=== PATIENT | male | born 1945 | race Caucasian/White ===

== ENCOUNTER 2021-04-14 11:22 | Outpatient (REF) | payer MEDICARE, BC, SELFPAY ==
[2021-04-14 13:55] LABS: Prothrombin Time 35.4 SEC (9.9-13.0)
== END 2021-04-14 11:23 | disposition home or self-care (01) ==
LOC: HO.HMGCLR 11:22
PROVIDERS: Visit Provider Internal Medicine Cardiovascular Disease
DX: Z86.718 Personal history of other venous thrombosis and embolism (principal); Z79.01 Long term (current) use of anticoagulants
CPT/HCPCS: 36415; 85610

== ENCOUNTER 2021-05-21 10:05 | Outpatient (REF) | payer MEDICARE, BC, SELFPAY | END 2021-05-21 10:06 | disposition home or self-care (01) | LOC: HO.HMGCLR 10:05 | PROVIDERS: Visit Provider Internal Medicine Cardiovascular Disease | DX: Z86.718 Personal history of other venous thrombosis and embolism (principal); Z79.01 Long term (current) use of anticoagulants | CPT/HCPCS: 36415; 85610 ==

== ENCOUNTER 2021-07-02 11:38 | Outpatient (REF) | payer MEDICARE, BC, SELFPAY ==
[2021-07-02 14:12] LABS: INTERNATIONAL NORM RATIO 3.3 (0.9-1.1); Prothrombin Time 38.8 SEC (9.9-13.0)
== END 2021-07-02 11:39 | disposition home or self-care (01) ==
LOC: HO.HMGCLDS 11:38
PROVIDERS: Visit Provider Internal Medicine Cardiovascular Disease
DX: Z86.718 Personal history of other venous thrombosis and embolism (principal); Z79.01 Long term (current) use of anticoagulants
CPT/HCPCS: 36415; 85610

== ENCOUNTER 2021-08-13 08:28 | Outpatient (REF) | payer MEDICARE, BC, SELFPAY ==
[2021-08-13 11:33] LABS: INTERNATIONAL NORM RATIO 2.8 (0.9-1.1); Prothrombin Time 33.1 SEC (9.9-13.0)
== END 2021-08-13 08:29 | disposition home or self-care (01) ==
LOC: HO.HMGCLR 08:28
PROVIDERS: Visit Provider Internal Medicine Cardiovascular Disease
DX: Z86.718 Personal history of other venous thrombosis and embolism (principal); Z79.01 Long term (current) use of anticoagulants
CPT/HCPCS: 36415; 85610

== ENCOUNTER 2021-09-14 07:36 | Outpatient (REF) | payer MEDICARE, BC, SELFPAY ==
[2021-09-14 12:05] LABS: INTERNATIONAL NORM RATIO 3.3 (0.9-1.1); Prothrombin Time 38.1 SEC (9.9-13.0)
== END 2021-09-14 07:37 | disposition home or self-care (01) ==
LOC: HO.HMGCLR 07:36
PROVIDERS: Visit Provider Internal Medicine Cardiovascular Disease
DX: Z86.718 Personal history of other venous thrombosis and embolism (principal); Z79.01 Long term (current) use of anticoagulants
CPT/HCPCS: 36415; 85610

== ENCOUNTER 2021-09-17 08:38 | Outpatient (REF) | payer MEDICARE, BC, SELFPAY ==
[2021-09-17 11:34] LABS: INTERNATIONAL NORM RATIO 2.7 (0.9-1.1); Prothrombin Time 31.8 SEC (9.9-13.0)
== END 2021-09-17 08:39 | disposition home or self-care (01) ==
LOC: HO.HMGCLR 08:38
PROVIDERS: Visit Provider Internal Medicine Cardiovascular Disease
DX: Z86.718 Personal history of other venous thrombosis and embolism (principal); Z79.01 Long term (current) use of anticoagulants
CPT/HCPCS: 36415; 85610

== ENCOUNTER 2021-10-30 11:05 | Outpatient (REF) | payer MEDICARE, BC, SELFPAY ==
[2021-10-30 15:32] LABS: INTERNATIONAL NORM RATIO 3.4 (0.9-1.1); Prothrombin Time 39.4 SEC (9.9-13.0)
== END 2021-10-30 11:06 | disposition home or self-care (01) ==
LOC: HO.HMGCLDS 11:05
PROVIDERS: Visit Provider Internal Medicine Cardiovascular Disease
DX: Z86.718 Personal history of other venous thrombosis and embolism (principal); Z79.01 Long term (current) use of anticoagulants
CPT/HCPCS: 36415; 85610

== ENCOUNTER 2021-12-16 09:12 | Outpatient (REF) | payer MEDICARE, BC, SELFPAY ==
[2021-12-16 11:38] LABS: INTERNATIONAL NORM RATIO 2.2 (0.9-1.1); Prothrombin Time 25.6 SEC (10.0-13.1)
== END 2021-12-16 09:13 | disposition home or self-care (01) ==
LOC: HO.LABR 09:12
PROVIDERS: Visit Provider Internal Medicine Cardiovascular Disease
DX: Z86.718 Personal history of other venous thrombosis and embolism (principal); Z79.01 Long term (current) use of anticoagulants
CPT/HCPCS: 36415; 85610

== ENCOUNTER 2022-03-26 07:47 | Outpatient (REF) | payer MEDICARE, BC, SELFPAY ==
[2022-03-26 11:31] LABS: Appearance Urine Clear; Color Urine Yellow; Glucose Urine UA Negative (Negative); Leukocyte Esterase Urine Negative (Negative); Nitrite Urine Negative (Negative); PH 6.5 (5.0-9.0); Urine Blood Negative (Negative); Urine Ketones Negative (Negative); Urine Protein Negative (Neg-Trace)
[2022-03-26 11:32] LABS: MANUAL DIFF FLAG NO
[2022-03-26 11:46] LABS: Basophils Absolute Auto 0.1 X10*3/uL (0.0-0.2); Eosinophils Absolute Auto 0.5 X10*3/uL (0.0-0.4); Eosinophils Percent Auto 7.2 % (0-4); Imm Gran Abs Auto 0.02 X10*3/uL (0.00-0.03); Imm Gran Pct Auto 0.3 % (0.0-0.4); Lymphocytes Absolute Auto 2.2 X10*3/uL (1.2-4.9); Lymphocytes Percent Auto 30.7 % (20-40); Mean Corpuscular HGB Conc 31.9 g/dl (31.0-36.0); Mean Corpuscular Hemoglobin 29.7 pg (27.0-33.0); Mean Corpuscular Volume 93.1 fL (80.0-98.0); Mean Platelet Volume 11.2 fL (9.4-12.4); Monocytes Absolute Auto 0.6 X10*3/uL (0.1-1.2); Monocytes Percent Auto 8.4 % (2-11); Neutrophils Absolute Auto 3.8 x10*3/uL (2.0-8.3); Neutrophils Percent Auto 52.4 % (45-73); Platelet Count 289 X10*3/uL (160-400); Red Blood Count 5.05 X10*6/uL (4.60-5.80); Red Cell Distribution Width 13.1 % (11.0-16.0); White Blood Count 7.2 X10*3/uL (4.8-10.8)
[2022-03-26 11:54] LABS: Alanine Aminotransferase 18 U/L (0-40); Albumin Level 4.3 g/dL (3.5-5.0); Alkaline Phosphatase 74 U/L (39-117); Anion Gap 15 (12-20); Aspartate Amino Transferase 16 U/L (5-37); Bilirubin Total 0.6 mg/dL (0.0-1.0); Blood Urea Nitrogen 22 mg/dL (9-16); Calcium 9.2 mg/dL (8.4-10.2); Carbon Dioxide 27 mmol/L (22-29); Chloride 103 mmol/L (96-108); Cholesterol 157 mg/dL; Estimated Glomerular Filt Rate > 60; Glucose Fasting 99 mg/dL (60-99); HDL Cholesterol 43 mg/dL; LDL Cholesterol Calculated 93 mg/dl; Potassium 4.7 mmol/L (3.3-5.1); Sodium 140 mmol/L (135-145); Total Protein 7.1 g/dL (6.5-8.0); Triglycerides 108 mg/dL
[2022-03-26 11:59] LABS: INTERNATIONAL NORM RATIO 3.2 (0.9-1.1); Prothrombin Time 38.1 SEC (10.0-13.1)
[2022-03-26 12:20] LABS: Prostate Specific Antigen Scr 3.94 ng/mL (<0.05-4.0)
== END 2022-03-26 07:48 | disposition home or self-care (01) ==
LOC: HO.HMGCLDS 07:47
PROVIDERS: PCP Nurse Practitioner Family; Visit Provider Nurse Practitioner Family
DX: Z12.5 Encounter for screening for malignant neoplasm of prostate (principal); E78.5 Hyperlipidemia, unspecified; Z86.718 Personal history of other venous thrombosis and embolism
CPT/HCPCS: 36415; 80053; 80061; 81003; 84153; 84443; 85025; 85610

== ENCOUNTER → 2022-04-01 09:58 | Outpatient (BNVA) | payer MEDICARE, BC, SELFPAY | PROVIDERS: PCP Nurse Practitioner Family; Visit Provider Internal Medicine | DX: Z86.718 Personal history of other venous thrombosis and embolism (principal); Z51.81 Encounter for therapeutic drug level monitoring; Z79.01 Long term (current) use of anticoagulants | CPT/HCPCS: 85610 ==

== ENCOUNTER → 2022-04-12 10:29 | Outpatient (BNVA) | payer MEDICARE, BC, SELFPAY | PROVIDERS: PCP Nurse Practitioner Family; Visit Provider Internal Medicine | DX: Z86.718 Personal history of other venous thrombosis and embolism (principal); Z79.01 Long term (current) use of anticoagulants; Z51.81 Encounter for therapeutic drug level monitoring | CPT/HCPCS: 85610; 99211 ==

== ENCOUNTER → 2022-04-26 10:30 | Outpatient (BNVA) | payer MEDICARE, BC, SELFPAY | PROVIDERS: PCP Nurse Practitioner Family; Visit Provider Internal Medicine | DX: Z86.718 Personal history of other venous thrombosis and embolism (principal); Z79.01 Long term (current) use of anticoagulants; Z51.81 Encounter for therapeutic drug level monitoring | CPT/HCPCS: 85610; 99211 ==

== ENCOUNTER → 2022-05-24 10:23 | Outpatient (BNVA) | payer MEDICARE, BC, SELFPAY | PROVIDERS: PCP Nurse Practitioner Family; Visit Provider Internal Medicine | DX: Z86.718 Personal history of other venous thrombosis and embolism (principal); Z79.01 Long term (current) use of anticoagulants; Z51.81 Encounter for therapeutic drug level monitoring | CPT/HCPCS: 85610; 99211 ==

== ENCOUNTER → 2022-06-07 10:20 | Outpatient (BNVA) | payer MEDICARE, BC, SELFPAY | PROVIDERS: PCP Nurse Practitioner Family; Visit Provider Internal Medicine | DX: Z86.718 Personal history of other venous thrombosis and embolism (principal); Z79.01 Long term (current) use of anticoagulants; Z51.81 Encounter for therapeutic drug level monitoring | CPT/HCPCS: 85610; 99211 ==

== ENCOUNTER → 2022-06-28 10:34 | Outpatient (BNVA) | payer MEDICARE, BC, SELFPAY | PROVIDERS: PCP Nurse Practitioner Family; Visit Provider Internal Medicine | DX: Z86.718 Personal history of other venous thrombosis and embolism (principal); Z79.01 Long term (current) use of anticoagulants; Z51.81 Encounter for therapeutic drug level monitoring | CPT/HCPCS: 85610; 99211 ==

== ENCOUNTER → 2022-07-21 10:20 | Outpatient (BNVA) | payer MEDICARE, BC, SELFPAY | PROVIDERS: PCP Nurse Practitioner Family; Visit Provider Internal Medicine | DX: Z86.718 Personal history of other venous thrombosis and embolism (principal); Z79.01 Long term (current) use of anticoagulants; Z51.81 Encounter for therapeutic drug level monitoring | CPT/HCPCS: 85610; 99211 ==

== ENCOUNTER → 2022-07-30 10:34 | Outpatient (BNVA) | payer MEDICARE, BC, SELFPAY | PROVIDERS: PCP Nurse Practitioner Family; Visit Provider Nurse Practitioner Family | DX: C61 Malignant neoplasm of prostate (principal); R97.21 Rising PSA following treatment for malignant neoplasm of prostate; Z90.79 Acquired absence of other genital organ(s); Z92.3 Personal history of irradiation; Z79.01 Long term (current) use of anticoagulants | CPT/HCPCS: 99212 ==

== ENCOUNTER → 2022-08-18 10:13 | Outpatient (BNVA) | payer MEDICARE, BC, SELFPAY | PROVIDERS: PCP Nurse Practitioner Family; Visit Provider Internal Medicine | DX: Z86.718 Personal history of other venous thrombosis and embolism (principal); Z79.01 Long term (current) use of anticoagulants; Z51.81 Encounter for therapeutic drug level monitoring | CPT/HCPCS: 85610; 99211 ==

== ENCOUNTER 2022-08-20 09:28 | Outpatient (REF) | payer MEDICARE, BC, SELFPAY ==
--- NOTE | ~2022-08-20 | XR_ITS ---
EXAMINATION: XR CHEST CLINICAL INFORMATION: Difficulty breathing COMPARISON: None available. TECHNIQUE: 2 views of the chest were obtained. FINDINGS: There is marked elevation of the left hemidiaphragm. There are dilated loops of bowel, probably colon seen under the left hemidiaphragm with possible air-fluid levels . There is shift of the central mediastinal structures to the right. There is linear scarring at the left lung apex. The right lung is clear. There is a small left pleural effusion. There is no right pleural effusion. There is no pneumothorax. There are degenerative changes of the spine. There is a left shoulder replacement. XR/XR chest 2V IMPRESSION: Abnormal chest x-ray. Marked elevation of the left hemidiaphragm and shift the central mediastinal structures to the right Differential would include eventration of the left hemidiaphragm and diaphragmatic hernia. Dilated loops of large bowel under the left hemidiaphragm with air-fluid levels. Large bowel ileus and obstruction should be considered. Small left pleural effusion. Scarring or atelectasis at the left lung apex.
[2022-08-20 11:30] LABS: MANUAL DIFF FLAG NO
[2022-08-20 11:52] LABS: Basophils Absolute Auto 0.1 X10*3/uL (0.0-0.2); Eosinophils Absolute Auto 0.3 X10*3/uL (0.0-0.4); Eosinophils Percent Auto 5.5 % (0-4); Hematocrit 45.6 % (42.0-52.0); Hemoglobin 14.9 g/dl (14.0-18.0); Imm Gran Abs Auto 0.02 X10*3/uL (0.00-0.03); Imm Gran Pct Auto 0.3 % (0.0-0.4); Lymphocytes Absolute Auto 1.5 X10*3/uL (1.2-4.9); Lymphocytes Percent Auto 25.4 % (20-40); Mean Corpuscular HGB Conc 32.7 g/dl (31.0-36.0); Mean Corpuscular Hemoglobin 30.1 pg (27.0-33.0); Mean Corpuscular Volume 92.1 fL (80.0-98.0); Monocytes Absolute Auto 0.5 X10*3/uL (0.1-1.2); Monocytes Percent Auto 8.3 % (2-11); Neutrophils Absolute Auto 3.6 x10*3/uL (2.0-8.3); Neutrophils Percent Auto 59.5 % (45-73); Platelet Count 269 X10*3/uL (160-400); Red Blood Count 4.95 X10*6/uL (4.60-5.80); Red Cell Distribution Width 12.8 % (11.0-16.0)
[2022-08-20 11:53] LABS: Appearance Urine Clear; Color Urine Yellow; Glucose Urine UA Negative (Negative); Leukocyte Esterase Urine Negative (Negative); Nitrite Urine Negative (Negative); Specific Gravity - Urine 1.015 (1.005-1.025); Urine Blood Negative (Negative); Urine Ketones Negative (Negative); Urine Protein Negative (Neg-Trace)
[2022-08-20 12:22] LABS: Alanine Aminotransferase 20 U/L (0-40); Albumin Level 4.1 g/dL (3.5-5.0); Alkaline Phosphatase 73 U/L (39-117); Anion Gap 9 (12-20); Aspartate Amino Transferase 20 U/L (5-37); Bilirubin Total 0.8 mg/dL (0.0-1.0); Blood Urea Nitrogen 18 mg/dL (9-16); Calcium 8.9 mg/dL (8.4-10.2); Carbon Dioxide 29 mmol/L (22-29); Chloride 106 mmol/L (96-108); Estimated Glomerular Filt Rate > 60; Glucose Fasting 104 mg/dL (60-99); Potassium 4.2 mmol/L (3.3-5.1); Sodium 140 mmol/L (135-145); Total Protein 6.7 g/dL (6.5-8.0)
[2022-08-20 12:40] LABS: TSH reflex Free T4 2.31 uIU/mL (0.32-4.0)
== END 2022-08-20 09:29 | disposition home or self-care (01) ==
LOC: HO.HMGCX 09:28
PROVIDERS: PCP Nurse Practitioner Family; Visit Provider Nurse Practitioner Family
DX: Z13.89 Encounter for screening for other disorder (principal)
CPT/HCPCS: 36415; 71046; 80053; 81003; 84443; 85025

== ENCOUNTER 2022-08-20 14:43 | Emergency (ER) | payer MEDICARE, BC, SELFPAY ==
--- NOTE | ~2022-08-20 | CT_ITS ---
EXAMINATION: CT ABDOMEN AND PELVIS WITH CONTRAST CLINICAL INFORMATION: Concern for bowel obstruction on chest x-ray COMPARISON: Chest x-ray from earlier the same day TECHNIQUE: Multidetector volumetric images were obtained from the superior aspect of the liver through the pubic symphysis following administration 85 mL of Omnipaque 350 intravenous contrast. Sagittal and coronal reformatted images were obtained on the technologist's workstation. Oral contrast: Yes This CT examination was performed using dose optimization techniques as appropriate, variously including the following: *Automated exposure control *Adjustment of mA and/or kV according to patient size (this includes techniques or standardized protocols for targeted exams where dose is matched to indication/reason for exam; i.e. extremities or head) *Use of iterative reconstruction technique DLP: 657 mGy-cm FINDINGS: LUNG BASES: Subsegmental atelectasis at the left lung base. Marked elevation of the left hemidiaphragm with stomach, tail of pancreas and dilated stool-filled hepatic flexure in the left chest. There is shift of the central mediastinal structures to the right. Coronary artery and aortic valve calcification. LIVER, GALLBLADDER, AND BILIARY TREE: The liver is normal in size, shape, and attenuation. Small low-attenuation liver lesions probably representing cysts. Largest measures 1 cm in the dome of the liver. No other focal hepatic lesion or biliary ductal dilatation is present. Probable tiny gallstones. The gallbladder is otherwise normal. PANCREAS: Unremarkable. SPLEEN: Unremarkable. ADRENAL GLANDS: 1 cm left adrenal nodule. Hounsfield units following IV contrast measure 46. This is indeterminate. Normal right adrenal gland. KIDNEYS AND URETERS: The kidneys are normal in size, shape, and attenuation. Small nonobstructing stone in the upper pole of the left kidney. Probable bilateral peripelvic cysts. No hydronephrosis, hydroureter.. BLADDER: Abnormal slightly high attenuation soft tissue at the left base of the bladder near the UV J region. This area measures 1.3 x 1.8 cm. Appearance is worrisome for possible mass. GASTROINTESTINAL TRACT: There is stool throughout the colon suggestive of constipation. There is a marked eventration or elevation of the left hemidiaphragm with stomach and splenic flexure located in the left chest. This displaces the central mediastinal structures to the right. There are postsurgical changes of the proximal left colon. There is severe constipation. The distal transverse colon and splenic flexure are very dilated. There is caliber change of the colon in this region questionable for a stricture.. Small bowel is unremarkable. The appendix is normal. ABDOMINAL WALL: No significant hernia is appreciated. LYMPH NODES: Normal. VASCULAR: Atherosclerotic disease. No aneurysm. PELVIC VISCERA: Not seen. Question OSSEOUS STRUCTURES: Degenerative changes of the spine and mild scoliosis. CT/CT abdomen pelvis w IV con IMPRESSION: Markedly elevated left hemidiaphragm or eventration with stomach, tail of pancreas and splenic flexure in the left chest and deviation of the central mediastinal structures to the right. Constipation. Very dilated distal transverse colon and splenic flexure. Postsurgical changes to the proximal left colon. There is caliber change seen adjacent to the postsurgical changes questionable for a stricture. Abnormal wall thickening at the left base of the bladder question bladder mass. The prostate gland may have been removed. Small left renal stone. 1 cm indeterminate left adrenal nodule. If there is known history of malignancy, imaging follow-up for further characterization with dedicated adrenal CT or MRI with and without contrast would be recommended. If there is no history of known malignancy, no imaging follow-up would be recommended. Probable tiny gallstones. Small liver and bilateral renal cysts. No imaging follow-up recommended. Fleischner guidelines were followed.
--- NOTE | 2022-08-20 14:49 | ED_ITS ---
HPI - General Adult General Chief complaint: Recheck/Abnormal Lab/Rx <HECTOR Mitchell - Last Filed: 08/20/22 16:29> Stated complaint: quest bowel obstruction <HECTOR Mitchell - Last Filed: 08/20/22 16:29> Time Seen by Provider: 08/20/22 16:04 <HECTOR Mitchell - Last Filed: 08/20/22 16:29> Source: patient, family, RN notes reviewed and old records reviewed <Partha Flores - Last Filed: 08/20/22 16:56> Mode of arrival: ambulatory <Partha Flores - Last Filed: 08/20/22 16:56> Limitations: no limitations <Partha Mccormick Last Filed: 08/20/22 16:56> History of Present Illness HPI narrative: 77-year-old male with past medical history significant for prostate cancer, coronary artery disease, volvulus status post partial colectomy, dyslipidemia who presents for evaluation of an abnormal chest x-ray. Patient reports that he had a six-month follow-up visit 2 days ago with his primary doctor. The patient states that his primary doctor ascertain the patient had decreased breath sounds on the left. The patient reports that he has a history of ?increased intrathoracic pressure and my heart and lungs are pushed a little bit to the right side. He is unsure if this is anything to do with the primary doctor's physical exam findings The patient denies any fevers, chills, cough, shortness of breath or chest pain He was sent for a chest x-ray early this morning was told to come to the hospital for ?a possible volvulus or ileus. The patient denies any abdominal pain nausea vomiting, diarrhea, constipation. His last normal bowel movement was yesterday Patient reports that he had a large intestine volvulus 25 years ago leading to a partial colectomy. <Partha Mccormick Last Filed: 08/20/22 16:56> Related Data Home medications: Home Medications Medication Instructions Recorded Confirmed losartan 25 mg tablet 25 mg PO DAILY 03/25/22 06/28/22 simvastatin 40 mg tablet 40 mg PO DAILY 03/25/22 06/28/22 warfarin 5 mg tablet 5 mg PO DAILY 03/25/22 08/18/22 <HECTOR Mitchell - Last Filed: 08/20/22 16:29> Allergies/adverse reactions: Allergies Allergy/AdvReac Type Severity Reaction Status Date / Time ranitidine [From Zantac] Allergy Mild Rash Verified 08/18/22 11:34 <HECTOR Mitchell - Last Filed: 08/20/22 16:29> Review of Systems Constitutional: Constitutional: Reports as per HPI, Denies chills, Denies fatigue, Denies fever(s) and Denies headache(s) <Partha Flores - Last Filed: 08/20/22 16:56> ENT: Denies headache(s) <Partha Flores - Last Filed: 08/20/22 16:56> Cardiovascular: Cardiovascular: Denies chest pain and Denies dyspnea <Partha Flores - Last Filed: 08/20/22 16:56> Respiratory: Respiratory: Denies cough and Denies dyspnea <Partha Floers - Last Filed: 08/20/22 16:56> Gastrointestinal: Gastrointestinal: Denies abdominal pain, Denies constipation and Denies vomiting <Partha Flores - Last Filed: 08/20/22 16:56> Genitourinary: Genitourinary: Denies difficulty urinating and Denies dysuria <Partha Flores - Last Filed: 08/20/22 16:56> Neurologic: Denies headache(s) and Denies focal weakness <Partha Flores - Last Filed: 08/20/22 16:56> Endocrine: Endocrine: Denies fatigue <Partha Flores - Last Filed: 08/20/22 16:56> [facility] Past Medical History Medical History: Medical History (Updated 08/20/22 @ 16:55 by Partha Flores) Old anterior myocardial infarction <HECTOR Mitchell - Last Filed: 08/20/22 16:29> Surgical History: Surgical History (Updated 08/18/22 @ 13:16 by CRISTOFER Rodas-) H/O radical prostatectomy <HECTOR Mitchell - Last Filed: 08/20/22 16:29> Social History Social History: Social History Housing: Condominium Alcohol intake: current Alcohol intake frequency: a few times a month Patient Tobacco Use Status: Never used Tobacco Smoked in Last 30 Days: No e-Cigarette/Vaping Use: Never Used Second Hand Smoke Exposure: No Use of substances other than those prescribed or required for medical reasons: No Advance Directives: No Advance Directives Information Provided: Yes service: No Current occupational status: retired 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 Current occupational exposures/hazards: No Cognitive needs: No Hearing needs: No Vision needs: No <HECTOR Mitchell - Last Filed: 08/20/22 16:29> Physical Exam ED Vital Signs: Vital Signs - 24 hr 08/20/22 14:51 Temperature 98 F Pulse Rate 87 Respiratory Rate 18 Blood Pressure 133/67 Pulse Oximetry 98 Oxygen Delivery Method Room Air BMI result Body Mass Index 25.2 <HECTOR Mitchell - Last Filed: 08/20/22 16:29> Vital Signs - 24 hr 08/20/22 14:51 Temperature 98 F Pulse Rate 87 Respiratory Rate 18 Blood Pressure 133/67 Pulse Oximetry 98 Oxygen Delivery Method Room Air BMI result Body Mass Index 25.2 <Partha Flores - Last Filed: 08/20/22 16:56> Const General: healthy appearing, comfortable, no acute distress, alert and awake <Partha Flores - Last Filed: 08/20/22 16:56> Nutritional Appearance: well nourished <Partha Flores - Last Filed: 08/20/22 16:56> Orientation/consciousness: patient oriented x3 <Partha Flores - Last Filed: 08/20/22 16:56> HENMT Head: Yes normocephalic and Yes atraumatic <Partha Flores - Last Filed: 08/20/22 16:56> Throat: Yes posterior oropharynx normal <Partha Flores - Last Filed: 08/20/22 16:56> Eyes Eyelids: Yes eyelids normal <Partha Flores - Last Filed: 08/20/22 16:56> Conjunctivae: conjunctivae normal <Partha Flores - Last Filed: 08/20/22 16:56> Sclerae: sclerae normal <Partha Watts Last Filed: 08/20/22 16:56> Corneas: corneas normal <Partha OTommie - Last Filed: 08/20/22 16:56> Pupils: Equal, round and reactive pupils present <Partha ORoy - Last Filed: 16:56> EOM: EOMs intact bilaterally <Partha O Last Filed: 08/20/22 16:56> Neck Neck: Yes full ROM <Partha O Last Filed: 08/20/22 16:56> Resp Effort & Inspection: normal respiratory effort, able to speak in complete sentences, no audible wheezes and not labored <Partha Last Filed: 08/20/22 16:56> Auscultation: clear to auscultation bilaterally <Partha Last Filed: 08/20/22 16:56> Cardio Rate: regular rate <Partha Last Filed: 08/20/22 16:56> Rhythm: regular rhythm <Partha Last Filed: 08/20/22 16:56> GI Inspection: No distended <Partha Last Filed: 08/20/22 16:56> Palpation (GI): Soft to palpation, not firm, nontender, no guarding and not rigid <Partha Last Filed: 08/20/22 16:56> Auscultation: normoactive bowel sounds <Partha ORoy - Last Filed: 08/20/22 16:56> Skin General skin exam: no rashes or lesions noted and elasticity normal <Partha Last Filed: 08/20/22 16:56> Neuro General: patient oriented x3 <Partha O Last Filed: 08/20/22 16:56> Cranial nerves: Yes CN's II-XII intact bilaterally, Yes Equal, round and reactive pupils present and Yes Bilaterally intact EOM present <Partha OTommie - Last Filed: 08/20/22 16:56> Cognition (Neuro): normal cognition <Partha O Last Filed: 08/20/22 16:56> Extrem Other: Moving all extremities well without any obvious deformities <Partha Flores - Last Filed: 08/20/22 16:56> Course Course Course Narrative: RME performed by Danielle Morgan PA-C. Patient is a 77 year old assigned male at presenting to the emergency department with chest XR. Labs, imaging, and a swab ordered. Patient placed back in the waiting room pending room availability and results. <HECTOR Mitchell - Last Filed: 08/20/22 16:29> Reevaluation(s) Reevaluation #1: Patient's CT scan findings discussed with the patient including the dilated bowel loops. This is likely chronic for the patient given his history. I also mention the adrenal mass in the patient's bladder mass that were seen on CT scan. I did inform the patient that this could potentially be metastasis of his previous prostate cancer. He reports that he has a PET scan scheduled for this coming Tuesday which will further evaluate these incidental findings. <Partha Flores - Last Filed: 08/20/22 16:56> Time: 16:50 <Partha Flores - Last Filed: 08/20/22 16:56> Medications Administered Discontinued Medications Generic Name Dose Route Start Last Admin Trade Name Freq PRN Reason Stop Dose Admin Iohexol 100 ml 08/20/22 16:10 08/20/22 16:11 Iohexol 350 Mg/Ml 100 Ml Infus..Btl IV 08/20/22 16:11 85 ml ONCE ONE Administration <HECTOR Mitchell - Last Filed: 08/20/22 16:29> Medications Administered Discontinued Medications Generic Name Dose Route Start Last Admin Trade Name Freq PRN Reason Stop Dose Admin Iohexol 100 ml 08/20/22 16:10 08/20/22 16:11 Iohexol 350 Mg/Ml 100 Ml Infus..Btl IV 08/20/22 16:11 85 ml ONCE ONE Administration <Partha Flores - Last Filed: 08/20/22 16:56> Medical Decision Making Medical Decision Making MDM Narrative: I was able to review the patient's outpatient x-ray which shows ?marked elevation of the left hemidiaphragm and shift of the central mediastinal structures to the right. Dilated loops of large bowel under the left hemidiaphragm with air-fluid levels large bowel ileus and obstruction should be considered. These findings would appear consistent with the patient's reported medical history. He denies any signs or symptoms at this time. His labs reviewed without any significant abnormalities. A CT scan of the abdomen pelvis will be obtained to further evaluate these findings. <Partha PerlaCarsonTommie - Last Filed: 08/20/22 16:56> Differential Diagnosis Large bowel ileus Large bowel obstruction Left hemidiaphragm Constipation <Partha Flores - Last Filed: 08/20/22 16:56> Lab Data Result Diagrams: 08/20/22 15:19 08/20/22 15:19 <HECTOR Mitchell - Last Filed: 08/20/22 16:29> Labs: Lab Results 08/20/22 08/20/22 Range/Units 15:19 15:19 WBC 7.6 (4.8-10.8) X10*3/uL RBC 5.01 (4.60-5.80) X10*6/uL Hgb 14.9 (14.0-18.0) g/dl Hct 45.3 (42.0-52.0) % MCV 90.4 (80.0-98.0) fL MCH 29.7 (27.0-33.0) pg MCHC 32.9 (31.0-36.0) g/dl RDW 12.9 (11.0-16.0) % Plt Count 285 (160-400) X10*3/uL MPV 10.5 (9.4-12.4) fL Immature Gran % (Auto) 0.1 (0.0-0.4) % Neut % (Auto) 57.7 (45-73) % Lymph % (Auto) 27.0 (20-40) % [place] % (Auto) 10.3 (2-11) % Eos % (Auto) 4.0 (0-4) % Baso % (Auto) 0.9 (0-2) % Lymph # (Auto) 2.1 (1.2-4.9) X10*3/uL [place] # (Auto) 0.8 (0.1-1.2) X10*3/uL Eos # (Auto) 0.3 (0.0-0.4) X10*3/uL Baso # (Auto) 0.1 (0.0-0.2) X10*3/uL Abs Immat Gran (auto) 0.01 (0.00-0.03) X10*3/uL Absolute Neuts (auto) 4.4 (2.0-8.3) x10*3/uL Absolute Nucleated RBC 0.000 (0.0-0.012) X10*3/uL Nucleated RBC % (auto) 0.0 (0.0-0.2) /100WBC Sodium 141 (135-145) mmol/L Potassium 4.6 (3.3-5.1) mmol/L Chloride 107 (96-108) mmol/L Carbon Dioxide 26 (22-29) mmol/L Anion Gap 13 (12-20) BUN 22 H (9-16) mg/dL Creatinine 0.96 (0.5-1.4) mg/dL Estim Creat Clear Calc 68.4 Estimated GFR > 60 Random Glucose 92 (60-115) mg/dL Calcium 9.2 (8.4-10.2) mg/dL Magnesium 2.3 (1.6-2.6) mg/dL Total Bilirubin 0.6 (0.0-1.0) mg/dL AST 19 (5-37) U/L ALT 21 (0-40) U/L Alkaline Phosphatase 74 (39-117) U/L Total Protein 6.9 (6.5-8.0) g/dL Albumin 4.2 (3.5-5.0) g/dL <HECTOR Mitchell - Last Filed: 08/20/22 16:29> Lab Results 08/20/22 08/20/22 Range/Units 15:19 15:19 WBC 7.6 (4.8-10.8) X10*3/uL RBC 5.01 (4.60-5.80) X10*6/uL Hgb 14.9 (14.0-18.0) g/dl Hct 45.3 (42.0-52.0) % MCV 90.4 (80.0-98.0) fL MCH 29.7 (27.0-33.0) pg MCHC 32.9 (31.0-36.0) g/dl RDW 12.9 (11.0-16.0) % Plt Count 285 (160-400) X10*3/uL MPV 10.5 (9.4-12.4) fL Immature Gran % (Auto) 0.1 (0.0-0.4) % Neut % (Auto) 57.7 (45-73) % Lymph % (Auto) 27.0 (20-40) % [place] % (Auto) 10.3 (2-11) % Eos % (Auto) 4.0 (0-4) % Baso % (Auto) 0.9 (0-2) % Lymph # (Auto) 2.1 (1.2-4.9) X10*3/uL [place] # (Auto) 0.8 (0.1-1.2) X10*3/uL Eos # (Auto) 0.3 (0.0-0.4) X10*3/uL Baso # (Auto) 0.1 (0.0-0.2) X10*3/uL Abs Immat Gran (auto) 0.01 (0.00-0.03) X10*3/uL Absolute Neuts (auto) 4.4 (2.0-8.3) x10*3/uL Absolute Nucleated RBC 0.000 (0.0-0.012) X10*3/uL Nucleated RBC % (auto) 0.0 (0.0-0.2) /100WBC Sodium 141 (135-145) mmol/L Potassium 4.6 (3.3-5.1) mmol/L Chloride 107 (96-108) mmol/L Carbon Dioxide 26 (22-29) mmol/L Anion Gap 13 (12-20) BUN 22 H (9-16) mg/dL Creatinine 0.96 (0.5-1.4) mg/dL Estim Creat Clear Calc 68.4 Estimated GFR > 60 Random Glucose 92 (60-115) mg/dL Calcium 9.2 (8.4-10.2) mg/dL Magnesium 2.3 (1.6-2.6) mg/dL Total Bilirubin 0.6 (0.0-1.0) mg/dL AST 19 (5-37) U/L ALT 21 (0-40) U/L Alkaline Phosphatase 74 (39-117) U/L Total Protein 6.9 (6.5-8.0) g/dL Albumin 4.2 (3.5-5.0) g/dL <Partha Flores - Last Filed: 08/20/22 16:56> Discharge Plan Discharge Clinical Impression: Abnormal chest x-ray <HECTOR Mitchell - Last Filed: 08/20/22 16:29> Patient Disposition: Home, Self-Care <HECTOR Mitchell - Last Filed: 08/20/22 16:29> Instructions: Computed Tomography Scan (ED) <HECTOR Mitchell - Last Filed: 08/20/22 16:29> Additional Instructions: Your CT scan showed some dilated colon and a possible stricture which is scar tissue. This is likely related to your previous surgery. If he develops severe abdominal pain or unable to pass gas or bowel movement, return to the emergency room. Otherwise follow-up with your primary doctor Your CT scan also showed incidental finding of a 1 cm left adrenal nodule as well as some thickening at the left base of the bladder. Both of these can be further evaluated with your PET scan that is scheduled for next week. <HECTOR Mitchell - Last Filed: 08/20/22 16:29> Prescriptions: No Action warfarin 5 mg tablet 5 mg PO DAILY Protocol: Dose Management Condition: Tuesday (Week One) Dose/Route: 5 mg Instruction: 1 x 5 mg tablet Condition: Tuesday Dose/Route: 2.5 mg Instruction: 0.5 x 5 mg tablets Condition: Tuesday Dose/Route: 5 mg Instruction: 1 x 5 mg tablet Condition: Tuesday Dose/Route: 5 mg Instruction: 1 x 5 mg tablet Condition: Dose/Route: 5 mg Instruction: 1 x 5 mg tablet Condition: Tuesday Dose/Route: 2.5 mg Instruction: 0.5 x 5 mg tablets Condition: Tuesday Dose/Route: 5 mg Instruction: 1 x 5 mg tablet Condition: Tuesday (Week Two) Dose/Route: 5 mg Instruction: 1 x 5 mg tablet Condition: Tuesday Dose/Route: 2.5 mg Instruction: 0.5 x 5 mg tablets Condition: Tuesday Dose/Route: 5 mg Instruction: 1 x 5 mg tablet Condition: Tuesday Dose/Route: 5 mg Instruction: 1 x 5 mg tablet Condition: Dose/Route: 5 mg Instruction: 1 x 5 mg tablet Condition: Tuesday Dose/Route: 2.5 mg Instruction: 0.5 x 5 mg tablets Condition: Tuesday Dose/Route: 5 mg Instruction: 1 x 5 mg tablet Protocol Text: Adjustment Start Date: Tuesday08/18/22 INR Value: 2.6 INR Date: 08/18/22 Recheck Date: 08/31/22 losartan 25 mg tablet 25 mg PO DAILY simvastatin 40 mg tablet 40 mg PO DAILY <HECTOR Mitchell - Last Filed: 08/20/22 16:29>
[2022-08-20 14:51] VITALS: BP 133/67; PULSE 87; RESP 18; TEMP 36.6; O2SAT 98; BMI 25.2
[2022-08-20 15:25] LABS: MANUAL DIFF FLAG NO
[2022-08-20 15:32] LABS: Basophils Absolute Auto 0.1 X10*3/uL (0.0-0.2); Basophils Percent Auto 0.9 % (0-2); Eosinophils Absolute Auto 0.3 X10*3/uL (0.0-0.4); Hematocrit 45.3 % (42.0-52.0); Hemoglobin 14.9 g/dl (14.0-18.0); Imm Gran Abs Auto 0.01 X10*3/uL (0.00-0.03); Imm Gran Pct Auto 0.1 % (0.0-0.4); Lymphocytes Absolute Auto 2.1 X10*3/uL (1.2-4.9); Mean Corpuscular HGB Conc 32.9 g/dl (31.0-36.0); Mean Corpuscular Hemoglobin 29.7 pg (27.0-33.0); Mean Corpuscular Volume 90.4 fL (80.0-98.0); Mean Platelet Volume 10.5 fL (9.4-12.4); Monocytes Absolute Auto 0.8 X10*3/uL (0.1-1.2); Monocytes Percent Auto 10.3 % (2-11); Neutrophils Absolute Auto 4.4 x10*3/uL (2.0-8.3); Neutrophils Percent Auto 57.7 % (45-73); Platelet Count 285 X10*3/uL (160-400); Red Blood Count 5.01 X10*6/uL (4.60-5.80); Red Cell Distribution Width 12.9 % (11.0-16.0); White Blood Count 7.6 X10*3/uL (4.8-10.8)
[2022-08-20 15:42] LABS: Alanine Aminotransferase 21 U/L (0-40); Albumin Level 4.2 g/dL (3.5-5.0); Alkaline Phosphatase 74 U/L (39-117); Anion Gap 13 (12-20); Aspartate Amino Transferase 19 U/L (5-37); Bilirubin Total 0.6 mg/dL (0.0-1.0); Blood Urea Nitrogen 22 mg/dL (9-16); Calcium 9.2 mg/dL (8.4-10.2); Carbon Dioxide 26 mmol/L (22-29); Chloride 107 mmol/L (96-108); Creatinine Clr Calc Pharmacy 68.4; Estimated Glomerular Filt Rate > 60; Glucose Random 92 mg/dL (60-115); Magnesium 2.3 mg/dL (1.6-2.6); Potassium 4.6 mmol/L (3.3-5.1); Sodium 141 mmol/L (135-145); Total Protein 6.9 g/dL (6.5-8.0)
[2022-08-20] MEDS: iohexoL 350 MG/ML 100 ML INFUS..BTL IV (16:11)
[2022-08-20 16:51] VITALS: BP 113/77; PULSE 75; RESP 16; TEMP 36.8; O2SAT 98
== END 2022-08-20 17:04 | disposition home or self-care (01) ==
PROVIDERS: Physician Assistant Medical; Emergency Provider Emergency Medicine; PCP Nurse Practitioner Family
DX: R06.02 Shortness of breath (principal); R90.89 Other abnormal findings on diagnostic imaging of central nervous system; R10.9 Unspecified abdominal pain; R79.89 Other specified abnormal findings of blood chemistry; R07.89 Other chest pain; Z79.899 Other long term (current) drug therapy
CPT/HCPCS: 36415; 71046; 74177; 80053; 81003; 83735; 84443; 85025; 99284; Q9967

== ENCOUNTER 2022-08-27 14:52 | Outpatient (REF) | payer MEDICARE, BC, SELFPAY ==
[2022-08-27 18:17] LABS: PSA,Total (Free>4and<10) 5.33 ng/mL (0.00-4.00)
[2022-08-31 10:03] LABS: Free Prostate Spec Ag 0.2 ng/mL; Percent Free Prostate Spec Ag 4 % (calc) (>25); Prostate Specific Ag Total 4.9 ng/mL (< OR = 4.0)
== END 2022-08-27 14:53 | disposition home or self-care (01) ==
LOC: HO.LAB 14:52
PROVIDERS: PCP Nurse Practitioner Family; Visit Provider Urology
DX: R97.21 Rising PSA following treatment for malignant neoplasm of prostate (principal); C61 Malignant neoplasm of prostate; Z12.5 Encounter for screening for malignant neoplasm of prostate
CPT/HCPCS: 36415; 84153; 84154; 99212

== ENCOUNTER → 2022-08-31 10:30 | Outpatient (BNVA) | payer MEDICARE, BC, SELFPAY | PROVIDERS: PCP Nurse Practitioner Family; Visit Provider Internal Medicine | DX: Z86.718 Personal history of other venous thrombosis and embolism (principal); Z79.01 Long term (current) use of anticoagulants; Z51.81 Encounter for therapeutic drug level monitoring | CPT/HCPCS: 85610; 99211 ==

== ENCOUNTER → 2022-09-28 10:42 | Outpatient (BNVA) | payer MEDICARE, BC, SELFPAY | PROVIDERS: PCP Nurse Practitioner Family; Visit Provider Internal Medicine | DX: Z86.718 Personal history of other venous thrombosis and embolism (principal); Z79.01 Long term (current) use of anticoagulants; Z51.81 Encounter for therapeutic drug level monitoring | CPT/HCPCS: 85610; 99211 ==

== ENCOUNTER → 2022-09-29 10:02 | Outpatient (BNVA) | payer MEDICARE, BC, SELFPAY | PROVIDERS: PCP Nurse Practitioner Family; Visit Provider Urology | DX: C61 Malignant neoplasm of prostate (principal); R39.15 Urgency of urination; R97.21 Rising PSA following treatment for malignant neoplasm of prostate; E11.69 Type 2 diabetes mellitus with other specified complication; N52.1 Erectile dysfunction due to diseases classified elsewhere; Z12.5 Encounter for screening for malignant neoplasm of prostate; Z90.79 Acquired absence of other genital organ(s); Z79.01 Long term (current) use of anticoagulants; Z79.899 Other long term (current) drug therapy | CPT/HCPCS: 36415; 82565; 84153; 84154; 84520; Q3014 ==

== ENCOUNTER 2022-09-29 14:03 | Outpatient (REF) | payer MEDICARE, BC, SELFPAY ==
[2022-09-29 18:03] LABS: Blood Urea Nitrogen 19 mg/dL (9-16); Estimated Glomerular Filt Rate > 60
[2022-10-04 12:13] LABS: Free Prostate Spec Ag 0.2 ng/mL; Percent Free Prostate Spec Ag 4 % (calc) (>25); Prostate Specific Ag Total 5.3 ng/mL (< OR = 4.0)
== END 2022-09-29 14:04 | disposition home or self-care (01) ==
LOC: HO.HMGCLDS 14:03
PROVIDERS: PCP Nurse Practitioner Family; Visit Provider Urology
DX: Z13.89 Encounter for screening for other disorder (principal)
CPT/HCPCS: 36415; 82565; 84153; 84154; 84520

== ENCOUNTER → 2022-10-26 13:05 | Outpatient (BNVA) | payer MEDICARE, BC, SELFPAY | PROVIDERS: PCP Nurse Practitioner Family; Visit Provider Internal Medicine | DX: Z86.718 Personal history of other venous thrombosis and embolism (principal); Z79.01 Long term (current) use of anticoagulants; Z51.81 Encounter for therapeutic drug level monitoring | CPT/HCPCS: 85610; 99211 ==

== ENCOUNTER → 2022-11-10 09:43 | Outpatient (BNVA) | payer MEDICARE, BC, SELFPAY | PROVIDERS: PCP Nurse Practitioner Family; Referring Provider Nurse Practitioner Family; Visit Provider Internal Medicine Cardiovascular Disease | DX: R06.09 Other forms of dyspnea (principal); R07.9 Chest pain, unspecified; I25.10 Atherosclerotic heart disease of native coronary artery without angina pectoris; I25.2 Old myocardial infarction; I10 Essential (primary) hypertension; E78.5 Hyperlipidemia, unspecified; Z86.718 Personal history of other venous thrombosis and embolism; Z79.01 Long term (current) use of anticoagulants | CPT/HCPCS: 93005; 99202 ==

== ENCOUNTER 2022-11-23 13:05 | Outpatient (AMB) | payer MEDICARE, BC, SELFPAY ==
[2022-11-23 13:17] LABS: Prothrombin Time Whole Bld POC 32.5 sec (11.1-13.5); ~PT, ~INR - Anti Coag Clinic 2.7 (0.9-1.1)
--- NOTE | 2022-11-23 13:22 | MHC.OFFVISCO ---
Intake Intake Visit Reasons: Anticoagulation Allergies ranitidine [From Zantac] Allergy (Mild, Verified 11/23/22 13:10) Rash Medication List - Last Reconciled 11/23/22 by Rocio Dubon RN dutasteride 0.5 mg PO DAILY 90 days leuprolide (3 month) (Lupron Depot) 22.5 mg IM [id number] losartan 25 mg PO DAILY simvastatin 40 mg PO DAILY warfarin 5 mg See Protocol PO DAILY Nursing Note INR: 2.7 in therapeutic range Medications and supplements reviewed No changes in health, diet, medications, or supplements, Denies any signs and symptoms of bleeding or bruising or clotting. Bleeding, bruising, clotting discussed Nutritional guidance given Dose: 2.5MG X 2 DAYS/ 5MG X 5 DAYS F/U INR: 1 MONTH Patient verbalizes understanding of instructions given Anti-Coag Initial Assessment Social Hx Patient Tobacco Use Status: Never used Tobacco alcohol intake: current Alcohol intake frequency: a few times a month Cardiovascular Hx: [place] ( silent many years ago) Endocrine Hx: Thyroid Disease (h/o hypo thyroid in his 20's no longer issue) Blood Disorder Hx: Hyperlipidemia GI Hx: Other (bowel reection 1994 for twisted colon) Hx: Prostate (2002 prostate ca, radical prostectomy) Cancer HX: Yes Psych. Illness/Depression: No Coding Level of Care Code Est Patient Level 1 Diagnoses Current use of anticoagulant therapy Z79.01 Assessment & Plan Assessment & Plan (1) Current use of anticoagulant therapy: Code(s): Z79.01 - halfway (current) use of anticoagulants Category: Medical
== END 2022-11-23 13:26 | disposition home or self-care (01) ==
LOC: HO.ACS 13:05
PROVIDERS: PCP Nurse Practitioner Family; Visit Provider Internal Medicine
DX: Z79.01 Long term (current) use of anticoagulants (principal)

== ENCOUNTER → 2022-11-23 13:05 | Outpatient (BNVA) | payer MEDICARE, BC, SELFPAY | PROVIDERS: PCP Nurse Practitioner Family; Visit Provider Internal Medicine | DX: Z86.718 Personal history of other venous thrombosis and embolism (principal); Z51.81 Encounter for therapeutic drug level monitoring; Z79.01 Long term (current) use of anticoagulants | CPT/HCPCS: 85610; 99211 ==

== ENCOUNTER 2022-12-28 13:03 | Outpatient (AMB) | payer MEDICARE, BC, SELFPAY ==
--- NOTE | 2022-12-28 13:16 | MHC.OFFVISCO ---
Intake Intake Visit Reasons: Anticoagulation Allergies ranitidine [From Zantac] Allergy (Mild, Verified 12/28/22 13:08) Rash Medication List - Last Reconciled 12/28/22 by Capri Olivier RN dutasteride 0.5 mg PO DAILY 90 days leuprolide (3 month) (Lupron Depot) 22.5 mg IM [id number] losartan 25 mg PO DAILY simvastatin 40 mg PO DAILY warfarin 5 mg See Protocol PO DAILY Nursing Note INR: 2.6- in therapeutic range Medications and supplements reviewed- no changes leuprolide injection every 3 months- next jan 2023, no interaction with warfarin per micromedex No changes in health, diet, medications, or supplements, Denies any signs and symptoms of bleeding or bruising or clotting. Bleeding, bruising, clotting discussed Nutritional guidance given Dose: 2.5mg x 2, 5mg x 5 F/U INR: req 5 weeks- same day as cardiology appt Patient verbalizes understanding of instructions given Anti-Coag Initial Assessment Social Hx Patient Tobacco Use Status: Never used Tobacco alcohol intake: current Alcohol intake frequency: a few times a month Cardiovascular Hx: [place] ( silent many years ago) Endocrine Hx: Thyroid Disease (h/o hypo thyroid in his 20's no longer issue) Blood Disorder Hx: Hyperlipidemia GI Hx: Other (bowel reection 1994 for twisted colon) Hx: Prostate (2002 prostate ca, radical prostectomy) Cancer HX: Yes Psych. 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
[2022-12-28 13:17] LABS: Prothrombin Time Whole Bld POC 30.9 sec (11.1-13.5); ~PT, ~INR - Anti Coag Clinic 2.6 (0.9-1.1)
== END 2022-12-28 13:23 | disposition home or self-care (01) ==
LOC: HO.ACS 13:03
PROVIDERS: PCP Nurse Practitioner Family; Visit Provider Internal Medicine
DX: Z79.01 Long term (current) use of anticoagulants (principal)

== ENCOUNTER → 2022-12-28 13:03 | Outpatient (BNVA) | payer MEDICARE, BC, SELFPAY | PROVIDERS: PCP Nurse Practitioner Family; Visit Provider Internal Medicine | DX: Z86.718 Personal history of other venous thrombosis and embolism (principal); Z79.01 Long term (current) use of anticoagulants; Z51.81 Encounter for therapeutic drug level monitoring | CPT/HCPCS: 85610; 99211 ==

== ENCOUNTER → 2023-01-20 07:42 | Outpatient (REF) | payer MEDICARE, BC, SELFPAY ==
--- NOTE | ~2023-01-20 | NM_ITS ---
Exercise Myocardial perfusion study Indication: Chest pain to evaluate for myocardial ischemia Technique: The patient was brought in for an exercise perfusion study on 01/20/2023. Patient performed exercise as per Rj protocol and was injected 30 mCi of sestamibi was given intravenously one target HR was achieved. Images were obtained using the SPECT gamma camera interlaced with the gating device. Images were obtained in supine position. Resting perfusion study was performed on 01/21/2023. Patient was administered 30 mCi of sestamibi intravenously at rest. Images were then obtained in supine position. Images obtained with and without CT attenuation. Total DLP 100 mGy-cm. Images were processed with the software and compared side to side in short axis, horizontal long axis and vertical long axis views. Findings: The stress perfusion study showed non attenuated images show absent uptake in the inferoapical and apical portion of the LV myocardium. Remainder of the LV myocardium is normally perfused. There is suggestion of left ventricle hypertrophy. Attenuation corrected images show mildly reduced uptake in the inferoapical wall of the LV myocardium. Remainder of the LV myocardium is normally perfused.. The gated study shows normal LV systolic function with calculated LVEF of greater than 70%. LV cavity is normal in size. The gated study shows normal systolic wall thickening and contraction of all segments. There is no transient ischemic dilation. Resting study shows no change in perfusion pattern compared to stress perfusion study. Gating at rest reveals normal systolic wall motion with ejection fraction at greater than 70%. The findings are consistent with no clear reversible defect. Fixed inferoapical defect appears to be artifactual. Likely normal myocardial perfusion. NM/NM radha perf SPECT rest & str Impression: 1. Likely normal myocardial perfusion 2. Gated LVEF is greater than 70% 3. Transient ischemic dilatation not present Stress EKG is negative for ischemia
--- NOTE | 2023-01-20 07:45 | CA_ITS ---
Transthoracic Echocardiogram Patient (Last, First, Middle): Brad Oscar E Gender: Male Date of : 1945 Age: 77 Procedure Date: 01/20/2023 Procedure Type: Transthoracic Echocardiogram Location: OP Height: 182.88 cm Weight: 83.92 kg BSA: 2.06 m2 Heart Rate: 70 bpm BP: 122 / 62 mmHg Braiding Operator: TO Referring MD: Nick Mccall MD Hot Roll Inspector: Nick Mccall MD Symptoms: R06.09 - Other forms of dyspnea Study Quality: Adequate ECG Rhythm: Sinus Conclusions: - 1. Normal LV ejection fraction at 60-65% with impaired relaxation filling pattern 2. Cardiac valvular Dopplers within normal limits with fibrocalcific aortic valve changes noted and moderate mitral annular calcification noted 3. No gross pericardial effusion Findings Left Ventricle Normal left ventricular size, thickness, and systolic function. The visually estimated ejection fraction is between 60-65%. Spectral Doppler is indicative of an impaired relaxation filling pattern. E/E prime ratio is between 8 and 15 consistent with indeterminate filling pressures. Right Ventricle Normal right ventricular cavity size and systolic function. Atria The left atrium is normal in size. There is no evidence of interatrial shunt. The right atrium is normal in size. Aortic Valve There is mild calcification of the aortic valve. There is no aortic valve stenosis. There is no aortic valve regurgitation. Mitral Valve There is mild anterior and moderate posterior mitral leaflet thickening. The posterior mitral leaflet has restricted mobility. There is mild anterior mitral annular calcification. There is moderate mitral annular calcification. There is trace mitral valve regurgitation. There is no mitral valve stenosis. Tricuspid Valve Likely normal tricuspid valve structure and function. Tricuspid regurgitation envelope is inadequate for calculation of right ventricular systolic pressure. Normal right atrial pressure. Great Vessels All visible segments of the aorta are normal in size. The pulmonary artery was not well visualized. Venous The inferior vena cava is normal in size and collapses greater than 50% with inspiration. Pericardium/Pleural There is no evidence of pericardial effusion. Prior Study Comparison No prior study available for comparison. Measurements 2D Linear Measurements IVSd: 1.10 0.6-0.9/0.6-1.0 cm LVIDd: 2.90 3.9-5.3/4.2-5.9 cm LVIDd Index: 1.41 2.4-3.2/2.2-3.1 cm/m2 LVIDs: 1.80 2.0-3.6 cm LVPWd: 1.00 0.7-1.1 cm LA Diam: 3.00 2.7-3.8/3.0-4.0 cm LAIDs Index: 1.46 1.5-2.3 cm/m2 LV Mass: 104.64 67-162/88-224 g LV Mass Index: 50.79 43-95/49-115 g/m2 LVOT Diam: 2.40 3.0+(-)1.3 cm Mitral Valve MV VTI: 0.38 MV Pk Enrico: 1.25 MV Mn Enrico: 0.75 MV Pk Grad: 6.00 MV Mn Grad: 3.00 MV Pk E: 0.75 MV PK A: 0.93 MV Decel Time: 270.00 E/A: 0.80 E'Medial: 4.57 E/E' Med: 16.30 PHT: 79.00 MVA PHT: 2.78 MVA Continuity: 2.39 [place]: 2.76 LVOT LVOT Pk Enrico: 0.79 LVOT Mn Enrico: 0.52 LVOT VTI: 0.20 LVOT Pk Grad: 3.00 LVOT Mn Grad: 1.00 LVOT Diam: 2.40 LVOT Area: 4.52 Diastolic Function MV Pk E: 0.75 MV Pk A: 0.93 E/A: 0.80 E'Medial: 4.57 E/E' Med: 16.30 Right Ventricle TAPSE (mm): 23.00 TVS' Enrico: 10.60 Tricuspid Valve RA Press: 3.00 Great Vessels Aorta Sinus of Valsalva: 3.70 2.0-3.5 cm Ao Asc: 3.60 2.1-3.4 cm Updated in Other Vendor System with Status of Final Nick Mccall MD electronically signed on 01/21/2023 12:12:10 PM with status of Final
--- NOTE | 2023-01-20 07:45 | CA_ITS ---
Acquisition Time: 2023-01-20 09:06:12 Total Exercise Time: 00:06:28 Test Indications: CHEST PAIN Medications: LOSARTAN SIMVASTATIN WARFARIN Protocol: AMBER Max HR: 126 BPM 89% of Pred: 141 BPM Max BP: 150/078 mmHG Max Work Load: 7.7 METS Exercise stress test exercise 6 mnin 28 sec of Amber protocol achieving 88% MPHR, with moderate SOB, no chest discomfort, without arrhthmias, with normotensive response to exericse, without EKG chnages. Nuclear images pending. Test reviewed with Dr. Mccall Referred By: Nick Mccall Overread By: ALDO VALDEZ
== END ==
LOC: HO.CARD 07:42
PROVIDERS: PCP Nurse Practitioner Family; Visit Provider Internal Medicine Cardiovascular Disease
DX: R07.9 Chest pain, unspecified (principal); R06.09 Other forms of dyspnea
CPT/HCPCS: 78452; 93017; 93306; A9500

== ENCOUNTER → 2023-01-20 07:45 | Outpatient (BNV) | payer MEDICARE, BC, SELFPAY | PROVIDERS: PCP Nurse Practitioner Family; Visit Provider Internal Medicine | DX: R07.9 Chest pain, unspecified (principal); I34.81 Nonrheumatic mitral (valve) annulus calcification | CPT/HCPCS: 78452; 93016; 93018; 93306 ==

== ENCOUNTER 2023-01-24 09:21 | Outpatient (REF) | payer MEDICARE, BC, SELFPAY ==
[2023-01-24 10:33] LABS: Alanine Aminotransferase 20 U/L (0-40); Alkaline Phosphatase 65 U/L (39-117); Anion Gap 11 (12-20); Aspartate Amino Transferase 17 U/L (5-37); Bilirubin Total 0.7 mg/dL (0.0-1.0); Blood Urea Nitrogen 21 mg/dL (9-16); Calcium 8.9 mg/dL (8.4-10.2); Carbon Dioxide 29 mmol/L (22-29); Chloride 107 mmol/L (96-108); Estimated Glomerular Filt Rate > 60; Glucose Random 104 mg/dL (60-115); Potassium 4.6 mmol/L (3.3-5.1); Sodium 142 mmol/L (135-145); Total Protein 6.7 g/dL (6.5-8.0)
[2023-01-24 10:54] LABS: Prostate Specific Antigen < 0.10 ng/mL (<0.05-4.0)
== END 2023-01-24 09:22 | disposition home or self-care (01) ==
LOC: HO.LAB 09:21
PROVIDERS: Visit Provider Internal Medicine
DX: Z12.5 Encounter for screening for malignant neoplasm of prostate (principal); C61 Malignant neoplasm of prostate
CPT/HCPCS: 36415; 80053; 84153

== ENCOUNTER 2023-01-31 11:26 | Outpatient (AMB) | payer MEDICARE, BC, SELFPAY ==
[2023-01-31 11:48] LABS: Prothrombin Time Whole Bld POC 28.7 sec (11.1-13.5); ~PT, ~INR - Anti Coag Clinic 2.4 (0.9-1.1)
--- NOTE | 2023-01-31 11:50 | MHC.OFFVISCO ---
Intake Intake Visit Reasons: Anticoagulation Allergies ranitidine [From Zantac] Allergy (Mild, Verified 01/31/23 11:42) Rash Medication List - Last Reconciled 01/31/23 by Analilia Workman RN leuprolide (3 month) (Lupron Depot) 22.5 mg IM [id number] losartan 25 mg PO DAILY simvastatin 40 mg PO DAILY warfarin 5 mg See Protocol PO DAILY Nursing Note Amb to [facility] feeling ok, scheduled today for cardiac follow up for echo done last week, to [place] tomorrow for prostate chemo injection Medications and supplements reviewed, pt sts has not been taking the Dutasteride for a couple months now (no warfarin interaction) No other changes in health, diet, medications, or supplements Denies any unusual signs and symptoms of bruising, bleeding Denies any new Chest pain, SOB, or clotting INR: 2.4 in therapeutic range Nutritional guidance given: balance greens and reds in diet Dose: continue usual dosing;2.5mg x 2 days and 5mg x 5 days F/U INR: pt req 3 weeks (vs 4) as wants to make sure he is ok after 2 week vacation to [facility] Patient verbalizes understanding of instructions given with accurate read back/ teach back of dosing Anti-Coag Initial Assessment Social Hx Patient Tobacco Use Status: Never used Tobacco alcohol intake: current Alcohol intake frequency: a few times a month Cardiovascular Hx: ME ( silent many years ago) Endocrine Hx: Thyroid Disease (h/o hypo thyroid in his 20's no longer issue) Blood Disorder Hx: Hyperlipidemia GI Hx: Other (bowel reection 1994 for twisted colon) Hx: Prostate (2002 prostate ca, radical prostectomy) Cancer HX: Yes Psych. Illness/Depression: No Coding Level of Care Code Est Patient Level 1 Diagnoses Current use of anticoagulant therapy Z79.01 Time Spent (min) 15 Assessment & Plan Assessment & Plan (1) Current use of anticoagulant therapy: Code(s): Z79.01 - detention (current) use of anticoagulants Category: Medical
== END 2023-01-31 11:56 | disposition home or self-care (01) ==
LOC: HO.ACS 11:26
PROVIDERS: PCP Nurse Practitioner Family; Visit Provider Internal Medicine
DX: Z79.01 Long term (current) use of anticoagulants (principal)

== ENCOUNTER → 2023-01-31 11:26 | Outpatient (BNVA) | payer MEDICARE, BC, SELFPAY | PROVIDERS: PCP Nurse Practitioner Family; Visit Provider Internal Medicine | DX: R94.31 Abnormal electrocardiogram [ECG] [EKG] (principal); R06.09 Other forms of dyspnea; R06.89 Other abnormalities of breathing; E78.5 Hyperlipidemia, unspecified; Z86.718 Personal history of other venous thrombosis and embolism; Z79.01 Long term (current) use of anticoagulants; Z51.81 Encounter for therapeutic drug level monitoring | CPT/HCPCS: 85610; 99211; 99212 ==

== ENCOUNTER 2023-01-31 12:39 | Outpatient (AMB) | payer MEDICARE, BC, SELFPAY ==
[2023-01-31 12:56] VITALS: BP 114/82; PULSE 74; BMI 25.6
--- NOTE | 2023-01-31 12:56 | A.OFFVIS_ITS ---
Intake Vital Signs 01/31/23 12:56 Height 6 ft Weight 188 lb 11.451 oz BMI 25.6 BP 114/82 Blood Pressure Location Lt brachial Position Sitting Pulse 74 Pulse Source Pulse Oximeter Intake Visit Reasons: f/up mibi/ echo NS Intake Note: f/up mibi/echo Hris Specialist Required: No Biomedical Engineering Technologist: Biomedical Engineering Technologist Present Accompanied by: Spouse Allergies ranitidine [From Zantac] Allergy (Mild, Verified 01/31/23 13:02) Rash Medication List - Last Reconciled 01/31/23 by Pushpa Torres NP-C leuprolide (3 month) (Lupron Depot) 22.5 mg IM [id number] losartan 25 mg PO DAILY simvastatin 40 mg PO DAILY warfarin 5 mg See Protocol PO DAILY HPI f/up mibi/ echo NS HPI Details Brad is a 77-year-old male with past medical history of prostate cancer, currently undergoing hormone therapy, DVT and on chronic anticoagulation, hyperlipidemia, abnormal finding on EKG who underwent cardiac evaluation including echocardiogram and nuclear stress test and now presents for follow-up. Today he reports that he has been feeling well overall. He denies any chest discomfort at rest or with activity. He says he does not feel short of breath though his who was present says he is a very heavy breather. No palpitations, presyncope, syncope, PND, orthopnea or edema. He tells me he walks approximately 2 miles most days including up pills which he says he tolerates well. He does need to rest at times and catch his breath which he believes to be normal. He takes his medications as directed. He [facility] with [place] [facility] [place] [facility]. No bleeding issues reported. He denies abdominal discomfort. [facility] Medical History Old anterior myocardial infarction Surgical History H/O radical prostatectomy Social History 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 Current occupational exposures/hazards: No Cognitive needs: No Hearing needs: No Vision needs: No Review of Systems Const All systems reviewed & are unremarkable except as noted in HPI and below ENT Denies dizziness Card Denies chest pain, Denies chest pain at rest, Denies chest pain with activity, Denies rapid heart rate, Denies pedal edema, Denies edema, Denies leg edema, Denies lightheadedness, Denies palpitations, Denies dyspnea, Denies dyspnea on exertion and Denies orthopnea Resp Details: heavy breathing per Denies cough, Denies dyspnea and Denies dyspnea on exertion GI Denies hematochezia and Denies change in stool character Musc Denies abnormal gait, Denies limited range of motion, Denies muscle cramps, Denies muscle weakness, Denies numbness, Denies radiating pain into limb, Denies stiffness and Denies tingling Neuro Denies abnormal gait, Denies dizziness, Denies numbness and Denies tingling Endo Denies palpitations Physical Exam Vital Signs: Last Vital Signs Pulse 74 01/31/23 12:56 BP 114/82 01/31/23 12:56 BMI result Body Mass Index 25.6 Const General: cooperative, healthy appearing, comfortable and no acute distress Orientation/consciousness: patient oriented x3 Neck Neck: Yes normal visual inspection Resp Other: Diminished lung sounds left lung field Effort & Inspection: normal respiratory effort Cardio Jugular venous distension: no JVD Rate: regular rate Rhythm: regular rhythm Heart sounds: S1 normal heart sound present, S2 normal heart sound present, no murmurs and no rubs GI Inspection: Yes normal to inspection Neuro General: patient oriented x3 Extrem General: Yes normal to inspection, No no pedal edema and No calf tenderness Psych Appearance: grossly normal Mental Status: mental status grossly normal Speech and movement: Normal speech and movement present Assessment & Plan Assessment & Plan (1) Abnormal finding on EKG: Code(s): R94.31 - Abnormal electrocardiogram [ECG] [EKG] Plan: Patient reports history of having abnormal finding on his EKG and was told that he may have had [place] in the past. Recently moved to this area, EKG done last visit here showing sinus rhythm with abnormal R-wave progression across the precordium suggesting possible prior [place]. He also has structural as seen on chest x-ray including markedly elevated left hemidiaphragm with shift of central mediastinal structures to the right. CT scan of the abdomen shows a portion of stomach, tail of pancreas and splenic flexure noted to be in the left chest. Patient was aware of these findings and reports that they are not new. This displacement may be the cause of his abnormal R-wave progression on EKG. An echocardiogram done 01/20/2023 shows EF 60-65%, impaired relaxation. nuclear stress test done 01/20/2023 shows exercise 6-1/2 minutes with moderate shortness of breath no EKG changes and normal myocardial perfusion imaging. Based on these 2 tests there is no evidence of prior [place]. Spent time reviewing this with patient in detail. Needs ongoing cardiac risk factor modification including good blood pressure and cholesterol control. He tells me these have been typically managed by his cashier clerk. Will give him refills at present. Signs and symptoms of angina reviewed. Will arrange for cardiology follow-up in 1 year, sooner if needed. (2) Exertional dyspnea: Code(s): R06.09 - Other forms of dyspnea Plan: reports patient has shortness of breath with activity, heavy breathing. Patient denies this symptom. He feels that his breathing is normal. His lung sounds are very diminished on the left which he says he has been told in the past. Chest x-ray finding as above. Will check with his PCP regarding plan of care for hip this structural abnormality. (3) Decreased lung sounds: Code(s): R06.89 - Other abnormalities of breathing (4) Hx of blood clots: Code(s): Z86.718 - Personal history of other venous thrombosis and embolism Plan: History of DVT and on Coumadin chronically. He follows with [place] [facility] [place]. Refills for his Coumadin will be done by his PCP. No bleeding issues have been reported (5) Dyslipidemia: Code(s): E78.5 - Hyperlipidemia, unspecified Plan: [place] LDL goal less than 100 and patient with no known history of diabetes or CAD. Labs done 2021 shows LDL 93. He is on simvastatin 40 mg daily which I will continue. (6) Current use of anticoagulant therapy: Code(s): Z79.01 - storage wharfage clerk (current) use of anticoagulants Medications: New losartan 25 mg PO DAILY 90 tabs 3RF simvastatin 40 mg PO DAILY 90 tabs 3RF Coding Level of Care Code Est Pt Level 4 (45170) Diagnoses Abnormal finding on EKG R94.31 Exertional dyspnea R06.09 Decreased lung sounds R06.89 Hx of blood clots Z86.718 Dyslipidemia E78.5 Current use of anticoagulant therapy Z79.01 Time Spent (min) 30
== END 2023-01-31 13:41 | disposition home or self-care (01) ==
PROVIDERS: PCP Nurse Practitioner Family; Referring Provider Nurse Practitioner Family; Visit Provider Nurse Practitioner Family
DX: R94.31 Abnormal electrocardiogram [ECG] [EKG] (principal); R06.09 Other forms of dyspnea; R06.89 Other abnormalities of breathing; Z86.718 Personal history of other venous thrombosis and embolism; E78.5 Hyperlipidemia, unspecified; Z79.01 Long term (current) use of anticoagulants
CPT/HCPCS: 99214

== ENCOUNTER 2023-02-11 08:51 | Outpatient (AMB) | payer MEDICARE, BC, SELFPAY ==
[2023-02-11 09:09] VITALS: BP 130/74; PULSE 93; O2SAT 95; BMI 25.6
--- NOTE | 2023-02-11 09:09 | A.OFFVIS_ITS ---
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 Patient had a radical prostatectomy in 2002 at [facility] for a prostate cancer and then was in [place] a in 2011 with increase in his PSA any received radiation to the operative bed at that time and then ultimately in March of 2022 another elevation in PSA prompted a PET scan done in August of 2022 which I reviewed showing a focal area in the left bladder with an SUV of 20 consistent with recurrence. Since that time he has had an abdominal CT scan also in August of 2022 which showed a significantly elevated left hemidiaphragm with left lower lobe atelectasis and a dilated probably transverse colon. Of note he did does have a history of volvulus and had surgery for that in [place] where he tells me 15 cm of colon were removed. There was also evidence of significant constipation on the abdominal CT. He did have a nuclear stress test done on 01/21/2023 which showed no reversible defects normal perfusion and an EF of 70%. An echocardiogram was also done the day prior to that showing an EF 60- 65% and essentially normal valves. He is quite active but does notice that with activity he is getting more short of breath than he would have before. He is fairly well compensated though it seems at this time. He tells me has a bowel movement about once every 48 hours. His last colonoscopy was done also in [place] in 2017 he thinks. He denies chest pain cough or hemoptysis. He denies any unintentional weight loss. He does not take any stool softeners and tries to manage his constipation with dietary changes such as high amounts of roughage. Other than above, 12 point review of systems was done and documented separately in the office chart with detailed social and family history. [facility] Medical History Prostate cancer (~2002) Rising PSA following treatment for malignant neoplasm of prostate (~2012) CAD (coronary artery disease) Old anterior myocardial infarction History of deep vein thrombosis Current use of anticoagulant therapy Dyslipidemia Surgical History History of partial colectomy History of radical prostatectomy (~2002) [facility] Alcohol intake: current Alcohol intake frequency: a few times a month Patient Tobacco Use Status: Never used Tobacco e-Cigarette/Vaping Use: Never Used Second Hand Smoke Exposure: No service: No Current occupational status: retired 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 Neck: No thyromegaly, supple, no JVD Lymph: No cervical, supraclavicular, or other lymphadenopathy Chest: No chest wall abnormalities or deformities Heart: Regular rate and rhythm Lungs: Clear to auscultation bilaterally; no breath sounds heard on the left side up about 3[address] the chest. Abdomen: Soft, nontender, normal bowel sounds Extremities: No edema, cyanosis, or clubbing. Full range of motion Neuro: Grossly intact, alert and oriented x3, and nonfocal Skin: Warm and dry no rashes Affect: Normal Assessment & Plan Assessment & Plan (1) Diaphragmatic disorder: Comment: (Marked elevation of left hemidiaphragm with stomach, tail of pancreas and dilated hepatic flexure in left chest - 08/20/[address]) Code(s): J98.6 - Disorders of diaphragm Plan: I had a long discussion with him and his about the findings on his abdominal CT scan as described in the HPI. We discussed paralyzed diaphragms and how this functionally affects breathing. In this setting we also discussed the likelihood of significant constipation causing a dilated transverse colon which is the majority of what is up in the chest on the left side. His diaphragm on the CT scan actually goes up above the level of the arch of the aorta. We also discussed his apparent constipation in dilated colon. With that in mind I will plan on referring him for an evaluation by GI at [place]. In order to further evaluate the diaphragm we will also get a sniff test and pulmonary function testing. We certainly would need to do something about his constipation prior to surgery but I think it is likely that he will need a Davinci left diaphragm plication so we discussed this including the risks benefits and alternatives. After this initial evaluation he will follow-up with me at the [facility] office in about 3 weeks. Of note he is on Coumadin and is going on a cruise in early March so any surgery would probably be after that. All questions were answered. (2) Mass of bladder: Comment: (1.8 x 1.3cm mass between bladder and urethra posteriorly to left - suspicious for prostate cancer noted on MRI, no fdg on PET) Code(s): N32.89 - Other specified disorders of bladder Plan: He is on androgen blocking medication for that as the treatment. His surgeon at [facility] is the 1 managing this and his who sent him to a thoracic surgeon for evaluation of his diaphragm. 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
== END 2023-02-11 09:39 | disposition home or self-care (01) ==
PROVIDERS: PCP Nurse Practitioner Family; Visit Provider Surgery
DX: J98.6 Disorders of diaphragm (principal); N32.89 Other specified disorders of bladder; Z79.01 Long term (current) use of anticoagulants; A00-B99 Certain infectious and parasitic diseases; R06.89 Other abnormalities of breathing

== ENCOUNTER → 2023-02-11 08:51 | Outpatient (BNVA) | payer MEDICARE, BC, SELFPAY | PROVIDERS: PCP Nurse Practitioner Family; Visit Provider Surgery | DX: J98.6 Disorders of diaphragm (principal); N32.89 Other specified disorders of bladder; R06.89 Other abnormalities of breathing; A00-B99 Certain infectious and parasitic diseases; Z79.01 Long term (current) use of anticoagulants | CPT/HCPCS: 99202 ==

== ENCOUNTER 2023-02-15 11:15 | Outpatient (AMB) | payer MEDICARE, BC, SELFPAY ==
[2023-02-15 11:38] VITALS: BP 110/78; PULSE 72; O2SAT 95; BMI 25.7
--- NOTE | 2023-02-15 11:38 | A.OFFPC_ITS ---
Vital Signs 02/15/23 11:38 Height 6 ft Weight 189 lb 6 oz BMI 25.7 BP 110/78 Blood Pressure Location Rt brachial Position Sitting Pulse 72 Pulse Source Pulse Oximeter Pulse Oximetry (%) 95 Oxygen Delivery Method Room Air Intake Visit Reasons: 6 month Follow up CAD Allergies ranitidine [From Zantac] Allergy (Mild, Verified 02/15/23 11:40) Rash Medication List - Last Reconciled 02/15/23 by CRISTOFER Rodas- leuprolide (3 month) (Lupron Depot) 22.5 mg IM [id number] losartan 25 mg PO DAILY simvastatin 40 mg PO DAILY warfarin 5 mg See Protocol PO DAILY Tobacco use date assessed: 02/15/23 Fall risk assessment: No Falls in past year Last assessed Fall Risk: 02/15/23 Dental Screening Dental Screen Date: 02/15/23 Did you have a dental visit in the last 12 months?: No Did you have a dental problem in the last 6 months where you did not have access to dental care?: No Was dental information given to patient?: No HPI 6 month Follow up CAD HPI Details Dyslipidemia: On simvastatin 40mg. Will increase simvastatin from 40mg to 80mg. Will repeat labs. Pt follows up with cardiology due to CAD. Denies chest pain, shortness of breath, and dizziness. Pt reports walking daily. [facility] Medical History Prostate cancer (~2002) Rising PSA following treatment for malignant neoplasm of prostate (~2012) CAD (coronary artery disease) Old anterior myocardial infarction History of deep vein thrombosis Current use of anticoagulant therapy Dyslipidemia Surgical History History of partial colectomy History of radical prostatectomy (~2002) Social History Housing: Condominium Alcohol intake: current Alcohol intake frequency: a few times a month Patient Tobacco Use Status: Never used Tobacco e-Cigarette/Vaping Use: Never Used Second Hand Smoke Exposure: No service: No Current occupational status: retired 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 Jonathan Decker, Camille Loera, Dejon Pettit and colleagues, with an educational humphrey from [employer]. Review of Systems Const Reports as per HPI Physical exam (Primary Care) Vital Signs: Last Vital Signs Pulse 72 02/15/23 11:38 BP 110/78 02/15/23 11:38 Pulse Ox 95 02/15/23 11:38 Oxygen Delivery Method Room Air 02/15/23 11:38 BMI result Body Mass Index 25.7 Tobacco/Smoking Status: Tobacco use Status Tobacco use date assessed 02/15/23 02/15/23 11:43 Patient Tobacco Use Status Never used Tobacco 02/15/23 11:43 e-Cigarette/Vaping Use Never Used 02/15/23 11:43 Thrive Assessment: Date of Thrive Assessment Date Thrive assessed 03/25/22 02/15/23 11:43 Const General: cooperative Orientation/consciousness: patient oriented x3 Resp Other: clear, right base slightly dim Cardio Rate: regular rate Rhythm: regular rhythm Heart sounds: S1 normal heart sound present and S2 normal heart sound present Neuro General: patient oriented x3 Extrem Other: trace edema to BLE. Right lower extremity: edema (trace) Left lower extremity: edema (trace) Psych Appearance: grossly normal Mental Status: mental status grossly normal Speech and movement: Normal speech and movement present Affect: normal affect Attitude: cooperative Thought process: Normal thought process present Thought content: Normal thought content present Insight: Good insight present (Psych) Judgement: Good judgement present (Psych) Assessment and Plan Assessment & Plan (1) Dyslipidemia: Code(s): E78.5 - Hyperlipidemia, unspecified Plan: Labs ordered, increased statin from 40mg to 80mg Plan The patient agreed to the use of a pesticide use medical coordinator for this encounter. Scribed for ANTONIO Raphael by Halima Silver pesticide use medical coordinator, on 02/15/2023 at 12:00 EST Orders: Orders Complete Blood Count Auto Diff Today E78.5 - Hyperlipidemia, unspecified Comprehensive Baring. Panel Fast Today E78.5 - Hyperlipidemia, unspecified TSH reflex Free T4 Today E78.5 - Hyperlipidemia, unspecified UA CC w/rflx Micro + Cult Today E78.5 - Hyperlipidemia, unspecified Lipid Panel Today E78.5 - Hyperlipidemia, unspecified Referrals Dermatology Referral L98.9 - Disorder of the skin and subcutaneous tissue, unspecified Medications: Changed From simvastatin 40 mg PO DAILY 90 tabs 3RF To simvastatin 80 mg PO DAILY 90 tabs 1RF Coding Level of Care Code Est Pt Level 3 (60579) Diagnoses Dyslipidemia E78.5
== END 2023-02-15 12:23 | disposition home or self-care (01) ==
PROVIDERS: Visit Provider Nurse Practitioner Family
DX: E78.5 Hyperlipidemia, unspecified (principal)
CPT/HCPCS: 99213

== ENCOUNTER 2023-02-21 11:42 | Outpatient (AMB) | payer MEDICARE, BC, SELFPAY ==
--- NOTE | 2023-02-21 13:13 | MHC.OFFWIV ---
Intake Vital Signs 02/21/23 13:17 Weight 189 lb BP 130/80 Blood Pressure Location Rt brachial Position Sitting Pulse 73 Pulse Source Pulse Oximeter Pulse Oximetry (%) 97 Oxygen Delivery Method Room Air Intake Visit Reasons: EST/sore middle of back (lobby) Intake Note: Patient here for a sore on his back which has been present for about 1 week. Patient Tobacco Use Status: Never used Tobacco Allergies ranitidine [From Zantac] Allergy (Mild, Verified 02/21/23 13:18) Rash Do you need a note to return to daycare/school/sports/work: No HPI HPI Comments History of Present Illness Details 77-year-old male presents to the office for a sick visit. Patient has developed a rash on his back that he would like examined. It is painful without any drainage. [facility] Medical History Prostate cancer (~2002) Rising PSA following treatment for malignant neoplasm of prostate (~2012) CAD (coronary artery disease) Old anterior myocardial infarction History of deep vein thrombosis Current use of anticoagulant therapy Dyslipidemia Surgical History History of partial colectomy History of radical prostatectomy (~2002) Social History Housing: Condominium Alcohol intake: current Alcohol intake frequency: a few times a month Patient Tobacco Use Status: Never used Tobacco e-Cigarette/Vaping Use: Never Used Second Hand Smoke Exposure: No service: No Current occupational status: retired 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 The lesion is 4 centimetres in size. No vesicles or pustules seen. Assessment & Plan Assessment & Plan (1) Cellulitis of back: Code(s): L03.312 - Cellulitis of back [any part except buttock] Plan Cephalexin called in. If symptoms do not improve to follow-up here. Coding Level of Care Code Est Pt Level 3 (58582) Diagnoses Cellulitis of back L03.312
[2023-02-21 13:17] VITALS: BP 130/80; PULSE 73; O2SAT 97
== END 2023-02-21 14:04 | disposition home or self-care (01) ==
PROVIDERS: PCP Nurse Practitioner Family; Visit Provider Internal Medicine
DX: L03.312 Cellulitis of back [any part except buttock and flank] (principal)
CPT/HCPCS: 99213

== ENCOUNTER 2023-02-22 10:58 | Outpatient (AMB) | payer MEDICARE, BC, SELFPAY ==
--- NOTE | 2023-02-22 11:09 | MHC.OFFVISCO ---
Intake Intake Visit Reasons: Anticoagulation Allergies ranitidine [From Zantac] Allergy (Mild, Verified 02/22/23 11:02) Rash Medication List - Last Reconciled 02/22/23 by Capri Olivier RN cephalexin 500 mg PO BID leuprolide (3 month) (Lupron Depot) 22.5 mg IM [id number] losartan 25 mg PO DAILY simvastatin 80 mg PO DAILY warfarin 5 mg See Protocol PO DAILY Nursing Note INR: 2.4- in therapeutic range Medications and supplements reviewed- pt started on cephalexin 500mg bid for 7 days for back rash simvastatin was increased from 40mg to 80mg - this may raise inr/delayed onset No changes in health, diet, medications, or supplements, Denies any signs and symptoms of bleeding or bruising or clotting. Bleeding, bruising, clotting discussed Nutritional guidance given - eat greens while on antibiotics- food list reviewed Dose: reduce dose on sat to 2.5mg otherwise cont same dosing F/U INR: 1 week Patient verbalizes understanding of instructions given Anti-Coag Initial Assessment Social Hx Patient Tobacco Use Status: Never used Tobacco alcohol intake: current Alcohol intake frequency: a few times a month Cardiovascular Hx: AL ( silent many years ago) Endocrine Hx: Thyroid Disease (h/o hypo thyroid in his 20's no longer issue) Blood Disorder Hx: Hyperlipidemia GI Hx: Other (bowel reection 1994 for twisted colon) Hx: Prostate (2002 prostate ca, radical prostectomy) Cancer HX: Yes Psych. Illness/Depression: No Coding Level of Care Code Est Patient Level 1 Diagnoses Current use of anticoagulant therapy Z79.01 Assessment & Plan Assessment & Plan (1) Current use of anticoagulant therapy: Comment: (on Warfarin for hx DVTs) Code(s): Z79.01 - intermediate (current) use of anticoagulants Category: Medical
== END 2023-02-22 11:25 | disposition home or self-care (01) ==
LOC: HO.ACS 10:58
PROVIDERS: PCP Nurse Practitioner Family; Visit Provider Internal Medicine
DX: Z79.01 Long term (current) use of anticoagulants (principal)

== ENCOUNTER → 2023-02-22 10:58 | Outpatient (BNVA) | payer MEDICARE, BC, SELFPAY | PROVIDERS: PCP Nurse Practitioner Family; Visit Provider Internal Medicine | DX: Z86.718 Personal history of other venous thrombosis and embolism (principal); Z79.01 Long term (current) use of anticoagulants; Z51.81 Encounter for therapeutic drug level monitoring | CPT/HCPCS: 85610; 99211 ==

== ENCOUNTER 2023-02-25 12:44 | Outpatient (REF) | payer MEDICARE, BC, SELFPAY ==
--- NOTE | ~2023-02-25 | FL_ITS ---
EXAMINATION: XR FLUOROSCOPY CLINICAL INFORMATION: Sniff test. Disorder of diaphragm. COMPARISON: Previous chest x-ray August 2022 TECHNIQUE: Parts Interpreter film of the chest was obtained. AP fluoroscopic images of the chest were performed at full inspiration and full expiration FINDINGS: There is marked elevation of the left hemidiaphragm. There is decreased movement of the left hemidiaphragm compared to the right with inspiration and expiration. The right hemidiaphragm between 1 and 2 rib interspaces in between inspiration and expiration. The left hemidiaphragm moves less than 1 rib interspace. No paradoxical motion There is dilated colon below the left hemidiaphragm. There is chronic scarring or subsegmental atelectasis of the left upper lung. This is similar to previous chest x-ray and chest CT August 2022. Left shoulder prosthesis partially visualized. FLUOROSCOPY TIME: 5 seconds DOSE AREA PRODUCT: 969 uGy-m2 (microgray-meter squared) total dose 18 mg. 1 saved fluoroscopic image and 2 saved cine sequences FL/FL fluoroscopy <1hr IMPRESSION: Very elevated left hemidiaphragm. Abnormal sniff test with decreased movement of the left hemidiaphragm compared to the right suggestive of phrenic nerve paralysis.
== END 2023-02-25 12:45 | disposition home or self-care (01) ==
LOC: HO.XRAY 12:44
PROVIDERS: PCP Nurse Practitioner Family; Visit Provider Surgery
DX: J98.6 Disorders of diaphragm (principal)
CPT/HCPCS: 76000

== ENCOUNTER → 2023-02-25 13:18 | Outpatient (BNV) | payer MEDICARE, BC, SELFPAY | PROVIDERS: PCP Nurse Practitioner Family; Visit Provider Radiology Diagnostic Radiology | DX: J98.6 Disorders of diaphragm (principal) | CPT/HCPCS: 76000 ==

== ENCOUNTER 2023-02-28 08:28 | Outpatient (AMB) | payer MEDICARE, BC, SELFPAY ==
--- NOTE | 2023-02-28 09:44 | MHC.OFFWIV ---
Intake Vital Signs 02/28/23 09:49 Height 6 ft Weight 190 lb BMI 25.8 BP 146/82 H Blood Pressure Location Lt brachial Position Sitting Pulse 80 Pulse Source Pulse Oximeter Temp 97.9 F Temp Source Temporal Artery Scan Pulse Oximetry (%) 95 Intake Visit Reasons: EP Sore/told to come back/Lobby Intake Note: pt is here for c/o cyst on back with no relief from medication Patient Tobacco Use Status: Never used Tobacco Allergies ranitidine [From Zantac] Allergy (Mild, Verified 02/28/23 10:10) Rash Medication List - Last Reconciled 02/28/23 by Ezequiel Mae MD leuprolide (3 month) (Lupron Depot) 22.5 mg IM [id number] losartan 25 mg PO DAILY simvastatin 80 mg PO DAILY warfarin 5 mg See Protocol PO DAILY Do you need a note to return to daycare/school/sports/work: Yes HPI EP Sore/told to come back/Lobby HPI Details 77-year-old male presents to the office for a sick visit. Patient continues to have discharge from his lesion on the back. He has completed the antibiotic course. [facility] Medical History Prostate cancer (~2002) Rising PSA following treatment for malignant neoplasm of prostate (~2012) CAD (coronary artery disease) Old anterior myocardial infarction History of deep vein thrombosis Current use of anticoagulant therapy Dyslipidemia Surgical History History of partial colectomy History of radical prostatectomy (~2002) Social History Housing: Condominium Alcohol intake: current Alcohol intake frequency: a few times a month Patient Tobacco Use Status: Never used Tobacco e-Cigarette/Vaping Use: Never Used Second Hand Smoke Exposure: No service: No Current occupational status: retired 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 Minimal in duration. Minimal tenderness to touch. Assessment & Plan Assessment & Plan (1) Cellulitis of back except buttock: Code(s): L03.312 - Cellulitis of back [any part except buttock] Plan: A stat appointment with the surgeon was obtained to drain the abscess and remove the cyst. Patient was instructed to proceed to the surgeon's office. Coding Level of Care Code Est Pt Level 3 (12811) Diagnoses Cellulitis of back except buttock L03.312
[2023-02-28 09:49] VITALS: BP 146/82; PULSE 80; TEMP 36.6; O2SAT 95; BMI 25.8
== END 2023-02-28 10:26 | disposition home or self-care (01) ==
PROVIDERS: PCP Nurse Practitioner Family; Visit Provider Internal Medicine
DX: L03.312 Cellulitis of back [any part except buttock and flank] (principal)
CPT/HCPCS: 99213

== ENCOUNTER 2023-02-28 13:08 | Outpatient (REF) | payer MEDICARE, BC, SELFPAY | END 2023-02-28 13:09 | disposition home or self-care (01) | LOC: HO.LAB 13:08 | PROVIDERS: PCP Nurse Practitioner Family; Visit Provider Surgery | DX: L03.312 Cellulitis of back [any part except buttock and flank] (principal) | CPT/HCPCS: 10060; 87070; 87205 ==

== ENCOUNTER 2023-02-28 13:08 | Outpatient (AMB) | payer MEDICARE, BC, SELFPAY ==
--- NOTE | 2023-02-28 13:15 | MHC.OFFVIS ---
Intake Vital Signs 02/28/23 13:19 Height 6 ft Weight 189 lb BMI 25.6 BP 125/68 Blood Pressure Location Rt brachial Position Sitting Pulse 80 Intake Visit Reasons: abscess of back Intake Note: Patient referred for abscess on back X1m. noticed redness. C/o redness, itch, tender to touch. Feels hard, firm. Denies trauma to area. Finished Cephalexin course. Cosmetics Presser Required: No Accompanied by: Self / Same As Patient Allergies ranitidine [From Zantac] Allergy (Mild, Verified 02/28/23 13:21) Rash Medication List - Last Reconciled 02/28/23 by Taurus Castillo MD leuprolide (3 month) (Lupron Depot) 22.5 mg IM [id number] losartan 25 mg PO DAILY simvastatin 80 mg PO DAILY warfarin 5 mg See Protocol PO DAILY HPI HPI Comments History of Present Illness Details Patient presents with the 2 week history of right mid back infected sebaceous cyst. He was treated with antibiotics with limited success. Presents here because of progression of symptoms. Chart was reviewed patient evaluated. Patient is on Coumadin being followed in the cardiac clinic for this. [facility] Medical History Prostate cancer (~2002) Rising PSA following treatment for malignant neoplasm of prostate (~2012) CAD (coronary artery disease) Old anterior myocardial infarction History of deep vein thrombosis Current use of anticoagulant therapy Dyslipidemia Surgical History History of partial colectomy History of radical prostatectomy (~2002) Social History Housing: Condominium Alcohol intake: current Alcohol intake frequency: a few times a month Patient Tobacco Use Status: Never used Tobacco e-Cigarette/Vaping Use: Never Used Second Hand Smoke Exposure: No service: No Current occupational status: retired 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 Current occupational exposures/hazards: No Cognitive needs: No Hearing needs: No Vision needs: No Physical Exam Vital Signs: Last Vital Signs Pulse 80 02/28/23 13:19 BP 125/68 02/28/23 13:19 BMI result Body Mass Index 25.6 Back/Spine/Pelvis Other: Right mid back very large approximately 4 x 4 cm infected sebaceous cyst/abscess Office Procedures I&D Drain Details: Risks, benefits, alternatives of incision and drainage of right mid back large infected sebaceous cyst abscess were reviewed the patient included but not limited to bleeding, infection, recurrence, numbness, pain, scarring the patient was to proceed. All questions were answered. After appropriate positioning, patient underwent 1% lidocaine with Betadine prep and uneventful transverse incision and drainage of a large mid back infected sebaceous cyst/ abscess. Cultures were obtained. Copious amounts of purulent material retrieved. Wound was irrigated, secured hemostasis, packed, and sterile dressing applied. Patient tolerated procedure well. 63405-A[place]otvex of Skin Abscess, complex All charges added?: Procedure code (CPT) selection complete Assessment & Plan Assessment & Plan (1) Cellulitis of back except buttock: Code(s): L03.312 - Cellulitis of back [any part except buttock] Orders: Orders AMB Incision & Drainage Today L08.9 - Local infection of the skin and subcutaneous tissue, unspecified, L72.3 - Sebaceous cyst Routine Culture w Gram Stain Today L03.312 - Cellulitis of back [any part except buttock] Medications: New cephalexin 500 mg PO TID 30 caps 0RF hydrocodone-acetaminophen 5-325 mg Partial Fill upon patient request. 1 tab PO Q4-6H PRN 30 tabs 0RF pain Coding Level of Care Code New Pt Level 5 (32661) Diagnoses Cellulitis of back except buttock L03.312 CPT Codes I&D Drain - Drain 2: 59763-Hoimnmag of Skin Abscess, complex ([id number])
[2023-02-28 13:19] VITALS: BP 125/68; PULSE 80; BMI 25.6
== END 2023-02-28 13:41 | disposition home or self-care (01) ==
PROVIDERS: PCP Nurse Practitioner Family; Visit Provider Surgery
DX: L72.3 Sebaceous cyst (principal)
CPT/HCPCS: 10060; 99204

== ENCOUNTER 2023-03-01 10:52 | Outpatient (AMB) | payer MEDICARE, BC, SELFPAY ==
--- NOTE | 2023-03-01 11:05 | MHC.OFFVISCO ---
Intake Intake Visit Reasons: Anticoagulation Allergies ranitidine [From Zantac] Allergy (Mild, Verified 03/01/23 11:00) Rash Medication List - Last Reconciled 03/01/23 by Capri Olivier RN cephalexin 500 mg PO TID hydrocodone-acetaminophen 5-325 mg 1 tab PO Q4-6H PRN leuprolide (3 month) (Lupron Depot) 22.5 mg IM [id number] losartan 25 mg PO DAILY simvastatin 80 mg PO DAILY warfarin 5 mg See Protocol PO DAILY Nursing Note INR: 2.2- in therapeutic range Medications and supplements reviewed- cephalexin 500mg cont increased to tid x 10 days pt had back cyst excised and packed yesterday No changes in health, diet, medications, or supplements, Denies any signs and symptoms of bleeding or bruising or clotting. Bleeding, bruising, clotting discussed Nutritional guidance given - eat greens while on antibiotics Dose: reduce weekly dosing to 2.5mg x 3, 5mg x 4 due to antibiotics and increase in simvastatin F/U INR: 10 days Patient verbalizes understanding of instructions given Anti-Coag Initial Assessment Social Hx Patient Tobacco Use Status: Never used Tobacco alcohol intake: current Alcohol intake frequency: a few times a month Cardiovascular Hx: [place] Endocrine Hx: Thyroid Disease Blood Disorder Hx: Hyperlipidemia GI Hx: Other Hx: Prostate Cancer HX: Yes Psych. 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
[2023-03-01 11:06] LABS: Prothrombin Time Whole Bld POC 26.5 sec (11.1-13.5); ~PT, ~INR - Anti Coag Clinic 2.2 (0.9-1.1)
== END 2023-03-01 11:15 | disposition home or self-care (01) ==
LOC: HO.ACS 10:52
PROVIDERS: PCP Nurse Practitioner Family; Visit Provider Internal Medicine
DX: Z79.01 Long term (current) use of anticoagulants (principal)

== ENCOUNTER → 2023-03-01 10:52 | Outpatient (BNVA) | payer MEDICARE, BC, SELFPAY | PROVIDERS: PCP Nurse Practitioner Family; Visit Provider Internal Medicine | DX: Z86.718 Personal history of other venous thrombosis and embolism (principal); Z79.01 Long term (current) use of anticoagulants; Z51.81 Encounter for therapeutic drug level monitoring | CPT/HCPCS: 85610; 99211 ==

== ENCOUNTER → 2023-03-02 11:29 | Outpatient (BNVA) | payer MEDICARE, BC, SELFPAY | PROVIDERS: PCP Nurse Practitioner Family; Visit Provider Surgery | DX: Z48.00 Encounter for change or removal of nonsurgical wound dressing (principal) | CPT/HCPCS: 99211 ==

== ENCOUNTER → 2023-03-03 11:14 | Outpatient (BNVA) | payer MEDICARE, BC, SELFPAY | PROVIDERS: PCP Nurse Practitioner Family; Visit Provider Surgery | DX: Z48.00 Encounter for change or removal of nonsurgical wound dressing (principal) | CPT/HCPCS: 99211 ==

== ENCOUNTER → 2023-03-04 12:54 | Outpatient (BNVA) | payer MEDICARE, BC, SELFPAY | PROVIDERS: PCP Nurse Practitioner Family; Visit Provider Surgery | DX: Z48.00 Encounter for change or removal of nonsurgical wound dressing (principal) | CPT/HCPCS: 99211 ==

== ENCOUNTER 2023-03-07 11:33 | Outpatient (AMB) | payer MEDICARE, BC, SELFPAY ==
[2023-03-07 11:40] VITALS: BP 133/59; PULSE 76
--- NOTE | 2023-03-07 11:40 | A.OFFVIS_ITS ---
Intake Vital Signs 03/07/23 11:40 Weight 189 lb BP 133/59 L Blood Pressure Location Rt brachial Position Sitting Pulse 76 Intake Visit Reasons: 1 wk follow up abscess of back Intake Note: Patient here f/u I&D on back. Reports site looks better. Has 2 more days of cephalexin. 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 She is undergoing local wound care for him. He has no wound issues or complaints. He is completing his antibiotic course. [facility] Medical History Prostate cancer (~2002) Rising PSA following treatment for malignant neoplasm of prostate (~2012) CAD (coronary artery disease) Old anterior myocardial infarction History of deep vein thrombosis Current use of anticoagulant therapy Dyslipidemia Surgical History History of partial colectomy History of radical prostatectomy (~2002) Social History [facility]: [facility] Alcohol intake: current Alcohol intake frequency: a few times a month Patient Tobacco Use Status: Never used Tobacco e-Cigarette/Vaping Use: Never Used Second Hand Smoke Exposure: No service: No Current occupational status: retired 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 Acute infective process is almost completely resolved. The wound is granulating uneventfully. Assessment & Plan Assessment & Plan (1) Infected sebaceous cyst: Code(s): L72.3 - Sebaceous cyst; L08.9 - Local infection of the skin and subcutaneous tissue, unspecified Plan Patient why for continue local therapy. He will see me in few weeks time for follow-up or p.r.n.. Discussion will be had the next visit considering excision of this and a few other sebaceous cyst that the patient has. Coding Level of Care Code Global (24744) Diagnoses Infected sebaceous cyst L72.3; L08.9
== END 2023-03-07 11:53 | disposition home or self-care (01) ==
PROVIDERS: PCP Nurse Practitioner Family; Visit Provider Surgery
DX: L72.3 Sebaceous cyst (principal); L08.9 Local infection of the skin and subcutaneous tissue, unspecified
CPT/HCPCS: 99024

== ENCOUNTER → 2023-03-07 11:33 | Outpatient (BNVA) | payer MEDICARE, BC, SELFPAY | PROVIDERS: PCP Nurse Practitioner Family; Visit Provider Surgery ==

== ENCOUNTER 2023-03-10 10:02 | Outpatient (REF) | payer MEDICARE, BC, SELFPAY ==
--- NOTE | 2023-03-10 11:46 | PFT_ITS ---
INDICATION: Dyspnea. SPIROMETRY: FEV1 to FVC of 64% predicted with an FEV1 of 1.64 L, which is 122% predicted and an FVC of 2.56 L, which is 115% predicted. The EXF79-63 decreased down to 14% predicted. Maximum voluntary ventilation 54% predicted. LUNG VOLUMES: Total lung capacity 56% predicted. DIFFUSION CAPACITY: DLCO of 104% predicted. COMPARISONS: None. INTERPRETATION: There is an obstructive ventilatory defect consistent with mild COPD. The patient did have a significant response to bronchodilators noted. There is also significant small airway disease. The patient also has a moderate decrease in the maximum voluntary ventilation secondary to likely deconditioning, although cannot rule out neuromuscular disease. In addition to this, the patient does have a restrictive ventilatory defect consistent with moderate restrictive lung disease. Need to consider again parenchymal lung conditions and or neuromuscular conditions. Diffusion capacity within normal limits. Clinical correlation warranted. Jake Montes De Oca MD MR/MODL / [id number]
== END 2023-03-10 10:03 | disposition home or self-care (01) ==
LOC: HO.RESP 10:02
PROVIDERS: PCP Nurse Practitioner Family; Referring Provider Internal Medicine; Visit Provider Nurse Practitioner Family
DX: J98.6 Disorders of diaphragm (principal); R06.09 Other forms of dyspnea; R06.89 Other abnormalities of breathing; Z86.718 Personal history of other venous thrombosis and embolism; Z51.81 Encounter for therapeutic drug level monitoring; Z79.01 Long term (current) use of anticoagulants
CPT/HCPCS: 85610; 94010; 94727; 94729; 99211

== ENCOUNTER 2023-03-10 10:09 | Outpatient (AMB) | payer MEDICARE, BC, SELFPAY ==
[2023-03-10 10:31] LABS: Prothrombin Time Whole Bld POC 27.6 sec (11.1-13.5); ~PT, ~INR - Anti Coag Clinic 2.3 (0.9-1.1)
--- NOTE | 2023-03-10 10:32 | MHC.OFFVISCO ---
Intake Intake Visit Reasons: Anticoagulation Allergies ranitidine [From Zantac] Allergy (Mild, Verified 03/10/23 10:25) Rash Medication List - Last Reconciled 03/10/23 by Analilia Workman RN hydrocodone-acetaminophen 5-325 mg 1 tab PO Q4-6H PRN leuprolide (3 month) (Lupron Depot) 22.5 mg IM [id number] losartan 25 mg PO DAILY simvastatin 80 mg PO DAILY warfarin 5 mg See Protocol PO DAILY Nursing Note Amb to [facility] feeling well, has pulm appt after this visit Medications and supplements reviewed, conpleted cephalexin on Tuesday , simvastatin had been increased a couple weeks ago from 40mg to 80mg (warfarin weekly dosing decreased) No changes in health, diet, medications, or supplements Denies any unusual signs and symptoms of bruising, bleeding Denies any new Chest pain, SOB, or clotting INR: 2.3 in therapeutic range Nutritional guidance given: balance greens and reds in diet Dose: continue new dosing; 2.5mg x 3 days and 5mg x 4 days F/U INR: 2 weeks Patient verbalizes understanding of instructions given with accurate read back/ teach back of dosing Anti-Coag Initial Assessment Social Hx Patient Tobacco Use Status: Never used Tobacco alcohol intake: current Alcohol intake frequency: a few times a month Cardiovascular Hx: [place] Endocrine Hx: Thyroid Disease Blood Disorder Hx: Hyperlipidemia GI Hx: Other Hx: Prostate Cancer HX: Yes Psych. 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
== END 2023-03-10 10:36 | disposition home or self-care (01) ==
LOC: HO.ACS 10:09
PROVIDERS: PCP Nurse Practitioner Family; Visit Provider Internal Medicine
DX: Z79.01 Long term (current) use of anticoagulants (principal)

== ENCOUNTER → 2023-03-10 11:46 | Outpatient (BNV) | payer MEDICARE, BC, SELFPAY | PROVIDERS: PCP Nurse Practitioner Family; Referring Provider Internal Medicine; Visit Provider Hospitalist | DX: R06.09 Other forms of dyspnea (principal) | CPT/HCPCS: 94060; 94727; 94729 ==

== ENCOUNTER 2023-03-11 14:26 | Outpatient (AMB) | payer MEDICARE, BC, SELFPAY ==
--- NOTE | 2023-03-11 14:38 | MHC.OFFVIS ---
Intake Vital Signs 03/11/23 14:45 Height 6 ft Weight 189 lb 9.561 oz BMI 25.7 Intake Visit Reasons: Disorders of diaphragm Intake Note: Brad presents in the office as a new patient for disorders of the Diaphragm. CC: He states his last colonoscopy he states that there was an open space - he states that it was unsuccessful because of poor prep due to constipation. He states that contrast was entered into his rectum and they were monitoring him - he is trying to get his records from [place], [place] and has been unsuccessful. He states that Dr. Chapman states that he has a squished lung - not sure as to why but his diaphram on the left side has been stretched out of place. It was noted that he has constipation and he has been trying to drink metamucil every day and keeping track of his BM. He has had at least one a day in the past 8 days. 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 Edwina accompanies him to [facility]. Pt reports being told of abnormal breath sounds on a physical which prompted a CXR which showed elevated L hemidiaphragm. He has been seeing thoracic surgeon for further evaluation and also reported intermittent constipation to him. However pt reports that now for the past 10 days since he has incorporated fiber in his diet has been having daily BMs. In addition, on review of imaging from August 2022 was also noted to have significantly distended distal transverse and splenic flexure (measuring 16 cm at max diameter) which has moved into his L chest and displaced other mediastinal structures to R side. 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 This was done 20 years ago at [facility]. ?L sided hemodiaphragm could have been a sequela of this surgery. Has had frequent colos in the past at q5y interval due to fam hx of CRC but does report hx of incomplete colonoscopy in 6-7 years ago in [place]- he does not recall if it was incomplete because cecum could not be reached or whether it was due to poor prep. Had a barium enema following it and was told about a distended bowel loop at that time too. From review of records from [facility], seems was present in 2011 as well based on the CT report (images not available so unable to comment if colonic dilation has progressed since then). [facility] Medical History Prostate cancer (~2002) Rising PSA following treatment for malignant neoplasm of prostate (~2012) CAD (coronary artery disease) Old anterior myocardial infarction History of deep vein thrombosis Current use of anticoagulant therapy Dyslipidemia Surgical History H/O colonoscopy History of partial colectomy History of radical prostatectomy (~2002) 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 Current occupational exposures/hazards: No Cognitive needs: No Hearing needs: No Vision needs: No Physical Exam Vital Signs: BMI result Body Mass Index 25.7 Gen appear: NAD HEENT: nonicteric, no cervical lymphadenopathy Abd: soft, nontender Ext: no peripheral edema Neuro: A/Ox3, noted to move all extremities spontaneously Psych: interacting appropriately Assessment & Plan Assessment & Plan (1) Colon distention: Code(s): K63.89 - Other specified diseases of intestine (2) Family history of colon cancer: Code(s): Z80.0 - Family history of malignant neoplasm of digestive organs (3) History of colon surgery: Code(s): Z98.890 - Other specified postprocedural states (4) Current use of anticoagulant therapy: Comment: (on Warfarin for hx DVTs) Code(s): 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 Unclear if has been progressive as pt minimally symptomatic and imaging from 2012 not available for comparison. Ddx include low grade anastomotic stricture leading to upstream dilation vs CIPO (though typically more diffuse) vs colonic interposition leading to diaphragmatic eventration or left sided Chilaiditi's babar given his background hx of volvulus at a relatively young age. Plan: - Records from previous colo and barium enema requested from [place], [place] - Will set him for a colo +/- dilation - If no luminal narrowing/stricture noted during colo, would favor conservative monitoring as this appears to be a chronic finding - Split PEG prep instructions given. He will need to interrupt anticoagulation as may need dilation as well. Will request PCP's assistance with coumadin management. Follow up after colo Coding Level of Care Code New Pt Level 5 (32143) Diagnoses Colon distention K63.89 Family history of colon cancer Z80.0 History of colon surgery Z98.890 Current use of anticoagulant therapy Z79.01 Diaphragmatic disorder J98.6
[2023-03-11 14:45] VITALS: BMI 25.7
== END 2023-03-11 16:04 | disposition home or self-care (01) ==
PROVIDERS: PCP Nurse Practitioner Family; Visit Provider Internal Medicine
DX: K63.89 Other specified diseases of intestine (principal); Z80.0 Family history of malignant neoplasm of digestive organs; Z79.01 Long term (current) use of anticoagulants; J98.6 Disorders of diaphragm
CPT/HCPCS: 99213

== ENCOUNTER → 2023-03-11 14:26 | Outpatient (BNVA) | payer MEDICARE, BC, SELFPAY | PROVIDERS: PCP Nurse Practitioner Family; Visit Provider Internal Medicine | DX: K63.89 Other specified diseases of intestine (principal); J98.6 Disorders of diaphragm; Z80.0 Family history of malignant neoplasm of digestive organs; Z98.890 Other specified postprocedural states; Z79.01 Long term (current) use of anticoagulants | CPT/HCPCS: 99212 ==

== ENCOUNTER 2023-03-15 16:29 | Outpatient (REF) | payer MEDICARE, BC, SELFPAY ==
--- NOTE | ~2023-03-15 | MR_ITS ---
EXAMINATION: MR ABDOMEN WITHOUT AND WITH CONTRAST CLINICAL INFORMATION: Left adrenal nodule COMPARISON: CT scan of abdomen and pelvis on 08/20/2022 TECHNIQUE: MR abdomen was performed without and with use of 8 mL intravenous Gadavist gadolinium contrast. Postcontrast images are obtained in axial plane. FINDINGS: ADRENAL: The Right adrenal gland is normal in shape and size. The Left adrenal gland shows globular thickening in the body, measuring 1.1 cm in AP diameter, 0.7 cm in width. There is significant signal loss in the out of phase image. Mean signal intensity of the tumor is 391 in in-phase image and 202 in qvt-su-jxara image. The calculated adrenal to spleen chemical shift ratio (Adrenal SIo/Spleen SIo)/(Adrenal SIi/Spleen SIi) is 0.52 (threshold for benign adenoma is <0.71). The calculated signal intensity ratio (Adrenal SIi - Adrenal SIo)100%/Adrenal SIi is 48.3 (threshold for benign adenoma is >16.5). LIVER: The liver shows a T2 hyperintense nonenhancing simple cyst in right hepatic dome segment 8 measuring 0.9 cm in size. A similar 0.6 cm subcapsular simple cyst is seen at posterior border of right hepatic lobe segment 6. The calculated hepatic fat percentage is -2.5%, compatible with normal. HEPATOBILIARY: Gallbladder is normal without filling defects. Common bile duct is not dilated. PANCREAS: No focal pancreatic lesion with abnormal signal can be seen. SPLEEN: Spleen is normal in size without focal lesion. KIDNEYS: Bilateral kidneys are normal in size without focal lesion. There is marked protrusion of peritoneal content into the left lower chest which is partially visualized. MR/MR abdomen wo/w con IMPRESSION: 1. 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 2. Right hepatic dome segment 8 and posterior segment 6 subcapsular simple cysts are found. 3. 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
[2023-03-15] MEDS: gadobutroL 10 ML VIAL IVPUSH (17:39)
== END 2023-03-15 16:30 | disposition home or self-care (01) ==
LOC: HO.MRI 16:29
PROVIDERS: PCP Nurse Practitioner Family; Visit Provider Nurse Practitioner Family
DX: E27.8 Other specified disorders of adrenal gland (principal)
CPT/HCPCS: 74183; A9585

== ENCOUNTER 2023-03-21 11:26 | Outpatient (AMB) | payer MEDICARE, BC, SELFPAY ==
[2023-03-21 12:02] VITALS: BP 103/56; PULSE 86; BMI 25.9
--- NOTE | 2023-03-21 12:02 | MHC.OFFVIS ---
Intake Vital Signs 03/21/23 12:02 Height 6 ft Weight 191 lb BMI 25.9 BP 103/56 L Blood Pressure Location Rt brachial Position Sitting Pulse 86 Intake Visit Reasons: 2 wk follow up abscess of back Intake Note: Patient here s/p exc on back. Reports mild brown discharge. Has photos to show. 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 Status post I&D of lower back abscess. His has been undergoing local wound care for him. He has no wound issues or complaints per [facility] Medical History Prostate cancer (~2002) Rising PSA following treatment for malignant neoplasm of prostate (~2012) CAD (coronary artery disease) Old anterior myocardial infarction History of deep vein thrombosis Current use of anticoagulant therapy Dyslipidemia Surgical History H/O colonoscopy History of partial colectomy History of radical prostatectomy (~2002) Social History Housing: Condominium Alcohol intake: current Alcohol intake frequency: a few times a month Patient Tobacco Use Status: Never used Tobacco e-Cigarette/Vaping Use: Never Used Second Hand Smoke Exposure: No service: No Current occupational status: retired 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 Assessment & Plan Assessment & Plan (1) Infected sebaceous cyst: Code(s): L72.3 - Sebaceous cyst; L08.9 - Local infection of the skin and subcutaneous tissue, unspecified Plan Patient are to continue local therapy and they will see me 3 weeks time for follow-up. At that next visit, will discuss elective excision of this process and 2 other sebaceous cyst of the back. All questions were answered Coding Level of Care Code Global (12556) Diagnoses Infected sebaceous cyst L72.3; L08.9
== END 2023-03-21 12:13 | disposition home or self-care (01) ==
PROVIDERS: PCP Nurse Practitioner Family; Visit Provider Surgery
DX: L72.3 Sebaceous cyst (principal); L08.9 Local infection of the skin and subcutaneous tissue, unspecified
CPT/HCPCS: 99024

== ENCOUNTER → 2023-03-21 11:26 | Outpatient (BNVA) | payer MEDICARE, BC, SELFPAY | PROVIDERS: PCP Nurse Practitioner Family; Visit Provider Surgery ==

== ENCOUNTER 2023-03-23 10:14 | Outpatient (AMB) | payer MEDICARE, BC, SELFPAY ==
--- NOTE | 2023-03-23 10:30 | MHC.OFFVISCO ---
Intake Intake Visit Reasons: Anticoagulation Allergies ranitidine [From Zantac] Allergy (Mild, Verified 03/23/23 10:17) Rash Medication List - Last Reconciled 03/23/23 by Capri Olivier RN leuprolide (3 month) (Lupron Depot) 22.5 mg IM [id number] losartan 25 mg PO DAILY simvastatin 80 mg PO DAILY warfarin 5 mg See Protocol PO DAILY Nursing Note INR: 2.0- in therapeutic range of 2-3 Medications and supplements reviewed- recent increase simvastatin No changes in health, diet, medications, or supplements, Denies any signs and symptoms of bleeding or bruising or clotting. Bleeding, bruising, clotting discussed Nutritional guidance given - no greens for 2 days, eat reds to raise pt drinks V8 fusion- ingredients reviewed- he mixes with green tea Dose: 2.5mg x 2, 5mg x 5 pt req to go back to prev dosing- aware simvastatin raises inr so will recheck in 2 weeks F/U INR: 2 weeks Patient verbalizes understanding of instructions given Anti-Coag Initial Assessment Social Hx Patient Tobacco Use Status: Never used Tobacco alcohol intake: current Alcohol intake frequency: a few times a month Cardiovascular Hx: PR Endocrine Hx: Thyroid Disease Blood Disorder Hx: Hyperlipidemia GI Hx: Other Hx: Prostate Cancer HX: Yes Psych. Illness/Depression: No Coding Level of Care Code Est Patient Level 1 Diagnoses Current use of anticoagulant therapy Z79.01 Results AMB INR Fingerstick AMB INR Fingerstick 2.0 Last Edit by Capri Olivier RN on 03/23/23 10:31 Assessment & Plan Assessment & Plan (1) Current use of anticoagulant therapy: Comment: (on Warfarin for hx DVTs) Code(s): Z79.01 - detention (current) use of anticoagulants Category: Medical
[2023-03-23 10:36] LABS: Prothrombin Time Whole Bld POC 23.5 sec (11.1-13.5)
== END 2023-03-23 10:37 | disposition home or self-care (01) ==
LOC: HO.ACS 10:14
PROVIDERS: PCP Nurse Practitioner Family; Visit Provider Internal Medicine
DX: Z79.01 Long term (current) use of anticoagulants (principal)

== ENCOUNTER → 2023-03-23 10:14 | Outpatient (BNVA) | payer MEDICARE, BC, SELFPAY | PROVIDERS: PCP Nurse Practitioner Family; Visit Provider Internal Medicine | DX: I82.409 Acute embolism and thrombosis of unspecified deep veins of unspecified lower extremity (principal); Z79.01 Long term (current) use of anticoagulants; Z51.81 Encounter for therapeutic drug level monitoring | CPT/HCPCS: 85610; 99211 ==

== ENCOUNTER 2023-04-05 10:15 | Outpatient (AMB) | payer MEDICARE, BC, SELFPAY ==
--- NOTE | 2023-04-05 10:22 | MHC.OFFVISCO ---
Intake Intake Visit Reasons: Anticoagulation Allergies ranitidine [From Zantac] Allergy (Mild, Verified 04/05/23 10:17) Rash Medication List - Last Reconciled 04/05/23 by Capri Olivier RN leuprolide (3 month) (Lupron Depot) 22.5 mg IM [id number] losartan 25 mg PO DAILY simvastatin 80 mg PO DAILY warfarin 5 mg See Protocol PO DAILY Nursing Note INR: 3.0- in therapeutic range of 2-3 Medications and supplements reviewed No changes in health, diet, medications, or supplements, Denies any signs and symptoms of bleeding or bruising or clotting. Bleeding, bruising, clotting discussed Nutritional guidance given Dose: 5mg x 5, 2.5mg x 2 F/U INR: 2 weeks Patient verbalizes understanding of instructions given pt with recent increase simvastatin and V- 8 fusion flu vaccine 1-2 weeks ago Anti-Coag Initial Assessment Social Hx Patient Tobacco Use Status: Never used Tobacco alcohol intake: current Alcohol intake frequency: a few times a month Cardiovascular Hx: [place] Endocrine Hx: Thyroid Disease Blood Disorder Hx: Hyperlipidemia GI Hx: Other Hx: Prostate Cancer HX: Yes Psych. Illness/Depression: No Coding Level of Care Code Est Patient Level 1
[2023-04-05 10:23] LABS: Prothrombin Time Whole Bld POC 35.6 sec (11.1-13.5)
== END 2023-04-05 10:30 | disposition home or self-care (01) ==
LOC: HO.ACS 10:15
PROVIDERS: PCP Nurse Practitioner Family; Visit Provider Internal Medicine
DX: Z79.01 Long term (current) use of anticoagulants (principal)

== ENCOUNTER → 2023-04-05 10:15 | Outpatient (BNVA) | payer MEDICARE, BC, SELFPAY | PROVIDERS: PCP Nurse Practitioner Family; Visit Provider Internal Medicine | DX: Z86.718 Personal history of other venous thrombosis and embolism (principal); Z79.01 Long term (current) use of anticoagulants; Z51.81 Encounter for therapeutic drug level monitoring | CPT/HCPCS: 85610; 99211 ==

== ENCOUNTER 2023-04-11 08:46 | Outpatient (AMB) | payer MEDICARE, BC, SELFPAY ==
[2023-04-11 08:55] VITALS: BP 118/62; PULSE 87; BMI 26.3
--- NOTE | 2023-04-11 08:55 | MHC.OFFVIS ---
Intake Vital Signs 04/11/23 08:55 Height 6 ft Weight 194 lb BMI 26.3 BP 118/62 Blood Pressure Location Rt brachial Position Sitting Pulse 87 Intake Visit Reasons: 3 wk follow up abscess of back Intake Note: Patient here s/p abscess on back. Reports incision healing well. Denies oozing, pain or discomfort. 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 Lower mid back infected sebaceous cyst is completely healed. Patient also has 2 upper back sebaceous CIS which on infected. Each measures approximately 2 x 3 cm. The original 1 measures approximately 4 x 4 cm. [facility] Medical History Prostate cancer (~2002) Rising PSA following treatment for malignant neoplasm of prostate (~2012) CAD (coronary artery disease) Old anterior myocardial infarction History of deep vein thrombosis Current use of anticoagulant therapy Dyslipidemia Surgical History H/O colonoscopy History of partial colectomy History of radical prostatectomy (~2002) Housing: Condominium Alcohol intake: current Alcohol intake frequency: a few times a month Patient Tobacco Use Status: Never used Tobacco e-Cigarette/Vaping Use: Never Used Second Hand Smoke Exposure: No service: No Current occupational status: retired 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 Right lower back sebaceous measuring approximately 4 x 4 cm. Assessment & Plan Assessment & Plan (1) Sebaceous cyst: Code(s): L72.3 - Sebaceous cyst Plan Patient wishes to go excision of all 3 these lesions. Risks, benefits, alternatives of the procedure reviewed the patient and included but not limited to bleeding, infection, recurrence, numbness, pain, scarring, seroma formation, wound dehiscence and the patient wishes to proceed. All questions were answered. Arrangements were made for this. Coding Level of Care Code Est Pt Level 5 (96724) Diagnoses Sebaceous cyst L72.3
== END 2023-04-11 09:13 | disposition home or self-care (01) ==
PROVIDERS: PCP Nurse Practitioner Family; Visit Provider Surgery
DX: L72.3 Sebaceous cyst (principal)
CPT/HCPCS: 99214

== ENCOUNTER → 2023-04-11 08:46 | Outpatient (BNVA) | payer MEDICARE, BC, SELFPAY | PROVIDERS: PCP Nurse Practitioner Family; Visit Provider Surgery | DX: L72.3 Sebaceous cyst (principal) | CPT/HCPCS: 99212 ==

== ENCOUNTER 2023-04-19 10:13 | Outpatient (AMB) | payer MEDICARE, BC, SELFPAY ==
[2023-04-19 10:30] LABS: Prothrombin Time Whole Bld POC 35.1 sec (11.1-13.5); ~PT, ~INR - Anti Coag Clinic 2.9 (0.9-1.1)
--- NOTE | 2023-04-19 10:31 | MHC.OFFVISCO ---
Intake Intake Visit Reasons: Anticoagulation Allergies ranitidine [From Zantac] Allergy (Mild, Verified 04/19/23 10:23) Rash Medication List - Last Reconciled 04/19/23 by Capri Olivier RN leuprolide (3 month) (Lupron Depot) 22.5 mg IM [id number] losartan 25 mg PO DAILY simvastatin 80 mg PO DAILY warfarin 5 mg See Protocol PO DAILY Nursing Note INR: 2.9- in therapeutic range of 2-3 Medications and supplements reviewed- no changes No changes in health, diet, medications, or supplements, Denies any signs and symptoms of bleeding or bruising or clotting. Bleeding, bruising, clotting discussed Nutritional guidance given - avoid greens when restarting warfarin Dose: cont reg dosing, 5 day hold prior to surg, resume when ok with F/U INR: tue05/04/23 Patient verbalizes understanding of instructions given composed note to pcp regarding 5 day hold and ? lovenox Anti-Coag Initial Assessment Social Hx Patient Tobacco Use Status: Never used Tobacco alcohol intake: current Alcohol intake frequency: a few times a month Cardiovascular Hx: [place] Endocrine Hx: Thyroid Disease Blood Disorder Hx: Hyperlipidemia GI Hx: Other Hx: Prostate Cancer HX: Yes Psych. 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
== END 2023-04-19 10:48 | disposition home or self-care (01) ==
LOC: HO.ACS 10:13
PROVIDERS: PCP Nurse Practitioner Family; Visit Provider Internal Medicine
DX: Z79.01 Long term (current) use of anticoagulants (principal)

== ENCOUNTER 2023-04-19 10:13 | Outpatient (REF) | payer MEDICARE, BC, SELFPAY ==
[2023-04-19 13:34] LABS: Alanine Aminotransferase 23 U/L (0-40); Albumin Level 4.1 g/dL (3.5-5.0); Alkaline Phosphatase 71 U/L (39-117); Anion Gap 11 (12-20); Aspartate Amino Transferase 20 U/L (5-37); Bilirubin Total 0.6 mg/dL (0.0-1.0); Blood Urea Nitrogen 23 mg/dL (9-16); Calcium 9.3 mg/dL (8.4-10.2); Carbon Dioxide 28 mmol/L (22-29); Chloride 107 mmol/L (96-108); Estimated Glomerular Filt Rate > 60; Glucose Random 95 mg/dL (60-115); Potassium 4.6 mmol/L (3.3-5.1); Sodium 141 mmol/L (135-145)
[2023-04-19 14:33] LABS: Prostate Specific Antigen < 0.10 ng/mL (<0.05-4.0)
== END 2023-04-19 10:14 | disposition home or self-care (01) ==
LOC: HO.LAB 10:13
PROVIDERS: Absent Provider Internal Medicine; PCP Nurse Practitioner Family; Visit Provider Internal Medicine
DX: Z12.5 Encounter for screening for malignant neoplasm of prostate (principal); Z86.718 Personal history of other venous thrombosis and embolism; C61 Malignant neoplasm of prostate; Z51.81 Encounter for therapeutic drug level monitoring; Z79.01 Long term (current) use of anticoagulants
CPT/HCPCS: 36415; 80053; 84153; 85610; 99211

== ENCOUNTER 2023-04-28 08:54 | Day surgery (SDC) | payer MEDICARE, BC, SELFPAY ==
[2023-04-26 13:31] VITALS: BMI 25.6
--- NOTE | 2023-04-26 13:41 | P.CONAN_ITS ---
Documented by User: Carla Hillman NP 04/27/23 10:16 HPI - Anesthesia Eval Consult details Narrative: 77yo M for Wide Local Excision Back Cyst X3 Currently being followed by Thoracic at [facility] for diaphragm paralysis and eventration and elevation. Shift in the central mediastinal structures to the right. bowels in chest with pt reported dyspnea. Current w/u for repair - colonoscopy planned for May. Shawn RN at gen surgeon notified that we need thoracic input before proce eding. Thoracic unavailable d/t surgical schedule. Case reviewed with Dr Ly. Ok to proceed with plan for minimal anesthesia. Surgical office aware. CAD. Follows [facility] cardiology. Cleared for surgery. Warfarin for DVT - lovenox bridge [facility] Active Problems Active Problems: All Active Problems (Updated 04/11/23 @ 09:15 by Taurus Castillo MD) Sebaceous cyst (Acute) History of colon surgery (Acute) Colon distention (Acute) Family history of colon cancer (Acute) Infected sebaceous cyst (Acute) Cellulitis of back except buttock (Acute) Skin lesions (Acute) Diaphragmatic disorder (Acute) Mass of bladder (Acute) Prostate cancer (Acute ~2002) Rising PSA following treatment for malignant neoplasm of prostate (Acute ~2012) CAD (coronary artery disease) (Acute) Dyslipidemia (Acute) Current use of anticoagulant therapy (Acute) History of deep vein thrombosis (Acute) Abnormal finding on EKG (Acute) Exertional dyspnea (Acute) Volvulosis (Acute) Decreased lung sounds (Acute) PSA elevation (Acute) Past Medical History Medical History History of deep vein thrombosis Old anterior myocardial infarction CAD (coronary artery disease) Rising PSA following treatment for malignant neoplasm of prostate (~2012) Prostate cancer (~2002) Current use of anticoagulant therapy Dyslipidemia Surgical History Surgical History H/O shoulder surgery H/O colonoscopy History of partial colectomy History of radical prostatectomy (~2002) Social History [facility] Alcohol intake: current Alcohol intake frequency: holidays/special occasions only Patient Tobacco Use Status: Never used Tobacco e-Cigarette/Vaping Use: Never Used Second Hand Smoke Exposure: No Use of substances other than those prescribed or required for medical reasons: No Are you DNR?: No Advance Directives: No Advance Directives Information Provided: Yes service: No Current occupational status: retired 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 Current occupational exposures/hazards: No Cognitive needs: No Hearing needs: No Vision needs: No Meds Allergies Allergy/AdvReac Type Severity Reaction Status Date / Time ranitidine [From Zantac] Allergy Mild Rash Verified 04/28/23 10:13 Home Medications Medication Instructions Recorded Confirmed Last Taken Type warfarin 5 mg tablet 5 mg PO DAILY 03/25/22 04/28/23 04/22/23 History leuprolide (3 month) 22.5 mg (3 22.5 mg IM [id number] 11/10/22 04/28/23 Unknown History month) intramuscular syringe kit (Lupron Depot) Exam Height,Weight and Vital Signs: Height 6 ft Weight 85.729 kg Pertinent Lab Results Pertinent Lab Results: Laboratory Tests 08/20/22 08/20/22 04/19/23 15:19 15:19 11:28 WBC 7.6 Hgb 14.9 Hct 45.3 Plt Count 285 Sodium 141 Potassium 4.6 Chloride 107 Carbon Dioxide BUN Creatinine 04/19/23 11:28 WBC Hgb Hct Plt Count Sodium Potassium Chloride Carbon Dioxide 28 BUN 23 H Creatinine 0.76 Narrative Narrative: MR abdomen wo/w con 02/2023 IMPRESSION: 1. 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 2. Right hepatic dome segment 8 and posterior segment 6 subcapsular simple cysts are found. 3. 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 XR chest 2V 08/2022 IMPRESSION: Abnormal chest x-ray. Marked elevation of the left hemidiaphragm and shift the central mediastinal structures to the right Differential would include eventration of the left hemidiaphragm and diaphragmatic hernia. Dilated loops of large bowel under the left hemidiaphragm with air-fluid levels. Large bowel ileus and obstruction should be considered. Small left pleural effusion. Scarring or atelectasis at the left lung apex. EKG 10/2022 NSR @ [address] and T wave abnormality NM radha perf SPECT rest & str 01/2023 Impression: 1. Likely normal myocardial perfusion 2. Gated LVEF is greater than 70% 3. Transient ischemic dilatation not present Stress EKG is negative for ischemia ECHO 01/2023 Conclusions: - 1. Normal LV ejection fraction at 60-65% with impaired relaxation filling pattern 2. Cardiac valvular Dopplers within normal limits with fibrocalcific aortic valve changes noted and moderate mitral annular calcification noted 3. No gross pericardial effusion PFT 02/2023 SPIROMETRY: FEV1 to FVC of 64% predicted with an FEV1 of 1.64 L, which is 122% predicted and an FVC of 2.56 L, which is 115% predicted. The [id number] decreased down to 14% predicted. Maximum voluntary ventilation 54% predicted. LUNG VOLUMES: Total lung capacity 56% predicted. DIFFUSION CAPACITY: DLCO of 104% predicted. COMPARISONS: None. INTERPRETATION: There is an obstructive ventilatory defect consistent with mild COPD. The patient did have a significant response to bronchodilators noted. There is also significant small airway disease. The patient also has a moderate decrease in the maximum voluntary ventilation secondary to likely deconditioning, although cannot rule out neuromuscular disease. In addition to this, the patient does have a restrictive ventilatory defect consistent with moderate restrictive lung disease. Need to consider again parenchymal lung conditions and or neuromuscular conditions. Diffusion capacity within normal limits. Clinical correlation warranted. Assessment and Plan Assessment Anesthesia Assessment: Chart Reviewed Documented by User: Estefanía Solis MD 04/28/23 12:35 [facility] Past Medical History Medical History History of deep vein thrombosis Old anterior myocardial infarction CAD (coronary artery disease) Rising PSA following treatment for malignant neoplasm of prostate (~2012) Prostate cancer (~2002) Current use of anticoagulant therapy Dyslipidemia Family History Family history of problems with anesthesia: No Surgical History Surgical History H/O shoulder surgery H/O colonoscopy History of partial colectomy History of radical prostatectomy (~2002) History of Problems with Anesthesia: No Social History Social History Housing: Condominium Alcohol intake: current Alcohol intake frequency: holidays/special occasions only Patient Tobacco Use Status: Never used Tobacco e-Cigarette/Vaping Use: Never Used Second Hand Smoke Exposure: No Use of substances other than those prescribed or required for medical reasons: No Are you DNR?: No Advance Directives: No Advance Directives Information Provided: Yes service: No Current occupational status: retired 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 Current occupational exposures/hazards: No Cognitive needs: No Hearing needs: No Vision needs: No Meds Allergies Allergy/AdvReac Type Severity Reaction Status Date / Time ranitidine [From Zantac] Allergy Mild Rash Verified 04/28/23 10:13 Home Medications Medication Instructions Recorded Confirmed Last Taken Type warfarin 5 mg tablet 5 mg PO DAILY 03/25/22 04/28/23 04/22/23 History leuprolide (3 month) 22.5 mg (3 22.5 mg IM [id number] 11/10/22 04/28/23 Unknown History month) intramuscular syringe kit (Lupron Depot) Exam Airway Mallampati Class: II TM Dist: >3cm Neck ROM: Limited Heart: rrr Lungs: cta Assessment and Plan Assessment Anesthesia Assessment: Anesthesia Plan Discussed Final Anesthetic Review Family History of Problems with Anesthesia: No History of Problems with Anesthesia: No NPO: Yes ASA Class: IV (severe left diaphragmatic paralysis eventeration, see report above , pt high risk for anrsthesia) Final Preanesthetic Review: No Changes in Pt Med Stat, Meds/Allgs Chart Reviewed, Consent Obtained/Reviewed and Anes Risks/Benef Reviewed Patient Risk: High Procedure Risk: Low Anesthetic Plan Anesthetic Plan: MAC: Disposition: Standard PACU
--- NOTE | 2023-04-27 11:48 | MHC.SHP ---
Pre-Procedural Eval Section A Date of Service: 04/27/23 The patient is an INPATIENT: No Changes since office visit: No Cold of Flu in the past 2 weeks, No New Medical Problems, No Changes in Medication and No Patient answered all questions The History & Physical has been completed within 30 days and I have reviewed it.: Yes Section B Chief Complaint: Sebaceous cyst Allergies: Allergies Allergy/AdvReac Type Severity Reaction Status Date / Time ranitidine [From Zantac] Allergy Mild Rash Verified 04/19/23 10:23 Plan I have reviewed the history and physical and performed a pertinent physical examination on my patient. No changes have occurred unless specified. Time Spent With Patient Time: Total time managing care of this patient today ____ minutes.
[2023-04-28 10:07] VITALS: BMI 26.2
[2023-04-28 10:15] VITALS: BP 137/75; PULSE 66; RESP 16; TEMP 36.6; O2SAT 96
[2023-04-28] MEDS: Lactated Ringers 1,000 ML 100 ML IVCONT (10:37)
[2023-04-28 11:13] LABS: INTERNATIONAL NORM RATIO 1.1 (0.9-1.1); Prothrombin Time 12.9 SEC (11.1-13.3)
--- NOTE | 2023-04-28 12:48 | W.PM.OPN ---
Operative Note Operative Note Date of Service: 04/28/23 Narrative: Preoperative diagnosis: [] Back sebaceous cyst x3 Postop diagnosis: [] same Procedure [] wide local excision back sebaceous cyst x3 Surgeon: [] Jonathan Consumer Affairs Specialist: [] Titus Type of Anesthesia: [] mass Indication for surgery: [] right upper back lesion 3 x 2 cm., Left upper back lesion 3 x 2 cm. , Central lower back lesion measuring 9 x 3 cm specimen sizes Findings: [] Patient brought to the operating room, placed on operative table in supine position, after adequate level of MAC anesthesia was induced, patient was placed in left lateral decubitus position. Each proposed incision site was infiltrated with 0.5% Marcaine/ 1% lidocaine After the Patient's back was prepped and draped in usual sterile fashion. Each sebaceous cyst was approached with a bi- elliptical incision which was carried down through skin, subcutaneous tissue, and undermined using Bovie. This all 3 specimens were sent to pathology together for evaluation. For sizes , please see above. Each wound was irrigated, secured hemostasis, and closed using interrupted inverted dermal 3-0 Vicryl sutures followed by Steri-Strips and sterile dressings. Patient tolerated the procedure well and emerged anesthesia stable condition. EBL minimal
[2023-04-28 13:04] VITALS: BP 99/44; PULSE 70; RESP 16; TEMP 36.6; O2SAT 94
[2023-04-28 13:22] VITALS: BP 76/36; PULSE 65; RESP 16; O2SAT 95
[2023-04-28 13:26] VITALS: BP 98/74; PULSE 64; RESP 12; O2SAT 95
[2023-04-28 13:37] VITALS: BP 108/59; PULSE 53; RESP 12; O2SAT 96
[2023-04-28 13:52] VITALS: BP 117/56; PULSE 71; RESP 16; TEMP 36.6; O2SAT 96
== END 2023-04-28 14:43 | disposition home or self-care (01) ==
PROVIDERS: Nurse Practitioner; PCP Nurse Practitioner Family; Visit Provider Surgery
PROC: (CPT 11404; principal; 2023-04-28 11:00)
DX: L72.3 Sebaceous cyst (principal); L72.0 Epidermal cyst; I25.10 Atherosclerotic heart disease of native coronary artery without angina pectoris; I25.2 Old myocardial infarction; E78.5 Hyperlipidemia, unspecified; Z86.718 Personal history of other venous thrombosis and embolism; Z79.01 Long term (current) use of anticoagulants; Z85.46 Personal history of malignant neoplasm of prostate; Z88.8 Allergy status to other drugs, medicaments and biological substances; Z90.49 Acquired absence of other specified parts of digestive tract
CPT/HCPCS: 11404 ×2; 11406; 36415; 85610; 88304; J0131; J0690; J1100; J2250; J2795; J3010

== ENCOUNTER → 2023-04-28 08:54 | Outpatient (BNV) | payer MEDICARE, BC, SELFPAY | PROVIDERS: PCP Nurse Practitioner Family; Visit Provider Surgery | DX: L72.0 Epidermal cyst (principal) | CPT/HCPCS: 11403; 11404; 11406 ==

== ENCOUNTER 2023-05-04 10:15 | Outpatient (AMB) | payer MEDICARE, BC, SELFPAY ==
--- NOTE | 2023-05-04 10:25 | MHC.OFFVISCO ---
Intake Intake Visit Reasons: Anticoagulation Allergies ranitidine [From Zantac] Allergy (Mild, Verified 05/04/23 10:20) Rash Medication List - Last Reconciled 05/04/23 by Capri Olivier RN enoxaparin (Lovenox) 90 mg (0.9 mL) subcut Q12H 10 days hydrocodone-acetaminophen 5-325 mg 1 tab PO Q4-6H PRN leuprolide (3 month) (Lupron Depot) 22.5 mg IM [id number] losartan 25 mg PO DAILY simvastatin 80 mg PO DAILY warfarin 5 mg See Protocol PO DAILY Nursing Note INR 1.4-?? out of therapeutic range of 2-3 Medications and supplements reviewed Patient status: pt s/p tessa cyst surg on 04/28/23- 5 day hold of warfarin with lovenox bridge Medications or supplements: no changes Diet: same Denies any signs and symptoms of bleeding or clotting or unusual bruising Bleeding, bruising, clotting discussed Nutritional guidance given: no greens Dose: 7.5mg today and tomm cont lovenox q 12 hours F/U INR Date : tue05/06/23?? Patient verbalizing understanding of instructions given. pt pcp office valery juan called with low inr/dosing and f/u appt. aware on lovenox bridge and pt requires refill spoke to manohar at 1035 and composed note to pcp Anti-Coag Initial Assessment Social Hx Patient Tobacco Use Status: Never used Tobacco alcohol intake: current Alcohol intake frequency: holidays/special occasions only Cardiovascular Hx: [place] Endocrine Hx: Thyroid Disease Blood Disorder Hx: Hyperlipidemia GI Hx: Other Hx: Prostate Cancer HX: Yes Psych. Illness/Depression: No Coding Level of Care Code Est Patient Level 1 Diagnoses Current use of anticoagulant therapy Z79.01 Assessment & Plan Assessment & Plan (1) Current use of anticoagulant therapy: Comment: (on Warfarin for hx DVTs) Code(s): Z79.01 - assisted (current) use of anticoagulants Category: Medical
[2023-05-04 10:27] LABS: Prothrombin Time Whole Bld POC 16.9 sec (11.1-13.5); ~PT, ~INR - Anti Coag Clinic 1.4 (0.9-1.1)
== END 2023-05-04 10:42 | disposition home or self-care (01) ==
LOC: HO.ACS 10:15
PROVIDERS: PCP Nurse Practitioner Family; Visit Provider Internal Medicine
DX: Z79.01 Long term (current) use of anticoagulants (principal)

== ENCOUNTER → 2023-05-04 10:15 | Outpatient (BNVA) | payer MEDICARE, BC, SELFPAY | PROVIDERS: PCP Nurse Practitioner Family; Visit Provider Internal Medicine | DX: Z86.718 Personal history of other venous thrombosis and embolism (principal); Z51.81 Encounter for therapeutic drug level monitoring; Z79.01 Long term (current) use of anticoagulants | CPT/HCPCS: 85610; 99211 ==

== ENCOUNTER 2023-05-06 10:17 | Outpatient (AMB) | payer MEDICARE, BC, SELFPAY ==
[2023-05-06 10:33] LABS: Prothrombin Time Whole Bld POC 23.4 sec (11.1-13.5)
--- NOTE | 2023-05-06 10:35 | MHC.OFFVISCO ---
Intake Intake Visit Reasons: Anticoagulation Allergies ranitidine [From Zantac] Allergy (Mild, Verified 05/06/23 10:28) Rash Medication List - Last Reconciled 05/06/23 by Capri Olivier RN enoxaparin (Lovenox) 90 mg See Protocol subcut Q12H 2 days hydrocodone-acetaminophen 5-325 mg 1 tab PO Q4-6H PRN leuprolide (3 month) (Lupron Depot) 22.5 mg IM [id number] losartan 25 mg PO DAILY simvastatin 80 mg PO DAILY warfarin 5 mg See Protocol PO DAILY Nursing Note INR: 2.0- in therapeutic range of 2-3 Medications and supplements reviewed- no changes No changes in health, diet, medications, or supplements, Denies any signs and symptoms of bleeding or bruising or clotting. Bleeding, bruising, clotting discussed Nutritional guidance given- no greens for 2 days Dose: 5mg x 5, 2.5mg x 2 F/U INR: 10 days Patient verbalizes understanding of instructions given pt states having colonoscopy on 05/25/23- will compose note to pcp regarding warfarin hold and lovenox Anti-Coag Initial Assessment Social Hx Patient Tobacco Use Status: Never used Tobacco alcohol intake: current Alcohol intake frequency: holidays/special occasions only Cardiovascular Hx: [place] Endocrine Hx: Thyroid Disease Blood Disorder Hx: Hyperlipidemia GI Hx: Other Hx: Prostate Cancer HX: Yes Psych. Illness/Depression: No Coding Level of Care Code Est Patient Level 1 Diagnoses Current use of anticoagulant therapy Z79.01 Assessment & Plan Assessment & Plan (1) Current use of anticoagulant therapy: Comment: (on Warfarin for hx DVTs) Code(s): Z79.01 - retirement (current) use of anticoagulants Category: Medical Medications: Discontinued enoxaparin (Lovenox) DO NOT TAKE THE NIGHT BEFORE PROCEDURE'S DOSE. MAY RESTART AFTER PROCEDURE, STOP WHEN COUMADIN CLINIC SAYS SO Discontinued Reason: Patient no longer taking 90 mg See Protocol subcut Q12H 2 days 3.6 mL 0RF
== END 2023-05-06 10:50 | disposition home or self-care (01) ==
LOC: HO.ACS 10:17
PROVIDERS: PCP Nurse Practitioner Family; Visit Provider Internal Medicine
DX: Z79.01 Long term (current) use of anticoagulants (principal)

== ENCOUNTER → 2023-05-06 10:17 | Outpatient (BNVA) | payer MEDICARE, BC, SELFPAY | PROVIDERS: PCP Nurse Practitioner Family; Visit Provider Internal Medicine | DX: Z86.718 Personal history of other venous thrombosis and embolism (principal); Z51.81 Encounter for therapeutic drug level monitoring; Z79.01 Long term (current) use of anticoagulants | CPT/HCPCS: 85610; 99211 ==

== ENCOUNTER 2023-05-10 09:39 | Outpatient (AMB) | payer MEDICARE, BC, SELFPAY ==
[2023-05-10 09:44] VITALS: BP 82/50; PULSE 87
--- NOTE | 2023-05-10 09:44 | A.OFFVIS_ITS ---
Intake Vital Signs 05/10/23 09:44 Weight 190 lb BP 82/50 L Blood Pressure Location Rt brachial Position Sitting Pulse 87 Intake Visit Reasons: S/P WLE back cyst x3 Intake Note: Patient here s/p exc of cysts on back X3. Reports incisions healing well. Patient reports no concerns. Denies pain, bleeding, tenderness. Buckler And Lacer Required: No Accompanied by: Spouse Allergies ranitidine [From Zantac] Allergy (Mild, Verified 05/10/23 09:45) Rash HPI HPI Comments History of Present Illness Details Patient presents with for follow-up. He has no wound issues or complaints. Pathology is benign. [facility] Medical History History of deep vein thrombosis Old anterior myocardial infarction CAD (coronary artery disease) Rising PSA following treatment for malignant neoplasm of prostate (~2012) Prostate cancer (~2002) Current use of anticoagulant therapy Dyslipidemia Surgical History H/O shoulder surgery H/O colonoscopy History of partial colectomy History of radical prostatectomy (~2002) Social History Housing: Condominium Alcohol intake: current Alcohol intake frequency: holidays/special occasions only Patient Tobacco Use Status: Never used Tobacco e-Cigarette/Vaping Use: Never Used Second Hand Smoke Exposure: No service: No Current occupational status: retired 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 Assessment & Plan Assessment & Plan (1) Sebaceous cyst: Code(s): L72.3 - Sebaceous cyst Plan Patient and have been given local instructions including avoiding strenuous activities for next 2-3 weeks time and will otherwise follow-up p.r.n. Coding Level of Care Code Global (53047) Diagnoses Sebaceous cyst L72.3
== END 2023-05-10 09:57 | disposition home or self-care (01) ==
PROVIDERS: PCP Nurse Practitioner Family; Visit Provider Surgery
DX: L72.3 Sebaceous cyst (principal)
CPT/HCPCS: 99024

== ENCOUNTER → 2023-05-10 09:39 | Outpatient (BNVA) | payer MEDICARE, BC, SELFPAY | PROVIDERS: PCP Nurse Practitioner Family; Visit Provider Surgery | DX: Z48.817 Encounter for surgical aftercare following surgery on the skin and subcutaneous tissue (principal); Z98.890 Other specified postprocedural states | CPT/HCPCS: 99212 ==

== ENCOUNTER 2023-05-18 10:23 | Outpatient (AMB) | payer MEDICARE, BC, SELFPAY ==
--- NOTE | 2023-05-18 10:52 | MHC.OFFVISCO ---
Intake Intake Visit Reasons: Anticoagulation Allergies ranitidine [From Zantac] Allergy (Mild, Verified 05/18/23 10:41) Rash Medication List - Last Reconciled 05/18/23 by Capri Olivier RN enoxaparin (Lovenox) 90 mg See Protocol subcut Q12H 10 days hydrocodone-acetaminophen 5-325 mg 1 tab PO Q4-6H PRN leuprolide (3 month) (Lupron Depot) 22.5 mg IM [id number] losartan 25 mg PO DAILY simvastatin 80 mg PO DAILY warfarin 5 mg See Protocol PO DAILY Nursing Note INR 1.7-?? out of therapeutic range Medications and supplements reviewed Patient status: pt states scheduled for colonoscopy on 05/25/23- warfarin hold and lovenox bridging pre and post proc per pcp (see composed note) Medications or supplements: no changes Diet: same Denies any signs and symptoms of bleeding or clotting or unusual bruising Bleeding, bruising, clotting discussed Nutritional guidance given: no greens for 2 days Dose: 7.5mg today, 5mg tomm then hold x 5 days pre proc, lovenox pre/post proc per instructions F/U INR Date : tuesday ?05/30/23? Patient verbalizing understanding of instructions given. t/c received from pt, stating he missed a dose of warfarin yesterday, cont same dosing Anti-Coag Initial Assessment Social Hx Patient Tobacco Use Status: Never used Tobacco alcohol intake: current Alcohol intake frequency: holidays/special occasions only Cardiovascular Hx: [place] Endocrine Hx: Thyroid Disease Blood Disorder Hx: Hyperlipidemia GI Hx: Other Hx: Prostate Cancer HX: Yes Psych. 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
== END 2023-05-18 11:16 | disposition home or self-care (01) ==
LOC: HO.ACS 10:23
PROVIDERS: PCP Nurse Practitioner Family; Visit Provider Internal Medicine
DX: Z79.01 Long term (current) use of anticoagulants (principal)

== ENCOUNTER → 2023-05-18 10:23 | Outpatient (BNVA) | payer MEDICARE, BC, SELFPAY | PROVIDERS: PCP Nurse Practitioner Family; Visit Provider Internal Medicine | DX: Z86.718 Personal history of other venous thrombosis and embolism (principal); Z51.81 Encounter for therapeutic drug level monitoring; Z79.01 Long term (current) use of anticoagulants | CPT/HCPCS: 85610; 99211 ==

== ENCOUNTER 2023-05-25 11:26 | Day surgery (SDC) | payer MEDICARE, BC, SELFPAY ==
--- NOTE | 2023-05-24 10:39 | HO.ANESPROP2 ---
Documented by User: Carla Hillman NP 05/24/23 10:52 HPI - Anesthesia Eval Consult details Narrative: 77yo M for Colonoscopy with possible Dilation Currently being followed by Thoracic at [facility] for diaphragm paralysis and eventration and elevation. Shift in the central mediastinal structures to the right. Bowels in chest with pt reported dyspnea. [place] is part of work up for repair. s/p cyst removal 04/2023 with GA-mask Cardiac optimized per 03/2023 Workload Warfarin for DVT - lovenox bridge [facility] Active Problems Active Problems: All Active Problems (Updated 03/11/23 @ 16:52 by Columba Cook MD) Sebaceous cyst (Acute) History of colon surgery (Acute) Colon distention (Acute) Family history of colon cancer (Acute) Infected sebaceous cyst (Acute) Cellulitis of back except buttock (Acute) Skin lesions (Acute) Mass of bladder (Acute) Diaphragmatic disorder (Acute) Abnormal finding on EKG (Acute) Exertional dyspnea (Acute) Volvulosis (Acute) Decreased lung sounds (Acute) PSA elevation (Acute) Prostate cancer (Acute ~2002) Rising PSA following treatment for malignant neoplasm of prostate (Acute ~2012) CAD (coronary artery disease) (Acute) Dyslipidemia (Acute) Current use of anticoagulant therapy (Acute) History of deep vein thrombosis (Acute) Past Medical History Medical History History of deep vein thrombosis Old anterior myocardial infarction CAD (coronary artery disease) Rising PSA following treatment for malignant neoplasm of prostate (~2012) Prostate cancer (~2002) Current use of anticoagulant therapy Dyslipidemia Family History Family history of problems with anesthesia: No Surgical History Surgical History H/O shoulder surgery H/O colonoscopy History of partial colectomy History of radical prostatectomy (~2002) History of Problems with Anesthesia: No Social History Social History Housing: Condominium Alcohol intake: current Alcohol intake frequency: holidays/special occasions only Patient Tobacco Use Status: Never used Tobacco e-Cigarette/Vaping Use: Never Used Second Hand Smoke Exposure: No Use of substances other than those prescribed or required for medical reasons: No Are you DNR?: No Advance Directives: No Advance Directives Information Provided: Yes service: No Current occupational status: retired 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 Current occupational exposures/hazards: No Cognitive needs: No Hearing needs: No Vision needs: No Meds Allergies Allergy/AdvReac Type Severity Reaction Status Date / Time ranitidine [From Zantac] Allergy Mild Rash Verified 05/18/23 10:41 Home Medications Medication Instructions Recorded Confirmed Last Taken Type warfarin 5 mg tablet 5 mg PO DAILY 03/25/22 05/18/23 05/19/23 History leuprolide (3 month) 22.5 mg (3 22.5 mg IM [id number] 11/10/22 04/28/23 Unknown History month) intramuscular syringe kit (Lupron Depot) Exam Pertinent Lab Results Pertinent Lab Results: Laboratory Tests 08/20/22 04/19/23 15:19 11:28 WBC 7.6 Hgb 14.9 Hct 45.3 Plt Count 285 Sodium 141 Potassium 4.6 Chloride 107 Carbon Dioxide 28 BUN 23 H Creatinine 0.76 Narrative Narrative: EKG 10/2022 normal sinus rhythm with rapid transition from V1 to V2 suggestive rightward shift of the mediastinum with nonspecific ST T wave abnormality ECHO 01/2023 Conclusions: - 1. Normal LV ejection fraction at 60-65% with impaired relaxation filling pattern 2. Cardiac valvular Dopplers within normal limits with fibrocalcific aortic valve changes noted and moderate mitral annular calcification noted 3. No gross pericardial effusion NM radha perf SPECT rest & str 01/2023 Impression: 1. Likely normal myocardial perfusion 2. Gated LVEF is greater than 70% 3. Transient ischemic dilatation not present Stress EKG is negative for ischemia MR abdomen wo/w con 02/2023 IMPRESSION: 1. 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 2. Right hepatic dome segment 8 and posterior segment 6 subcapsular simple cysts are found. 3. 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 Assessment and Plan Assessment Anesthesia Assessment: Chart Reviewed Final Anesthetic Review Family History of Problems with Anesthesia: No History of Problems with Anesthesia: No Documented by User: Christina Juarez MD 05/25/23 12:14 PMFSH Past Medical History Medical History History of deep vein thrombosis Old anterior myocardial infarction CAD (coronary artery disease) Rising PSA following treatment for malignant neoplasm of prostate (~2012) Prostate cancer (~2002) Current use of anticoagulant therapy Dyslipidemia Surgical History Surgical History H/O shoulder surgery H/O colonoscopy History of partial colectomy History of radical prostatectomy (~2002) Social History 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 Current occupational exposures/hazards: No Cognitive needs: No Hearing needs: No Vision needs: No Meds Allergies Allergy/AdvReac Type Severity Reaction Status Date / Time ranitidine [From Zantac] Allergy Mild Rash Verified 05/18/23 10:41 Home Medications Medication Instructions Recorded Confirmed Last Taken Type warfarin 5 mg tablet 5 mg PO DAILY 03/25/22 05/18/23 05/19/23 History leuprolide (3 month) 22.5 mg (3 22.5 mg IM [id number] 11/10/22 04/28/23 Unknown History month) intramuscular syringe kit (Lupron Depot) Exam Airway Mallampati Class: II TM Dist: >3cm Neck ROM: Full Heart: rrr Lungs: cta Assessment and Plan Assessment Anesthesia Assessment: Anesthesia Plan Discussed Final Anesthetic Review NPO: Yes ASA Class: III Final Preanesthetic Review: No Changes in Pt Med Stat, Meds/Allgs Chart Reviewed and Consent Obtained/Reviewed Patient Risk: Intermediate Procedure Risk: Low Anesthetic Plan Anesthetic Plan: MAC: Disposition: Standard PACU
[2023-05-25 11:37] VITALS: BMI 24.2
[2023-05-25 11:41] VITALS: BP 120/42; PULSE 87; RESP 16; TEMP 36.1; O2SAT 96
--- NOTE | 2023-05-25 11:49 | MHC.SHP ---
Pre-Procedural Eval Section A Date of Service: 05/25/23 Section B Chief Complaint: Encounter for screening for malignant neoplasm of Details of Present Illness: FH of CRC Relevant Family History (Specify if Yes): Yes Relevant Social History: None Present Medications: see Short Stay Collaborative assessment Medical History: Significant History (History of deep vein thrombosis Old anterior myocardial infarction CAD (coronary artery disease) Rising PSA following treatment for malignant neoplasm of prostate (~2012) Prostate cancer (~2002) Current use of anticoagulant therapy Dyslipidemia) History of Previous Operations: Relevant previous surgery/procedure and date(s) ( H/O shoulder surgery H/O colonoscopy History of partial colectomy History of radical prostatectomy (~2002)) Allergies: Allergies Allergy/AdvReac Type Severity Reaction Status Date / Time ranitidine [From Zantac] Allergy Mild Rash Verified 05/18/23 10:41 Review of Systems Sugical H&P ROS: Negative: Constitution, Cardiovascular, Respiratory, Neurological, Psychiatric, Hem-Onc, Allergic/Immunologic, Gastrointestinal, Genitourinary, Musculoskeletal, Integumentary, Endocrine and Eyes/Ears/Nose/Throat Exam Surgical H&P Exam: Normal: HEENT, Normal: Heart, Normal: Lungs, Normal: Extremities, Normal: Abdomen, Normal: Skin and Normal: Neurological Plan Diagnosis/Plan: Unchanged I have reviewed the history and physical and performed a pertinent physical examination on my patient. No changes have occurred unless specified. Time Spent With Patient Time: Total time managing care of this patient today ____ minutes.
[2023-05-25 11:54] LABS: INTERNATIONAL NORM RATIO 1.1 (0.9-1.1); Prothrombin Time 12.9 SEC (11.1-13.3)
[2023-05-25] MEDS: Lactated Ringers 1,000 ML 100 ML IVCONT (11:59)
--- NOTE | 2023-05-25 12:09 | P.OP_ITS ---
Operative Note Operative Note Date of Service: 05/25/23 Narrative: Operative Information Procedure Description: Colonoscopy Indication: screening, possible anastomotic stricture Anesthesia: MAC COLONOSCOPY Instrument: Olympus variable stiffness ADULT scope 190L Colonoscopy Monitoring: Vital signs and clinical assessment, continuous EKG monitoring, Pulse oximetry, Carbon Dioxide monitoring and blood pressure monitoring were done throughout the procedure. Colon withdrawal time was 5 minutes. Procedure: The patient was placed in the left lateral decubitis position and pre-procedure medications were administered. After a digital rectal examination of the ano-rectum, the video colonoscope was inserted into the rectum and advanced through the colon to the cecum/TI. The colonoscope was slowly withdrawn in a retrograde panoramic fashion and the colon mucosa was carefully examined including a retroflexed view of the rectum. Findings and interventions are described below. Procedure Difficulty: difficult due to diaphragamatic hernia--incomplete colonoscopy Findings: Terminal Ileum-not reached Cecum:not reached Ascending Colon: not reached Transverse Colon -normal --bowel was looped and dilated, and unable to advance due to what appeared to be a hernia with the scope continually rolling onto itself Descending Colon:normal Sigmoid Colon: normal Rectum: Retroflexion with mediumz sized internal hemorrhoids, grade I Anorectum - normal Colon preparation: Prosser Bowel Preparation Scale Right colon; n/a Transverse colon: 2 Left colon; 2 (0 = Unprepared colon segment with mucosa not seen due to solid stool that cannot be cleared. 1 = Portion of mucosa of the colon segment seen, but other areas of the colon segment not well seen due to staining, residual stool and/or opaque liquid. 2 = Minor amount of residual staining, small fragments of stool and/or opaque liquid, but mucosa of colon segment seen well. 3 = Entire mucosa of colon segment seen well with no residual staining, small fragments of stool or opaque liquid) Impression and Post Procedure Diagnosis: incomplete colonoscopy internal hemorrhoids Plan: High fiber diet leaflet Avoid straining at stool, epsom salts and sitz bath, anusol supps or cream Repeat Colonoscopy after he has the hernia repair--already seeing a surgeon for this and fixation has been discussed Above findings were reviewed with the patient and relevant handouts were provided if indicated.
[2023-05-25 12:49] VITALS: BP 88/45; PULSE 81; RESP 18; TEMP 36.3; O2SAT 96
[2023-05-25 13:00] VITALS: BP 119/66; PULSE 68; RESP 16; O2SAT 95
[2023-05-25 13:15] VITALS: BP 121/60; PULSE 71; RESP 16; TEMP 36.4; O2SAT 94
== END 2023-05-25 13:46 | disposition home or self-care (01) ==
PROVIDERS: Nurse Practitioner; PCP Nurse Practitioner Family; Visit Provider Internal Medicine Gastroenterology
PROC: 0D7E8ZZ Dilation of Large Intestine, Via Natural or Artificial Opening Endoscopic (ICD-10-PCS; CPT 45378; principal; 2023-05-25 13:20)
DX: Z12.11 Encounter for screening for malignant neoplasm of colon (principal); Z53.09 Procedure and treatment not carried out because of other contraindication; K44.9 Diaphragmatic hernia without obstruction or gangrene; K63.89 Other specified diseases of intestine; K64.0 First degree hemorrhoids
CPT/HCPCS: 45378; 36415; 85610; J2704

== ENCOUNTER 2023-05-30 11:09 | Outpatient (AMB) | payer MEDICARE, BC, SELFPAY ==
[2023-05-30 11:17] LABS: Prothrombin Time Whole Bld POC 21.7 sec (11.1-13.5); ~PT, ~INR - Anti Coag Clinic 1.8 (0.9-1.1)
--- NOTE | 2023-05-30 11:28 | MHC.OFFVISCO ---
Intake Intake Visit Reasons: Anticoagulation Allergies ranitidine [From Zantac] Allergy (Mild, Verified 05/30/23 11:11) Rash Medication List - Last Reconciled 05/30/23 by Analilia Workman RN bisacodyl (Dulcolax (bisacodyl)) 20 mg (4 x 5 mg) PO ONCE 1 day enoxaparin (Lovenox) 90 mg See Protocol subcut Q12H 10 days hydrocodone-acetaminophen 5-325 mg 1 tab PO Q4-6H PRN leuprolide (3 month) (Lupron Depot) 22.5 mg IM [id number] losartan 25 mg PO DAILY simethicone (Gas Relief (simethicone)) 125 mg PO ONCE simvastatin 80 mg PO DAILY warfarin 5 mg See Protocol PO DAILY Nursing Note Amb to ACS feeling well S/P colonoscopy 05/25 lovenox bridge Medications and supplements reviewed, sts did not take lovenox this am, has only 1 more injection left No changes in health, diet, medications, or supplements Denies any unusual signs and symptoms of bruising, bleeding, other than lovenox injection sites Denies any new Chest pain, SOB, or clotting INR: 1.8 below therapeutic range Nutritional guidance given: has not been eating greens, will continue no greens til seen Dose: increase warfarin today to 5mg then resume usual dosing;2.5mg x 2 days and 5mg x 5 days to continue with lovenox injections call to [facility] spoke with Hayley PECK who will check with PCP Neva for lovenox refill as INR is 1.8, recheck Thursday 06/01, pt has lovenox on him and will take while here at [facility], and requests for refill to [facility] pharmacy F/U INR: 06/01 Patient verbalizes understanding of instructions given with accurate read back/ teach back of dosing Anti-Coag Initial Assessment Social Hx Patient Tobacco Use Status: Never used Tobacco alcohol intake: current Alcohol intake frequency: holidays/special occasions only Cardiovascular Hx: AR Endocrine Hx: Thyroid Disease Blood Disorder Hx: Hyperlipidemia GI Hx: Other Hx: Prostate Cancer HX: Yes Psych. 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
== END 2023-05-30 14:49 | disposition home or self-care (01) ==
LOC: HO.ACS 11:09
PROVIDERS: PCP Nurse Practitioner Family; Visit Provider Internal Medicine
DX: Z79.01 Long term (current) use of anticoagulants (principal)

== ENCOUNTER → 2023-05-30 11:09 | Outpatient (BNVA) | payer MEDICARE, BC, SELFPAY | PROVIDERS: PCP Nurse Practitioner Family; Visit Provider Internal Medicine | DX: Z86.718 Personal history of other venous thrombosis and embolism (principal); Z79.01 Long term (current) use of anticoagulants; Z51.81 Encounter for therapeutic drug level monitoring | CPT/HCPCS: 85610; 99211 ==

== ENCOUNTER 2023-06-01 10:56 | Outpatient (AMB) | payer MEDICARE, BC, SELFPAY ==
--- NOTE | 2023-06-01 11:09 | MHC.OFFVISCO ---
Intake Intake Visit Reasons: Anticoagulation Allergies ranitidine [From Zantac] Allergy (Mild, Verified 06/01/23 11:05) Rash Medication List - Last Reconciled 06/01/23 by Capri Olivier RN bisacodyl (Dulcolax (bisacodyl)) 20 mg (4 x 5 mg) PO ONCE 1 day enoxaparin (Lovenox) 90 mg See Protocol subcut Q12H hydrocodone-acetaminophen 5-325 mg 1 tab PO Q4-6H PRN leuprolide (3 month) (Lupron Depot) 22.5 mg IM [id number] losartan 25 mg PO DAILY simethicone (Gas Relief (simethicone)) 125 mg PO ONCE simvastatin 80 mg PO DAILY warfarin 5 mg See Protocol PO DAILY Nursing Note INR: 2.0- in therapeutic range of 2-3 Medications and supplements reviewed- no changes No changes in health, diet, medications, or supplements, Denies any signs and symptoms of bleeding or bruising or clotting. Bleeding, bruising, clotting discussed Nutritional guidance given - no greens for 2 days, eat reds to raise Dose: 2.5mg x 2, 5mg x 5 pt is on lovenox bridge, took dose this am, take this pm then d/c F/U INR: 1 week Patient verbalizes understanding of instructions given pt s/p colonoscopy with lovenox bridge pre and post Anti-Coag Initial Assessment Social Hx Patient Tobacco Use Status: Never used Tobacco alcohol intake: current Alcohol intake frequency: holidays/special occasions only Cardiovascular Hx: RI Endocrine Hx: Thyroid Disease Blood Disorder Hx: Hyperlipidemia GI Hx: Other Hx: Prostate Cancer HX: Yes Psych. 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
[2023-06-01 11:11] LABS: Prothrombin Time Whole Bld POC 23.5 sec (11.1-13.5)
== END 2023-06-01 11:19 | disposition home or self-care (01) ==
LOC: HO.ACS 10:56
PROVIDERS: PCP Nurse Practitioner Family; Visit Provider Internal Medicine
DX: Z79.01 Long term (current) use of anticoagulants (principal)

== ENCOUNTER → 2023-06-01 10:56 | Outpatient (BNVA) | payer MEDICARE, BC, SELFPAY | PROVIDERS: PCP Nurse Practitioner Family; Visit Provider Internal Medicine | DX: Z86.718 Personal history of other venous thrombosis and embolism (principal); Z79.01 Long term (current) use of anticoagulants; Z51.81 Encounter for therapeutic drug level monitoring | CPT/HCPCS: 85610; 99211 ==

== ENCOUNTER 2023-06-08 10:57 | Outpatient (AMB) | payer MEDICARE, BC, SELFPAY ==
--- NOTE | 2023-06-08 11:02 | MHC.OFFVISCO ---
Intake Intake Visit Reasons: Anticoagulation Allergies ranitidine [From Zantac] Allergy (Mild, Verified 06/08/23 10:58) Rash Medication List - Last Reconciled 06/08/23 by Capri Olivier RN bisacodyl (Dulcolax (bisacodyl)) 20 mg (4 x 5 mg) PO ONCE 1 day hydrocodone-acetaminophen 5-325 mg 1 tab PO Q4-6H PRN leuprolide (3 month) (Lupron Depot) 22.5 mg IM [id number] losartan 25 mg PO DAILY simethicone (Gas Relief (simethicone)) 125 mg PO ONCE simvastatin 80 mg PO DAILY warfarin 5 mg See Protocol PO DAILY Nursing Note INR 1.8-?? out of therapeutic range of 2-3 Medications and supplements reviewed Patient status: pt s/p colonoscopy on 05/25/23, warfarin hold with lovenox bridge. stopped lovenox last week Medications or supplements: no changes Diet: same Denies any signs and symptoms of bleeding or clotting or unusual bruising Bleeding, bruising, clotting discussed Nutritional guidance given: no greens for 2 days, eat reds to raise Dose: 7.5mg today then cont reg 2.5mg x 2, 5mg x 5 F/U INR Date : 1 week? - pt traveling to [place] the following week Patient verbalizing understanding of instructions given. Anti-Coag Initial Assessment Social Hx Patient Tobacco Use Status: Never used Tobacco alcohol intake: current Alcohol intake frequency: holidays/special occasions only Cardiovascular Hx: SD Endocrine Hx: Thyroid Disease Blood Disorder Hx: Hyperlipidemia GI Hx: Other Hx: Prostate Cancer HX: Yes Psych. Illness/Depression: No Coding Level of Care Code Est Patient Level 1 Diagnoses Current use of anticoagulant therapy Z79.01 Assessment & Plan Assessment & Plan (1) Current use of anticoagulant therapy: Comment: (on Warfarin for hx DVTs) Code(s): Z79.01 - [facility] (current) use of anticoagulants Category: Medical Medications: Discontinued enoxaparin (Lovenox) Q 12hrs until coumadin clinic clears to stop Discontinued Reason: Patient no longer taking 90 mg See Protocol subcut Q12H 10 mL 0RF
[2023-06-08 11:03] LABS: Prothrombin Time Whole Bld POC 22.2 sec (11.1-13.5); ~PT, ~INR - Anti Coag Clinic 1.8 (0.9-1.1)
== END 2023-06-08 11:12 | disposition home or self-care (01) ==
LOC: HO.ACS 10:57
PROVIDERS: PCP Nurse Practitioner Family; Visit Provider Internal Medicine
DX: Z79.01 Long term (current) use of anticoagulants (principal)

== ENCOUNTER → 2023-06-08 10:57 | Outpatient (BNVA) | payer MEDICARE, BC, SELFPAY | PROVIDERS: PCP Nurse Practitioner Family; Visit Provider Internal Medicine | DX: Z86.718 Personal history of other venous thrombosis and embolism (principal); Z79.01 Long term (current) use of anticoagulants; Z51.81 Encounter for therapeutic drug level monitoring | CPT/HCPCS: 85610; 99211 ==

== ENCOUNTER 2023-06-15 09:13 | Outpatient (AMB) | payer MEDICARE, BC, SELFPAY ==
--- NOTE | 2023-06-15 09:28 | MHC.OFFVISCO ---
Intake Intake Visit Reasons: Anticoagulation Allergies ranitidine [From Zantac] Allergy (Mild, Verified 06/15/23 09:49) Rash Medication List - Last Reconciled 06/15/23 by Capri Olivier RN bisacodyl (Dulcolax (bisacodyl)) 20 mg (4 x 5 mg) PO ONCE 1 day hydrocodone-acetaminophen 5-325 mg 1 tab PO Q4-6H PRN leuprolide (3 month) (Lupron Depot) 22.5 mg IM [id number] losartan 25 mg PO DAILY psyllium seed (sugar) (Metamucil (sugar) oral powder) 1 tsp PO BID simethicone (Gas Relief (simethicone)) 125 mg PO ONCE simvastatin 80 mg PO DAILY warfarin 5 mg See Protocol PO DAILY Nursing Note INR: 2.4- in therapeutic range of 2-3 Medications and supplements reviewed- taking metamucil with collagen peptides bid- no interaction with warfarin per micromedex No changes in health, diet, medications, or supplements, Denies any signs and symptoms of bleeding or bruising or clotting. Bleeding, bruising, clotting discussed Nutritional guidance given Dose: 5mg x 5, 2.5mg x 2 F/U INR: 2 weeks Patient verbalizes understanding of instructions given Anti-Coag Initial Assessment Social Hx Patient Tobacco Use Status: Never used Tobacco alcohol intake: current Alcohol intake frequency: holidays/special occasions only Cardiovascular Hx: ME Endocrine Hx: Thyroid Disease Blood Disorder Hx: Hyperlipidemia GI Hx: Other Hx: Prostate Cancer HX: Yes Psych. Illness/Depression: No Coding Level of Care Code Est Patient Level 1 Diagnoses Current use of anticoagulant therapy Z79.01 Assessment & Plan Assessment & Plan (1) Current use of anticoagulant therapy: Comment: (on Warfarin for hx DVTs) Code(s): Z79.01 - halfway (current) use of anticoagulants Category: Medical
[2023-06-15 09:30] LABS: Prothrombin Time Whole Bld POC 28.6 sec (11.1-13.5); ~PT, ~INR - Anti Coag Clinic 2.4 (0.9-1.1)
== END 2023-06-15 09:38 | disposition home or self-care (01) ==
LOC: HO.ACS 09:13
PROVIDERS: PCP Nurse Practitioner Family; Visit Provider Internal Medicine
DX: Z79.01 Long term (current) use of anticoagulants (principal)

== ENCOUNTER → 2023-06-15 09:13 | Outpatient (BNVA) | payer MEDICARE, BC, SELFPAY | PROVIDERS: PCP Nurse Practitioner Family; Visit Provider Internal Medicine | DX: Z86.718 Personal history of other venous thrombosis and embolism (principal); K63.89 Other specified diseases of intestine; J98.6 Disorders of diaphragm; Z79.01 Long term (current) use of anticoagulants; Z51.81 Encounter for therapeutic drug level monitoring; Z98.890 Other specified postprocedural states; Z80.0 Family history of malignant neoplasm of digestive organs | CPT/HCPCS: 85610; 99211; 99212 ==

== ENCOUNTER 2023-06-15 09:37 | Outpatient (AMB) | payer MEDICARE, BC, SELFPAY ==
--- NOTE | 2023-06-15 09:46 | A.OFFVIS_ITS ---
Intake Vital Signs 06/15/23 09:49 Height 6 ft Weight 187 lb 9.561 oz BMI 25.4 BP 131/60 Blood Pressure Location Lt brachial Position Sitting Pulse 81 Intake Visit Reasons: follow up colonoscopy Intake Note: Brad presents in the office as a follow up colonoscopy. CC: He states that they were unable to complete the procedure because he was not cleared all the way and he just wants to know what could be done because Dr Chapman wants to do a surgery on his left diaphragm for his left lung but they need to do that first. 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 05/11/23: Edwina accompanies him to [facility] visit today. Pt reports being told of abnormal breath sounds on a physical which prompted a CXR which showed elevated L hemidiaphragm. He has been seeing thoracic surgeon for further evaluation and also reported intermittent constipation to him. However pt reports that now for the past 10 days since he has incorporated fiber in his diet has been having daily BMs. In addition, on review of imaging from August 2022 was also noted to have significantly distended distal transverse and splenic flexure (measuring 16 cm at max diameter) which has moved into his L chest and displaced other mediastinal structures to R side. 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 This was done 20 years ago at [facility]. ?L sided hemodiaphragm could have been a sequela of this surgery. Has had frequent colos in the past at q5y interval due to fam hx of CRC but does report hx of incomplete colonoscopy in 6-7 years ago in [place]- he does not recall if it was incomplete because cecum could not be reached or whether it was due to poor prep. Had a barium enema following it and was told about a distended bowel loop at that time too. From review of records from [facility], seems was present in 2011 as well based on the CT report (images not available so unable to comment if colonic dilation has progressed since then). 05/25/2023 colo (Dr. Collazo): Incomplete due to significant looping in transverse colon. Right colon could not be reached. Recommendation was made to have the paraesophageal hernia repaired and then repeat colonoscopy as needed. 06/14/23: Results of the colonoscopy were reviewed with the patient. He was informed that an incomplete colonoscopy should not have any bearing on moving ahead with his thoracic surgery procedure. We were unable to receive records of his partial colon resection from [facility]. [facility] Medical History (Updated 06/20/23 @ 07:30 by Brad Hooks [facility]) History of deep vein thrombosis Old anterior myocardial infarction CAD (coronary artery disease) Rising PSA following treatment for malignant neoplasm of prostate (~2012) Prostate cancer (~2002) Current use of anticoagulant therapy Dyslipidemia Surgical History (Updated 06/15/23 @ 09:46 by JON Allen) History of esophagogastroduodenoscopy (EGD) H/O shoulder surgery H/O colonoscopy History of partial colectomy History of radical prostatectomy (~2002) Social History [facility] Alcohol intake: current Alcohol intake frequency: holidays/special occasions only Patient Tobacco Use Status: Never used Tobacco e-Cigarette/Vaping Use: Never Used Second Hand Smoke Exposure: No service: No Current occupational status: retired 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 Current occupational exposures/hazards: No Cognitive needs: No Hearing needs: No Vision needs: No Review of Systems Const All systems reviewed & are unremarkable except as noted in HPI and below Physical Exam Vital Signs: Last Vital Signs Pulse 81 06/15/23 09:49 BP 131/60 06/15/23 09:49 BMI result Body Mass Index 25.4 Gen appear: NAD HEENT: nonicteric, no cervical lymphadenopathy Chest: CTA CVS: Regular S1/S2 Abd: soft, nontender, nondistended, bowel sounds + Ext: no peripheral edema Neuro: A/Ox3, noted to move all extremities spontaneously Psych: interacting appropriately Assessment & Plan Assessment & Plan (1) Colon distention: Code(s): K63.89 - Other specified diseases of intestine (2) Family history of colon cancer: Code(s): Z80.0 - Family history of malignant neoplasm of digestive organs (3) History of colon surgery: Code(s): Z98.890 - Other specified postprocedural states (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 Patient was encouraged to see Dr. Chapman to proceed with diaphragmatic hernia repair as planned. He may return to our office for a completion colonoscopy once this is done. 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
[2023-06-15 09:49] VITALS: BP 131/60; PULSE 81; BMI 25.4
== END 2023-06-15 10:20 | disposition home or self-care (01) ==
PROVIDERS: PCP Nurse Practitioner Family; Visit Provider Internal Medicine
DX: K63.89 Other specified diseases of intestine (principal); Z80.0 Family history of malignant neoplasm of digestive organs; Z98.890 Other specified postprocedural states; J98.6 Disorders of diaphragm
CPT/HCPCS: 99214

== ENCOUNTER 2023-06-29 09:38 | Outpatient (AMB) | payer MEDICARE, BC, SELFPAY ==
--- NOTE | 2023-06-29 09:48 | MHC.OFFVISCO ---
Intake Intake Visit Reasons: Anticoagulation Allergies ranitidine [From Zantac] Allergy (Mild, Verified 06/29/23 09:40) Rash Medication List - Last Reconciled 06/29/23 by Capri Olivier RN hydrocodone-acetaminophen 5-325 mg 1 tab PO Q4-6H PRN leuprolide (3 month) (Lupron Depot) 22.5 mg IM [id number] losartan 25 mg PO DAILY psyllium seed (sugar) (Metamucil (sugar) oral powder) 1 tsp PO BID simvastatin 80 mg PO DAILY warfarin 5 mg See Protocol PO DAILY Nursing Note INR: 2.0- in therapeutic range of 2-3 Medications and supplements reviewed- no changes No changes in health, diet, medications, or supplements, Denies any signs and symptoms of bleeding or bruising or clotting. Bleeding, bruising, clotting discussed Nutritional guidance given Dose: 2.5mg x 2, 5mg x 5 F/U INR: 2 weeks Patient verbalizes understanding of instructions given Anti-Coag Initial Assessment Social Hx Patient Tobacco Use Status: Never used Tobacco alcohol intake: current Alcohol intake frequency: holidays/special occasions only Cardiovascular Hx: [place] Endocrine Hx: Thyroid Disease Blood Disorder Hx: Hyperlipidemia GI Hx: Other Hx: Prostate Cancer HX: Yes Psych. Illness/Depression: No Coding Level of Care Code Est Patient Level 1 Diagnoses Current use of anticoagulant therapy Z79.01 Assessment & Plan Assessment & Plan (1) Current use of anticoagulant therapy: Comment: (on Warfarin for hx DVTs) Code(s): Z79.01 - shelter (current) use of anticoagulants Category: Medical
[2023-06-29 09:49] LABS: Prothrombin Time Whole Bld POC 23.7 sec (11.1-13.5)
== END 2023-06-29 09:54 | disposition home or self-care (01) ==
LOC: HO.ACS 09:38
PROVIDERS: PCP Nurse Practitioner Family; Visit Provider Internal Medicine
DX: Z79.01 Long term (current) use of anticoagulants (principal)

== ENCOUNTER → 2023-06-29 09:38 | Outpatient (BNVA) | payer MEDICARE, BC, SELFPAY | PROVIDERS: PCP Nurse Practitioner Family; Visit Provider Internal Medicine | DX: Z86.718 Personal history of other venous thrombosis and embolism (principal); Z79.01 Long term (current) use of anticoagulants; Z51.81 Encounter for therapeutic drug level monitoring | CPT/HCPCS: 85610; 99211 ==

== ENCOUNTER 2023-07-13 09:46 | Outpatient (AMB) | payer MEDICARE, BC, SELFPAY ==
--- NOTE | 2023-07-13 09:51 | MHC.OFFVISCO ---
Intake Intake Visit Reasons: Anticoagulation Allergies ranitidine [From Zantac] Allergy (Mild, Verified 07/13/23 09:46) Rash Medication List - Last Reconciled 07/13/23 by Capri Olivier RN hydrocodone-acetaminophen 5-325 mg 1 tab PO Q4-6H PRN leuprolide (3 month) (Lupron Depot) 22.5 mg IM [id number] losartan 25 mg PO DAILY psyllium seed (sugar) (Metamucil (sugar) oral powder) 1 tsp PO BID simvastatin 80 mg PO DAILY warfarin 5 mg See Protocol PO DAILY Nursing Note INR: 2.2- in therapeutic range of 2-3 Medications and supplements reviewed- no changes No changes in health, diet, medications, or supplements, Denies any signs and symptoms of bleeding or bruising or clotting. Bleeding, bruising, clotting discussed Nutritional guidance given Dose: 5mg x 5, 2.5mg x 2 F/U INR: 4 weeks Patient verbalizes understanding of instructions given Anti-Coag Initial Assessment Social Hx Patient Tobacco Use Status: Never used Tobacco alcohol intake: current Alcohol intake frequency: holidays/special occasions only Cardiovascular Hx: [place] Endocrine Hx: Thyroid Disease Blood Disorder Hx: Hyperlipidemia GI Hx: Other Hx: Prostate Cancer HX: Yes Psych. Illness/Depression: No Coding Level of Care Code Est Patient Level 1 Diagnoses Current use of anticoagulant therapy Z79.01 Assessment & Plan Assessment & Plan (1) Current use of anticoagulant therapy: Comment: (on Warfarin for hx DVTs) Code(s): Z79.01 - [facility] (current) use of anticoagulants Category: Medical
[2023-07-13 09:52] LABS: Prothrombin Time Whole Bld POC 26.8 sec (11.1-13.5); ~PT, ~INR - Anti Coag Clinic 2.2 (0.9-1.1)
== END 2023-07-13 09:55 | disposition home or self-care (01) ==
LOC: HO.ACS 09:46
PROVIDERS: PCP Nurse Practitioner Family; Visit Provider Internal Medicine
DX: Z79.01 Long term (current) use of anticoagulants (principal)

== ENCOUNTER → 2023-07-13 09:46 | Outpatient (BNVA) | payer MEDICARE, BC, SELFPAY | PROVIDERS: PCP Nurse Practitioner Family; Visit Provider Internal Medicine | DX: Z86.718 Personal history of other venous thrombosis and embolism (principal); Z79.01 Long term (current) use of anticoagulants; Z51.81 Encounter for therapeutic drug level monitoring | CPT/HCPCS: 85610; 99211 ==

== ENCOUNTER 2023-07-25 10:46 | Outpatient (REF) | payer MEDICARE, BC, SELFPAY ==
[2023-07-25 13:33] LABS: Alanine Aminotransferase 164 U/L (0-40); Albumin Level 4.1 g/dL (3.5-5.0); Alkaline Phosphatase 71 U/L (39-117); Anion Gap 10 (12-20); Aspartate Amino Transferase 150 U/L (5-37); Bilirubin Total 0.6 mg/dL (0.0-1.0); Blood Urea Nitrogen 21 mg/dL (9-16); Calcium 9.3 mg/dL (8.4-10.2); Carbon Dioxide 30 mmol/L (22-29); Chloride 106 mmol/L (96-108); Estimated Glomerular Filt Rate > 60; Glucose Random 99 mg/dL (60-115); Potassium 4.7 mmol/L (3.3-5.1); Sodium 141 mmol/L (135-145); Total Protein 6.9 g/dL (6.5-8.0)
[2023-07-25 13:48] LABS: Prostate Specific Antigen < 0.10 ng/mL (<0.05-4.0)
== END 2023-07-25 10:47 | disposition home or self-care (01) ==
LOC: HO.HMGCLDS 10:46
PROVIDERS: PCP Nurse Practitioner Family; Visit Provider Internal Medicine
DX: Z12.5 Encounter for screening for malignant neoplasm of prostate (principal); C61 Malignant neoplasm of prostate
CPT/HCPCS: 36415; 80053; 84153

== ENCOUNTER 2023-08-09 10:45 | Outpatient (AMB) | payer MEDICARE, BC, SELFPAY ==
--- NOTE | 2023-08-09 11:14 | MHC.OFFVISCO ---
Intake Intake Visit Reasons: Anticoagulation Allergies ranitidine [From Zantac] Allergy (Mild, Verified 08/09/23 10:49) Rash Medication List - Last Reconciled 08/09/23 by Rocio Dubon RN hydrocodone-acetaminophen 5-325 mg 1 tab PO Q4-6H PRN leuprolide (3 month) (Lupron Depot) 22.5 mg IM [id number] losartan 25 mg PO DAILY psyllium seed (sugar) (Metamucil (sugar) oral powder) 1 tsp PO BID warfarin 5 mg See Protocol PO DAILY Nursing Note INR: 2.6 in therapeutic range Medications and supplements reviewed traveled to [place], had a cramp in his leg- sought medical attention-DVT, ruled, INR 1.7 took 2.5mg extra- missed a dose also, made up a dose, diet changed while away, had last lupron shot, going to see Hem/Onc for review of his cloting hx - off warfarin or go on something else, last simvastatin dose 08/01/23 - due to elevated liver enzymes, - may lower INR - however if liver upset it may take awhile for INR to drop, Going to repeat liver labs in another week Denies any signs and symptoms of bleeding or bruising or clotting. Bleeding, bruising, clotting discussed Nutritional guidance given - review food list Dose: increase 5mg daily F/U INR: 1 1/2 weeks Patient verbalizes understanding of instructions given Anti-Coag Initial Assessment Social Hx Patient Tobacco Use Status: Never used Tobacco alcohol intake: current Alcohol intake frequency: holidays/special occasions only Cardiovascular Hx: [place] Endocrine Hx: Thyroid Disease Blood Disorder Hx: Hyperlipidemia GI Hx: Other Hx: Prostate Cancer HX: Yes Psych. 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
[2023-08-09 12:26] LABS: Prothrombin Time Whole Bld POC 31.1 sec (11.1-13.5); ~PT, ~INR - Anti Coag Clinic 2.6 (0.9-1.1)
== END 2023-08-09 11:24 | disposition home or self-care (01) ==
LOC: HO.ACS 10:45
PROVIDERS: PCP Nurse Practitioner Family; Visit Provider Internal Medicine
DX: Z79.01 Long term (current) use of anticoagulants (principal)

== ENCOUNTER → 2023-08-09 10:45 | Outpatient (BNVA) | payer MEDICARE, BC, SELFPAY | PROVIDERS: PCP Nurse Practitioner Family; Visit Provider Internal Medicine | DX: Z86.718 Personal history of other venous thrombosis and embolism (principal); Z79.01 Long term (current) use of anticoagulants; Z51.81 Encounter for therapeutic drug level monitoring | CPT/HCPCS: 85610; 99211 ==

== ENCOUNTER 2023-08-16 08:51 | Outpatient (REF) | payer MEDICARE, BC, SELFPAY ==
[2023-08-16 12:51] LABS: MANUAL DIFF FLAG NO
[2023-08-16 12:55] LABS: Basophils Percent Auto 0.5 % (0-2); Eosinophils Absolute Auto 0.3 X10*3/uL (0.0-0.4); Eosinophils Percent Auto 4.3 % (0-4); Hematocrit 45.7 % (42.0-52.0); Hemoglobin 14.9 g/dl (14.0-18.0); Imm Gran Abs Auto 0.02 X10*3/uL (0.00-0.03); Imm Gran Pct Auto 0.3 % (0.0-0.4); Lymphocytes Absolute Auto 2.1 X10*3/uL (1.2-4.9); Lymphocytes Percent Auto 34.3 % (20-40); Mean Corpuscular HGB Conc 32.6 g/dl (31.0-36.0); Mean Corpuscular Hemoglobin 30.2 pg (27.0-33.0); Mean Corpuscular Volume 92.5 fL (80.0-98.0); Mean Platelet Volume 11.1 fL (9.4-12.4); Monocytes Absolute Auto 0.6 X10*3/uL (0.1-1.2); Monocytes Percent Auto 10.2 % (2-11); Neutrophils Absolute Auto 3.1 x10*3/uL (2.0-8.3); Neutrophils Percent Auto 50.4 % (45-73); Platelet Count 300 X10*3/uL (160-400); Red Blood Count 4.94 X10*6/uL (4.60-5.80); Red Cell Distribution Width 12.8 % (11.0-16.0); White Blood Count 6.1 X10*3/uL (4.8-10.8)
[2023-08-16 13:18] LABS: Appearance Urine Clear; Color Urine Yellow; Glucose Urine UA Negative (Negative); Leukocyte Esterase Urine Negative (Negative); Nitrite Urine Negative (Negative); PH 6.5 (5.0-9.0); Specific Gravity - Urine <= 1.005 (1.005-1.025); Urine Blood Negative (Negative); Urine Ketones Negative (Negative); Urine Protein Negative (Neg-Trace)
[2023-08-16 13:30] LABS: Alanine Aminotransferase 22 U/L (0-40); Alkaline Phosphatase 73 U/L (39-117); Anion Gap 12 (12-20); Aspartate Amino Transferase 18 U/L (5-37); Bilirubin Total 0.5 mg/dL (0.0-1.0); Blood Urea Nitrogen 16 mg/dL (9-16); Calcium 9.2 mg/dL (8.4-10.2); Carbon Dioxide 29 mmol/L (22-29); Chloride 107 mmol/L (96-108); Cholesterol 217 mg/dL (<200); Estimated Glomerular Filt Rate > 60; Glucose Fasting 101 mg/dL (60-99); HDL Cholesterol 41 mg/dL (>40); LDL Cholesterol Calculated 136 mg/dL (<100); Potassium 4.8 mmol/L (3.3-5.1); Sodium 143 mmol/L (135-145); TSH reflex Free T4 2.27 uIU/mL (0.32-4.0); Total Protein 6.9 g/dL (6.5-8.0); Triglycerides 204 mg/dL (<150)
== END 2023-08-16 08:52 | disposition home or self-care (01) ==
LOC: HO.HMGCLDS 08:51
PROVIDERS: PCP Nurse Practitioner Family; Visit Provider Nurse Practitioner Family
DX: E78.5 Hyperlipidemia, unspecified (principal)
CPT/HCPCS: 36415; 80053; 80061; 81003; 82550; 84443; 85025

== ENCOUNTER 2023-08-19 10:44 | Outpatient (AMB) | payer MEDICARE, BC, SELFPAY ==
[2023-08-19 11:00] LABS: Prothrombin Time Whole Bld POC 46.3 sec (11.1-13.5); ~PT, ~INR - Anti Coag Clinic 3.9 (0.9-1.1)
--- NOTE | 2023-08-19 11:10 | MHC.OFFVISCO ---
Intake Intake Visit Reasons: Anticoagulation Allergies ranitidine [From Zantac] Allergy (Mild, Verified 08/09/23 10:49) Rash Medication List - Last Reconciled 08/19/23 by Analilia Keene RN hydrocodone-acetaminophen 5-325 mg 1 tab PO Q4-6H PRN leuprolide (3 month) (Lupron Depot) 22.5 mg IM [id number] losartan 25 mg PO DAILY psyllium seed (sugar) (Metamucil (sugar) oral powder) 1 tsp PO BID warfarin 5 mg See Protocol PO DAILY Nursing Note INR: 3.9out of therapeutic range of 2-3 Medications and supplements reviewed: no new meds, pt states has been taking tylenol 2 tabs daily d/t back pain Denies any signs and symptoms of bleeding or bruising or clotting. Bleeding, bruising, clotting discussed. Pt understands that his blood is thin and is at risk for bleeding so not to engage in activity that has a high potential for injury. If he hits his head, he understands he should go to the ER for ct scan to R/O bleed Nutritional guidance given to have greens the next 2 days and to avoid food from the red list. Dose: hold today's dose and then resume usual dose of 5mg daily F/U INR: 1 week Patient verbalizes understanding of instructions given Anti-Coag Initial Assessment Social Hx Patient Tobacco Use Status: Never used Tobacco alcohol intake: current Alcohol intake frequency: holidays/special occasions only Cardiovascular Hx: [place] Endocrine Hx: Thyroid Disease Blood Disorder Hx: Hyperlipidemia GI Hx: Other Hx: Prostate Cancer HX: Yes Psych. 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
== END 2023-08-19 11:17 | disposition home or self-care (01) ==
LOC: HO.ACS 10:44
PROVIDERS: PCP Nurse Practitioner Family; Visit Provider Internal Medicine
DX: Z79.01 Long term (current) use of anticoagulants (principal)

== ENCOUNTER → 2023-08-19 10:44 | Outpatient (BNVA) | payer MEDICARE, BC, SELFPAY | PROVIDERS: PCP Nurse Practitioner Family; Visit Provider Internal Medicine | DX: Z86.718 Personal history of other venous thrombosis and embolism (principal); Z79.01 Long term (current) use of anticoagulants; Z51.81 Encounter for therapeutic drug level monitoring | CPT/HCPCS: 85610; 99211 ==

== ENCOUNTER → 2023-08-22 13:53 | Outpatient (BNV) | payer MEDICARE, BC, SELFPAY | PROVIDERS: PCP Nurse Practitioner Family; Referring Provider Nurse Practitioner Family; Visit Provider Internal Medicine | DX: Z79.01 Long term (current) use of anticoagulants (principal); Z86.718 Personal history of other venous thrombosis and embolism | CPT/HCPCS: 99204 ==

== ENCOUNTER 2023-08-26 14:10 | Outpatient (AMB) | payer MEDICARE, BC, SELFPAY ==
--- NOTE | 2023-08-26 14:30 | MHC.OFFVISCO ---
Intake Intake Visit Reasons: Anticoagulation Allergies ranitidine [From Zantac] Allergy (Mild, Verified 08/26/23 14:26) Rash Medication List - Last Reconciled 08/26/23 by Capri Olivier RN leuprolide (3 month) (Lupron Depot) 22.5 mg IM [id number] losartan 25 mg PO DAILY psyllium seed (sugar) (Metamucil (sugar) oral powder) 1 tsp PO BID warfarin 5 mg See Protocol PO DAILY Nursing Note INR: 3.0- in therapeutic range of 2-3 Medications and supplements reviewed- leuprolide finished pt states per labs, liver enzymes elev and simvastatin was d/c on 08/02/23 No changes in health, diet, medications, or supplements, Denies any signs and symptoms of bleeding or bruising or clotting. Bleeding, bruising, clotting discussed Nutritional guidance given - food lisst reviewed Dose: 5mg x 7 F/U INR: pt req 1 week Patient verbalizes understanding of instructions given pt feels prev inr was elev due to stress and change in food during travel Anti-Coag Initial Assessment Social Hx Patient Tobacco Use Status: Never used Tobacco alcohol intake: current Alcohol intake frequency: holidays/special occasions only Cardiovascular Hx: [place] Endocrine Hx: Thyroid Disease Blood Disorder Hx: Hyperlipidemia GI Hx: Other Hx: Prostate Cancer HX: Yes Psych. Illness/Depression: No Coding Level of Care Code Est Patient Level 1 Diagnoses Current use of anticoagulant therapy Z79.01 Assessment & Plan Assessment & Plan (1) Current use of anticoagulant therapy: Comment: (on Warfarin for hx DVTs) Code(s): Z79.01 - snf (current) use of anticoagulants Category: Medical
[2023-08-26 14:31] LABS: Prothrombin Time Whole Bld POC 36.4 sec (11.1-13.5)
== END 2023-08-26 16:14 | disposition home or self-care (01) ==
LOC: HO.ACS 14:10
PROVIDERS: PCP Nurse Practitioner Family; Visit Provider Internal Medicine
DX: Z79.01 Long term (current) use of anticoagulants (principal)

== ENCOUNTER → 2023-08-26 14:10 | Outpatient (BNVA) | payer MEDICARE, BC, SELFPAY | PROVIDERS: PCP Nurse Practitioner Family; Visit Provider Internal Medicine | DX: Z86.718 Personal history of other venous thrombosis and embolism (principal); Z79.01 Long term (current) use of anticoagulants; Z51.81 Encounter for therapeutic drug level monitoring | CPT/HCPCS: 85610; 99211 ==

== ENCOUNTER 2023-08-31 11:35 | Outpatient (AMB) | payer MEDICARE, BC, SELFPAY ==
--- NOTE | 2023-08-31 11:40 | A.OFFVIS_ITS ---
Intake Vital Signs 08/31/23 11:42 Height 6 ft Weight 185 lb BMI 25.1 BP 110/59 L Blood Pressure Location Lt brachial Position Sitting Pulse 80 Intake Visit Reasons: f/u rescheduled Intake Note: Brad presents in the office as a follow up. CC: States that this is a follow up and he is concerned because he has not been able to have a full colonoscopy the last two attempts and seems there is a family Hx he wants to know the other options he has. He also states Dr Chapman would like to tighten up left diaphragm for the squished lung to expand. 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 05/11/23: Edwina [facility] to [facility]. Pt reports being told of abnormal breath sounds on a physical which prompted a CXR which showed elevated L hemidiaphragm. He has been seeing thoracic surgeon for further evaluation and also reported intermittent constipation to him. However pt reports that now for the past 10 days since he has incorporated fiber in his diet has been having daily BMs. In addition, on review of imaging from August 2022 was also noted to have significantly distended distal transverse and splenic flexure (measuring 16 cm at max diameter) which has moved into his L chest and displaced other mediastinal structures to R side. 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 This was done 20 years ago at [facility]. ?L sided hemodiaphragm could have been a sequela of this surgery. Has had frequent colos in the past at q5y interval due to fam hx of CRC but does report hx of incomplete colonoscopy in 6-7 years ago in [place]- he does not recall if it was incomplete because cecum could not be reached or whether it was due to poor prep. Had a barium enema following it and was told about a distended bowel loop at that time too. From review of records from [facility], seems was present in 2011 as well based on the CT report (images not available so unable to comment if colonic dilation has progressed since then). 05/25/2023 colo (Dr. Collazo): Incomplete due to significant looping in transverse colon. Right colon could not be reached. Recommendation was made to have the paraesophageal hernia re paired and then repeat colonoscopy as needed. 06/14/23: Results of the colonoscopy were reviewed with the patient. He was informed that an incomplete colonoscopy should not have any bearing on moving ahead with his thoracic surgery procedure. We were unable to receive records of his partial colon resection from [facility]. 08/31/23: Patient here for follow-up with his soon. Has not had the diaphragmatic hernia repair surgery at. 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 Records from [facility] are not available to review. He also wonders if there are other options for colorectal cancer screening as he has not been able to have a complete colonoscopy x2 and has family history of colon cancer. [facility] Medical History History of deep vein thrombosis Old anterior myocardial infarction CAD (coronary artery disease) Rising PSA following treatment for malignant neoplasm of prostate (~2012) Prostate cancer (~2002) Current use of anticoagulant therapy Dyslipidemia Surgical History History of esophagogastroduodenoscopy (EGD) H/O shoulder surgery H/O colonoscopy History of partial colectomy History of radical prostatectomy (~2002) Social History Housing: Condominium Alcohol intake: current Alcohol intake frequency: holidays/special occasions only Patient Tobacco Use Status: Never used Tobacco e-Cigarette/Vaping Use: Never Used Second Hand Smoke Exposure: No service: No Current occupational status: retired 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 Current occupational exposures/hazards: No Cognitive needs: No Hearing needs: No Vision needs: No Review of Systems Const All systems reviewed & are unremarkable except as noted in HPI and below Physical Exam Vital Signs: Last Vital Signs Pulse 80 08/31/23 11:42 BP 110/59 L 08/31/23 11:42 BMI result Body Mass Index 25.1 No acute distress Nonicteric Abdomen soft, nondistended Alert oriented x3, normal gait Assessment & Plan Assessment & Plan (1) Colon distention: Code(s): K63.89 - Other specified diseases of intestine (2) Family history of colon cancer: Code(s): Z80.0 - Family history of malignant neoplasm of digestive organs (3) History of colon surgery: Code(s): Z98.890 - Other specified postprocedural states (4) 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 Again reviewed that once the paraesophageal hernia has been managed surgically, we may be able to complete the colonoscopy. Patient has been seeing Dr. Chapman but hesitant to proceed. In addition, it seems that a clear discussion re diaphragmatic hernia repair has not taken place between him and his surgeon. He was advised that he has the right to seek a 2nd opinion to better address any concerns that he may have. Similarly can also get another opinion/attempt at colo from a GI however as outlined above has already had x2 incomplete colos due to altered anatomy. He can discuss the referrals with his PCP. In terms of other modalities to screen for colon cancer such as cologuard, CT colonography, barium enema etc not recommended in patients with above average risk of colon cancer due to family history; and additionally will have to be followed up with a diagnostic colonoscopy anyway if positive. He was advised to contact us over phone or portal for completion colonoscopy once he has had hernia repair. 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
[2023-08-31 11:42] VITALS: BP 110/59; PULSE 80; BMI 25.1
== END 2023-08-31 14:05 | disposition home or self-care (01) ==
PROVIDERS: PCP Nurse Practitioner Family; Visit Provider Internal Medicine
DX: K63.89 Other specified diseases of intestine (principal); Z80.0 Family history of malignant neoplasm of digestive organs; Z98.890 Other specified postprocedural states; J98.6 Disorders of diaphragm; K44.9 Diaphragmatic hernia without obstruction or gangrene
CPT/HCPCS: 99214

== ENCOUNTER → 2023-08-31 11:35 | Outpatient (BNVA) | payer MEDICARE, BC, SELFPAY | PROVIDERS: PCP Nurse Practitioner Family; Visit Provider Internal Medicine | DX: K63.89 Other specified diseases of intestine (principal); K44.9 Diaphragmatic hernia without obstruction or gangrene; J98.6 Disorders of diaphragm; Z80.0 Family history of malignant neoplasm of digestive organs; Z98.890 Other specified postprocedural states | CPT/HCPCS: 99212 ==

== ENCOUNTER 2023-09-02 13:55 | Outpatient (AMB) | payer MEDICARE, BC, SELFPAY ==
[2023-09-02 14:15] LABS: Prothrombin Time Whole Bld POC 45.2 sec (11.1-13.5); ~PT, ~INR - Anti Coag Clinic 3.8 (0.9-1.1)
--- NOTE | 2023-09-02 14:42 | MHC.OFFVISCO ---
Intake Intake Visit Reasons: Anticoagulation Allergies ranitidine [From Zantac] Allergy (Mild, Verified 09/02/23 14:02) Rash Medication List - Last Reconciled 09/02/23 by Rocio Dubon RN losartan 25 mg PO DAILY psyllium seed (sugar) (Metamucil (sugar) oral powder) 1 tsp PO BID warfarin 5 mg See Protocol PO DAILY Nursing Note INR: 3.8 in therapeutic range- despite going off simvastatin INR cont to be elevated - liver studies as of 08/16/23 return to normal however cholesterol levels have risen, pt states office mover feels he can go off warfarin because the clot was greater than 10 years ago - the question is how many clots has he had - enc to ask hematology and or PCP for a coagulation panel to be drawn in 2weeks should he stop the warfarin. Number of days of holding warfarin to draw coagulation panel need to be confirmed. He has a hx of prostate cancer - which could put him at possible risk for clotting -then maybe he would consider another form of anticoagulation like a DOAC. Medications and supplements reviewed- no changes Denies any signs and symptoms of bleeding or bruising or clotting. Bleeding, bruising, clotting discussed Nutritional guidance given - keep eating a mix of fruits and vegetables and weekly greens, balance green and oolong tea ( oolong could raise the INR) Dose: decrease weekly dose 2.5mg x 1 day/ 5mg x 6 days F/U INR: 1 week Patient verbalizes understanding of instructions given Anti-Coag Initial Assessment Social Hx Patient Tobacco Use Status: Never used Tobacco alcohol intake: current Alcohol intake frequency: holidays/special occasions only Cardiovascular Hx: [place] Endocrine Hx: Thyroid Disease Blood Disorder Hx: Hyperlipidemia GI Hx: Other Hx: Prostate Cancer HX: Yes Psych. Illness/Depression: No Coding Level of Care Code Est Patient Level 1 Diagnoses Current use of anticoagulant therapy Z79.01 Assessment & Plan Assessment & Plan (1) Current use of anticoagulant therapy: Comment: (on Warfarin for hx DVTs) Code(s): Z79.01 - detention (current) use of anticoagulants Category: Medical
== END 2023-09-02 14:55 | disposition home or self-care (01) ==
LOC: HO.ACS 13:55
PROVIDERS: PCP Nurse Practitioner Family; Visit Provider Internal Medicine
DX: Z79.01 Long term (current) use of anticoagulants (principal)

== ENCOUNTER → 2023-09-02 13:55 | Outpatient (BNVA) | payer MEDICARE, BC, SELFPAY | PROVIDERS: PCP Nurse Practitioner Family; Visit Provider Internal Medicine | DX: Z86.718 Personal history of other venous thrombosis and embolism (principal); Z79.01 Long term (current) use of anticoagulants; Z51.81 Encounter for therapeutic drug level monitoring | CPT/HCPCS: 85610; 99211 ==

== ENCOUNTER 2023-09-09 13:57 | Outpatient (AMB) | payer MEDICARE, BC, SELFPAY ==
[2023-09-09 14:18] LABS: Prothrombin Time Whole Bld POC 41.3 sec (11.1-13.5); ~PT, ~INR - Anti Coag Clinic 3.4 (0.9-1.1)
--- NOTE | 2023-09-09 14:34 | MHC.OFFVISCO ---
Intake Intake Visit Reasons: Anticoagulation Allergies ranitidine [From Zantac] Allergy (Mild, Verified 09/02/23 14:02) Rash Medication List - Last Reconciled 09/09/23 by Rocio Dubon RN losartan 25 mg PO DAILY psyllium seed (sugar) (Metamucil (sugar) oral powder) 1 tsp PO BID warfarin 5 mg See Protocol PO DAILY Nursing Note INR: 3.4 in therapeutic range Medications and supplements reviewed PSA levels have come down, last lupron injection 07/2023, perhaps with PSA levels down -may be possible he could be less hyper-coaguable? simvastatin d/c 07/2023 due to liver INR values have been elevated slightly over range Pt eats very healthy seemingly more foods that may raise the INR - he is thinking maybe beneficial to resume his previous dose- will try dose for 10 days and re-eval. Denies any signs and symptoms of bleeding or bruising or clotting. Bleeding, bruising, clotting discussed Nutritional guidance given - keep diet the same Dose: 2.5mg x 2 days/ 5mg x 5 days F/U INR: 10 days 09/19/23 Patient verbalizes understanding of instructions given Anti-Coag Initial Assessment Social Hx Patient Tobacco Use Status: Never used Tobacco alcohol intake: current Alcohol intake frequency: holidays/special occasions only Cardiovascular Hx: [place] Endocrine Hx: Thyroid Disease Blood Disorder Hx: Hyperlipidemia GI Hx: Other Hx: Prostate Cancer HX: Yes Psych. 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
== END 2023-09-09 14:43 | disposition home or self-care (01) ==
LOC: HO.ACS 13:57
PROVIDERS: PCP Nurse Practitioner Family; Visit Provider Internal Medicine
DX: Z79.01 Long term (current) use of anticoagulants (principal)

== ENCOUNTER → 2023-09-09 13:57 | Outpatient (BNVA) | payer MEDICARE, BC, SELFPAY | PROVIDERS: PCP Nurse Practitioner Family; Visit Provider Internal Medicine | DX: Z86.718 Personal history of other venous thrombosis and embolism (principal); Z51.81 Encounter for therapeutic drug level monitoring; Z79.01 Long term (current) use of anticoagulants | CPT/HCPCS: 85610; 99211 ==

== ENCOUNTER 2023-09-19 10:19 | Outpatient (AMB) | payer MEDICARE, BC, SELFPAY ==
[2023-09-19 10:43] LABS: Prothrombin Time Whole Bld POC 34.1 sec (11.1-13.5); ~PT, ~INR - Anti Coag Clinic 2.8 (0.9-1.1)
--- NOTE | 2023-09-19 10:56 | MHC.OFFVISCO ---
Intake Intake Visit Reasons: Anticoagulation Allergies ranitidine [From Zantac] Allergy (Mild, Verified 09/19/23 10:35) Rash Medication List - Last Reconciled 09/19/23 by Rocio Dubon RN losartan 25 mg PO DAILY psyllium seed (sugar) (Metamucil (sugar) oral powder) 1 tsp PO BID warfarin 5 mg See Protocol PO DAILY Nursing Note INR: 2.8 in therapeutic range Medications and supplements reviewed No changes in health, diet, medications, or supplements, Denies any signs and symptoms of bleeding or bruising or clotting. Bleeding, bruising, clotting discussed Nutritional guidance given Dose: 2.5MG X 2 DAYS/ 5MG X 6 DAYS F/U INR: 2 WEEKS AFTER RETURN FROM [place] Patient verbalizes understanding of instructions given Anti-Coag Initial Assessment Social Hx Patient Tobacco Use Status: Never used Tobacco alcohol intake: current Alcohol intake frequency: holidays/special occasions only Cardiovascular Hx: [place] Endocrine Hx: Thyroid Disease Blood Disorder Hx: Hyperlipidemia GI Hx: Other Hx: Prostate Cancer HX: Yes Psych. Illness/Depression: No Coding Level of Care Code Est Patient Level 1 Diagnoses Current use of anticoagulant therapy Z79.01 Results AMB INR Fingerstick AMB INR Fingerstick 2.8 Last Edit by Rocio Dubon RN on 09/19/23 10:46 MANUAL ENTRY Assessment & Plan Assessment & Plan (1) Current use of anticoagulant therapy: Comment: (on Warfarin for hx DVTs) Code(s): Z79.01 - correction (current) use of anticoagulants Category: Medical Orders: Orders Prothrombin Time INR 1 Week Z79.01 - supervisor intermediates (current) use of anticoagulants
== END 2023-09-19 10:59 | disposition home or self-care (01) ==
LOC: HO.ACS 10:19
PROVIDERS: PCP Nurse Practitioner Family; Visit Provider Internal Medicine
DX: Z79.01 Long term (current) use of anticoagulants (principal)

== ENCOUNTER → 2023-09-19 10:19 | Outpatient (BNVA) | payer MEDICARE, BC, SELFPAY | PROVIDERS: PCP Nurse Practitioner Family; Visit Provider Internal Medicine | DX: Z86.718 Personal history of other venous thrombosis and embolism (principal); Z51.81 Encounter for therapeutic drug level monitoring; Z79.01 Long term (current) use of anticoagulants | CPT/HCPCS: 85610; 99211 ==

== ENCOUNTER 2023-09-22 10:42 | Outpatient (REF) | payer MEDICARE, BC, SELFPAY ==
[2023-09-22 13:53] LABS: INTERNATIONAL NORM RATIO 2.3 (0.9-1.1); Prothrombin Time 28.6 SEC (11.1-13.3)
[2023-09-22 14:08] LABS: Alanine Aminotransferase 18 U/L (0-40); Albumin Level 4.2 g/dL (3.5-5.0); Alkaline Phosphatase 76 U/L (39-117); Anion Gap 14 (12-20); Aspartate Amino Transferase 16 U/L (5-37); Bilirubin Total 0.6 mg/dL (0.0-1.0); Blood Urea Nitrogen 18 mg/dL (9-16); Calcium 9.3 mg/dL (8.4-10.2); Carbon Dioxide 26 mmol/L (22-29); Chloride 105 mmol/L (96-108); Cholesterol 245 mg/dL (<200); Estimated Glomerular Filt Rate > 60; Glucose Fasting 107 mg/dL (60-99); HDL Cholesterol 43 mg/dL (>40); LDL Cholesterol Calculated 157 mg/dL (<100); Potassium 4.4 mmol/L (3.3-5.1); Sodium 141 mmol/L (135-145); Total Protein 7.3 g/dL (6.5-8.0); Triglycerides 226 mg/dL (<150)
== END 2023-09-22 10:43 | disposition home or self-care (01) ==
LOC: HO.HMGCLDS 10:42
PROVIDERS: Internal Medicine; PCP Nurse Practitioner Family; Visit Provider Nurse Practitioner Family
DX: E78.5 Hyperlipidemia, unspecified (principal); Z79.01 Long term (current) use of anticoagulants
CPT/HCPCS: 36415; 80053; 80061; 85610

== ENCOUNTER 2023-09-26 12:26 | Outpatient (AMB) | payer MEDICARE, BC, SELFPAY ==
--- NOTE | 2023-09-26 12:35 | A.OFFPC_ITS ---
Vital Signs 09/26/23 12:38 Height 6 ft Weight 185 lb BMI 25.1 BP 112/76 Blood Pressure Location Rt brachial Position Sitting Pulse 85 Pulse Source Pulse Oximeter Pulse Oximetry (%) 98 Oxygen Delivery Method Room Air Intake Visit Reasons: LT hip/leg concerns/going away 09/26 Intake Note: Patient here to discuss left hip pain, and cholesterol. Allergies ranitidine [From Zantac] Allergy (Mild, Verified 09/26/23 12:39) Rash Medication List - Last Reconciled 09/26/23 by CRISTOFER Rodas- atorvastatin 10 mg PO BEDTIME enoxaparin (Lovenox) 80 mg (0.8 mL) subcut Q12H 10 days ezetimibe 10 mg PO DAILY losartan 25 mg PO DAILY psyllium seed (sugar) (Metamucil (sugar) oral powder) 1 tsp PO BID warfarin 5 mg See Protocol PO DAILY Tobacco use date assessed: 09/26/23 Fall risk assessment: No Falls in past year Last assessed Fall Risk: 09/26/23 Dental Screening Dental Screen Date: 09/26/23 Did you have a dental visit in the last 12 months?: No Did you have a dental problem in the last 6 months where you did not have access to dental care?: No Was dental information given to patient?: Patient has dentist HPI LT hip/leg concerns/going away 09/26 HPI Details Pre-op: Left yenifer-diaphragm, needs to be manually moved. Thoracics will be doing this. Will do a Preop today. Will contact pt's corduroy brusher operator for clearance. Denies chest pain, shortness of breath, and dizziness. Pt c/o left hip pain. He reports difficulty with movement due to pain. Denies any popping or clicking. Will order XR. PFSH Medical History History of deep vein thrombosis Old anterior myocardial infarction CAD (coronary artery disease) Rising PSA following treatment for malignant neoplasm of prostate (~2012) Prostate cancer (~2002) Current use of anticoagulant therapy Dyslipidemia Surgical History History of esophagogastroduodenoscopy (EGD) H/O shoulder surgery H/O colonoscopy History of partial colectomy History of radical prostatectomy (~2002) Social History Housing: Condominium Alcohol intake: current Alcohol intake frequency: holidays/special occasions only Patient Tobacco Use Status: Never used Tobacco e-Cigarette/Vaping Use: Never Used Second Hand Smoke Exposure: No service: No Current occupational status: retired 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 How often do you have a drink containing alcohol?: Never 3. How often do you have six or more drinks on one occasion?: Never Total Score: 0 Score Reviewed/Action Taken: No TAM-7 AMB Questionnaire TMA-7 Date TAM - 7 assessed: 03/25/22 Source: Developed by Drs. Jonathan Decker, Camille Loera, Dejon Pettit and colleagues, with an educational humphrey from [employer]. Review of Systems Const Denies chills and Denies fever(s) Eyes Denies blurry vision ENT Denies vertigo, Denies dizziness and Denies sore throat Card Denies chest pain at rest, Denies chest pain with activity, Denies diaphoresis, Denies dyspnea and Denies dyspnea on exertion Resp Denies cough, Denies dyspnea, Denies dyspnea on exertion and Denies wheezing GI Denies abdominal pain, Denies melena, Denies hematochezia, Denies constipation, Denies diarrhea and Denies loose stools Denies hematuria Musc Denies numbness and Denies tingling Skin/Breast Denies lesions Neuro Denies vertigo, Denies dizziness, Denies numbness and Denies tingling Psych Denies anxiety, Denies depression, Denies homicidal ideation, Denies suicidal ideation and Denies other (substance abuse) Aller/Immun Denies wheezing Physical exam (Primary Care) Vital Signs: Last Vital Signs Pulse 85 09/26/23 12:38 BP 112/76 09/26/23 12:38 Pulse Ox 98 09/26/23 12:38 Oxygen Delivery Method Room Air 09/26/23 12:38 BMI result Body Mass Index 25.1 Tobacco/Smoking Status: Tobacco use Status Tobacco use date assessed 09/26/23 09/26/23 12:41 Patient Tobacco Use Status Never used Tobacco 09/26/23 12:35 e-Cigarette/Vaping Use Never Used 09/26/23 12:35 Thrive Assessment: Date of Thrive Assessment Date Thrive assessed 03/25/22 09/26/23 12:35 Const General: cooperative Nutritional Appearance: well nourished Orientation/consciousness: patient oriented x3 Neck Neck: Yes normal visual inspection and Yes no lymphadenopathy Resp Other: lungs clear, diminished to left base Effort & Inspection: normal respiratory effort Cardio Rate: regular rate Rhythm: regular rhythm Heart sounds: S1 normal heart sound present, S2 normal heart sound present and no murmurs Neuro General: patient oriented x3 Extrem Other: left hip: full ROM without pain, some discomfort with getting up Right lower extremity: edema (trace) Left lower extremity: edema (trace) Psych Appearance: grossly normal Mental Status: mental status grossly normal Speech and movement: Normal speech and movement present Affect: normal affect Attitude: cooperative Thought process: Normal thought process present Thought content: Normal thought content present Insight: Good insight present (Psych) Judgement: Good judgement present (Psych) Assessment and Plan Assessment & Plan (1) Pre-op evaluation: Code(s): Z01.818 - Encounter for other preprocedural examination Plan: Labs ordered, EKG done in office (2) Left hip pain: Code(s): M25.552 - Pain in left hip Plan: XR order Plan The patient agreed to the use of a medical instrument technician for this encounter. Scribed for CRISTOFER Raphael-BC by Halima Silver medical instrument technician, on 09/26/2023 at 12:45 EST. Orders: Orders Comprehensive Met. Panel Today Z01.818 - Encounter for other preprocedural examination AMB EKG-In Office Today Z01.818 - Encounter for other preprocedural examination Complete Blood Count Auto Diff Today Z01.818 - Encounter for other preprocedural examination UA CC w/rflx Micro + Cult Today Z01.818 - Encounter for other preprocedural examination TSH reflex Free T4 Today Z01.818 - Encounter for other preprocedural examination XR hip LT min 2V Today M25.552 - Pain in left hip Medications: New ezetimibe 10 mg PO DAILY 90 tabs 0RF atorvastatin 10 mg PO BEDTIME 90 tabs 0RF Coding Level of Care Code Est Pt Prev Care >65y(66833) Diagnoses Pre-op evaluation Z01.818 Left hip pain M25.552
[2023-09-26 12:38] VITALS: BP 112/76; PULSE 85; O2SAT 98; BMI 25.1
== END 2023-09-26 14:07 | disposition home or self-care (01) ==
PROVIDERS: PCP Nurse Practitioner Family; Visit Provider Nurse Practitioner Family
DX: M25.552 Pain in left hip (principal); Z01.818 Encounter for other preprocedural examination
CPT/HCPCS: 93000; 99214

== ENCOUNTER 2023-09-26 13:40 | Outpatient (REF) | payer MEDICARE, BC, SELFPAY ==
--- NOTE | ~2023-09-26 | XR_ITS ---
EXAMINATION: XR HIP, LEFT CLINICAL INFORMATION: Left hip pain. COMPARISON: None available. TECHNIQUE: Two views of the left hip. FINDINGS: Alignment is anatomic. Mild osteoarthritis in the left hip with subchondral sclerosis and subchondral cystic change in the acetabulum. Arterial calcification. XR/XR hip LT min 2V IMPRESSION: Mild osteoarthritis of the left hip.
== END 2023-09-26 13:41 | disposition home or self-care (01) ==
LOC: HO.HMGCX 13:40
PROVIDERS: PCP Nurse Practitioner Family; Visit Provider Nurse Practitioner Family
DX: M25.552 Pain in left hip (principal)
CPT/HCPCS: 73502

== ENCOUNTER 2023-10-07 10:21 | Outpatient (AMB) | payer MEDICARE, BC, SELFPAY ==
--- NOTE | 2023-10-07 10:45 | MHC.OFFVISCO ---
Intake Intake Visit Reasons: Anticoagulation Allergies ranitidine [From Zantac] Allergy (Mild, Verified 10/07/23 10:29) Rash Medication List - Last Reconciled 10/07/23 by Capri Olivier RN atorvastatin 10 mg PO BEDTIME enoxaparin (Lovenox) 80 mg (0.8 mL) subcut Q12H 10 days ezetimibe 10 mg PO DAILY losartan 25 mg PO DAILY psyllium seed (sugar) (Metamucil (sugar) oral powder) 1 tsp PO BID warfarin 5 mg See Protocol PO DAILY Nursing Note INR 3.2-? out of therapeutic range of 2-3 Medications and supplements reviewed Patient status: pt states scheduled for thoracic surgery on 10/14/23. he states five day hold of warfarin with lovenox bridging. written instructions given to pt and reviewed multiple times. pt will call acs with any questions pcp agrees with poc per composed note Medications or supplements: new meds- ezetimibe 10mg daily which can raise inr- started 09/26/23, atorvastatin 2-3 x week- no interaction, simvastatin d/c several months ago Diet: same Denies any signs and symptoms of bleeding or clotting or unusual bruising Bleeding, bruising, clotting discussed Nutritional guidance given: eat a green today Dose: 2.5mg today, then 5mg tomm then 5 day hold F/U INR Date : 10/18/23? Patient verbalizing understanding of instructions given. Anti-Coag Initial Assessment Social Hx Patient Tobacco Use Status: Never used Tobacco alcohol intake: current Alcohol intake frequency: holidays/special occasions only Cardiovascular Hx: [place] Endocrine Hx: Thyroid Disease Blood Disorder Hx: Hyperlipidemia GI Hx: Other Hx: Prostate Cancer HX: Yes Psych. 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
[2023-10-07 10:46] LABS: Prothrombin Time Whole Bld POC 37.9 sec (11.1-13.5); ~PT, ~INR - Anti Coag Clinic 3.2 (0.9-1.1)
== END 2023-10-07 11:27 | disposition home or self-care (01) ==
LOC: HO.ACS 10:21
PROVIDERS: PCP Nurse Practitioner Family; Visit Provider Internal Medicine
DX: Z79.01 Long term (current) use of anticoagulants (principal)

== ENCOUNTER → 2023-10-07 10:21 | Outpatient (BNVA) | payer MEDICARE, BC, SELFPAY | PROVIDERS: PCP Nurse Practitioner Family; Visit Provider Internal Medicine | DX: Z86.718 Personal history of other venous thrombosis and embolism (principal); Z79.01 Long term (current) use of anticoagulants; Z51.81 Encounter for therapeutic drug level monitoring | CPT/HCPCS: 85610; 99212 ==

== ENCOUNTER → 2023-10-18 10:23 | Outpatient (BNVA) | payer MEDICARE, BC, SELFPAY | PROVIDERS: PCP Nurse Practitioner Family; Visit Provider Internal Medicine ==

== ENCOUNTER → 2023-10-21 12:18 | Outpatient (BNVA) | payer MEDICARE, BC, SELFPAY | PROVIDERS: PCP Nurse Practitioner Family; Visit Provider Internal Medicine ==

== ENCOUNTER → 2023-10-24 10:38 | Outpatient (BNVA) | payer MEDICARE, BC, SELFPAY | PROVIDERS: PCP Nurse Practitioner Family; Visit Provider Internal Medicine ==

== ENCOUNTER → 2023-10-28 11:20 | Outpatient (BNVA) | payer MEDICARE, BC, SELFPAY | PROVIDERS: PCP Nurse Practitioner Family; Visit Provider Internal Medicine ==

== ENCOUNTER 2023-10-28 14:44 | Outpatient (REF) | payer MEDICARE, BC, SELFPAY ==
[2023-10-28 16:59] LABS: Prostate Specific Antigen < 0.10 ng/mL (<0.05-4.0)
[2023-11-03 14:08] LABS: Testosterone, Total 3 ng/dL (250-1100)
== END 2023-10-28 14:45 | disposition home or self-care (01) ==
LOC: HO.HMGCLDS 14:44
PROVIDERS: PCP Nurse Practitioner Family; Visit Provider Internal Medicine
DX: C61 Malignant neoplasm of prostate (principal); Z12.5 Encounter for screening for malignant neoplasm of prostate
CPT/HCPCS: 36415; 84153; 84403

== ENCOUNTER → 2023-11-04 09:42 | Outpatient (BNVA) | payer MEDICARE, BC, SELFPAY | PROVIDERS: PCP Nurse Practitioner Family; Visit Provider Internal Medicine ==

== ENCOUNTER 2023-11-08 10:47 | Outpatient (REF) | payer MEDICARE, BC, SELFPAY | END 2023-11-08 10:48 | disposition home or self-care (01) | LOC: HO.LNP 10:47 | PROVIDERS: PCP Nurse Practitioner Family; Visit Provider Surgery | DX: L02.411 Cutaneous abscess of right axilla (principal); L72.0 Epidermal cyst | CPT/HCPCS: 11403; 87070; 87205; 88304; 99212 ==

== ENCOUNTER 2023-11-08 10:47 | Outpatient (AMB) | payer MEDICARE, BC, SELFPAY ==
--- NOTE | 2023-11-08 10:49 | MHC.OFFVIS ---
Vital Signs 11/08/23 10:55 Height 6 ft Weight 188 lb BMI 25.5 BP 118/76 Blood Pressure Location Rt brachial Position Sitting Pulse 92 Intake Visit Reasons: painful cyst axilla Intake Note: Patient being seen as an urgent appointment for abscess on Rt axilla. Started to become bothersome 2wks. Thoracic surgery October 13. Abscess has gotten worse since surgery. Patient c/o: tenderness, redness, inflamed. Fiction And Nonfiction Author Required: No Accompanied by: Spouse Allergies ranitidine [From Zantac] Allergy (Mild, Verified 11/08/23 10:54) Rash Medication List - Last Reconciled 11/08/23 by Taurus Castillo MD atorvastatin 10 mg PO BEDTIME docusate sodium 100 mg PO BID ezetimibe 10 mg PO DAILY losartan 25 mg PO DAILY psyllium seed (sugar) (Metamucil (sugar) oral powder) 1 tsp PO BID sennosides (senna) 17.2 mg PO DAILY warfarin 5 mg See Protocol PO DAILY HPI Comments Details: Patient presents with his both of whom I know from the past who presents here with an infected right axillary sebaceous cyst. This has been going on for several days time. Presents here for further evaluation [facility] Medical History History of deep vein thrombosis Old anterior myocardial infarction CAD (coronary artery disease) Rising PSA following treatment for malignant neoplasm of prostate (~2012) Prostate cancer (~2002) Current use of anticoagulant therapy Dyslipidemia Surgical History History of esophagogastroduodenoscopy (EGD) H/O shoulder surgery H/O colonoscopy History of partial colectomy History of radical prostatectomy (~2002) Social History Housing: Condominium Alcohol intake: current Alcohol intake frequency: holidays/special occasions only Patient Tobacco Use Status: Never used Tobacco e-Cigarette/Vaping Use: Never Used Second Hand Smoke Exposure: No service: No Current occupational status: retired 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 Office Procedures Excision Details: Risks, benefits, alternatives of incision drainage/excision of infected right sub axillary sebaceous cyst reviewed with the patient and included but not limited to bleeding, infection, recurrence, numbness, pain, scarring the patient wished to proceed. After appropriate positioning, patient underwent 1% lidocaine and Betadine prep and incision was made were copious amounts of purulent material retrieved. Cultures were obtained. Also the sebaceous cyst itself was able to be excised and sent to pathology. This measured approximately 3 x 2 cm. Wound was irrigated, secured hemostasis, packed, and sterile dressing applied. Patient tolerated procedure well. 61746-texwb/arms/legs 2.1-3cm Procedure code (CPT) selection complete I&D Drain 17416-Wxzsnnot of Skin Abscess, complex All charges added?: Procedure code (CPT) selection complete Office Meds lidocaine 1 %-epinephrine 1:100,000 injection solution Performing Provider: Taurus Castillo MD Performing Location: [facility] Administered by: Taurus Castillo MD on 11/08/23 11:14 Dose Route Admin Location Dispensed Lot Number Expiration Date [facility] Html Web Developer 10 mL Infiltration 10 mL Assessment & Plan Assessment & Plan (1) Infected sebaceous cyst: Code(s): L72.3 - Sebaceous cyst; L08.9 - Local infection of the skin and subcutaneous tissue, unspecified Category: Surgical Plan: Patient will be given antibiotics, he currently has analgesics from an unrelated procedure, VNA services with [facility], and will see me as directed or p.r.n.. All questions answered Orders: Orders AMB Incision & Drainage Today L08.9 - Local infection of the skin and subcutaneous tissue, unspecified, L72.3 - Sebaceous cyst AMB Excision Today L08.9 - Local infection of the skin and subcutaneous tissue, unspecified, L72.3 - Sebaceous cyst Medications: New lidocaine-epinephrine 1 %-1:100,000 10 mL Infiltration ONCE 30 mL 0RF L08.9 - Local infection of the skin and subcutaneous tissue, unspecified, L72.3 - Sebaceous cyst Coding Level of Care Code Est Pt Level 5 (64759) Diagnoses Infected sebaceous cyst L72.3; L08.9 CPT Codes Trunk/Arms/Legs - CPT: 08086-zford/arms/legs 2.1-3cm ([id number]) I&D Drain - Drain 2: 95630-Npaezlkp of Skin Abscess, complex ([id number])
[2023-11-08 10:55] VITALS: BP 118/76; PULSE 92; BMI 25.5
== END 2023-11-08 11:18 | disposition home or self-care (01) ==
PROVIDERS: PCP Nurse Practitioner Family; Visit Provider Surgery
DX: L72.3 Sebaceous cyst (principal); L08.9 Local infection of the skin and subcutaneous tissue, unspecified
CPT/HCPCS: 11403; 99214

== ENCOUNTER 2023-11-08 13:51 | Outpatient (REF) | payer MEDICARE, BC, SELFPAY | END 2023-11-08 13:52 | disposition home or self-care (01) | LOC: HO.LNP 13:51 | PROVIDERS: Visit Provider Surgery | DX: Z13.89 Encounter for screening for other disorder (principal) ==

== ENCOUNTER → 2023-11-09 10:03 | Outpatient (BNVA) | payer MEDICARE, BC, SELFPAY | PROVIDERS: PCP Nurse Practitioner Family; Visit Provider Surgery | DX: Z48.00 Encounter for change or removal of nonsurgical wound dressing (principal) | CPT/HCPCS: 99211 ==

== ENCOUNTER → 2023-11-10 10:00 | Outpatient (BNVA) | payer MEDICARE, BC, SELFPAY | PROVIDERS: PCP Nurse Practitioner Family; Visit Provider Surgery | DX: Z48.00 Encounter for change or removal of nonsurgical wound dressing (principal) | CPT/HCPCS: 99211 ==

== ENCOUNTER → 2023-11-11 08:55 | Outpatient (BNVA) | payer MEDICARE, BC, SELFPAY | PROVIDERS: PCP Nurse Practitioner Family; Visit Provider Surgery | DX: Z48.00 Encounter for change or removal of nonsurgical wound dressing (principal) | CPT/HCPCS: 99211 ==

== ENCOUNTER 2023-11-22 12:58 | Outpatient (AMB) | payer MEDICARE, BC, SELFPAY ==
[2023-11-22 13:05] VITALS: BP 115/57; PULSE 94; BMI 25.4
--- NOTE | 2023-11-22 13:05 | A.OFFVIS_ITS ---
Vital Signs 11/22/23 13:05 Height 6 ft Weight 187 lb BMI 25.4 BP 115/57 L Blood Pressure Location Rt brachial Position Sitting Pulse 94 Intake Visit Reasons: s/p excision painful cyst axilla Intake Note: Patient here for 2wk f/u I&D on Rt axilla. Reports site healing well. Finished Cephalexin course. Patient c/o: no concerns. 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 Wound is almost completely healed. [facility] Medical History History of deep vein thrombosis Old anterior myocardial infarction CAD (coronary artery disease) Rising PSA following treatment for malignant neoplasm of prostate (~2012) Prostate cancer (~2002) Current use of anticoagulant therapy Dyslipidemia Surgical History History of esophagogastroduodenoscopy (EGD) H/O shoulder surgery H/O colonoscopy History of partial colectomy History of radical prostatectomy (~2002) Social History Housing: Condominium Alcohol intake: current Alcohol intake frequency: holidays/special occasions only Patient Tobacco Use Status: Never used Tobacco e-Cigarette/Vaping Use: Never Used Second Hand Smoke Exposure: No service: No Current occupational status: retired 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 Exuberant granulation tissue was cauterized with silver nitrate followed by Band-Aid. Assessment & Plan Assessment & Plan (1) Status post incision and drainage: Code(s): Z98.890 - Other specified postprocedural states Category: Medical Plan Patient might have been given local instructions, and will follow-up p.r.n.. All questions answered. Coding Level of Care Code Global (36030) Diagnoses Status post incision and drainage Z98.890
== END 2023-11-22 13:16 | disposition home or self-care (01) ==
PROVIDERS: PCP Nurse Practitioner Family; Visit Provider Surgery
DX: Z98.890 Other specified postprocedural states (principal)
CPT/HCPCS: 99024

== ENCOUNTER → 2023-11-22 12:58 | Outpatient (BNVA) | payer MEDICARE, BC, SELFPAY | PROVIDERS: PCP Nurse Practitioner Family; Visit Provider Surgery | DX: Z48.817 Encounter for surgical aftercare following surgery on the skin and subcutaneous tissue (principal); Z98.890 Other specified postprocedural states; Z86.718 Personal history of other venous thrombosis and embolism; Z79.01 Long term (current) use of anticoagulants; Z51.81 Encounter for therapeutic drug level monitoring | CPT/HCPCS: 85610; 99211; 99212 ==

== ENCOUNTER 2023-11-22 13:20 | Outpatient (AMB) | payer MEDICARE, BC, SELFPAY ==
[2023-11-22 13:31] LABS: Prothrombin Time Whole Bld POC 28.5 sec (11.1-13.5); ~PT, ~INR - Anti Coag Clinic 2.4 (0.9-1.1)
--- NOTE | 2023-11-22 13:38 | MHC.OFFVISCO ---
Intake Intake Visit Reasons: Anticoagulation Allergies ranitidine [From Zantac] Allergy (Mild, Verified 11/22/23 13:24) Rash Medication List - Last Reconciled 11/22/23 by Analilia Keene, LIV acetaminophen 650 mg PO Q6H PRN atorvastatin 10 mg PO BEDTIME docusate sodium 100 mg PO BID ezetimibe 10 mg PO DAILY losartan 25 mg PO DAILY psyllium seed (sugar) (Metamucil (sugar) oral powder) 1 tsp PO BID sennosides (senna) 17.2 mg PO DAILY warfarin 5 mg See Protocol PO DAILY Nursing Note INR: 2.4 in therapeutic range of 2-3 Medications and supplements reviewed No changes in health, diet, medications, or supplements, Denies any signs and symptoms of bleeding or bruising or clotting. Bleeding, bruising, clotting discussed Nutritional guidance given to continue to balance reds and greens Dose: 5mg X 6 days and 2.5mg X 1 day F/U INR: 11/30/23 Patient verbalizes understanding of instructions given Anti-Coag Initial Assessment Social Hx Patient Tobacco Use Status: Never used Tobacco alcohol intake: current Alcohol intake frequency: holidays/special occasions only Cardiovascular Hx: [place] Endocrine Hx: Thyroid Disease Blood Disorder Hx: Hyperlipidemia GI Hx: Other Hx: Prostate Cancer HX: Yes Psych. Illness/Depression: No Coding Level of Care Code Est Patient Level 1 Diagnoses Current use of anticoagulant therapy Z79.01 Assessment & Plan Assessment & Plan (1) Current use of anticoagulant therapy: Comment: (on Warfarin for hx DVTs) Code(s): Z79.01 - FPC (current) use of anticoagulants Category: Medical
== END 2023-11-22 13:40 | disposition home or self-care (01) ==
LOC: HO.ACS 13:20
PROVIDERS: PCP Nurse Practitioner Family; Visit Provider Internal Medicine
DX: Z79.01 Long term (current) use of anticoagulants (principal)

== ENCOUNTER 2023-12-02 13:01 | Outpatient (AMB) | payer MEDICARE, BC, SELFPAY ==
[2023-12-02 13:13] LABS: ~PT, ~INR - Anti Coag Clinic 2.1 (0.9-1.1)
--- NOTE | 2023-12-02 13:19 | MHC.OFFVISCO ---
Intake Intake Visit Reasons: Anticoagulation Allergies ranitidine [From Zantac] Allergy (Mild, Verified 12/02/23 13:04) Rash Medication List - Last Reconciled 12/02/23 by Capri Olivier RN acetaminophen 650 mg PO Q6H PRN atorvastatin 10 mg PO BEDTIME docusate sodium 100 mg PO DAILY ezetimibe 10 mg PO DAILY losartan 25 mg PO DAILY psyllium seed (sugar) (Metamucil (sugar) oral powder) 1 tsp PO BID sennosides (senna) 17.2 mg PO DAILY warfarin 5 mg See Protocol PO DAILY Nursing Note INR: 2.1- in therapeutic range of 2-3 Medications and supplements reviewed- no changes No changes in health, diet, medications, or supplements, Denies any signs and symptoms of bleeding or bruising or clotting. Bleeding, bruising, clotting discussed Nutritional guidance given Dose: 5mg x 6, 2.5mg x `1 F/U INR: 2 weeks Patient verbalizes understanding of instructions given pt traveling 12/05/23- 12/28/23- order for PT/INR to be done at lab determined by pt composed note- pcp Anti-Coag Initial Assessment Social Hx Patient Tobacco Use Status: Never used Tobacco alcohol intake: current Alcohol intake frequency: holidays/special occasions only Cardiovascular Hx: [place] Endocrine Hx: Thyroid Disease Blood Disorder Hx: Hyperlipidemia GI Hx: Other Hx: Prostate Cancer HX: Yes Psych. 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
== END 2023-12-02 13:39 | disposition home or self-care (01) ==
LOC: HO.ACS 13:01
PROVIDERS: PCP Nurse Practitioner Family; Visit Provider Internal Medicine
DX: Z79.01 Long term (current) use of anticoagulants (principal)

== ENCOUNTER → 2023-12-02 13:01 | Outpatient (BNVA) | payer MEDICARE, BC, SELFPAY | PROVIDERS: PCP Nurse Practitioner Family; Visit Provider Internal Medicine | DX: Z86.718 Personal history of other venous thrombosis and embolism (principal); Z79.01 Long term (current) use of anticoagulants; Z51.81 Encounter for therapeutic drug level monitoring | CPT/HCPCS: 85610; 99211 ==

== ENCOUNTER → 2023-12-19 10:55 | Outpatient (BNVA) | payer MEDICARE, BC, SELFPAY | PROVIDERS: PCP Nurse Practitioner Family; Visit Provider Internal Medicine ==

== ENCOUNTER → 2023-12-22 14:31 | Outpatient (BNVA) | payer MEDICARE, BC, SELFPAY | PROVIDERS: PCP Nurse Practitioner Family; Visit Provider Internal Medicine ==

== ENCOUNTER → 2023-12-26 14:52 | Outpatient (BNVA) | payer MEDICARE, BC, SELFPAY | PROVIDERS: PCP Nurse Practitioner Family; Visit Provider Internal Medicine ==

== ENCOUNTER 2023-12-29 08:28 | Outpatient (REF) | payer MEDICARE, BC, SELFPAY ==
[2023-12-29 10:00] LABS: MANUAL DIFF FLAG NO
[2023-12-29 10:06] LABS: Basophils Percent Auto 0.4 % (0-2); Eosinophils Absolute Auto 0.2 X10*3/uL (0.0-0.4); Eosinophils Percent Auto 5.3 % (0-4); Hematocrit 40.4 % (42.0-52.0); Hemoglobin 13.1 g/dl (14.0-18.0); Imm Gran Abs Auto 0.02 X10*3/uL (0.00-0.03); Imm Gran Pct Auto 0.4 % (0.0-0.4); Lymphocytes Percent Auto 43.6 % (20-40); Mean Corpuscular HGB Conc 32.4 g/dl (31.0-36.0); Mean Corpuscular Hemoglobin 29.5 pg (27.0-33.0); Mean Platelet Volume 11.6 fL (9.4-12.4); Monocytes Absolute Auto 0.4 X10*3/uL (0.1-1.2); Monocytes Percent Auto 9.7 % (2-11); Neutrophils Absolute Auto 1.8 x10*3/uL (2.0-8.3); Neutrophils Percent Auto 40.6 % (45-73); Platelet Count 258 X10*3/uL (160-400); Red Blood Count 4.44 X10*6/uL (4.60-5.80); Red Cell Distribution Width 12.8 % (11.0-16.0); White Blood Count 4.5 X10*3/uL (4.8-10.8)
[2023-12-29 10:23] LABS: Alanine Aminotransferase 22 U/L (0-40); Albumin Level 3.7 g/dL (3.5-5.0); Alkaline Phosphatase 85 U/L (39-117); Anion Gap 11 (12-20); Aspartate Amino Transferase 17 U/L (5-37); Bilirubin Total 0.6 mg/dL (0.0-1.0); Blood Urea Nitrogen 22 mg/dL (9-16); Calcium 8.9 mg/dL (8.4-10.2); Carbon Dioxide 24 mmol/L (22-29); Chloride 109 mmol/L (96-108); Cholesterol 112 mg/dL (<200); Estimated Glomerular Filt Rate > 60; Glucose Fasting 103 mg/dL (60-99); Glucose Random 103 mg/dL (60-115); HDL Cholesterol 32 mg/dL (>40); LDL Cholesterol Calculated 61 mg/dL (<100); Potassium 4.4 mmol/L (3.3-5.1); Sodium 140 mmol/L (135-145); Total Protein 6.3 g/dL (6.5-8.0); Triglycerides 95 mg/dL (<150)
[2023-12-29 10:40] LABS: TSH reflex Free T4 1.43 uIU/mL (0.32-4.0)
[2023-12-29 13:06] LABS: Appearance Urine Clear; Color Urine Yellow; Glucose Urine UA Negative (Negative); Leukocyte Esterase Urine Negative (Negative); Nitrite Urine Negative (Negative); PH 5.5 (5.0-9.0); Specific Gravity - Urine 1.015 (1.005-1.025); Urine Blood Negative (Negative); Urine Ketones Negative (Negative); Urine Protein Negative (Neg-Trace)
== END 2023-12-29 08:29 | disposition home or self-care (01) ==
LOC: HO.HMGCLDS 08:28
PROVIDERS: PCP Nurse Practitioner Family; Visit Provider Nurse Practitioner Family
DX: Z01.818 Encounter for other preprocedural examination (principal); E78.5 Hyperlipidemia, unspecified
CPT/HCPCS: 36415; 80053; 80061; 81003; 84443; 85025

== ENCOUNTER 2023-12-30 12:57 | Outpatient (AMB) | payer MEDICARE, BC, SELFPAY ==
[2023-12-30 13:09] LABS: Prothrombin Time Whole Bld POC 29.3 sec (11.1-13.5); ~PT, ~INR - Anti Coag Clinic 2.4 (0.9-1.1)
--- NOTE | 2023-12-30 13:17 | MHC.OFFVISCO ---
Intake Intake Visit Reasons: Anticoagulation Allergies ranitidine [From Zantac] Allergy (Mild, Verified 12/30/23 13:03) Rash Medication List - Last Reconciled 12/30/23 by Analilia Keene, LIV acetaminophen 650 mg PO Q6H PRN atorvastatin 10 mg PO BEDTIME docusate sodium 100 mg PO DAILY ezetimibe 10 mg PO DAILY losartan 25 mg PO DAILY psyllium seed (sugar) (Metamucil (sugar) oral powder) 1 tsp PO BID warfarin 5 mg See Protocol PO DAILY Nursing Note INR: 2.4 in therapeutic range of 2-3 Medications and supplements reviewed. Pt completed a course of Doxycycline on Tue12/28/23 for a cold. No changes in health, diet, medications, or supplements, Denies any signs and symptoms of bleeding or bruising or clotting. Bleeding, bruising, clotting discussed Nutritional guidance given to increase greens in next week to counter the potential increased INR d/t doxycycline Dose: continue same dose of 5mg X 6 days and 2.5mg X 1 day F/U INR: 1 week Patient verbalizes understanding of instructions given Anti-Coag Initial Assessment Social Hx Patient Tobacco Use Status: Never used Tobacco alcohol intake: current Alcohol intake frequency: holidays/special occasions only Cardiovascular Hx: [place] Endocrine Hx: Thyroid Disease Blood Disorder Hx: Hyperlipidemia GI Hx: Other Hx: Prostate Cancer HX: Yes Psych. Illness/Depression: No Coding Level of Care Code Est Patient Level 1 Diagnoses Current use of anticoagulant therapy Z79.01 Assessment & Plan Assessment & Plan (1) Current use of anticoagulant therapy: Comment: (on Warfarin for hx DVTs) Code(s): Z79.01 - custodial (current) use of anticoagulants Category: Medical
== END 2023-12-30 13:20 | disposition home or self-care (01) ==
LOC: HO.ACS 12:57
PROVIDERS: PCP Nurse Practitioner Family; Visit Provider Internal Medicine
DX: Z79.01 Long term (current) use of anticoagulants (principal)

== ENCOUNTER → 2023-12-30 12:57 | Outpatient (BNVA) | payer MEDICARE, BC, SELFPAY | PROVIDERS: PCP Nurse Practitioner Family; Visit Provider Internal Medicine | DX: Z86.718 Personal history of other venous thrombosis and embolism (principal); Z79.01 Long term (current) use of anticoagulants; Z51.81 Encounter for therapeutic drug level monitoring | CPT/HCPCS: 85610; 99211 ==

== ENCOUNTER 2024-01-04 12:53 | Outpatient (AMB) | payer MEDICARE, BC, SELFPAY ==
--- NOTE | 2024-01-04 12:59 | A.OFFPC_ITS ---
Vital Signs 01/04/24 13:00 Height 6 ft Weight 188 lb 2 oz BMI 25.5 BP 110/60 Blood Pressure Location Rt brachial Position Sitting Pulse 86 Pulse Source Pulse Oximeter Pulse Oximetry (%) 96 Oxygen Delivery Method Room Air Intake Visit Reasons: Annual PE Intake Note: pt is here for annual exam Harnessmaker Required: No Accompanied by: Self / Same As Patient Allergies ranitidine [From Zantac] Allergy (Mild, Verified 01/04/24 16:37) Rash Medication List - Last Reconciled 01/04/24 by ANTONIO Rodas atorvastatin 10 mg PO BEDTIME ezetimibe 10 mg PO DAILY losartan 25 mg PO DAILY psyllium seed (sugar) (Metamucil (sugar) oral powder) 1 tsp PO BID warfarin 5 mg See Protocol PO DAILY Tobacco use date assessed: 09/26/23 Fall risk assessment: No Falls in past year Last assessed Fall Risk: 01/04/24 Dental Screening Dental Screen Date: 09/26/23 HPI Annual PE HPI Details Pt is here for a PE. Labs were already performed. Pt has been unable to have a colon screen due to diaphragamatic hernia. This was fixed, pt will contact his GI for a follow up. PSA is up to date. Denies dribbling with urination, weak stream, and frequent nocturia, sees urology. Pt c/o cough. He returned from a cruise on 12/16 and has had a cough since. ? viral illness, covid neg. Denies fever, chills, chest pain, and shortness of breath. Pt follows up with cardiology and hematology. [facility] Medical History History of deep vein thrombosis Old anterior myocardial infarction CAD (coronary artery disease) Rising PSA following treatment for malignant neoplasm of prostate (~2012) Prostate cancer (~2002) Current use of anticoagulant therapy Dyslipidemia Surgical History History of esophagogastroduodenoscopy (EGD) H/O shoulder surgery H/O colonoscopy History of partial colectomy History of radical prostatectomy (~2002) Social History Housing: Condominium Alcohol intake: current Alcohol intake frequency: holidays/special occasions only Patient Tobacco Use Status: Never used Tobacco e-Cigarette/Vaping Use: Never Used Second Hand Smoke Exposure: No service: No Current occupational status: retired 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 1. Little interest or pleasure in doing things: not at all 2. Feeling down, depressed, or hopeless: not at all 3. Trouble falling or staying asleep, or sleeping too much: not at all 4. Feeling tired or having little energy: several days 5. Poor appetite or overeating: not at all 6. Feeling bad about yourself - or that you are a failure or have let yourself or your family down: several days 7. Trouble concentrating on things, such as reading the newspaper or watching television: not at all 8. Moving or speaking so slowly that other people could have noticed. Or the opposite - being so fidgety or restless that you have been moving around a lot more than usual: not at all 9. Thoughts that you would be better off or of hurting yourself in some way: not at all Total score: 2 Depression Screening Interpretation: Negative Depression Screening Done: Yes 82312 - PHQ-9 Billing: Yes Source: Developed by Drs. Jonathan Decker, Camille Loera, Dejon Pettit and colleagues, with an educational humphrey from [employer]. Thrive Questionnaire Date Thrive assessed: 01/04/24 I am a: Patient What is your living situation today?: I have a steady place to live Within the past 12 months, did the food you bought not last and you didn't have the money to get more?: Never true Within the past 12 months, did you worry whether your food would run out before you got money to buy more?: Never true Do you have trouble paying for medicines?: No Do you have trouble getting transportation to medical appointments?: No Do you have trouble paying your heating and electricity bill?: No Do you have trouble taking care of your child, family member or friend?: No Do you have trouble with day-to-day activities such as bathing, preparing meals, shopping, managing finances, etc.?: No Are you currently unemployed and looking for a job?: No Are you interested in more education?: Yes Please select the resources that you would like help with: None Currently or been in a relationship where the following occur: No concerns reported THRIVE Score: 0 AUDIT C Alcohol Use Questionnaire (AUDIT-C) 1. How often do you have a drink containing alcohol?: Monthly or less 2. How many drinks containing alcohol do you have on a typical day when you are drinking?: 1 or 2 3. How often do you have six or more drinks on one occasion?: Never Total Score: 1 Score Reviewed/Action Taken: Yes TAM-7 AMB Questionnaire TAM-7 Date TAM - 7 assessed: 01/04/24 Feeling nervous, anxious, or on edge: 0 = Not at all Not being able to stop or control worryin = Not at all Worrying too much about different things: 0 = Not at all Trouble relaxin = Not at all Being so restless that it is hard to sit still: 0 = Not at all Becoming easily annoyed or irritable: 0 = Not at all Feeling afraid as if something awful might happen: 0 = Not at all Total TAM-7 score (0-4 normal; 5-9 mild; 10-14 moderate; 15-21 severe): 0 Source: Developed by Drs. Jonathan Decker, Camille Loera, Dejon Pettit and colleagues, with an educational humphrey from [employer]. TAM-7 Assessment Billing TAM-7 Assessment Tool: TAM-7 Assessment 38693 Review of Systems Const Denies chills and Denies fever(s) Eyes Denies blurry vision ENT Denies vertigo, Denies dizziness and Denies sore throat Card Denies chest pain at rest, Denies chest pain with activity, Denies diaphoresis, Denies dyspnea and Denies dyspnea on exertion Resp Denies cough, Denies dyspnea, Denies dyspnea on exertion and Denies wheezing GI Denies abdominal pain, Denies melena, Denies hematochezia, Denies constipation, Denies diarrhea and Denies loose stools Denies hematuria Musc Denies numbness and Denies tingling Skin/Breast Denies lesions Neuro Denies vertigo, Denies dizziness, Denies numbness and Denies tingling Psych Denies anxiety, Denies depression, Denies homicidal ideation, Denies suicidal ideation and Denies other (substance abuse) Aller/Immun Denies wheezing Physical exam (Primary Care) Vital Signs: Last Vital Signs Pulse 86 01/04/24 13:00 BP 110/60 01/04/24 13:00 Pulse Ox 96 01/04/24 13:00 Oxygen Delivery Method Room Air 01/04/24 13:00 BMI result Body Mass Index 25.5 Tobacco/Smoking Status: Tobacco use Status Tobacco use date assessed 09/26/23 01/04/24 13:01 Patient Tobacco Use Status Never used Tobacco 01/04/24 13:01 e-Cigarette/Vaping Use Never Used 01/04/24 13:01 PHQ-9: PHQ-9 Score PHQ-9: Total score 2 01/04/24 16:39 Depression Screening Interpretation: Negative Thrive Assessment: Date of Thrive Assessment Date Thrive assessed 01/04/24 01/04/24 13:01 Currently or been in a relationship where the following occur: No concerns reported Const General: cooperative Nutritional Appearance: well nourished Orientation/consciousness: patient oriented x3 HENMT Head: Yes normal to inspection, Yes normocephalic and Yes atraumatic Ears: TM's normal bilaterally Eyes General: appearance normal, both eyes and all related structures Alignment and Position: alignment normal and position normal Neck Neck: Yes normal visual inspection and Yes no lymphadenopathy Thyroid: Thyroid normal Resp Other: dim (though moving air) to left base. Effort & Inspection: normal respiratory effort Auscultation: clear to auscultation bilaterally Cardio Rate: regular rate Rhythm: regular rhythm Heart sounds: S1 normal heart sound present, S2 normal heart sound present and no murmurs GI Other: left upper quad with faint bulging, not tender with touch (residual/hemidiaphram repair) Palpation (GI): Soft to palpation and nontender Auscultation: normal bowel sounds Male General Exam: Yes normal external exam Penis: normal penis Scrotum: scrotum normal, testes descended bilaterally and no inguinal hernias Testes: no testicular mass Skin Other: left posterior chest with lap sites, well approximated, no signs of infection Rashes: no rashes Neuro General: patient oriented x3, moves all extremities, no focal motor deficits and deep tendon reflexes 2+ bilaterally Romberg Test: Negative Extrem Right upper extremity: no edema Left upper extremity: edema (minimal ) Psych Appearance: grossly normal Mental Status: mental status grossly normal Speech and movement: Normal speech and movement present Affect: normal affect Attitude: cooperative Thought process: Normal thought process present Thought content: Normal thought content present Insight: Good insight present (Psych) Judgement: Good judgement present (Psych) Assessment and Plan Assessment & Plan (1) Encounter for routine adult physical exam with abnormal findings: Code(s): Z00.01 - Encounter for general adult medical examination with abnormal findings Plan: labs resulted, will place repeat labs in for in a few months Plan The patient agreed to the use of a medical microbiologist for this encounter. Scribed for ANTONIO Raphael by Halima Silver medical microbiologist, on 01/04/2024 at 13:25 EST. Coding Level of Care Code Est Pt Prev Care >65y(88801) Diagnoses Encounter for routine adult physical exam with abnormal findings Z00.01 Additional Codes TAM-7 Assessment Billing - TAM-7 Assessment Tool: TAM-7 Assessment 42714 ([id number])
[2024-01-04 13:00] VITALS: BP 110/60; PULSE 86; O2SAT 96; BMI 25.5
== END 2024-01-04 14:17 | disposition home or self-care (01) ==
PROVIDERS: Visit Provider Nurse Practitioner Family
DX: Z00.00 Encounter for general adult medical examination without abnormal findings (principal)
CPT/HCPCS: 99397

== ENCOUNTER 2024-01-06 13:01 | Outpatient (AMB) | payer MEDICARE, BC, SELFPAY ==
[2024-01-06 13:13] LABS: Prothrombin Time Whole Bld POC 28.6 sec (11.1-13.5); ~PT, ~INR - Anti Coag Clinic 2.4 (0.9-1.1)
--- NOTE | 2024-01-06 13:22 | MHC.OFFVISCO ---
Intake Intake Visit Reasons: Anticoagulation Allergies ranitidine [From Zantac] Allergy (Mild, Verified 01/06/24 13:05) Rash Medication List - Last Reconciled 01/06/24 by Rocio Dubon RN atorvastatin 10 mg PO BEDTIME benzonatate 200 mg PO TID PRN doxycycline hyclate 100 mg PO BID ezetimibe 10 mg PO DAILY losartan 25 mg PO DAILY psyllium seed (sugar) (Metamucil (sugar) oral powder) 1 tsp PO BID warfarin 5 mg See Protocol PO DAILY Nursing Note INR: 2.4 in therapeutic range Medications and supplements reviewed No changes in health, diet, medications, or supplements, Denies any signs and symptoms of bleeding or bruising or clotting. Bleeding, bruising, clotting discussed Nutritional guidance given Dose: 2.5MG X 1 DAY/ 5MG X 6 DAYS F/U INR: 3 WEEKS Patient verbalizes understanding of instructions given Anti-Coag Initial Assessment Social Hx Patient Tobacco Use Status: Never used Tobacco alcohol intake: current Alcohol intake frequency: holidays/special occasions only Cardiovascular Hx: [place] Endocrine Hx: Thyroid Disease Blood Disorder Hx: Hyperlipidemia GI Hx: Other Hx: Prostate Cancer HX: Yes Psych. 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
== END 2024-01-06 13:25 | disposition home or self-care (01) ==
LOC: HO.ACS 13:01
PROVIDERS: PCP Nurse Practitioner Family; Visit Provider Internal Medicine
DX: Z79.01 Long term (current) use of anticoagulants (principal)

== ENCOUNTER → 2024-01-06 13:01 | Outpatient (BNVA) | payer MEDICARE, BC, SELFPAY | PROVIDERS: PCP Nurse Practitioner Family; Visit Provider Internal Medicine | DX: Z86.718 Personal history of other venous thrombosis and embolism (principal); Z79.01 Long term (current) use of anticoagulants; Z51.81 Encounter for therapeutic drug level monitoring | CPT/HCPCS: 85610; 99211 ==

== ENCOUNTER 2024-01-27 10:20 | Outpatient (AMB) | payer MEDICARE, BC, SELFPAY ==
[2024-01-27 10:40] LABS: ~PT, ~INR - Anti Coag Clinic 2.2 (0.9-1.1)
--- NOTE | 2024-01-27 10:43 | MHC.OFFVISCO ---
Intake Intake Visit Reasons: Anticoagulation Allergies ranitidine [From Zantac] Allergy (Mild, Verified 01/27/24 10:36) Rash Medication List - Last Reconciled 01/27/24 by Analilia Keene, RN atorvastatin 10 mg PO BEDTIME ezetimibe 10 mg PO DAILY losartan 25 mg PO DAILY psyllium seed (sugar) (Metamucil (sugar) oral powder) 1 tsp PO BID warfarin 5 mg See Protocol PO DAILY Nursing Note INR: 2.2 in therapeutic range 2-3 Medications and supplements reviewed No changes in health, diet, medications, or supplements, Denies any signs and symptoms of bleeding or bruising or clotting. Bleeding, bruising, clotting discussed Nutritional guidance given Dose: cont same dose of 5mg X 6 days and 2.5mg X 1 day F/U INR: 4 weeks Patient verbalizes understanding of instructions given Anti-Coag Initial Assessment Social Hx Patient Tobacco Use Status: Never used Tobacco alcohol intake: current Alcohol intake frequency: holidays/special occasions only Cardiovascular Hx: [place] Endocrine Hx: Thyroid Disease Blood Disorder Hx: Hyperlipidemia GI Hx: Other Hx: Prostate Cancer HX: Yes Psych. Illness/Depression: No Coding Level of Care Code Est Patient Level 1 Diagnoses Current use of anticoagulant therapy Z79.01 Results AMB INR Fingerstick AMB INR Fingerstick 2.2 Last Edit by Analilia Keene, LIV on 01/27/24 10:40 interface delay Assessment & Plan Assessment & Plan (1) Current use of anticoagulant therapy: Comment: (on Warfarin for hx DVTs) Code(s): Z79.01 - [facility] (current) use of anticoagulants Category: Medical
== END 2024-01-27 10:45 | disposition home or self-care (01) ==
LOC: HO.ACS 10:20
PROVIDERS: PCP Nurse Practitioner Family; Visit Provider Internal Medicine
DX: Z79.01 Long term (current) use of anticoagulants (principal)

== ENCOUNTER 2024-01-27 12:03 | Outpatient (REF) | payer MEDICARE, BC, SELFPAY ==
[2024-01-27 14:55] LABS: Prostate Specific Antigen < 0.10 ng/mL (<0.05-4.0)
[2024-02-01 17:29] LABS: Testosterone, Total 3 ng/dL (250-1100)
== END 2024-01-27 12:04 | disposition home or self-care (01) ==
LOC: HO.HMGCLDS 12:03
PROVIDERS: PCP Nurse Practitioner Family; Visit Provider Internal Medicine
DX: Z51.81 Encounter for therapeutic drug level monitoring (principal); C61 Malignant neoplasm of prostate; Z12.5 Encounter for screening for malignant neoplasm of prostate; Z79.01 Long term (current) use of anticoagulants
CPT/HCPCS: 36415; 84153; 84403; 85610; 99211

== ENCOUNTER 2024-01-30 12:20 | Outpatient (AMB) | payer MEDICARE, BC, SELFPAY ==
--- NOTE | 2024-01-30 12:34 | A.OFFVIS_ITS ---
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 Since we saw him last year he was diagnose with elevated left hemidiaphragm of unclear etiology subsequently underwent thoracoscopic surgery which led to improvement in his shortness of breath and currently he is back to his functional activity. Denies any significant worsening shortness of breath. No other heart failure sounding symptoms. Currently taking medications as prescribed. COUNTS INCLUDE 234 BEDS AT THE [facility] Medical History History of deep vein thrombosis Old anterior myocardial infarction CAD (coronary artery disease) Rising PSA following treatment for malignant neoplasm of prostate (~2012) Prostate cancer (~2002) Current use of anticoagulant therapy Dyslipidemia Surgical History History of esophagogastroduodenoscopy (EGD) H/O shoulder surgery H/O colonoscopy History of partial colectomy History of radical prostatectomy (~2002) [facility] Alcohol intake: current Alcohol intake frequency: holidays/special occasions only Patient Tobacco Use Status: Never used Tobacco e-Cigarette/Vaping Use: Never Used Second Hand Smoke Exposure: No service: No Current occupational status: retired 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 Current occupational exposures/hazards: No Cognitive needs: No Hearing needs: No Vision needs: No Review of Systems Const Denies chills, Denies fatigue, Denies fever(s), Denies frequent falls, Denies weakness, Denies weight gain and Denies weight loss ENT Denies dizziness Card Denies chest pain, Denies leg edema, Denies lightheadedness, Denies palpitations, Denies dyspnea, Denies dyspnea on exertion, Denies orthopnea and Denies other (loss of consciousness) Resp Denies cough, Denies dyspnea and Denies dyspnea on exertion GI Denies hematochezia and Denies change in stool character Musc Denies abnormal gait, Denies muscle weakness, Denies numbness, Denies radiating pain into limb and Denies tingling Neuro Denies abnormal gait, Denies dizziness, Denies frequent falls, Denies numbness, Denies tingling and Denies weakness Endo Denies fatigue and Denies palpitations Physical Exam Vital Signs: Last Vital Signs Pulse 74 01/30/24 12:35 BP 124/80 01/30/24 12:35 BMI result Body Mass Index 25.7 Const General: cooperative, healthy appearing, comfortable and no acute distress Orientation/consciousness: patient oriented x3 Neck Neck: Yes normal visual inspection Resp Other: Diminished lung sounds left lung field Effort & Inspection: normal respiratory effort Auscultation: clear to auscultation bilaterally Cardio Jugular venous distension: no JVD Rate: regular rate Rhythm: regular rhythm Heart sounds: S1 normal heart sound present, S2 normal heart sound present, no murmurs and no rubs GI Inspection: Yes normal to inspection Neuro General: patient oriented x3 Extrem General: Yes normal to inspection, No no pedal edema and No calf tenderness Psych Appearance: grossly normal Mental Status: mental status grossly normal Speech and movement: Normal speech and movement present Office Procedures EKG Details: EKG shows normal sinus rhythm with poor R-wave progression unchanged from before [id number], Complete Assessment & Plan Assessment & Plan (1) Exertional dyspnea: Code(s): R06.09 - Other forms of dyspnea Category: Medical Plan: Exertional shortness of breath in this elderly gentleman with multiple risk fac tors, no obvious cardiac etiology with normal workup last year. His shortness of breath is improved since his surgery for elevated left hemidiaphragm. He is not back to his functional capacity. Encouraged to continue to participate in physical activity as tolerated. Advised to call me with if symptoms change. Continue risk factor modification with aggressive blood pressure control which is well optimized and aggressive lipid modification with target goal LDL less than 100 mg/dL. Currently on warfarin therapy due to prior venous thromboembolic disease being followed by [facility]. Will follow up in the clinic if need be. Thank you for allowing me to partake in his care Coding Level of Care Code Est Pt Level 3 (33658) Diagnoses Exertional dyspnea R06.09 CPT Codes EKG - CPT: 16177-[id number], Complete ([id number])
[2024-01-30 12:35] VITALS: BP 124/80; PULSE 74; BMI 25.7
== END 2024-01-30 12:56 | disposition home or self-care (01) ==
PROVIDERS: PCP Nurse Practitioner Family; Visit Provider Internal Medicine Cardiovascular Disease
DX: R06.09 Other forms of dyspnea (principal)
CPT/HCPCS: 93010; 99213

== ENCOUNTER → 2024-01-30 12:20 | Outpatient (BNVA) | payer MEDICARE, BC, SELFPAY | PROVIDERS: PCP Nurse Practitioner Family; Visit Provider Internal Medicine Cardiovascular Disease | DX: R06.09 Other forms of dyspnea (principal) | CPT/HCPCS: 93005; 99212 ==

== ENCOUNTER 2024-02-24 10:27 | Outpatient (AMB) | payer MEDICARE, BC, SELFPAY ==
[2024-02-24 10:39] LABS: ~PT, ~INR - Anti Coag Clinic 2.3 (0.9-1.1)
--- NOTE | 2024-02-24 10:46 | MHC.OFFVISCO ---
Intake Intake Visit Reasons: Anticoagulation Allergies ranitidine [From Zantac] Allergy (Mild, Verified 02/24/24 10:34) Rash Medication List - Last Reconciled 02/24/24 by Analilia Keene, LIV atorvastatin 10 mg PO BEDTIME ezetimibe 10 mg PO DAILY losartan 25 mg PO DAILY psyllium seed (sugar) (Metamucil (sugar) oral powder) 1 tsp PO BID warfarin 5 mg See Protocol PO DAILY Nursing Note INR: 2.3 in therapeutic range Medications and supplements reviewed No changes in health, diet, medications, or supplements, Denies any signs and symptoms of bleeding or bruising or clotting. Bleeding, bruising, clotting discussed Nutritional guidance given Dose: 5mg X 6 days and 2.5mg X 1 day F/U INR: 4 weeks Patient verbalizes understanding of instructions given Anti-Coag Initial Assessment Social Hx Patient Tobacco Use Status: Never used Tobacco alcohol intake: current Alcohol intake frequency: holidays/special occasions only Cardiovascular Hx: [place] Endocrine Hx: Thyroid Disease Blood Disorder Hx: Hyperlipidemia GI Hx: Other Hx: Prostate Cancer HX: Yes Psych. Illness/Depression: No Coding Level of Care Code Est Patient Level 1 Diagnoses Current use of anticoagulant therapy Z79.01 Assessment & Plan Assessment & Plan (1) Current use of anticoagulant therapy: Comment: (on Warfarin for hx DVTs) Code(s): Z79.01 - snf (current) use of anticoagulants Category: Medical
== END 2024-02-24 10:50 | disposition home or self-care (01) ==
LOC: HO.ACS 10:27
PROVIDERS: PCP Nurse Practitioner Family; Visit Provider Internal Medicine
DX: Z79.01 Long term (current) use of anticoagulants (principal)

== ENCOUNTER → 2024-02-24 10:27 | Outpatient (BNVA) | payer MEDICARE, BC, SELFPAY | PROVIDERS: PCP Nurse Practitioner Family; Visit Provider Internal Medicine | DX: Z86.718 Personal history of other venous thrombosis and embolism (principal); Z79.01 Long term (current) use of anticoagulants; Z51.81 Encounter for therapeutic drug level monitoring | CPT/HCPCS: 85610; 99211 ==

== ENCOUNTER 2024-03-12 10:29 | Outpatient (AMB) | payer MEDICARE, BC, SELFPAY ==
[2024-03-12 10:34] LABS: Prothrombin Time Whole Bld POC 33.3 sec (11.1-13.5); ~PT, ~INR - Anti Coag Clinic 2.8 (0.9-1.1)
--- NOTE | 2024-03-12 10:34 | MHC.OFFVISCO ---
Intake Intake Visit Reasons: Anticoagulation Allergies ranitidine [From Zantac] Allergy (Mild, Verified 03/12/24 10:30) Rash Medication List - Last Reconciled 03/12/24 by Capri Olivier RN atorvastatin 10 mg PO BEDTIME ezetimibe 10 mg PO DAILY losartan 25 mg PO DAILY psyllium seed (sugar) (Metamucil (sugar) oral powder) 1 tsp PO BID warfarin 5 mg See Protocol PO DAILY Nursing Note INR: 2.8- in therapeutic range of 2-3 Medications and supplements reviewed- no changes No changes in health, diet, medications, or supplements, Denies any signs and symptoms of bleeding or bruising or clotting. Bleeding, bruising, clotting discussed Nutritional guidance given Dose: 5mg x 6, 2.5mg x 1 F/U INR: pt req 5 weeks due to travel Patient verbalizes understanding of instructions given Anti-Coag Initial Assessment Social Hx Patient Tobacco Use Status: Never used Tobacco alcohol intake: current Alcohol intake frequency: holidays/special occasions only Cardiovascular Hx: [place] Endocrine Hx: Thyroid Disease Blood Disorder Hx: Hyperlipidemia GI Hx: Other Hx: Prostate Cancer HX: Yes Psych. Illness/Depression: No Coding Level of Care Code Est Patient Level 1 Diagnoses Current use of anticoagulant therapy Z79.01 Assessment & Plan Assessment & Plan (1) Current use of anticoagulant therapy: Comment: (on Warfarin for hx DVTs) Code(s): Z79.01 - correction (current) use of anticoagulants Category: Medical
== END 2024-03-12 10:40 | disposition home or self-care (01) ==
LOC: HO.ACS 10:29
PROVIDERS: PCP Nurse Practitioner Family; Visit Provider Internal Medicine
DX: Z79.01 Long term (current) use of anticoagulants (principal)

== ENCOUNTER → 2024-03-12 10:29 | Outpatient (BNVA) | payer MEDICARE, BC, SELFPAY | PROVIDERS: PCP Nurse Practitioner Family; Visit Provider Internal Medicine | DX: Z86.718 Personal history of other venous thrombosis and embolism (principal); Z79.01 Long term (current) use of anticoagulants; Z51.81 Encounter for therapeutic drug level monitoring | CPT/HCPCS: 85610; 99211 ==

== ENCOUNTER 2024-04-18 10:38 | Outpatient (AMB) | payer MEDICARE, BC, SELFPAY ==
[2024-04-18 10:45] LABS: Prothrombin Time Whole Bld POC 42.6 sec (11.1-13.5); ~PT, ~INR - Anti Coag Clinic 3.6 (0.9-1.1)
--- NOTE | 2024-04-18 10:47 | MHC.OFFVISCO ---
Intake Intake Visit Reasons: Anticoagulation Allergies ranitidine [From Zantac] Allergy (Mild, Verified 04/18/24 10:38) Rash Medication List - Last Reconciled 04/18/24 by Khadra Sawant RN atorvastatin 10 mg PO BEDTIME ezetimibe 10 mg PO DAILY losartan 25 mg PO DAILY psyllium seed (sugar) (Metamucil (sugar) oral powder) 1 tsp PO BID warfarin 5 mg See Protocol PO DAILY Nursing Note PT.HAS RETURNED FROM 4 WEEKS IN [place]. NO CP,SOB,DIET/MED CHANGES,FALLS OR SX OF BLEEDING. HOLD WARFARIN TODAY THEN RESUME USUAL DOSE AND FOLLOW-UP IN 4 WEEKS. [place] TODAY GOOD UNDERSTANDING OF DOSING INSTR. Anti-Coag Initial Assessment Social Hx Patient Tobacco Use Status: Never used Tobacco alcohol intake: current Alcohol intake frequency: holidays/special occasions only Cardiovascular Hx: [place] Endocrine Hx: Thyroid Disease Blood Disorder Hx: Hyperlipidemia GI Hx: Other Hx: Prostate Cancer HX: Yes Psych. Illness/Depression: No Coding Level of Care Code Est Patient Level 1 Diagnoses Current use of anticoagulant therapy Z79.01 Assessment & Plan Assessment & Plan (1) Current use of anticoagulant therapy: Comment: (on Warfarin for hx DVTs) Code(s): Z79.01 - alf (current) use of anticoagulants Category: Medical
--- OUTSIDE RECORDS SUMMARY | 2024-04-24 17:43 | XMS_ITS | Clinical Summary ---
Author Organization Unknown Care Team Providers Care Geodetic Survey Director Name Role Phone GILDARDO LANGFORD, IWONA Unavailable Unavailable MAKENNA PECK, LESIA Unavailable Unavailable Payers Payer Name Policy Type Policy Number Effective Date Expira tion Date MEDICARE - NGS [place] - PDGM [id number] [facility] [id number] Problems Condition Name Condition Details Condition Category Status Onset Date Resolution Date Last Treatment Date Treating Clinician Comments ENCNTR FOR SURGICAL AFTCR FOLLOWING SURGERY ON THE RESP SYS Active 10-17 00:00: 00 DISORDERS OF DIAPHRAGM Active 05-16 00:00: 00 VOLVULUS Active 05-16 00:00: 00 ESSENTIAL (PRIMARY) HYPERTENSION Active 05-16 00:00: 00 HYPERLIPIDEM IA, UNSPECIFIED Active 05-16 00:00: 00 PERSONAL HISTORY OF OTHER VENOUS THROMBOSIS AND EMBOLISM Active 05-16 00:00: 00 PERSONAL HISTORY OF MALIGNANT NEOPLASM OF PROSTATE Active 05-16 00:00: 00 PRESENCE OF LEFT ARTIFICIAL SHOULDER JOINT Active 05-16 00:00: 00 FPC (CURRENT) USE OF OPIATE ANALGESIC Active 05-16 00:00: 00 Allergies, Adverse Reactions, Alerts Allergy Name Allergy Type Status Severity Reaction(s) Onset Date Inactive Date Treating Clinician Comments ZANTAC Propensity to adverse reactions Active 2023-10 19:32:4 5 Medications Ordered Medication Name Filled Medication Name Start Date Stop Date Current Medication? Ordering Clinician Indication Dosage Frequency Signature (SIG) Comments Components atorvastati n 10 mg tablet 09-25 00:00: 00 Yes [id number] Per instruc tions AT BEDTIME Per instructio ns AT BEDTIME (route: oral) Med Classific ation: Cardiovas cular Therapy Agents ezetimibe 10 mg tablet 2024-0 5-13 00:00: 00 Yes [id number] Per instruc tions DAILY Per instructio ns DAILY (route: oral) Med Classific ation: Cardiovas cular Therapy Agents Colace 100 mg capsule 10-17 00:00: 00 Yes [id number] 1 capsule 2 TIMES DAILY 1 capsule 2 TIMES DAILY (route: oral) Med Classific ation: Gastroint estinal Therapy Agents losartan 25 mg tablet 10-17 00:00: 00 Yes [id number] 1 tablet DAILY 1 tablet DAILY (route: oral) Med Classific ation: Cardiovas cular Therapy Agents oxycodone 5 mg tablet 10-17 00:00: 00 Yes [id number] 1-2 tablet EVERY 4 HOURS 1-2 tablet EVERY 4 HOURS (route: oral) Med Classific ation: Analgesic , Anti-infl ammatory or Antipyret ic Senna Lax 8.6 mg tablet 10-17 00:00: 00 Yes [id number] Per instruc tions DIRECTED Per instructio ns DIRECTED (route: oral) Med Classific ation: Gastroint estinal Therapy Agents Tylenol Extra Strength 500 mg tablet 10-17 00:00: 00 Yes [id number] 2 tablet EVERY 8 HOURS 2 tablet EVERY 8 HOURS (route: oral) Med Classific ation: Analgesic , Anti-infl ammatory or Antipyret ic warfarin 5 mg tablet 10-17 00:00: 00 10-19 23:59 :00 No [id number] Per instruc tions DAILY Per instructio ns DAILY (route: oral) Med Classific ation: Hematolog ical Agents Lovenox 80 mg/0.8 mL subcutaneou s syringe 10-17 00:00: 00 10-20 23:59 :00 No [id number] Per instruc tions DAILY Per instructio ns DAILY (route: subcutaneo us) Med Classific ation: Hematolog ical Agents warfarin 5 mg tablet 10 00:00: 00 10-27 23:59 :00 No [id number] Per instruc tions DAILY Per instructio ns DAILY (route: oral) Med Classific ation: Hematolog ical Agents warfarin 5 mg tablet 10-20 00:00: 00 10-23 23:59 :00 No [id number] 1 tablet DIRECTED 1 tablet DIRECTED (route: oral) Med Classific ation: Hematolog ical Agents warfarin 2.5 mg tablet 11-03 00:00: 00 11-09 23:59 :00 No [id number] Per instruc tions DAILY Per instructio ns DAILY (route: oral) Med Classific ation: Hematolog ical Agents warfarin 2.5 mg tablet 11-10 00:00: 00 Yes [id number] Per instruc tions DAILY Per instructio ns DAILY (route: oral) Med Classific ation: Hematolog ical Agents Immunizations Ordered Immunization Name Filled Immunization Name Date Status Comments Refusal Reason INFLUENZA, TIV (INACTIVATED) 2023-02-16 00:00:00 Vital Signs Vital Name Observation Time Observation Value Commen ts Temperature 2023-11-11 16:01:00.000 97.9 [degF] Temperature 2023-11-04 14:42:00.000 97.3 [degF] Temperature 2023-10-28 10:53:00.000 97.5 [degF] Temperature 2023-10-24 13:28:00.000 98.1 [degF] Temperature 2023-10-21 11:53:00.000 98.1 [degF] Temperature 2023-10-18 19:28:00.000 98 [degF] BMI (%) 2023-10-18 19:04:08.000 26 kg/m2 Height 2023-10-18 19:03:48.000 72 [in_us] Pulse 2023-11-11 16:01:00.000 72 /min Pulse 2023-11-04 14:42:00.000 87 /min Pulse 2023-10-28 10:50:00.000 86 /min Pulse 2023-10-24 13:28:00.000 74 /min Pulse 2023-10-21 11:53:00.000 72 /min Pulse 2023-10-18 19:28:00.000 76 /min O2 Saturation (%) 2023-11-11 16:01:00.000 97 % O2 Saturation (%) 2023-11-04 14:42:00.000 96 % O2 Saturation (%) 2023-10-28 10:50:00.000 97 % O2 Saturation (%) 2023-10-21 11:53:00.000 99 % O2 Saturation (%) 2023-10-18 19:28:00.000 96 % Respirations 2023-11-11 16:01:00.000 18 /min Respirations 2023-11-04 14:42:00.000 18 /min Respirations 2023-10-28 10:50:00.000 16 /min Respirations 2023-10-24 13:28:00.000 18 /min Respirations 2023-10-21 11:53:00.000 16 /min Respirations 2023-10-18 19:28:00.000 18 /min Weight (lbs) 2023-10-24 13:28:00.000 186 [lb_av] Weight (lbs) 2023-10-18 19:04:08.000 197 [lb_av] Systolic Blood Pressure 2023-11-11 16:01:00.000 110 mm [Hg] Systolic Blood Pressure 2023-11-04 14:42:00.000 106 mm [Hg] Systolic Blood Pressure 2023-10-28 10:50:00.000 100 mm [Hg] Systolic Blood Pressure 2023-10-24 13:28:00.000 112 mm [Hg] Systolic Blood Pressure 2023-10-21 11:53:00.000 110 mm [Hg] Systolic Blood Pressure 2023-10-18 19:28:00.000 112 mm [Hg] Diastolic Blood Pressure 2023-11-11 16:01:00.000 62 mm [Hg] Diastolic Blood Pressure 2023-11-04 14:42:00.000 58 mm [Hg] Diastolic Blood Pressure 2023-10-28 10:50:00.000 52 mm [Hg] Diastolic Blood Pressure 2023-10-24 13:28:00.000 58 mm [Hg] Diastolic Blood Pressure 2023-10-21 11:53:00.000 62 mm [Hg] Diastolic Blood Pressure 2023-10-18 19:28:00.000 58 mm [Hg] Plan of Treatment Planned Activity Planned Date Details Comments Future Scheduled Test SKILLED NU RSE TO EVALUATE PATIENT, IDENTIFY PRIMARY AND CO-MORBID CONDITIONS CODED PER CODING GUIDELINES, AND DEVELOP PATIENT SPECIFIC PLAN OF CARE THAT INCLUDES PATIENT GOAL FOR HOME HEALTH. [code = SKILLED NURSE TO EVALUATE PATIENT, IDENTIFY PRIMARY AND CO-MORBID CONDITIONS CODED PER CODING GUIDELINES, AND DEVELOP PATIENT SPECIFIC PLAN OF CARE THAT INCLUDES PATIENT GOAL FOR HOME HEALTH.] Future Scheduled Test SKILLED NU RSE TO REVIEW PATIENT MEDICATIONS. INSTRUCT PATIENT/CAREGIVER ON MONITORING OF EFFECTIVENESS, ADVERSE DRUG REACTIONS, SIDE EFFECTS OF ALL MEDICATIONS (PRESCRIPTION/-OTC), AND HOW AND WHEN TO REPORT PROBLEMS. [code = SKILLED NURSE TO REVIEW PATIENT MEDICATIONS. INSTRUCT PATIENT/CAREGIVER ON MONITORING OF EFFECTIVENESS, ADVERSE DRUG REACTIONS, SIDE EFFECTS OF ALL MEDICATIONS (PRESCRIPTION/-OTC), AND HOW AND WHEN TO REPORT PROBLEMS.] Future Scheduled Test SKILLED NU RSE FOR O/A, TEACHING RELATED TO COLONIC VOLVULUS FOR EARLY IDENTIFICATION OF EXACERBATION OF DISEASE PROCESS. [code = SKILLED NURSE FOR O/A, TEACHING RELATED TO COLONIC VOLVULUS FOR EARLY IDENTIFICATION OF EXACERBATION OF DISEASE PROCESS.] Future Scheduled Test SKILLED NU RSE FOR O/A AND SKILLED TEACHING RELATED TO SIGNS AND SYMPTOMS OF INFECTION AND INFECTION CONTROL MEASURES. [code = SKILLED NURSE FOR O/A AND SKILLED TEACHING RELATED TO SIGNS AND SYMPTOMS OF INFECTION AND INFECTION CONTROL MEASURES.] Future Scheduled Test NEED FOR S KILLED TEACHING AND INTERVENTION RELATED TO SURGICAL TO CHEST. LEAVE THE AREA OPEN TO AIR AND PATIENT MAY SHOWER. KEEP INCISION CLEAN AND DRY. GENTLY WASH INCISINS WITH SOAP AND WATER, NO SCRUBBING THE AREA, NO TUB BATHS, SWIMMING, ETS. FOR THE NEXT 2-4 WEEKS. WOUND CARE WILL BE PERFORMED BY TRAINED CAREGIVER ON DAYS WHEN SKILLED NURSE IS NOT SCHEDULED FOR A VISIT. DISCONTINUE WOUND CARE/SUPPLIES ONCE WOUND IS HEALED. [code = NEED FOR SKILLED TEACHING AND INTERVENTION RELATED TO SURGICAL TO CHEST. LEAVE THE AREA OPEN TO AIR AND PATIENT MAY SHOWER. KEEP INCISION CLEAN AND DRY. GENTLY WASH INCISINS WITH SOAP AND WATER, NO SCRUBBING THE AREA, NO TUB BATHS, SWIMMING, ETS. FOR THE NEXT 2-4 WEEKS. WOUND CARE WILL BE PERFORMED BY TRAINED CAREGIVER ON DAYS WHEN SKILLED NURSE IS NOT SCHEDULED FOR A VISIT. DISCONTINUE WOUND CARE/SUPPLIES ONCE WOUND IS HEALED.] Future Scheduled Test SKILLED NU RSE FOR MONITORING, O/A AND TEACHING RELATED TO MANAGEMENT OF ANTICOAGULATION THERAPY INCLUDING DIET, MEDICATION SIDE EFFECTS, SAFETY MEASURES TO PREVENT INJURY, AND S/S TO REPORT. PT/INR TO BE OBTAINED PER [facility] [code = SKILLED NURSE FOR MONITORING, O/A AND TEACHING RELATED TO MANAGEMENT OF ANTICOAGULATION THERAPY INCLUDING DIET, MEDICATION SIDE EFFECTS, SAFETY MEASURES TO PREVENT INJURY, AND S/S TO REPORT. PT/INR TO BE OBTAINED PER [facility]] Future Scheduled Test PHYSICAL T HERAPIST TO EVALUATE PATIENT FOR GAIT STABILITY AND STRENGTH [code = PHYSICAL THERAPIST TO EVALUATE PATIENT FOR GAIT STABILITY AND STRENGTH ] Future Scheduled Test SKILLED NU RSE TO PROVIDE TEACHING ON SIGNS AND SYMPTOMS AND MANAGEMENT OF HYPERTENSION. [code = SKILLED NURSE TO PROVIDE TEACHING ON SIGNS AND SYMPTOMS AND MANAGEMENT OF HYPERTENSION.] Future Scheduled Test SKILLED NU RSE FOR O/A AND SKILLED TEACHING RELATED TO ALTERED SKIN INTEGRITY LAPROSCPIC INCISIONS JANITORIAL ASSISTANT MONIOR FOR HEALING REPORT ABNORMAL FINDINGS TO MD [code = SKILLED NURSE FOR O/A AND SKILLED TEACHING RELATED TO ALTERED SKIN INTEGRITY LAPROSCPIC INCISIONS JANITORIAL ASSISTANT MONIOR FOR HEALING REPORT ABNORMAL FINDINGS TO MD] Future Scheduled Test SKILLED NU RSE FOR O/A AND SKILLED TEACHING RELATED TO SIGNS AND SYMPTOMS AND MANAGEMENT OF DIAPHRAGM SURGERY [code = SKILLED NURSE FOR O/A AND SKILLED TEACHING RELATED TO SIGNS AND SYMPTOMS AND MANAGEMENT OF DIAPHRAGM SURGERY] Future Scheduled Test VIRTUAL SIT FREQUENCY: 1-6 PER WEEK X 3 WEEKS AND 6 PRN VIRTUAL VISITS MAY BE PERFORMED UTILIZING TELECOMMUNICATIONS SYSTEM TO OPTIMIZE SKILLED SERVICES FURNISHED ON THE PLAN OF CARE. SKILLED NURSE TO ESTABLISH SUPPORT MEASURES TO MINIMIZE RISK OF REHOSPITALIZATION, AND INSTRUCT PATIENT/CAREGIVER ON METHODS TO REDUCE AVOIDABLE HOSPITALIZATION. [code = VIRTUAL VISIT FREQUENCY: 1-6 PER WEEK X 3 WEEKS AND 6 PRN VIRTUAL VISITS MAY BE PERFORMED UTILIZING TELECOMMUNICATIONS SYSTEM TO OPTIMIZE SKILLED SERVICES FURNISHED ON THE PLAN OF CARE. SKILLED NURSE TO ESTABLISH SUPPORT MEASURES TO MINIMIZE RISK OF REHOSPITALIZATION, AND INSTRUCT PATIENT/CAREGIVER ON METHODS TO REDUCE AVOIDABLE HOSPITALIZATION.] Future Scheduled Test PATIENT JONES S A RISK OF HOSPITALIZATION AND ED USE. SKILLED NURSE TO ESTABLISH SUPPORT MEASURES TO MINIMIZE RISK OF HOSPITALIZATION AND ED USE, AND INSTRUCT PATIENT/CAREGIVER ON METHODS TO REDUCE AVOIDABLE HOSPITALIZATION AND ED USE. [code = PATIENT HAS A RISK OF HOSPITALIZATION AND ED USE. SKILLED NURSE TO ESTABLISH SUPPORT MEASURES TO MINIMIZE RISK OF HOSPITALIZATION AND ED USE, AND INSTRUCT PATIENT/CAREGIVER ON METHODS TO REDUCE AVOIDABLE HOSPITALIZATION AND ED USE.] Future Scheduled Test SKILLED NU RSE TO PROVIDE INSTRUCTION TO PATIENT/CAREGIVER RELATED TO DISCHARGE PLANNING. [code = SKILLED NURSE TO PROVIDE INSTRUCTION TO PATIENT/CAREGIVER RELATED TO DISCHARGE PLANNING.] Future Scheduled Test SKILLED NU RSE TO PERFORM HOME SAFETY AND FALL ASSESSMENT AND PROVIDE INSTRUCTION TO IMPLEMENT HOME SAFETY AND FALL PREVENTION STRATEGIES. [code = SKILLED NURSE TO PERFORM HOME SAFETY AND FALL ASSESSMENT AND PROVIDE INSTRUCTION TO IMPLEMENT HOME SAFETY AND FALL PREVENTION STRATEGIES.] Future Scheduled Test SKILLED NU RSE FOR OBSERVATION AND ASSESSMENT OF PATIENTS PAIN LEVEL AND EFFECTIVENESS OF PAIN MANAGEMENT REGIMEN. SKILLED NURSE TO INSTRUCT PATIENT/CAREGIVER REGARDING PHARMACOLOGIC AND NON-PHARMACOLOGIC PAIN CONTROL MEASURES. SKILLED NURSE TO REPORT TO PHYSICIAN IF PAIN IS UNCONTROLLED WITH CURRENT PAIN MANAGEMENT REGIMEN. [code = SKILLED NURSE FOR OBSERVATION AND ASSESSMENT OF PATIENTS PAIN LEVEL AND EFFECTIVENESS OF PAIN MANAGEMENT REGIMEN. SKILLED NURSE TO INSTRUCT PATIENT/CAREGIVER REGARDING PHARMACOLOGIC AND NON-PHARMACOLOGIC PAIN CONTROL MEASURES. SKILLED NURSE TO REPORT TO PHYSICIAN IF PAIN IS UNCONTROLLED WITH CURRENT PAIN MANAGEMENT REGIMEN.] Future Scheduled Test SKILLED NU RSE TO ASSESS PATIENT'S SKIN INTEGRITY AND INSTRUCT PATIENT/CAREGIVER ON MEASURES TO PREVENT PRESSURE ULCERS. [code = SKILLED NURSE TO ASSESS PATIENT'S SKIN INTEGRITY AND INSTRUCT PATIENT/CAREGIVER ON MEASURES TO PREVENT PRESSURE ULCERS.] Goal 2023-11-15 Patient Goal - R ETURN TO PRIOR LEVEL OF FUNCTIONING Goal Provider Goal - A PLAN OF CARE WILL BE ESTABLISHED THAT MEETS PATIENT'S RETIREMENT NEEDS AND INCLUDES PATIENT GOAL FOR HOME HEALTH. Goal Provider Goal - PATIENT/CAREGIVER WILL VERBALIZE UNDERSTANDING OF EDUCATION PROVIDED ON MEDICATIONS BY THE END OF THE CERTIFICATION PERIOD. Goal Provider Goal - EXACERBATIONS OF GASTROINTESTINAL DISEASE WILL BE PROMPTLY IDENTIFIED AND INTERVENTIONS IMPLEMENTED TO MINIMIZE RISKS TO PATIENT BY END OF EPISODE. Goal Provider Goal - PATIENT/CAREGIVER WILL VERBALIZE/DEMONSTRATE UNDERSTANDING OF S/S OF INFECTION AND INFECTION CONTROL MEASURES. SIGNS AND SYMPTOMS OF INFECTION WILL BE IDENTIFIED AND PHYSICIAN NOTIFIED FOR PROMPT INTERVENTION THROUGHOUT THE CERTIFICATION PERIOD. Goal Provider Goal - WOUND CARE WILL BE COMPLETED AND PATIENT WILL HAVE IMPROVED WOUND STATUS EVIDENCED BY NO SIGNS AND SYMPTOMS OF INFECTION, DECREASED WOUND SIZE, AND/OR NO COMPLICATIONS BY THE END OF THE CERTIFICATION PERIOD. Goal Provider Goal - PATIENT/CAREGIVER WILL VERBALIZE/DEMONSTRATE UNDERSTANDING OF MANAGEMENT OF ANTICOAGULATION THERAPY BY END OF EPISODE. PT/INR OBTAINED AND REPORTED TO PHYSICIAN. Goal Provider Goal - A PHYSICAL THERAPY EVALUATION TO BE COMPLETED WITH RECOMMENDATIONS AND/OR WRITTEN PLAN OF TREATMENT ESTABLISHED FOR PHYSICIANS SIGNATURE. Goal Provider Goal - PATIENT/CAREGIVER WILL VERBALIZE SIGNS AND SYMPTOMS OF HYPERTENSION AND WILL BE ABLE TO DEMONSTRATE ABILITY TO MANAGE EXACERBATION BY END OF THE EPISODE. Goal Provider Goal - PATIENT/CAREGIVER WILL VERBALIZE/DEMONSTRATE UNDERSTANDING OF TEACHING RELATED TO ALTERED SKIN INTEGRITY BY END OF CERTIFICATION PERIOD. Goal Provider Goal - PATIENT/CAREGIVER WILL VERBALIZE UNDERSTANDING OF MUSCULOSKELETAL DISEASE INCLUDING SIGNS AND SYMPTOMS, MANAGEMENT, AND PRESCRIBED TREATMENT REGIMEN BY END OF EPISODE. Goal Provider Goal - PATIENT/CAREGIVER WILL UTILIZE VIRTUAL VISITS TO ACHIEVE GOALS OUTLINED ON THE PLAN OF CARE. PATIENT WILL HAVE SUPPORT MEASURES ESTABLISHED TO PREVENT HOSPITALIZATION AND PATIENT/CAREGIVER WILL VERBALIZE/DEMONSTRATE METHODS TO REDUCE AVOIDABLE HOSPITALIZATION THROUGHOUT THE CERTIFICATION PERIOD. Goal Provider Goal - PATIENT WILL HAVE SUPPORT MEASURES ESTABLISHED TO PREVENT HOSPITALIZATION AND ED USE AND PATIENT/CAREGIVER WILL VERBALIZE/DEMONSTRATE METHODS TO REDUCE AVOIDABLE HOSPITALIZATION AND ED USE BY END OF EPISODE. Goal Provider Goal - PATIENT/CAREGIVER WILL VERBALIZE UNDERSTANDING OF DISCHARGE PLANNING INSTRUCTIONS BY DATE OF DISCHARGE. Goal Provider Goal - PATIENT/CAREGIVER WILL VERBALIZE/DEMONSTRATE EFFECTIVE HOME SAFETY AND FALL PREVENTION STRATEGIES THROUGHOUT CERTIFICATION PERIOD. Goal Provider Goal - PATIENT/CAREGIVER WILL DEMONSTRATE UNDERSTANDING OF PHARMACOLOGIC AND NONPHARMACOLOGIC PAIN CONTROL MEASURES AND PATIENT WILL HAVE IMPROVEMENT IN PAIN INTERFERING WITH ACTIVITY EVIDENCED BY PAIN CONTROLLED AT LEVEL OF 5 OR LESS BY END OF CERTIFICATION PERIOD. Goal Provider Goal - PATIENT/CAREGIVER WILL VERBALIZE UNDERSTANDING OF PRESSURE ULCER PREVENTION BY END OF THE EPISODE. Reason for Visit [facility]END[facility] IN THE COMMUNITY Encounters Start Date/Time End Date/Time Encounter Type Admission Type Attending [facility] Care Department Encounter ID Discharge Date Discharge Status Discharge Condition Discharge Reason Percent Goals Met 2023-10-18 00:00:00 2023-11-15 00:00:00 Outpatient NEW ADMISSION [facility]U [facility]SA[facility] [id number] 2023-11-15 00:00:00 DISCHARGE TO HOME OR SELF CARE INDEPENDEN T IN THE COMMUNITY GOALS MET ( ONLY) 73.08
== END 2024-04-18 10:55 | disposition home or self-care (01) ==
LOC: HO.ACS 10:38
PROVIDERS: PCP Nurse Practitioner Family; Visit Provider Internal Medicine
DX: Z79.01 Long term (current) use of anticoagulants (principal)

== ENCOUNTER → 2024-04-18 10:38 | Outpatient (BNVA) | payer MEDICARE, BC, SELFPAY | PROVIDERS: PCP Nurse Practitioner Family; Visit Provider Internal Medicine | DX: Z86.718 Personal history of other venous thrombosis and embolism (principal); Z79.01 Long term (current) use of anticoagulants; Z51.81 Encounter for therapeutic drug level monitoring | CPT/HCPCS: 85610; 99211 ==

== ENCOUNTER 2024-04-30 13:23 | Outpatient (AMB) | payer MEDICARE, BC, SELFPAY ==
[2024-04-30 14:05] LABS: Prothrombin Time Whole Bld POC 37.6 sec (11.1-13.5); ~PT, ~INR - Anti Coag Clinic 3.1 (0.9-1.1)
--- NOTE | 2024-04-30 14:19 | MHC.OFFVISCO ---
Intake Intake Visit Reasons: Anticoagulation Allergies ranitidine [From Zantac] Allergy (Mild, Verified 04/30/24 13:54) Rash Medication List - Last Reconciled 04/30/24 by Rocio Dubon RN atorvastatin 10 mg PO BEDTIME ezetimibe 10 mg PO DAILY losartan 25 mg PO DAILY psyllium seed (sugar) (Metamucil (sugar) oral powder) 1 tsp PO BID warfarin 5 mg See Protocol PO DAILY Nursing Note added pt to schedule today- 4 days ago he noticed a bruise on bottom edge inside area of his foot along side of his arch- looks to be superficial moe red in color as to be a small blood vessel break- enc to elevate and apply cold compress- and to call MD or go to ER if worsens in any way. no discomfort, small amt of edema noticed around his ankle - denies any injury, no redness or heat. INR: 3.1 almost in therapeutic range, INR down from previous visit- 04/18/24 3.6 s/p return from [place] Medications and supplements reviewed No changes in health, diet, medications, or supplements, Bleeding, bruising, clotting discussed Nutritional guidance given - review food list weekly, especially during the holidays - make sure to eat weekly greens Dose: decrease today's dose to 2.5mg then resume usual dose 2.5mg wed, 5mg x 6 days F/U INR: 05/15/24 Patient verbalizes understanding of instructions given Anti-Coag Initial Assessment Social Hx Patient Tobacco Use Status: Never used Tobacco alcohol intake: current Alcohol intake frequency: holidays/special occasions only Cardiovascular Hx: MA Endocrine Hx: Thyroid Disease Blood Disorder Hx: Hyperlipidemia GI Hx: Other Hx: Prostate Cancer HX: Yes Psych. Illness/Depression: No Questionnaires HAS-BLED Does the patient had uncontrolled Hypertension?: No Does the patient have renal disease?: No Does the patient have liver disease?: No Does the patient have a history of stroke?: No Has the patient had major bleeding or predisposition to bleeding?: Yes Does the patient have labile INRs?: Yes Is the patient over 65 years of age?: Yes Is the patient on medications that gives them a predisposition to bleeding?: Yes Does the patient use alcohol?: No HAS-BLED Score: 4 CHADSVASC Age: 75 or over Gender: Male Does the patient have a history of CHF?: No Does the patient have a history of Hypertension?: No Does the patient have a history of Stroke/TIA/Thromboembolism?: Yes (dvt x 2 ) Does the patient have a history of Vascular Disease (prior MA, PAD or aortic plaque)?: Yes (CAD) Does the patient have a history of Diabetes?: No CHADS VACS Score: 5 Daniel Prediction Score Rsk VTE Active Cancer: No Previous VTE, excluding superficial vein thrombosis: Yes Reduced mobility: No Already known Thrombophilic Condition: No With-in last month Trauma and/or Surgery: No Elderly 70 year or older: Yes Heart and/or Respiratory Failure: No Acute Myocardial infarction and/or Ischemic Stroke: No Acute Infection and/or Rheumatologic Disorder: No Obesity (BMI 30 or greater): No Ongoing Hormonal Treatment: No Score: 4 Daniel Score less than 4; Low Risk of VTE Daniel Score 4 or greater; High Risk of VTE Coding Level of Care Code Est Patient Level 1 Diagnoses Current use of anticoagulant therapy Z79.01 Results AMB INR Fingerstick AMB INR Fingerstick 3.1 Last Edit by Rocio Dubon RN on 04/30/24 14:05 MANUAL ENTRY Assessment & Plan Assessment & Plan (1) Current use of anticoagulant therapy: Comment: (on Warfarin for hx DVTs) Code(s): Z79.01 - jail (current) use of anticoagulants Category: Medical
== END 2024-04-30 14:41 | disposition home or self-care (01) ==
LOC: HO.ACS 13:23
PROVIDERS: PCP Nurse Practitioner Family; Visit Provider Internal Medicine
DX: Z79.01 Long term (current) use of anticoagulants (principal)

== ENCOUNTER → 2024-04-30 13:23 | Outpatient (BNVA) | payer MEDICARE, BC, SELFPAY | PROVIDERS: PCP Nurse Practitioner Family; Visit Provider Internal Medicine | DX: Z86.718 Personal history of other venous thrombosis and embolism (principal); Z79.01 Long term (current) use of anticoagulants; Z51.81 Encounter for therapeutic drug level monitoring | CPT/HCPCS: 85610; 99211 ==

== ENCOUNTER 2024-05-07 08:02 | Outpatient (REF) | payer MEDICARE, BC, SELFPAY ==
[2024-05-07 10:40] LABS: MANUAL DIFF FLAG NO
[2024-05-07 10:53] LABS: Basophils Absolute Auto 0.1 X10*3/uL (0.0-0.2); Basophils Percent Auto 0.9 % (0-2); Eosinophils Absolute Auto 0.4 X10*3/uL (0.0-0.4); Eosinophils Percent Auto 6.6 % (0-4); Hemoglobin 13.8 g/dl (14.0-18.0); Imm Gran Abs Auto 0.05 X10*3/uL (0.00-0.03); Imm Gran Pct Auto 0.8 % (0.0-0.4); Lymphocytes Percent Auto 30.5 % (20-40); Mean Corpuscular HGB Conc 32.1 g/dl (31.0-36.0); Mean Corpuscular Hemoglobin 29.6 pg (27.0-33.0); Mean Corpuscular Volume 92.1 fL (80.0-98.0); Mean Platelet Volume 11.3 fL (9.4-12.4); Monocytes Absolute Auto 0.6 X10*3/uL (0.1-1.2); Monocytes Percent Auto 9.3 % (2-11); Neutrophils Absolute Auto 3.4 x10*3/uL (2.0-8.3); Neutrophils Percent Auto 51.9 % (45-73); Platelet Count 280 X10*3/uL (160-400); Red Blood Count 4.67 X10*6/uL (4.60-5.80); Red Cell Distribution Width 13.4 % (11.0-16.0); White Blood Count 6.6 X10*3/uL (4.8-10.8)
[2024-05-07 11:12] LABS: Appearance Urine Clear; Color Urine Yellow; Glucose Urine UA Negative (Negative); Leukocyte Esterase Urine Negative (Negative); Nitrite Urine Negative (Negative); PH 6.5 (5.0-9.0); Urine Blood Negative (Negative); Urine Ketones Negative (Negative); Urine Protein Negative (Neg-Trace)
[2024-05-07 11:30] LABS: Alanine Aminotransferase 24 U/L (0-40); Alkaline Phosphatase 77 U/L (39-117); Anion Gap 11 (12-20); Aspartate Amino Transferase 25 U/L (5-37); Bilirubin Total 0.5 mg/dL (0.0-1.0); Blood Urea Nitrogen 20 mg/dL (9-16); Calcium 8.8 mg/dL (8.4-10.2); Carbon Dioxide 28 mmol/L (22-29); Chloride 109 mmol/L (96-108); Cholesterol 145 mg/dL (<200); Estimated Glomerular Filt Rate > 60; Glucose Fasting 100 mg/dL (60-99); HDL Cholesterol 41 mg/dL (>40); LDL Cholesterol Calculated 78 mg/dL (<100); Potassium 4.6 mmol/L (3.3-5.1); Sodium 143 mmol/L (135-145); Total Protein 6.9 g/dL (6.5-8.0); Triglycerides 130 mg/dL (<150)
[2024-05-07 11:32] LABS: TSH reflex Free T4 2.77 uIU/mL (0.32-4.0)
== END 2024-05-07 08:03 | disposition home or self-care (01) ==
LOC: HO.HMGCLDS 08:02
PROVIDERS: PCP Nurse Practitioner Family; Visit Provider Nurse Practitioner Family
DX: E78.5 Hyperlipidemia, unspecified (principal)
CPT/HCPCS: 36415; 80053; 80061; 81003; 84443; 85025

== ENCOUNTER 2024-05-15 10:31 | Outpatient (AMB) | payer MEDICARE, BC, SELFPAY ==
[2024-05-15 10:37] LABS: Prothrombin Time Whole Bld POC 39.8 sec (11.1-13.5); ~PT, ~INR - Anti Coag Clinic 3.3 (0.9-1.1)
--- OUTSIDE RECORDS SUMMARY | 2024-05-15 10:43 | XMS_ITS | Clinical Summary ---
Author Organization Unknown Care Team Providers Care School Resource Officer Name Role Phone GILDARDO LANGFORD, IWONA Unavailable Unavailable MAKENNA PECK, LESIA Unavailable Unavailable Payers Payer Name Policy Type Policy Number Effective Date Expira tion Date MEDICARE - [place] - PDGM [id number] [facility] [id number] Problems Condition Name Condition Details Condition Category [...] ARTIFICIAL SHOULDER JOINT Active 05-16 00:00: 00 RETIREMENT (CURRENT) USE OF OPIATE ANALGESIC Active 05-16 [...] 10 mg tablet 09-25 00:00: 00 Yes [id number] Per instruc tions AT BEDTIME Per instructio ns AT BEDTIME (route: oral) Med Classific ation: Cardiovas cular Therapy Agents ezetimibe 10 mg tablet 2024-0 5-13 00:00: 00 Yes [id number] Per instruc tions DAILY Per instructio ns DAILY (route: oral) Med Classific ation: Cardiovas cular Therapy Agents Colace 100 mg capsule 10-17 00:00: 00 Yes [id number] 1 capsule 2 TIMES DAILY 1 capsule 2 TIMES DAILY (route: oral) Med Classific ation: Gastroint estinal Therapy Agents losartan 25 mg tablet 10-17 00:00: 00 Yes [id number] 1 tablet DAILY 1 tablet DAILY (route: oral) Med Classific ation: Cardiovas cular Therapy Agents oxycodone 5 mg tablet 10-17 00:00: 00 Yes [id number] 1-2 tablet EVERY 4 HOURS 1-2 tablet EVERY 4 HOURS (route: oral) Med Classific ation: Analgesic , Anti-infl ammatory or Antipyret ic Senna Lax 8.6 mg tablet 10-17 00:00: 00 Yes [id number] Per instruc tions DIRECTED Per instructio ns DIRECTED (route: oral) Med Classific ation: Gastroint estinal Therapy Agents Tylenol Extra Strength 500 mg tablet 10-17 00:00: 00 Yes [id number] 2 tablet EVERY 8 HOURS 2 tablet EVERY 8 HOURS (route: oral) Med Classific ation: Analgesic , Anti-infl ammatory or Antipyret ic warfarin 5 mg tablet 10-17 00:00: 00 10-19 23:59 :00 No [id number] Per instruc tions DAILY Per instructio ns DAILY (route: oral) Med Classific ation: Hematolog ical Agents Lovenox 80 mg/0.8 mL subcutaneou s syringe 10-17 00:00: 00 10-20 23:59 :00 No [id number] Per instruc tions DAILY Per instructio ns DAILY (route: subcutaneo us) Med Classific ation: Hematolog ical Agents warfarin 5 mg tablet 10 00:00: 00 10-27 23:59 :00 No [id number] Per instruc tions DAILY Per instructio ns DAILY (route: oral) Med Classific ation: Hematolog ical Agents warfarin 5 mg tablet 10-20 00:00: 00 10-23 23:59 :00 No [id number] 1 tablet DIRECTED 1 tablet DIRECTED (route: oral) Med Classific ation: Hematolog ical Agents warfarin 2.5 mg tablet 11-03 00:00: 00 11-09 23:59 :00 No [id number] Per instruc tions DAILY Per instructio ns DAILY (route: oral) Med Classific ation: Hematolog ical Agents warfarin 2.5 mg tablet 11-10 00:00: 00 Yes [id number] Per instruc tions DAILY Per instructio ns [...] TO REPORT. PT/INR TO BE OBTAINED PER [facility] [code = SKILLED NURSE FOR MONITORING, O/A AND TEACHING RELATED TO MANAGEMENT OF ANTICOAGULATION THERAPY INCLUDING DIET, MEDICATION SIDE EFFECTS, SAFETY MEASURES TO PREVENT INJURY, AND S/S TO REPORT. PT/INR TO BE OBTAINED PER [facility]] Future Scheduled Test PHYSICAL T [...] RELATED TO ALTERED SKIN INTEGRITY LAPROSCPIC INCISIONS DRY PAN FEEDER MONIOR FOR HEALING REPORT ABNORMAL FINDINGS TO MD [code = SKILLED NURSE FOR O/A AND SKILLED TEACHING RELATED TO ALTERED SKIN INTEGRITY LAPROSCPIC INCISIONS DRY PAN FEEDER MONIOR FOR HEALING REPORT ABNORMAL FINDINGS TO [...] CARE WILL BE ESTABLISHED THAT MEETS PATIENT'S LONG-TERM NEEDS AND INCLUDES PATIENT GOAL FOR HOME [...] End Date/Time Encounter Type Admission Type Attending [facility] Care Department Encounter ID Discharge Date Discharge Status Discharge Condition Discharge Reason Percent Goals Met 2023-10-18 00:00:00 2023-11-15 00:00:00 Outpatient NEW ADMISSION [facility] [id number] 2023-11-15 00:00:00 DISCHARGE TO HOME OR SELF CARE INDEPENDEN T IN THE COMMUNITY GOALS MET ( ONLY) 73.08
--- OUTSIDE RECORDS SUMMARY | 2024-05-15 10:43 | XMS_ITS | Clinical Summary ---
Author Organization Unknown Care Team Providers Care Remote Coders Name Role Phone GILDARDO LANGFORD, IWONA Unavailable Unavailable MAKENNA PECK, LESIA Unavailable Unavailable Payers Payer Name Policy Type Policy Number Effective Date Expira tion Date MEDICARE - NGS [place] - PDGM [id number] [facility] [id number] Problems Condition Name Condition Details Condition Category [...] ARTIFICIAL SHOULDER JOINT Active 05-16 00:00: 00 HALF-WAY (CURRENT) USE OF OPIATE ANALGESIC Active 05-16 [...] 10 mg tablet 09-25 00:00: 00 Yes [id number] Per instruc tions AT BEDTIME Per instructio ns AT BEDTIME (route: oral) Med Classific ation: Cardiovas cular Therapy Agents ezetimibe 10 mg tablet 2024-0 5-13 00:00: 00 Yes [id number] Per instruc tions DAILY Per instructio ns DAILY (route: oral) Med Classific ation: Cardiovas cular Therapy Agents Colace 100 mg capsule 10-17 00:00: 00 Yes [id number] 1 capsule 2 TIMES DAILY 1 capsule 2 TIMES DAILY (route: oral) Med Classific ation: Gastroint estinal Therapy Agents losartan 25 mg tablet 10-17 00:00: 00 Yes [id number] 1 tablet DAILY 1 tablet DAILY (route: oral) Med Classific ation: Cardiovas cular Therapy Agents oxycodone 5 mg tablet 10-17 00:00: 00 Yes [id number] 1-2 tablet EVERY 4 HOURS 1-2 tablet EVERY 4 HOURS (route: oral) Med Classific ation: Analgesic , Anti-infl ammatory or Antipyret ic Senna Lax 8.6 mg tablet 10-17 00:00: 00 Yes [id number] Per instruc tions DIRECTED Per instructio ns DIRECTED (route: oral) Med Classific ation: Gastroint estinal Therapy Agents Tylenol Extra Strength 500 mg tablet 10-17 00:00: 00 Yes [id number] 2 tablet EVERY 8 HOURS 2 tablet EVERY 8 HOURS (route: oral) Med Classific ation: Analgesic , Anti-infl ammatory or Antipyret ic warfarin 5 mg tablet 10-17 00:00: 00 10-19 23:59 :00 No [id number] Per instruc tions DAILY Per instructio ns DAILY (route: oral) Med Classific ation: Hematolog ical Agents Lovenox 80 mg/0.8 mL subcutaneou s syringe 10-17 00:00: 00 10-20 23:59 :00 No [id number] Per instruc tions DAILY Per instructio ns DAILY (route: subcutaneo us) Med Classific ation: Hematolog ical Agents warfarin 5 mg tablet 10 00:00: 00 10-27 23:59 :00 No [id number] Per instruc tions DAILY Per instructio ns DAILY (route: oral) Med Classific ation: Hematolog ical Agents warfarin 5 mg tablet 10-20 00:00: 00 10-23 23:59 :00 No [id number] 1 tablet DIRECTED 1 tablet DIRECTED (route: oral) Med Classific ation: Hematolog ical Agents warfarin 2.5 mg tablet 11-03 00:00: 00 11-09 23:59 :00 No [id number] Per instruc tions DAILY Per instructio ns DAILY (route: oral) Med Classific ation: Hematolog ical Agents warfarin 2.5 mg tablet 11-10 00:00: 00 Yes [id number] Per instruc tions DAILY Per instructio ns [...] TO REPORT. PT/INR TO BE OBTAINED PER [facility] [code = SKILLED NURSE FOR MONITORING, O/A AND TEACHING RELATED TO MANAGEMENT OF ANTICOAGULATION THERAPY INCLUDING DIET, MEDICATION SIDE EFFECTS, SAFETY MEASURES TO PREVENT INJURY, AND S/S TO REPORT. PT/INR TO BE OBTAINED PER [facility]] Future Scheduled Test PHYSICAL T [...] RELATED TO ALTERED SKIN INTEGRITY LAPROSCPIC INCISIONS TIE CARRIER MONIOR FOR HEALING REPORT ABNORMAL FINDINGS TO MD [code = SKILLED NURSE FOR O/A AND SKILLED TEACHING RELATED TO ALTERED SKIN INTEGRITY LAPROSCPIC INCISIONS TIE CARRIER MONIOR FOR HEALING REPORT ABNORMAL FINDINGS TO [...] CARE WILL BE ESTABLISHED THAT MEETS PATIENT'S NURSING HOME NEEDS AND INCLUDES PATIENT GOAL FOR HOME [...] End Date/Time Encounter Type Admission Type Attending [facility] Care Department Encounter ID Discharge Date Discharge Status Discharge Condition Discharge Reason Percent Goals Met 2023-10-18 00:00:00 2023-11-15 00:00:00 Outpatient NEW ADMISSION MARU MENSAHN [facility] [id number] 2023-11-15 00:00:00 DISCHARGE TO HOME OR SELF CARE INDEPENDEN T IN THE COMMUNITY GOALS MET ( ONLY) 73.08
--- NOTE | 2024-05-15 10:51 | MHC.OFFVISCO ---
Intake Intake Visit Reasons: Anticoagulation Allergies ranitidine [From Zantac] Allergy (Mild, Verified 05/15/24 10:31) Rash Medication List - Last Reconciled 05/15/24 by Analilia Keene RN atorvastatin 10 mg PO BEDTIME ezetimibe 10 mg PO DAILY losartan 25 mg PO DAILY psyllium seed (sugar) (Metamucil (sugar) oral powder) 1 tsp PO BID warfarin 5 mg See Protocol PO DAILY Nursing Note INR: 3.3 out of therapeutic range of 2-3 Medications and supplements reviewed Patient status: well Medications or supplements: no changes Diet: usual diet for pt Denies any signs and symptoms of bleeding or clotting or unusual bruising Bleeding, bruising, clotting discussed Nutritional guidance given: to have a serving of greens today Dose: decrease today's dose to 2.5mg (5mg) then resume usual dose of 5mg X 6 days and 2.5mg X 1 day F/U INR Date : 3 weeks? Patient verbalizing understanding of instructions given. Anti-Coag Initial Assessment Social Hx Patient Tobacco Use Status: Never used Tobacco alcohol intake: current Alcohol intake frequency: holidays/special occasions only Cardiovascular Hx: [place] Endocrine Hx: Thyroid Disease Blood Disorder Hx: Hyperlipidemia GI Hx: Other Hx: Prostate Cancer HX: Yes Psych. 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
== END 2024-05-15 10:59 | disposition home or self-care (01) ==
LOC: HO.ACS 10:31
PROVIDERS: PCP Nurse Practitioner Family; Visit Provider Internal Medicine
DX: Z79.01 Long term (current) use of anticoagulants (principal)

== ENCOUNTER → 2024-05-15 10:31 | Outpatient (BNVA) | payer MEDICARE, BC, SELFPAY | PROVIDERS: PCP Nurse Practitioner Family; Visit Provider Internal Medicine | DX: Z86.718 Personal history of other venous thrombosis and embolism (principal); Z79.01 Long term (current) use of anticoagulants; Z51.81 Encounter for therapeutic drug level monitoring | CPT/HCPCS: 85610; 99211 ==

== ENCOUNTER 2024-05-21 13:10 | Outpatient (REF) | payer MEDICARE, BC, SELFPAY ==
--- OUTSIDE RECORDS SUMMARY | 2024-05-21 16:29 | XMS_ITS | Clinical Summary ---
Author Organization Unknown Care Team Providers Care Window Shade Cutter And Mounter Name Role Phone GILDARDO LANGFORD, IWONA Unavailable Unavailable MAKENNA PECK, LESIA Unavailable Unavailable Payers Payer Name Policy Type Policy Number Effective Date Expira tion Date MEDICARE - NGS [place] - PDGM [id number] [facility] [id number] Problems Condition Name Condition Details Condition Category [...] ARTIFICIAL SHOULDER JOINT Active 05-16 00:00: 00 LONG-TERM (CURRENT) USE OF OPIATE ANALGESIC Active 05-16 [...] 10 mg tablet 09-25 00:00: 00 Yes [id number] Per instruc tions AT BEDTIME Per instructio ns AT BEDTIME (route: oral) Med Classific ation: Cardiovas cular Therapy Agents ezetimibe 10 mg tablet 2024-0 5-13 00:00: 00 Yes [id number] Per instruc tions DAILY Per instructio ns DAILY (route: oral) Med Classific ation: Cardiovas cular Therapy Agents Colace 100 mg capsule 10-17 00:00: 00 Yes [id number] 1 capsule 2 TIMES DAILY 1 capsule 2 TIMES DAILY (route: oral) Med Classific ation: Gastroint estinal Therapy Agents losartan 25 mg tablet 10-17 00:00: 00 Yes [id number] 1 tablet DAILY 1 tablet DAILY (route: oral) Med Classific ation: Cardiovas cular Therapy Agents oxycodone 5 mg tablet 10-17 00:00: 00 Yes [id number] 1-2 tablet EVERY 4 HOURS 1-2 tablet EVERY 4 HOURS (route: oral) Med Classific ation: Analgesic , Anti-infl ammatory or Antipyret ic Senna Lax 8.6 mg tablet 10-17 00:00: 00 Yes [id number] Per instruc tions DIRECTED Per instructio ns DIRECTED (route: oral) Med Classific ation: Gastroint estinal Therapy Agents Tylenol Extra Strength 500 mg tablet 10-17 00:00: 00 Yes [id number] 2 tablet EVERY 8 HOURS 2 tablet EVERY 8 HOURS (route: oral) Med Classific ation: Analgesic , Anti-infl ammatory or Antipyret ic warfarin 5 mg tablet 10-17 00:00: 00 10-19 23:59 :00 No [id number] Per instruc tions DAILY Per instructio ns DAILY (route: oral) Med Classific ation: Hematolog ical Agents Lovenox 80 mg/0.8 mL subcutaneou s syringe 10-17 00:00: 00 10-20 23:59 :00 No [id number] Per instruc tions DAILY Per instructio ns DAILY (route: subcutaneo us) Med Classific ation: Hematolog ical Agents warfarin 5 mg tablet 10 00:00: 00 10-27 23:59 :00 No [id number] Per instruc tions DAILY Per instructio ns DAILY (route: oral) Med Classific ation: Hematolog ical Agents warfarin 5 mg tablet 10-20 00:00: 00 10-23 23:59 :00 No [id number] 1 tablet DIRECTED 1 tablet DIRECTED (route: oral) Med Classific ation: Hematolog ical Agents warfarin 2.5 mg tablet 11-03 00:00: 00 11-09 23:59 :00 No [id number] Per instruc tions DAILY Per instructio ns DAILY (route: oral) Med Classific ation: Hematolog ical Agents warfarin 2.5 mg tablet 11-10 00:00: 00 Yes [id number] Per instruc tions DAILY Per instructio ns [...] REPORT. PT/INR TO BE OBTAINED PER [facility] [place] [facility] [code = SKILLED NURSE FOR MONITORING, O/A AND TEACHING RELATED TO MANAGEMENT OF ANTICOAGULATION THERAPY INCLUDING DIET, MEDICATION SIDE EFFECTS, SAFETY MEASURES TO PREVENT INJURY, AND S/S TO REPORT. PT/INR TO BE OBTAINED PER [facility] [place] [facility]] Future Scheduled [...] RELATED TO ALTERED SKIN INTEGRITY LAPROSCPIC INCISIONS HYDROMETER TESTER MONIOR FOR HEALING REPORT ABNORMAL FINDINGS TO [...] End Date/Time Encounter Type Admission Type Attending [facility] Care Department Encounter ID Discharge Date Discharge Status Discharge Condition Discharge Reason Percent Goals Met 2023-10-18 00:00:00 2023-11-15 00:00:00 Outpatient NEW ADMISSION MARU MENSAHN [facility] [id number] 2023-11-15 00:00:00 DISCHARGE TO HOME OR SELF CARE INDEPENDEN T IN THE COMMUNITY GOALS MET ( ONLY) 73.08
== END 2024-05-21 13:11 | disposition home or self-care (01) ==
LOC: HO.LAB 13:10
PROVIDERS: PCP Nurse Practitioner Family; Visit Provider Surgery
DX: L02.411 Cutaneous abscess of right axilla (principal)
CPT/HCPCS: 10060; 87070; 87205; 99212; J2004

== ENCOUNTER 2024-05-21 13:10 | Outpatient (AMB) | payer MEDICARE, BC, SELFPAY ==
--- NOTE | 2024-05-21 13:34 | A.OFFVIS_ITS ---
Vital Signs 05/21/24 13:38 Height 6 ft Weight 193 lb BMI 26.2 BP 114/58 L Blood Pressure Location Rt brachial Position Sitting Pulse 83 Intake Visit Reasons: infected left axillary cyst Intake Note: Patient scheduled today's appointment c/o ? infected cyst on Lt axilla. Started oozing New Year's day. Feels tender to touch, red, inflamed. Denies oozing. Previous Rt axilla cyst excision on 11-08-2023. Hide House Supervisor Required: No Accompanied by: Spouse Allergies ranitidine [From Zantac] Allergy (Mild, Verified 05/21/24 13:34) Rash Medication List - Last Reconciled 05/21/24 by Taurus Castillo MD atorvastatin 10 mg PO BEDTIME cephalexin 500 mg PO TID ezetimibe 10 mg PO DAILY hydrocodone-acetaminophen 5-325 mg 1 tab PO Q4-6H PRN losartan 25 mg PO DAILY psyllium seed (sugar) (Metamucil (sugar) oral powder) 1 tsp PO BID warfarin 5 mg See Protocol PO DAILY HPI Comments Details: Patient presents with his . Patient whom I know from the past. He presents here with several day history of a left axillary sebaceous cyst which has become an abscess. Because of progression of symptoms he presents here for further evaluation. Chart was reviewed and patient evaluated. Patient was on Coumadin. He is on this for DVT which he had over 30 years ago. [facility] Medical History History of deep vein thrombosis Old anterior myocardial infarction CAD (coronary artery disease) Rising PSA following treatment for malignant neoplasm of prostate (~2012) Prostate cancer (~2002) Current use of anticoagulant therapy Dyslipidemia Surgical History History of esophagogastroduodenoscopy (EGD) H/O shoulder surgery H/O colonoscopy History of partial colectomy History of radical prostatectomy (~2002) Social History Housing: Condominium Alcohol intake: current Alcohol intake frequency: holidays/special occasions only Patient Tobacco Use Status: Never used Tobacco e-Cigarette/Vaping Use: Never Used Second Hand Smoke Exposure: No service: No Current occupational status: retired 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 Office Procedures I&D Drain Details: Risks, benefits, alternatives of incision and drainage of complex left axillary abscess were reviewed with the patient and included but not limited to bleeding, infection, recurrence, numbness, pain, scarring the patient wished to proceed. After appropriate positioning, patient underwent 1% lidocaine and Betadine prep. Transverse incision was made over the complex abscess with loculations broken down both digitally with the clamped. Cultures obtained. Wound was irrigated, secured hemostasis, packed, sterile dressing applied. Patient tolerated procedure well 01183-Aofusuem of Skin Abscess, complex All charges added?: Procedure code (CPT) selection complete Office Meds lidocaine 1 %-epinephrine 1:100,000 injection solution Performing Provider: Taurus Castillo MD Performing Location: [facility] [place] [facility] Administered by: Taurus Castillo MD on 05/21/24 14:13 Dose Route Admin Location Dispensed Lot Number Expiration Date [facility] Food Service Tray Attendant 10 mL Infiltration 120 mL Assessment & Plan Assessment & Plan (1) Abscess of right axilla: Code(s): L02.411 - Cutaneous abscess of right axilla Category: Surgical Plan: Patient and have been given local instructions, antibiotics, analgesics, and arrangements were made with Shawn office nurse regarding packing changes. Patient will see me in 2 weeks time. Orders: Orders AMB Incision & Drainage Today L02.411 - Cutaneous abscess of right axilla Medications: New cephalexin 500 mg PO TID 30 caps 0RF hydrocodone-acetaminophen 5-325 mg Partial Fill upon patient request. 1 tab PO Q4-6H PRN 30 tabs 0RF pain lidocaine-epinephrine 1 %-1:100,000 10 mL Infiltration ONCE 10 mL 0RF L02.411 - Cutaneous abscess of right axilla Coding Level of Care Code Est Pt Level 5 (96450) Diagnoses Abscess of right axilla L02.411 CPT Codes I&D Drain - Drain 2: 80516-Flpnorkb of Skin Abscess, complex ([id number])
[2024-05-21 13:38] VITALS: BP 114/58; PULSE 83; BMI 26.2
--- OUTSIDE RECORDS SUMMARY | 2024-05-21 15:19 | XMS_ITS | Clinical Summary ---
Author Organization Unknown Care Team Providers Care Airport Security Screener Name Role Phone GILDARDO LANGFORD, IWONA Unavailable Unavailable MAKENNA PECK, LESIA Unavailable Unavailable Payers Payer Name Policy Type Policy Number Effective Date Expira tion Date MEDICARE - NGS [place] - PDGM [id number] [facility] [id number] Problems Condition Name Condition Details Condition Category [...] ARTIFICIAL SHOULDER JOINT Active 05-16 00:00: 00 CORRECTION (CURRENT) USE OF OPIATE ANALGESIC Active 05-16 [...] 10 mg tablet 09-25 00:00: 00 Yes [id number] Per instruc tions AT BEDTIME Per instructio ns AT BEDTIME (route: oral) Med Classific ation: Cardiovas cular Therapy Agents ezetimibe 10 mg tablet 2024-0 5-13 00:00: 00 Yes [id number] Per instruc tions DAILY Per instructio ns DAILY (route: oral) Med Classific ation: Cardiovas cular Therapy Agents Colace 100 mg capsule 10-17 00:00: 00 Yes [id number] 1 capsule 2 TIMES DAILY 1 capsule 2 TIMES DAILY (route: oral) Med Classific ation: Gastroint estinal Therapy Agents losartan 25 mg tablet 10-17 00:00: 00 Yes [id number] 1 tablet DAILY 1 tablet DAILY (route: oral) Med Classific ation: Cardiovas cular Therapy Agents oxycodone 5 mg tablet 10-17 00:00: 00 Yes [id number] 1-2 tablet EVERY 4 HOURS 1-2 tablet EVERY 4 HOURS (route: oral) Med Classific ation: Analgesic , Anti-infl ammatory or Antipyret ic Senna Lax 8.6 mg tablet 10-17 00:00: 00 Yes [id number] Per instruc tions DIRECTED Per instructio ns DIRECTED (route: oral) Med Classific ation: Gastroint estinal Therapy Agents Tylenol Extra Strength 500 mg tablet 10-17 00:00: 00 Yes [id number] 2 tablet EVERY 8 HOURS 2 tablet EVERY 8 HOURS (route: oral) Med Classific ation: Analgesic , Anti-infl ammatory or Antipyret ic warfarin 5 mg tablet 10-17 00:00: 00 10-19 23:59 :00 No [id number] Per instruc tions DAILY Per instructio ns DAILY (route: oral) Med Classific ation: Hematolog ical Agents Lovenox 80 mg/0.8 mL subcutaneou s syringe 10-17 00:00: 00 10-20 23:59 :00 No [id number] Per instruc tions DAILY Per instructio ns DAILY (route: subcutaneo us) Med Classific ation: Hematolog ical Agents warfarin 5 mg tablet 10 00:00: 00 10-27 23:59 :00 No [id number] Per instruc tions DAILY Per instructio ns DAILY (route: oral) Med Classific ation: Hematolog ical Agents warfarin 5 mg tablet 10-20 00:00: 00 10-23 23:59 :00 No [id number] 1 tablet DIRECTED 1 tablet DIRECTED (route: oral) Med Classific ation: Hematolog ical Agents warfarin 2.5 mg tablet 11-03 00:00: 00 11-09 23:59 :00 No [id number] Per instruc tions DAILY Per instructio ns DAILY (route: oral) Med Classific ation: Hematolog ical Agents warfarin 2.5 mg tablet 11-10 00:00: 00 Yes [id number] Per instruc tions DAILY Per instructio ns [...] TO REPORT. PT/INR TO BE OBTAINED PER [facility] [place] [facility] [code = SKILLED NURSE FOR MONITORING, O/A AND TEACHING RELATED TO MANAGEMENT OF ANTICOAGULATION THERAPY INCLUDING DIET, MEDICATION SIDE EFFECTS, SAFETY MEASURES TO PREVENT INJURY, AND S/S TO REPORT. PT/INR TO BE OBTAINED PER [facility]] Future Scheduled Test PHYSICAL T [...] RELATED TO ALTERED SKIN INTEGRITY LAPROSCPIC INCISIONS WORK ORDER DETAILER MONIOR FOR HEALING REPORT ABNORMAL FINDINGS TO MD [code = SKILLED NURSE FOR O/A AND SKILLED TEACHING RELATED TO ALTERED SKIN INTEGRITY LAPROSCPIC INCISIONS FARHANA MONIOR FOR HEALING REPORT ABNORMAL FINDINGS TO [...] End Date/Time Encounter Type Admission Type Attending [facility] Care Department Encounter ID Discharge Date Discharge Status Discharge Condition Discharge Reason Percent Goals Met 2023-10-18 00:00:00 2023-11-15 00:00:00 Outpatient NEW ADMISSION MARU MENSAHN [facility] [id number] 2023-11-15 00:00:00 DISCHARGE TO HOME OR SELF CARE INDEPENDEN T IN THE COMMUNITY GOALS MET ( ONLY) 73.08
== END 2024-05-21 14:00 | disposition home or self-care (01) ==
PROVIDERS: PCP Nurse Practitioner Family; Visit Provider Surgery
DX: L02.411 Cutaneous abscess of right axilla (principal)
CPT/HCPCS: 10060; 99214

== ENCOUNTER → 2024-05-23 09:56 | Outpatient (BNVA) | payer MEDICARE, BC, SELFPAY | PROVIDERS: PCP Nurse Practitioner Family; Visit Provider Surgery | DX: D21.21 Benign neoplasm of connective and other soft tissue of right lower limb, including hip (principal); Z48.01 Encounter for change or removal of surgical wound dressing | CPT/HCPCS: 96127; 99211; 99212 ==

== ENCOUNTER 2024-05-23 16:02 | Outpatient (AMB) | payer MEDICARE, BC, SELFPAY ==
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
[2024-05-23 16:06] VITALS: BP 108/60; PULSE 82; O2SAT 97; BMI 26.5
== END 2024-05-24 08:09 | disposition home or self-care (01) ==
PROVIDERS: PCP Nurse Practitioner Family; Visit Provider Nurse Practitioner Family
DX: D21.9 Benign neoplasm of connective and other soft tissue, unspecified (principal)

== ENCOUNTER → 2024-05-24 11:52 | Outpatient (BNVA) | payer MEDICARE, BC, SELFPAY | PROVIDERS: PCP Nurse Practitioner Family; Visit Provider Surgery ==

== ENCOUNTER 2024-05-29 10:21 | Outpatient (REF) | payer MEDICARE, BC, SELFPAY ==
--- NOTE | ~2024-05-29 | US_ITS ---
EXAMINATION: US EXTREMITY, NONVASCULAR CLINICAL INFORMATION: Benign neoplasm of connective tissue and other soft tissue, unspecified; right medial laws. Patient recalls no history of trauma or injury. Nontender. COMPARISON: No prior. TECHNIQUE: Grayscale and color Doppler imaging of the right medial laws was performed in the region of concern as indicated by the patient. FINDINGS: There is an ovoid elongated fluid collection in the medial proximal anterior laws with low-level internal echoes, measuring 4.2 x 2.0 x 0.5 cm. No internal color Doppler flow. No suspicious features. This is most likely a resolving hematoma and directly abuts the medial tibia. US/US extremity nonvascular nayak IMPRESSION: 1. Ovoid elongated fluid collection in the medial proximal anterior laws region abutting the tibia measuring 4.2 x 2.0 x 0.5 cm. This has benign features and is most likely a resolving hematoma. Ultrasound follow-up in 6 weeks could be considered to ensure proper evolution/resolution. Electronically signed by: James Barrera MD 05/30/2024 09:18 AM QI
--- OUTSIDE RECORDS SUMMARY | 2024-05-29 11:56 | XMS_ITS | Clinical Summary ---
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) USE OF OPIATE ANALGESIC Active 05-16 [...] 10 mg tablet 09-25 00:00: 00 Yes [id number] Per instruc tions AT BEDTIME Per instructio ns AT BEDTIME (route: oral) Med Classific ation: Cardiovas cular Therapy Agents ezetimibe 10 mg tablet 2024-0 5-13 00:00: 00 Yes [id number] Per instruc tions DAILY Per instructio ns DAILY (route: oral) Med Classific ation: Cardiovas cular Therapy Agents Colace 100 mg capsule 10-17 00:00: 00 Yes [id number] 1 capsule 2 TIMES DAILY 1 capsule 2 TIMES DAILY (route: oral) Med Classific ation: Gastroint estinal Therapy Agents losartan 25 mg tablet 10-17 00:00: 00 Yes [id number] 1 tablet DAILY 1 tablet DAILY (route: oral) Med Classific ation: Cardiovas cular Therapy Agents oxycodone 5 mg tablet 10-17 00:00: 00 Yes [id number] 1-2 tablet EVERY 4 HOURS 1-2 tablet EVERY 4 HOURS (route: oral) Med Classific ation: Analgesic , Anti-infl ammatory or Antipyret ic Senna Lax 8.6 mg tablet 10-17 00:00: 00 Yes [id number] Per instruc tions DIRECTED Per instructio ns DIRECTED (route: oral) Med Classific ation: Gastroint estinal Therapy Agents Tylenol Extra Strength 500 mg tablet 10-17 00:00: 00 Yes [id number] 2 tablet EVERY 8 HOURS 2 tablet EVERY 8 HOURS (route: oral) Med Classific ation: Analgesic , Anti-infl ammatory or Antipyret ic warfarin 5 mg tablet 10-17 00:00: 00 10-19 23:59 :00 No [id number] Per instruc tions DAILY Per instructio ns DAILY (route: oral) Med Classific ation: Hematolog ical Agents Lovenox 80 mg/0.8 mL subcutaneou s syringe 10-17 00:00: 00 10-20 23:59 :00 No [id number] Per instruc tions DAILY Per instructio ns DAILY (route: subcutaneo us) Med Classific ation: Hematolog ical Agents warfarin 5 mg tablet 10 00:00: 00 10-27 23:59 :00 No [id number] Per instruc tions DAILY Per instructio ns DAILY (route: oral) Med Classific ation: Hematolog ical Agents warfarin 5 mg tablet 10-20 00:00: 00 10-23 23:59 :00 No [id number] 1 tablet DIRECTED 1 tablet DIRECTED (route: oral) Med Classific ation: Hematolog ical Agents warfarin 2.5 mg tablet 11-03 00:00: 00 11-09 23:59 :00 No [id number] Per instruc tions DAILY Per instructio ns DAILY (route: oral) Med Classific ation: Hematolog ical Agents warfarin 2.5 mg tablet 11-10 00:00: 00 Yes [id number] Per instruc tions DAILY Per instructio ns [...] TO REPORT. PT/INR TO BE OBTAINED PER [facility] [code = SKILLED NURSE FOR MONITORING, O/A AND TEACHING RELATED TO MANAGEMENT OF ANTICOAGULATION THERAPY INCLUDING DIET, MEDICATION SIDE EFFECTS, SAFETY MEASURES TO PREVENT INJURY, AND S/S TO REPORT. PT/INR TO BE OBTAINED PER [facility]] Future Scheduled Test PHYSICAL T [...] RELATED TO ALTERED SKIN INTEGRITY LAPROSCPIC INCISIONS EXECUTIVE RECEPTIONIST MONIOR FOR HEALING REPORT ABNORMAL FINDINGS TO MD [code = SKILLED NURSE FOR O/A AND SKILLED TEACHING RELATED TO ALTERED SKIN INTEGRITY LAPROSCPIC INCISIONS EXECUTIVE RECEPTIONIST MONIOR FOR HEALING REPORT ABNORMAL FINDINGS TO [...] CARE WILL BE ESTABLISHED THAT MEETS PATIENT'S LONGTERM NEEDS AND INCLUDES PATIENT GOAL FOR HOME [...] End Date/Time Encounter Type Admission Type Attending [facility] Care Department Encounter ID Discharge Date Discharge Status Discharge Condition Discharge Reason Percent Goals Met 2023-10-18 00:00:00 2023-11-15 00:00:00 Outpatient NEW ADMISSION [facility]SA[facility] [id number] 2023-11-15 00:00:00 DISCHARGE TO HOME OR SELF CARE INDEPENDEN T IN THE COMMUNITY GOALS MET ( ONLY) 73.08
--- OUTSIDE RECORDS SUMMARY | 2024-05-29 11:56 | XMS_ITS | Clinical Summary ---
Author Organization Unknown Care Team Providers Care Resource Economist Name Role Phone GILDARDO LANGFORD, IWONA Unavailable Unavailable MAKENNA PECK, LESIA Unavailable Unavailable Payers Payer Name Policy Type Policy Number Effective Date Expira tion Date MEDICARE - NGS [place] - PDGM [id number] [facility] [id number] Problems Condition Name Condition Details Condition Category [...] ARTIFICIAL SHOULDER JOINT Active 05-16 00:00: 00 CHANGE MANAGEMENT LEAD (CURRENT) USE OF OPIATE ANALGESIC Active 05-16 [...] 10 mg tablet 09-25 00:00: 00 Yes [id number] Per instruc tions AT BEDTIME Per instructio ns AT BEDTIME (route: oral) Med Classific ation: Cardiovas cular Therapy Agents ezetimibe 10 mg tablet 2024-0 5-13 00:00: 00 Yes [id number] Per instruc tions DAILY Per instructio ns DAILY (route: oral) Med Classific ation: Cardiovas cular Therapy Agents Colace 100 mg capsule 10-17 00:00: 00 Yes [id number] 1 capsule 2 TIMES DAILY 1 capsule 2 TIMES DAILY (route: oral) Med Classific ation: Gastroint estinal Therapy Agents losartan 25 mg tablet 10-17 00:00: 00 Yes [id number] 1 tablet DAILY 1 tablet DAILY (route: oral) Med Classific ation: Cardiovas cular Therapy Agents oxycodone 5 mg tablet 10-17 00:00: 00 Yes [id number] 1-2 tablet EVERY 4 HOURS 1-2 tablet EVERY 4 HOURS (route: oral) Med Classific ation: Analgesic , Anti-infl ammatory or Antipyret ic Senna Lax 8.6 mg tablet 10-17 00:00: 00 Yes [id number] Per instruc tions DIRECTED Per instructio ns DIRECTED (route: oral) Med Classific ation: Gastroint estinal Therapy Agents Tylenol Extra Strength 500 mg tablet 10-17 00:00: 00 Yes [id number] 2 tablet EVERY 8 HOURS 2 tablet EVERY 8 HOURS (route: oral) Med Classific ation: Analgesic , Anti-infl ammatory or Antipyret ic warfarin 5 mg tablet 10-17 00:00: 00 10-19 23:59 :00 No [id number] Per instruc tions DAILY Per instructio ns DAILY (route: oral) Med Classific ation: Hematolog ical Agents Lovenox 80 mg/0.8 mL subcutaneou s syringe 10-17 00:00: 00 10-20 23:59 :00 No [id number] Per instruc tions DAILY Per instructio ns DAILY (route: subcutaneo us) Med Classific ation: Hematolog ical Agents warfarin 5 mg tablet 10 00:00: 00 10-27 23:59 :00 No [id number] Per instruc tions DAILY Per instructio ns DAILY (route: oral) Med Classific ation: Hematolog ical Agents warfarin 5 mg tablet 10-20 00:00: 00 10-23 23:59 :00 No [id number] 1 tablet DIRECTED 1 tablet DIRECTED (route: oral) Med Classific ation: Hematolog ical Agents warfarin 2.5 mg tablet 11-03 00:00: 00 11-09 23:59 :00 No [id number] Per instruc tions DAILY Per instructio ns DAILY (route: oral) Med Classific ation: Hematolog ical Agents warfarin 2.5 mg tablet 11-10 00:00: 00 Yes [id number] Per instruc tions DAILY Per instructio ns [...] TO REPORT. PT/INR TO BE OBTAINED PER [facility] [code = SKILLED NURSE FOR MONITORING, O/A AND TEACHING RELATED TO MANAGEMENT OF ANTICOAGULATION THERAPY INCLUDING DIET, MEDICATION SIDE EFFECTS, SAFETY MEASURES TO PREVENT INJURY, AND S/S TO REPORT. PT/INR TO BE OBTAINED PER [facility]] Future Scheduled Test PHYSICAL T [...] RELATED TO ALTERED SKIN INTEGRITY LAPROSCPIC INCISIONS REPRESENTATIVE MONIOR FOR HEALING REPORT ABNORMAL FINDINGS TO MD [code = SKILLED NURSE FOR O/A AND SKILLED TEACHING RELATED TO ALTERED SKIN INTEGRITY LAPROSCPIC INCISIONS REPRESENTATIVE MONIOR FOR HEALING REPORT ABNORMAL FINDINGS TO [...] CARE WILL BE ESTABLISHED THAT MEETS PATIENT'S JAIL NEEDS AND INCLUDES PATIENT GOAL FOR HOME [...] End Date/Time Encounter Type Admission Type Attending [facility] Care Department Encounter ID Discharge Date Discharge Status Discharge Condition Discharge Reason Percent Goals Met 2023-10-18 00:00:00 2023-11-15 00:00:00 Outpatient NEW ADMISSION MARU MENSAHN [facility] [id number] 2023-11-15 00:00:00 DISCHARGE TO HOME OR SELF CARE INDEPENDEN T IN THE COMMUNITY GOALS MET ( ONLY) 73.08
== END 2024-05-29 10:22 | disposition home or self-care (01) ==
LOC: HO.HMGCX 10:21
PROVIDERS: PCP Nurse Practitioner Family; Visit Provider Nurse Practitioner Family
DX: D21.9 Benign neoplasm of connective and other soft tissue, unspecified (principal)
CPT/HCPCS: 76882

== ENCOUNTER → 2024-05-29 10:22 | Outpatient (BNV) | payer MEDICARE, BC, SELFPAY | PROVIDERS: PCP Nurse Practitioner Family; Visit Provider Radiology Diagnostic Radiology | DX: D21.9 Benign neoplasm of connective and other soft tissue, unspecified (principal) | CPT/HCPCS: 76882 ==

== ENCOUNTER 2024-06-04 11:33 | Outpatient (AMB) | payer MEDICARE, BC, SELFPAY ==
[2024-06-04 11:37] VITALS: BP 127/65; PULSE 82; BMI 26.6
--- NOTE | 2024-06-04 11:37 | A.OFFVIS_ITS ---
Vital Signs 06/04/24 11:37 Height 6 ft Weight 196 lb BMI 26.6 BP 127/65 Blood Pressure Location Rt brachial Position Sitting Pulse 82 Intake Visit Reasons: 1 1/2 wk follow up infected left axillary cyst Intake Note: Patient in follow up of infected left axillary cyst CC: Patient denies pain or discharge. He mentions going to the avionics integration engineer who excised a spot from his back and mentioned possible reaction to abx but not sure. Stamp Pad Finisher Required: No Accompanied by: Self / Same As Patient Allergies ranitidine [From Zantac] Allergy (Mild, Verified 06/04/24 11:43) Rash HPI Comments Details: Patient presents for follow-up. He says he has complete healing of his wound. [facility] Medical History History of deep vein thrombosis Old anterior myocardial infarction CAD (coronary artery disease) Rising PSA following treatment for malignant neoplasm of prostate (~2012) Prostate cancer (~2002) Current use of anticoagulant therapy Dyslipidemia Surgical History History of esophagogastroduodenoscopy (EGD) H/O shoulder surgery H/O colonoscopy History of partial colectomy History of radical prostatectomy (~2002) Social History Housing: Condominium Alcohol intake: current Alcohol intake frequency: holidays/special occasions only Patient Tobacco Use Status: Never used Tobacco e-Cigarette/Vaping Use: Never Used Second Hand Smoke Exposure: No service: No Current occupational status: retired 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 Patient has a small indurated area and I assured him this is expected. This is just postoperative inflammatory scarring and will resolve in 4-6 weeks. Assessment & Plan Assessment & Plan (1) Status post incision and drainage: Code(s): Z98.890 - Other specified postprocedural states Category: Medical Plan We briefly discussed considering excision of the cyst but patient would like to sit tight for now. In the meantime he is to be evaluated by Hematology regarding either discontinuing his Coumadin or switching to Eliquis. I will defer to the hematology people regarding this. All questions answered. Patient will otherwise follow-up p.r.n.. Coding Level of Care Code Global (85693) Diagnoses Status post incision and drainage Z98.890
--- OUTSIDE RECORDS SUMMARY | 2024-06-04 12:06 | XMS_ITS | Clinical Summary ---
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) USE OF OPIATE ANALGESIC Active 05-16 [...] 10 mg tablet 09-25 00:00: 00 Yes [id number] Per instruc tions AT BEDTIME Per instructio ns AT BEDTIME (route: oral) Med Classific ation: Cardiovas cular Therapy Agents ezetimibe 10 mg tablet 2024-0 5-13 00:00: 00 Yes [id number] Per instruc tions DAILY Per instructio ns DAILY (route: oral) Med Classific ation: Cardiovas cular Therapy Agents Colace 100 mg capsule 10-17 00:00: 00 Yes [id number] 1 capsule 2 TIMES DAILY 1 capsule 2 TIMES DAILY (route: oral) Med Classific ation: Gastroint estinal Therapy Agents losartan 25 mg tablet 10-17 00:00: 00 Yes [id number] 1 tablet DAILY 1 tablet DAILY (route: oral) Med Classific ation: Cardiovas cular Therapy Agents oxycodone 5 mg tablet 10-17 00:00: 00 Yes [id number] 1-2 tablet EVERY 4 HOURS 1-2 tablet EVERY 4 HOURS (route: oral) Med Classific ation: Analgesic , Anti-infl ammatory or Antipyret ic Senna Lax 8.6 mg tablet 10-17 00:00: 00 Yes [id number] Per instruc tions DIRECTED Per instructio ns DIRECTED (route: oral) Med Classific ation: Gastroint estinal Therapy Agents Tylenol Extra Strength 500 mg tablet 10-17 00:00: 00 Yes [id number] 2 tablet EVERY 8 HOURS 2 tablet EVERY 8 HOURS (route: oral) Med Classific ation: Analgesic , Anti-infl ammatory or Antipyret ic warfarin 5 mg tablet 10-17 00:00: 00 10-19 23:59 :00 No [id number] Per instruc tions DAILY Per instructio ns DAILY (route: oral) Med Classific ation: Hematolog ical Agents Lovenox 80 mg/0.8 mL subcutaneou s syringe 10-17 00:00: 00 10-20 23:59 :00 No [id number] Per instruc tions DAILY Per instructio ns DAILY (route: subcutaneo us) Med Classific ation: Hematolog ical Agents warfarin 5 mg tablet 10 00:00: 00 10-27 23:59 :00 No [id number] Per instruc tions DAILY Per instructio ns DAILY (route: oral) Med Classific ation: Hematolog ical Agents warfarin 5 mg tablet 10-20 00:00: 00 10-23 23:59 :00 No [id number] 1 tablet DIRECTED 1 tablet DIRECTED (route: oral) Med Classific ation: Hematolog ical Agents warfarin 2.5 mg tablet 11-03 00:00: 00 11-09 23:59 :00 No [id number] Per instruc tions DAILY Per instructio ns DAILY (route: oral) Med Classific ation: Hematolog ical Agents warfarin 2.5 mg tablet 11-10 00:00: 00 Yes [id number] Per instruc tions DAILY Per instructio ns [...] TO REPORT. PT/INR TO BE OBTAINED PER [facility] [code = SKILLED NURSE FOR MONITORING, O/A AND TEACHING RELATED TO MANAGEMENT OF ANTICOAGULATION THERAPY INCLUDING DIET, MEDICATION SIDE EFFECTS, SAFETY MEASURES TO PREVENT INJURY, AND S/S TO REPORT. PT/INR TO BE OBTAINED PER [facility]] Future Scheduled Test [...] RELATED TO ALTERED SKIN INTEGRITY LAPROSCPIC INCISIONS STONE PROCESSING MACHINE OPERATOR MONIOR FOR HEALING REPORT ABNORMAL FINDINGS TO MD [code = SKILLED NURSE FOR O/A AND SKILLED TEACHING RELATED TO ALTERED SKIN INTEGRITY LAPROSCPIC INCISIONS STONE PROCESSING MACHINE OPERATOR MONIOR FOR HEALING REPORT ABNORMAL FINDINGS TO [...] CARE WILL BE ESTABLISHED THAT MEETS PATIENT'S [facility] NEEDS AND INCLUDES PATIENT GOAL FOR HOME [...] End Date/Time Encounter Type Admission Type Attending [facility] Care Department Encounter ID Discharge Date Discharge Status Discharge Condition Discharge Reason Percent Goals Met 2023-10-18 00:00:00 2023-11-15 00:00:00 Outpatient NEW ADMISSION MARU MENSAHN [facility] [id number] 2023-11-15 00:00:00 DISCHARGE TO HOME OR SELF CARE INDEPENDEN T IN THE COMMUNITY GOALS MET ( ONLY) 73.08
== END 2024-06-04 11:54 | disposition home or self-care (01) ==
PROVIDERS: PCP Nurse Practitioner Family; Visit Provider Surgery
DX: Z98.890 Other specified postprocedural states (principal)
CPT/HCPCS: 99024

== ENCOUNTER → 2024-06-04 11:33 | Outpatient (BNVA) | payer MEDICARE, BC, SELFPAY | PROVIDERS: PCP Nurse Practitioner Family; Visit Provider Surgery | DX: Z98.890 Other specified postprocedural states (principal) | CPT/HCPCS: 99212 ==

== ENCOUNTER 2024-06-05 10:21 | Outpatient (AMB) | payer MEDICARE, BC, SELFPAY ==
[2024-06-05 10:46] LABS: Prothrombin Time Whole Bld POC 35.7 sec (11.1-13.5)
--- NOTE | 2024-06-05 11:04 | MHC.OFFVISCO ---
Intake Intake Visit Reasons: Anticoagulation Allergies ranitidine [From Zantac] Allergy (Mild, Verified 06/05/24 10:41) Rash Medication List - Last Reconciled 06/05/24 by Analilia Keene, LIV atorvastatin 10 mg PO BEDTIME ezetimibe 10 mg PO DAILY hydrocodone-acetaminophen 5-325 mg 1 tab PO Q4-6H PRN losartan 25 mg PO DAILY psyllium seed (sugar) (Metamucil (sugar) oral powder) 1 tsp PO BID warfarin 5 mg See Protocol PO DAILY Nursing Note INR: 3.0 in therapeutic range of 2-3 Pt states he had an I&D of a sebceous cyst left axilla on 05/21/24 and was on antibiotics, Cefalexin, which completed 1 week ago Medications and supplements reviewed: no other changes No changes in health, diet, medications, or supplements, Denies any signs and symptoms of bleeding or bruising or clotting. Bleeding, bruising, clotting discussed Nutritional guidance given Dose: continue 5mg X 6 days and 2.5mg X 1 day F/U INR: 2 weeks Patient verbalizes understanding of instructions given Anti-Coag Initial Assessment Social Hx Patient Tobacco Use Status: Never used Tobacco alcohol intake: current Alcohol intake frequency: holidays/special occasions only Cardiovascular Hx: CT Endocrine Hx: Thyroid Disease Blood Disorder Hx: Hyperlipidemia GI Hx: Other Hx: Prostate Cancer HX: Yes Psych. Illness/Depression: No Coding Level of Care Code Est Patient Level 1 Diagnoses Current use of anticoagulant therapy Z79.01 Assessment & Plan Assessment & Plan (1) Current use of anticoagulant therapy: Comment: (on Warfarin for hx DVTs) Code(s): Z79.01 - retirement (current) use of anticoagulants Category: Medical
== END 2024-06-05 11:16 | disposition home or self-care (01) ==
LOC: HO.ACS 10:21
PROVIDERS: PCP Nurse Practitioner Family; Visit Provider Internal Medicine
DX: Z79.01 Long term (current) use of anticoagulants (principal)

== ENCOUNTER → 2024-06-05 10:21 | Outpatient (BNVA) | payer MEDICARE, BC, SELFPAY | PROVIDERS: PCP Nurse Practitioner Family; Visit Provider Internal Medicine | DX: Z86.718 Personal history of other venous thrombosis and embolism (principal); Z79.01 Long term (current) use of anticoagulants; Z51.81 Encounter for therapeutic drug level monitoring | CPT/HCPCS: 85610; 99211 ==

== ENCOUNTER 2024-06-19 10:54 | Outpatient (AMB) | payer MEDICARE, BC, SELFPAY ==
[2024-06-19 11:14] LABS: ~PT, ~INR - Anti Coag Clinic 3.2 (0.9-1.1)
--- NOTE | 2024-06-19 11:22 | MHC.OFFVISCO ---
Intake Intake Visit Reasons: Anticoagulation Allergies ranitidine [From Zantac] Allergy (Mild, Verified 06/19/24 10:59) Rash Medication List - Last Reconciled 06/19/24 by Analilia Keene, LIV atorvastatin 10 mg PO BEDTIME ezetimibe 10 mg PO DAILY hydrocodone-acetaminophen 5-325 mg 1 tab PO Q4-6H PRN losartan 25 mg PO DAILY psyllium seed (sugar) (Metamucil (sugar) oral powder) 1 tsp PO BID warfarin 5 mg See Protocol PO DAILY Nursing Note INR 3.2?out of therapeutic range of 2-3 Medications and supplements reviewed Patient status: well Medications or supplements: no changes Diet: usual diet for pt Denies any signs and symptoms of bleeding or clotting or unusual bruising Bleeding, bruising, clotting discussed Nutritional guidance given: to have a serving of greens today Dose: weekly dose decreased by 2.5mg. Pt will take 5mg X 5 days and 2.5mg X 2 days (instead of 1 day) F/U INR Date : 2 weeks?? Patient verbalizing understanding of instructions with read back given. Anti-Coag Initial Assessment Social Hx Patient Tobacco Use Status: Never used Tobacco alcohol intake: current Alcohol intake frequency: holidays/special occasions only Cardiovascular Hx: SC Endocrine Hx: Thyroid Disease Blood Disorder Hx: Hyperlipidemia GI Hx: Other Hx: Prostate Cancer HX: Yes Psych. Illness/Depression: No Coding Level of Care Code Est Patient Level 1 Diagnoses Current use of anticoagulant therapy Z79.01 Assessment & Plan Assessment & Plan (1) Current use of anticoagulant therapy: Comment: (on Warfarin for hx DVTs) Code(s): Z79.01 - custodial (current) use of anticoagulants Category: Medical
== END 2024-06-19 11:25 | disposition home or self-care (01) ==
LOC: HO.ACS 10:54
PROVIDERS: PCP Nurse Practitioner Family; Visit Provider Internal Medicine
DX: Z79.01 Long term (current) use of anticoagulants (principal)

== ENCOUNTER → 2024-06-19 10:54 | Outpatient (BNVA) | payer MEDICARE, BC, SELFPAY | PROVIDERS: PCP Nurse Practitioner Family; Visit Provider Internal Medicine | DX: Z86.718 Personal history of other venous thrombosis and embolism (principal); Z79.01 Long term (current) use of anticoagulants; Z51.81 Encounter for therapeutic drug level monitoring | CPT/HCPCS: 85610; 99211 ==

== ENCOUNTER 2024-07-03 10:22 | Outpatient (REF) | payer MEDICARE, BC, SELFPAY ==
--- NOTE | ~2024-07-03 | US_ITS ---
. EXAMINATION: Ultrasound right lower extremity, nonvascular. Limited. CLINICAL INFORMATION: Lump in the medial tibial region. COMPARISON: May 29, 2024. TECHNIQUE: Real-time ultrasound of the region of concern using grayscale and color Doppler technique with a linear transducer. FINDINGS: There is a 3.8 x 3.7 x 1.9 cm thick capsulated anechoic lesion without flow on color Doppler interrogation in the region of concern. This lesion is within the soft tissues anterior to the osseous structures. Previously measured 4.2 x 2.0 x 0.5 cm. US/US extremity nonvascular nayak IMPRESSION: 3.8 x 3.7 x 1.9 cm probable complex fluid collection in the mid calf right lower extremity. Smaller since prior exam. Hematoma versus seroma should be included in the differential diagnostic considerations. Electronically signed by: Keyon Maxwell MD 07/03/2024 03:25 PM QI
--- OUTSIDE RECORDS SUMMARY | 2024-07-03 11:21 | XMS_ITS | Data Portability ---
Author Organization [facility], [address] [place] [address] Neurology ([place]) Address [address] [address] Care Team Providers Care Food Chemist Name Role Phone STEFF GARIBAY Primary Care Provider [phone] Assessment Encounter Date Assessment Date Assessment LastModified by Organization Details LastModified Time 12/22/2023 12/22/2023 I discussed patient's test results with him. He was treated with doxycycline and Tessalon Perles. Side effects were discussed as were expected healing. Contagion and spread were discussed. Symptomatic measures were discussed. He will follow-up with his PCP if any new or worsening symptoms. He may return to urgent care as needed. Patient verbalizes understanding of the instructions and has no further questions or concerns. [email or web address] Not available 12/22/2023 12:47:59 Plan of Treatment Reminders Order Date Submit Date Provider Last Modified By Organization Details Last Modified Time Details Appointments None recorded. Lab SARS CoV 2 RNA, QL, MADHAVI+probe, nose 2023 Formerly [facility], [facility] [address], [address], 11:33:08 Referral None recorded. Procedures None recorded. Surgeries None recorded. Imaging None recorded. Medication Orders benzonatate 200 mg capsule 2023 [facility] #[id number], [address] [place], [place], [id number], 11:54:02 doxycycline hyclate 100 mg tablet 2023 024 [id number], [address] [place], [place], [id number], 11:54:04 Patient TargetsNo targets recorded. Patient InstructionsNo instructions recorded. Reason for Referral None Reported. Results Created Date Observation Date Name Description Value Unit Range Abnormal Flag Note LastModifiedBy Organization Detail LastModifiedTime 12/19/19 24 12/19/2023 INR, capil unique blood fingerstick INR Not Available [facility] [address] [place] [address], [address], 12/22/2023 17:11:39 12/19/19 24 12/19/2023 INR, capil unique blood INR 2.3 INR INTER PRETA TION 2.0-3 .0 FOR DEEP VEIN THROM BOSIS PULMO NARY EMBOL ISM ACUTE MYOCA RDIAL INFAR CTION ATRIA L FIBRI LLATI ON 3.0-4 .5 FOR MECHA NICAL HEART VALVE S Not Available [facility] [address] [place] [address], [address], 12/22/2023 17:11:39 12/22/19 24 12/22/2023 SARS CoV 2 RNA, QL, MADHAVI+p robe, nose covid-19, rapid NEGATI VE negati ve Covid -19 assay perfo rmed on the ID now instr ument is a rapid molec ular in vitro diagn ostic test utili zing an isoth ermal nucle ic acid ampli ficat ion techn ology inten ded for the quali tativ e detec tion of nucle ic acid from SARS- CoV-2 in direc t anter ior nasal or nasop haryn geal swab speci mens from indiv idual s who are suspe cted of COVID -19 by their healt hcare provi silvano withi n the first seven days of the onset of sympt oms. Not Available [facility] [address] [place] [address], [address], 12/22/2023 11:33:08 Result Notes None recorded. Problems Name Problem SNOMED Code Status Onset Date Resolution Date Notes Provider Name and Address Organization Details Recorded Time Cough 22711662 Active 2023 Colleen Mata [facility], [facility] 4 11:07:05 Acute tracheobronchit is 76497599 Active 2023 ELOISE NAIDU MD [address] [place] [address], [phone] [place] [address] 4 11:53:09 Problem Notes Documentation Provider Name and Address Organization Details Recorded Time Urgent Care Note : [facility] ? [address] [place] [address]PWIPGPF, Charles E (id #[id number], : 1945) [facility] [address] [place],? ? ?[place]?[address] Phone:? ? ? Fax:? ? ? Encounter Summary - Progress Note Date Printed: ?12/22/2023 Documents sent via fax will include the followingmessage: This fax may contain sensitive and confidential personal health information that is being sent for the sole use of the intended recipient. Unintended recipients are directed to securely destroy any materials received. You are hereby notified that the unauthorized disclosure or other unlawful use of this fax or any personal health information is prohibited. To the extent patient information contained in this fax is subject to 42 CFR Part 2, this regulation prohibits unauthorized disclosure of these records. If you received this fax in error, please visit [email or web address] to notify the sender and confirm that the information will be destroyed. If you do not have internet access, please call to notify the sender and confirm that the information will be destroyed. Thank you for your attention and cooperation. [ID:[id number]] Patient Brad Oscar (78yo, M) #[id number] 1945 ? ? ? Patient Demographics: Address [address] [place] [address] ? Work Phone ? ? ? Encounter Notes: Encounter Reason/Date just got off a cruise-cough, runny nose 12/22/2023 - 09:52AM - [facility] [place] ([place]) History of Present IllnessThis is a pleasant 78-year-old patient in today, accompanied by his , with complaints of cough and nasal congestion beginning on December 16 or December 17. Patient states the cough is dry and the nasal drainage is clear. No fever, chills, or sweats at home. No sore throat or ear pain. No nausea, vomiting, or diarrhea. No shortness of breath. He has some epigastric discomfort when he coughs only. No exertional or pleuritic pain. No anginal symptoms. No sleep disturbance, orthopnea or paroxysmal nocturnal dyspnea. Patient had a diaphragmatic hernia repair on October 13. He has been released from care with good results. He has history of DVT and is anticoagulated. He is a non-smoker. He denies smoking. Medicines and allergies are reviewed. Patient was recently on a cruise and has been traveling. Review of SystemsNone recorded [id number] 10:06 BP: 126/72 T: 97.7 F? ? ? (36.5 C) Pulse: 71 bpm RR: 20 O2Sat: 96% Results/InterpretationsN one recorded Physical ExamThis is a well-developed, well-nourished, nontoxic patient in no acute distress. Afebrile. Vital signs are stable. TMs and EACs are normal. Pharynx is mildly erythematous without exudates, signs of abscess, open lesions, or thrush. Neck is supple with small tender anterior cervical adenopathy but no posterior adenopathy or meningeal signs. Lungs are clear in all vaughan without rales, wheezes, or rhonchi. Heart sounds are regular rate and rhythm without murmur or gallop. Rapid COVID is negative. Assessment and PlanI discussed patient's test results with him. He was treated with doxycycline and Tessalon Perles. Side effects were discussed as were expected healing. Contagion and spread were discussed. Symptomatic measures were discussed. He will follow-up with his PCP if any new or worsening symptoms. He may return to urgent care as needed. Patient verbalizes understanding of the instructions and has no further questions or concerns. 1. OnefgB67.9: Cough, unspecified COVID-19, RAPID ([place] ONLY) 2. Acute vorqjfgwrzikzslesZ77.9: Acute bronchitis, unspecified benzonatate 200 mg capsule - Take 1 capsule(s) 3 times a day by oral route as needed for 10 days, for cough. ? Qty: (30)?capsule ? Refills: 0 ? Pharmacy: [facility] #[id number] doxycycline hyclate 100 mg tablet - Take 1 tablet(s) twice a day by oral route for 7 days. ? Qty: (14)?tablet ? Refills: 0 ? Pharmacy: [facility] #[id number] Return to Office Patient will return to the office as needed Patient Medical History: Allergies List Reviewed Allergies ZANTAC: Rash - Reaction: Rash; Medications Reviewed Medications NameDate Source atorvastatin 10 mg tabletTAKE 1 TABLET BY MOUTH AT BXNDCWR71/13/24?filled surescripts benzonatate 200 mg capsuleTake 1 capsule(s) 3 times a day by oral route as needed for 10 days, for cough.12/22/23?prescribed ELOISE NAIDU MD BinaxNOW COVID-19 Ag Self Test kitTEST DIRECTED TODAY06/17/23?filled surescripts docusate sodium 100 mg capsuleTAKE ONE CAPSULE BY MOUTH EVERY 12 HOURS11/18/23?filled surescripts doxycycline hyclate 100 mg tabletTake 1 tablet(s) twice a day by oral route for 7 days.12/22/23?prescribed ELOISE NAIDU MD enoxaparin 100 mg/mL subcutaneous syringeINJECT 90 MG UNDER THE SKIN EVERY 12 HRS X10 DAYS. DO NOT TAKE NIGHT BEFORE PROCEDURE. MAY RESTART AFTER PROCEDURE. STOP WHEN COUMADIN CLINIC SAYS05/30/23?filled surescripts enoxaparin 80 mg/0.8 mL subcutaneous cdsipyo80/09/24?filled surescripts ezetimibe 10 mg tabletTAKE 1 TABLET BY MOUTH DAILY09/26/23?filled surescripts Gas Relief Extra Strength 125 mg /04/24?filled surescripts GaviLyte-G 236 gram-22.74 gram-6.74 gram-5.86 gram oral vsxyzugy01/04/24?filled surescripts HYDROcodone 5 mg-acetaminophen 325 mg tabletTAKE 1 TABLET BY MOUTH EVERY 4 TO 6 HOURS NEEDED FOR PAIN04/28/23?filled surescripts Laxative (bisacodyl) 5 mg tablet,delayed dhxtkif97/04/24?filled surescripts losartan 25 mg tabletTAKE 1 TABLET BY MOUTH DAILY11/02/23?filled surescripts oxyCODONE 5 mg mrzpos96/02/24?filled surescripts senna 8.6 mg tabletTAKE 1 TABLET BY MOUTH AT QPWBDQF90/17/24?filled surescripts simvastatin 40 mg tabletTAKE 1 TABLET BY MOUTH DAILY01/31/23?filled surescripts simvastatin 80 mg tabletTAKE 1 TABLET BY MOUTH DAILY06/14/23?filled surescripts warfarin 5 mg tabletTAKE 1 TABLET BY MOUTH EVERY DAY OR CUMDILAC87/03/24?filled surescripts Family HistoryNone recorded Past Medical History (none recorded) Vaccine HistoryNone recorded Electronically Signed by: ELOISE NAIUD MD Steff Garibay MD [address] [place], [address], [facility] 12/22/2023 16:05:46 Medical Equipment None Reported. Allergies Allergen ID Allergen Name Allergen Category Reaction Reaction Severity Criticality Documentation Date Start Date Code Code System Note Provider Name and Address Organization Details Recorded Time 021512 Zantac medicatio n rash Not available Not available 06/13/20232006 96292 3 RxNorm React ion: Rash; Not Available Not Available Not Available Medications Name Sig Start Date Stop Date Status Note LastModified by Organization Details LastModified Time atorvastati n 10 mg tablet TAKE 1 TABLET BY MOUTH AT BEDTIME active Not Available Not Available No t Available benzonatate 200 mg capsule TAKE 1 CAPSULE BY MOUTH THREE TIMES DAILY FOR 10 DAYS NEEDED FOR COUGH active Not Available Not Available No t Available hydrocodone 5 mg-acetamin ophen 325 mg tablet TAKE 1 TABLET BY MOUTH EVERY 4 TO 6 HOURS NEEDED FOR PAIN active Not Available Not Available No t Available senna 8.6 mg tablet TAKE 1 TABLET BY MOUTH AT BEDTIME active Not Available Not Available No t Available simvastatin 80 mg tablet TAKE 1 TABLET BY MOUTH DAILY active Not Available Not Available No t Available simvastatin 40 mg tablet TAKE 1 TABLET BY MOUTH DAILY active Not Available Not Available No t Available cephalexin 500 mg capsule TAKE 1 CAPSULE BY MOUTH THREE TIMES DAILY 12/21 completed Not Available Not Available Not Available warfarin 5 mg tablet TAKE 1 TABLET BY MOUTH EVERY DAY OR DIRECTED active Not Available Not Available No t Available losartan 25 mg tablet TAKE 1 TABLET BY MOUTH DAILY active Not Available Not Available No t Available Gas Relief Extra Strength 125 mg capsule active Not Available Not Available Not Available docusate sodium 100 mg capsule TAKE ONE CAPSULE BY MOUTH EVERY 12 HOURS active Not Available Not Available No t Available doxycycline hyclate 100 mg tablet TAKE 1 TABLET BY MOUTH TWICE DAILY FOR 7 DAYS active Not Available Not Available No t Available oxycodone 5 mg tablet active Not Available Not Available No t Available Laxative (bisacodyl) 5 mg tablet,dorina yed release active Not Available Not Available Not Available enoxaparin 80 mg/0.8 mL subcutaneou s syringe active Not Available Not Available No t Available enoxaparin 100 mg/mL subcutaneou s syringe INJECT 90 MG UNDER THE SKIN EVERY 12 HRS X10 DAYS. DO NOT TAKE NIGHT BEFORE PROCEDURE . MAY RESTART AFTER PROCEDURE . STOP WHEN COUMADIN CLINIC SAYS active Not Available Not Available No t Available ezetimibe 10 mg tablet TAKE 1 TABLET BY MOUTH DAILY active Not Available Not Available No t Available GaviLyte-G 236 gram-22.74 gram-6.74 gram-5.86 gram oral solution active Not Available Not Available Not Available BinaxNOW COVID-19 Ag Self Test kit TEST DIRECTED TODAY active Not Available Not Available No t Available Vitals Date Recorded Body temperature Heart rate Respiratory rate Oxygen saturation Oxygen saturation in Arterial blood by Pulse oximetry Systolic blood pressure Diastolic blood pressure Provider Name and Address Organization Details Last Updated DateTime 4 97.7 [degF] 71 /min 20 /min 96 % 96 % 126 mm[Hg] 72 mm[Hg] Colleen Mata [facility] 4 11:06:31 Social History None recorded. Functional Status None recorded. Mental Status None recorded. Family History Nothing Reported. Medical History No medical history recorded. Past Encounters Encounter ID Performer Location Encounter Start Date Encounter Closed Date Diagnosis/Indication Diagnosis SNOMED-CT Code Diagnosis ICD10 Code Diagnosis Note [id number] ELOISE NAIDU MD Urgent Care [address] [place] [address] 12/22/2023 10:57:47 12/22/2023 12:21:33 Cough 48216650 R05.9 Acute tracheobronchitis 15753617 J20.9 Health Concerns Section Related Observation LastModified by Organization Detai ls LastModified Time None Recorded Concern Status LastModified by Organization Details LastModified Time None Recorded Advance Directives Directive None Recorded Payers Encounter Date Sequence Insurance Name Policy Number Policy Quigley Covered Member ID Quigley Member ID Guarantor Name 12/22/2023 1 MEDICARE [place]: [employer] Brad Oscar [id number] Ayleen Oscar 12/22/2023 2 [place] Brad Oscar [id number] Ayleen Oscar Notes Date Note Type Note Provider Name and Address Organization Details Recorded Time 12/22/2023 text/html This is a pleasa nt 78-year-old patient in today, accompanied by his , with complaints of cough and nasal congestion beginning on December 16 or December 17. Patient states the cough is dry and the nasal drainage is clear. No fever, chills, or sweats at home. No sore throat or ear pain. No nausea, vomiting, or diarrhea. No shortness of breath. He has some epigastric discomfort when he coughs only. No exertional or pleuritic pain. No anginal symptoms. No sleep disturbance, orthopnea or paroxysmal nocturnal dyspnea. Patient had a diaphragmatic hernia repair on October 13. He has been released from care with good results. He has history of DVT and is anticoagulated. He is a non-smoker. He denies smoking. Medicines and allergies are reviewed. Patient was recently on a cruise and has been traveling. ELOISE NAIDU MD [address] [place] [address], [phone], [facility] 12/22/2023 12:56:39
== END 2024-07-03 10:23 | disposition home or self-care (01) ==
LOC: HO.HMGCX 10:22
PROVIDERS: PCP Nurse Practitioner Family; Visit Provider Nurse Practitioner Family
DX: D21.9 Benign neoplasm of connective and other soft tissue, unspecified (principal); Z86.718 Personal history of other venous thrombosis and embolism; Z51.81 Encounter for therapeutic drug level monitoring; Z79.01 Long term (current) use of anticoagulants
CPT/HCPCS: 76882; 85610; 99211

== ENCOUNTER → 2024-07-03 10:24 | Outpatient (BNV) | payer MEDICARE, BC, SELFPAY | PROVIDERS: PCP Nurse Practitioner Family; Visit Provider Radiology Diagnostic Radiology | DX: R22.41 Localized swelling, mass and lump, right lower limb (principal) | CPT/HCPCS: 76882 ==

== ENCOUNTER 2024-07-03 13:22 | Outpatient (AMB) | payer MEDICARE, BC, SELFPAY ==
--- NOTE | 2024-07-03 13:31 | MHC.OFFVISCO ---
Intake Intake Visit Reasons: Anticoagulation Allergies ranitidine [From Zantac] Allergy (Mild, Verified 07/03/24 13:23) Rash Medication List - Last Reconciled 07/03/24 by Capri Olivier RN atorvastatin 10 mg PO BEDTIME ezetimibe 10 mg PO DAILY hydrocodone-acetaminophen 5-325 mg 1 tab PO Q4-6H PRN losartan 25 mg PO DAILY psyllium seed (sugar) (Metamucil (sugar) oral powder) 1 tsp PO BID warfarin 5 mg See Protocol PO DAILY Nursing Note INR: 2.7- in therapeutic range of 2-3 Medications and supplements reviewed- taking probiotics, no interaction per micromedex No changes in health, diet, medications, or supplements, Denies any signs and symptoms of bleeding or bruising or clotting. Bleeding, bruising, clotting discussed Nutritional guidance given Dose: cont same dosing- 2.5mg x 2, 5mg x 5 F/U INR: 2 weeks Patient verbalizes understanding of instructions given Anti-Coag Initial Assessment Social Hx Patient Tobacco Use Status: Never used Tobacco alcohol intake: current Alcohol intake frequency: holidays/special occasions only Cardiovascular Hx: [place] Endocrine Hx: Thyroid Disease Blood Disorder Hx: Hyperlipidemia GI Hx: Other Hx: Prostate Cancer HX: Yes Psych. Illness/Depression: No Coding Level of Care Code Est Patient Level 1 Diagnoses Current use of anticoagulant therapy Z79.01 Results AMB INR Fingerstick AMB INR Fingerstick 2.7 Last Edit by Capri Olivier RN on 07/03/24 13:33 interface delay Assessment & Plan Assessment & Plan (1) Current use of anticoagulant therapy: Comment: (on Warfarin for hx DVTs) Code(s): Z79.01 - terminal clerk (current) use of anticoagulants Category: Medical
[2024-07-03 13:40] LABS: Prothrombin Time Whole Bld POC 32.1 sec (11.1-13.5); ~PT, ~INR - Anti Coag Clinic 2.7 (0.9-1.1)
== END 2024-07-03 13:38 | disposition home or self-care (01) ==
LOC: HO.ACS 13:22
PROVIDERS: PCP Nurse Practitioner Family; Visit Provider Internal Medicine
DX: Z79.01 Long term (current) use of anticoagulants (principal)

== ENCOUNTER 2024-07-12 10:18 | Outpatient (REF) | payer MEDICARE, BC, SELFPAY ==
[2024-07-12 13:48] LABS: Prostate Specific Antigen < 0.10 ng/mL (<0.05-4.0)
[2024-07-19 12:43] LABS: Testosterone, Total 35 ng/dL (250-1100)
== END 2024-07-12 10:19 | disposition home or self-care (01) ==
LOC: HO.HMGCLDS 10:18
PROVIDERS: PCP Nurse Practitioner Family; Visit Provider Internal Medicine
DX: C61 Malignant neoplasm of prostate (principal)
CPT/HCPCS: 36415; 84153; 84403

== ENCOUNTER 2024-07-17 13:30 | Outpatient (AMB) | payer MEDICARE, BC, SELFPAY ==
--- NOTE | 2024-07-03 13:36 | MHC.OFFVISCO ---
Intake Intake Visit Reasons: Anticoagulation Allergies ranitidine [From Zantac] Allergy (Mild, Verified 07/03/24 13:23) Rash Nursing Note INR: [] in therapeutic range Medications and supplements reviewed No changes in health, diet, medications, or supplements, Denies any signs and symptoms of bleeding or bruising or clotting. Bleeding, bruising, clotting discussed Nutritional guidance given Dose: [] F/U INR: []Patient verbalizes understanding of instructions given Anti-Coag Initial Assessment Social Hx Patient Tobacco Use Status: Never used Tobacco alcohol intake: current Alcohol intake frequency: holidays/special occasions only Cardiovascular Hx: [place] Endocrine Hx: Thyroid Disease Blood Disorder Hx: Hyperlipidemia GI Hx: Other Hx: Prostate Cancer HX: Yes Psych. Illness/Depression: No Coding Diagnoses Current use of anticoagulant therapy Z79.01 Assessment & Plan Assessment & Plan (1) Current use of anticoagulant therapy: Comment: (on Warfarin for hx DVTs) Code(s): Z79.01 - USP (current) use of anticoagulants Category: Medical
[2024-07-17 13:49] LABS: Prothrombin Time Whole Bld POC 35.5 sec (11.1-13.5)
--- NOTE | 2024-07-17 13:49 | MHC.OFFVISCO ---
Intake Intake Visit Reasons: Anticoagulation Allergies ranitidine [From Zantac] Allergy (Mild, Verified 07/03/24 13:23) Rash Nursing Note INR: 3.0 in therapeutic range Medications and supplements reviewed No changes in health, diet, medications, or supplements, Denies any signs and symptoms of bleeding or bruising or clotting. Bleeding, bruising, clotting discussed Nutritional guidance given - MAKE SURE TO KEEP UP GREENS WEEKLY Dose: 2.5MG X 2 DAYS/ 5MG X 5 DAYS F/U INR: 08/02/2024 Patient verbalizes understanding of instructions given Anti-Coag Initial Assessment Social Hx Patient Tobacco Use Status: Never used Tobacco alcohol intake: current Alcohol intake frequency: holidays/special occasions only Cardiovascular Hx: [place] Endocrine Hx: Thyroid Disease Blood Disorder Hx: Hyperlipidemia GI Hx: Other Hx: Prostate Cancer HX: Yes Psych. Illness/Depression: No Coding Level of Care Code Est Patient Level 1 Diagnoses Current use of anticoagulant therapy Z79.01 Assessment & Plan Assessment & Plan (1) Current use of anticoagulant therapy: Comment: (on Warfarin for hx DVTs) Code(s): Z79.01 - senior care (current) use of anticoagulants Category: Medical
--- OUTSIDE RECORDS SUMMARY | 2024-07-17 16:58 | XMS_ITS | Data Portability ---
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 [email or web address] Not available 12/22/2023 12:47:59 Plan of Treatment Reminders Order Date Submit Date Provider Last Modified By Organization Details Last Modified Time Details Appointments None recorded. Lab SARS CoV 2 RNA, QL, MADHAVI+probe, nose 2023 [facility], [facility] [address], [address], 11:33:08 Referral None recorded. Procedures None recorded. Surgeries None recorded. Imaging None recorded. Medication Orders benzonatate 200 mg capsule 2023 [facility] #[id number], [address] [place], [phone], 11:54:02 doxycycline hyclate 100 mg tablet 2023 [id number], [address] [place], [place], [phone], 11:54:04 Patient TargetsNo targets recorded. Patient InstructionsNo instructions recorded. Reason for Referral None Reported. Results Created Date Observation Date Name Description Value Unit Range Abnormal Flag Note LastModifiedBy Organization Detail LastModifiedTime 12/19/19 24 12/19/2023 INR, capil unique blood fingerstick INR Not Available [facility] [address] [place] [address], [address], 12/22/2023 17:11:39 12/19/19 24 12/19/2023 INR, capil unique blood INR 2.3 INR INTER PRETA TION 2.0-3 .0 FOR DEEP VEIN THROM BOSIS PULMO NARY EMBOL ISM ACUTE MYOCA RDIAL INFAR CTION ATRIA L FIBRI LLATI ON 3.0-4 .5 FOR MECHA NICAL HEART VALVE S Not Available [facility] [address] [place] [address], [address], 12/22/2023 17:11:39 12/22/19 24 12/22/2023 SARS CoV 2 RNA, QL, MADHAIV+p robe, nose covid-19, rapid NEGATI VE negati [...] the onset of sympt oms. Not Available [facility] [address] [place] [address], [address], 12/22/2023 11:33:08 Result Notes None recorded. Problems Name Problem SNOMED Code Status Onset Date Resolution Date Notes Provider Name and Address Organization Details Recorded Time Cough 92043363 Active 2023 Colleen Mata [facility], [facility] 4 11:07:05 Acute tracheobronchit is 82198669 Active 2023 ELOISE NAIDU MD [address] [place] [address], [address] [place] [address] 4 11:53:09 Problem Notes Documentation Provider Name and Address Organization Details Recorded Time Urgent Care Note : [facility] ? [address] [place] [address]JIONXXQ, Charles E (id #[id number], : 1945) [facility] [address] [place],? ? ?[place]?[address] Phone:? ? ? Fax:? ? ? Encounter [...] received this fax in error, please visit [email or web address] to notify the sender and confirm that the information will be destroyed. If you do not have internet access, please call to notify the sender and confirm that the information will be destroyed. Thank you for your attention and cooperation. [ID:[id number]] Patient Brad Oscar (78yo, M) #[id number] 1945 ? ? ? Patient Demographics: Address [address] [facility] [address] [place] [address] ? Work Phone ? ? ? Encounter [...] has been traveling. Review of SystemsNone recorded Frctup9401-57-89 10:06 BP: 126/72 T: 97.7 F? ? [...] has no further questions or concerns. 1. HbbynJ89.9: Cough, unspecified COVID-19, RAPID ([place] ONLY) 2. Acute kiojsgaphgtfptgzsO95.9: Acute bronchitis, unspecified benzonatate 200 mg capsule - Take 1 capsule(s) 3 times a day by oral route as needed for 10 days, for cough. ? Qty: (30)?capsule ? Refills: 0 ? Pharmacy: [facility] #[id number] doxycycline hyclate 100 mg tablet - Take 1 tablet(s) twice a day by oral route for 7 days. ? Qty: (14)?tablet ? Refills: 0 ? Pharmacy: [facility] #[id number] Return to Office Patient will return to the office as needed Patient Medical History: Allergies List Reviewed Allergies ZANTAC: Rash - Reaction: Rash; Medications Reviewed Medications NameDate Source atorvastatin 10 mg tabletTAKE 1 TABLET BY MOUTH AT QXLLJUL06/13/24?filled surescripts benzonatate 200 mg capsuleTake 1 capsule(s) [...] SAYS05/30/23?filled surescripts enoxaparin 80 mg/0.8 mL subcutaneous ooxkghr08/09/24?filled surescripts ezetimibe 10 mg tabletTAKE 1 TABLET BY MOUTH DAILY09/26/23?filled surescripts Gas Relief Extra Strength 125 mg mozhxjo14/04/24?filled surescripts GaviLyte-G 236 gram-22.74 gram-6.74 gram-5.86 gram oral drvlgdyd02/04/24?filled surescripts HYDROcodone 5 mg-acetaminophen 325 mg tabletTAKE 1 TABLET BY MOUTH EVERY 4 TO 6 HOURS NEEDED FOR PAIN04/28/23?filled surescripts Laxative (bisacodyl) 5 mg tablet,delayed kkjibrt21/04/24?filled surescripts losartan 25 mg tabletTAKE 1 TABLET BY MOUTH DAILY11/02/23?filled surescripts oxyCODONE 5 mg hrnywl04/02/24?filled surescripts senna 8.6 mg tabletTAKE 1 TABLET BY MOUTH AT DNCZLUX54/17/24?filled surescripts simvastatin 40 mg tabletTAKE 1 TABLET BY MOUTH DAILY01/31/23?filled surescripts simvastatin 80 mg tabletTAKE 1 TABLET BY MOUTH DAILY06/14/23?filled surescripts warfarin 5 mg tabletTAKE 1 TABLET BY MOUTH EVERY DAY OR XFRKYMRZ27/03/24?filled surescripts Family HistoryNone recorded Past Medical History (none recorded) Vaccine HistoryNone recorded Electronically Signed by: ELOISE NAIDU MD Steff Garibay MD [address] [place], [address], [facility] 12/22/2023 16:05:46 Medical Equipment None Reported. Allergies Allergen ID Allergen Name Allergen Category Reaction Reaction Severity Criticality Documentation Date Start Date Code Code System Note Provider Name and Address Organization Details Recorded Time 255095 Zantac medicatio n rash Not available Not available 06/13/20232006 63807 3 RxNorm React ion: Rash; Not Available [...] 126 mm[Hg] 72 mm[Hg] Colleen Mata [facility] 4 11:06:31 Social History None recorded. Functional Status None recorded. Mental Status None recorded. Family History Nothing Reported. Medical History No medical history recorded. Past Encounters Encounter ID Performer Location Encounter Start Date Encounter Closed Date Diagnosis/Indication Diagnosis SNOMED-CT Code Diagnosis ICD10 Code Diagnosis Note [id number] ELOISE NAIDU MD Urgent Care [address] [place] [address] 12/22/2023 10:57:47 12/22/2023 12:21:33 Cough 18508840 R05.9 Acute tracheobronchitis 25024060 J20.9 Health Concerns Section Related Observation LastModified by Organization Detai ls LastModified Time None Recorded Concern Status LastModified by Organization Details LastModified Time None Recorded Advance Directives Directive None Recorded Payers Encounter Date Sequence Insurance Name Policy Number Policy Quigley Covered Member ID Quigley Member ID Guarantor Name 12/22/2023 1 [place] [employer]MENT [place] Brad Oscar [id number] Ayleen Oscar 12/22/2023 2 [place] - [place] (HMO) Brad Oscar [id number] Ayleen Oscar Notes Date Note Type Note [...] been traveling. ELOISE NAIDU MD [address] [place] [address], [phone], [facility] 12/22/2023 12:56:39
== END 2024-07-17 14:03 | disposition home or self-care (01) ==
LOC: HO.ACS 13:30
PROVIDERS: PCP Nurse Practitioner Family; Visit Provider Internal Medicine
DX: Z79.01 Long term (current) use of anticoagulants (principal)

== ENCOUNTER → 2024-07-17 13:30 | Outpatient (BNVA) | payer MEDICARE, BC, SELFPAY | PROVIDERS: PCP Nurse Practitioner Family; Visit Provider Internal Medicine | DX: Z86.718 Personal history of other venous thrombosis and embolism (principal); Z79.01 Long term (current) use of anticoagulants; Z51.81 Encounter for therapeutic drug level monitoring | CPT/HCPCS: 85610; 99211 ==

== ENCOUNTER 2024-08-02 13:30 | Outpatient (AMB) | payer MEDICARE, BC, SELFPAY ==
[2024-08-02 13:43] LABS: Prothrombin Time Whole Bld POC 29.2 sec (11.1-13.5); ~PT, ~INR - Anti Coag Clinic 2.4 (0.9-1.1)
--- NOTE | 2024-08-02 13:45 | MHC.OFFVISCO ---
Intake Intake Visit Reasons: Anticoagulation Allergies ranitidine [From Zantac] Allergy (Mild, Verified 08/02/24 13:31) Rash Medication List - Last Reconciled 08/02/24 by Analilia Keene, LIV atorvastatin 10 mg PO BEDTIME ezetimibe 10 mg PO DAILY hydrocodone-acetaminophen 5-325 mg 1 tab PO Q4-6H PRN losartan 25 mg PO DAILY psyllium seed (sugar) (Metamucil (sugar) oral powder) 1 tsp PO BID warfarin 5 mg See Protocol PO DAILY Nursing Note INR: 2.4 in therapeutic range of 2-3 Medications and supplements reviewed No changes in health, diet, medications, or supplements, Denies any signs and symptoms of bleeding or bruising or clotting. Bleeding, bruising, clotting discussed Nutritional guidance given Dose: 5mg X 5 days and 2.5mg X 2 days ( & Tue) F/U INR: 4 weeks Patient verbalizes understanding of instructions given Anti-Coag Initial Assessment Social Hx Patient Tobacco Use Status: Never used Tobacco alcohol intake: current Alcohol intake frequency: holidays/special occasions only Cardiovascular Hx: [place] Endocrine Hx: Thyroid Disease Blood Disorder Hx: Hyperlipidemia GI Hx: Other Hx: Prostate Cancer HX: Yes Psych. 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
== END 2024-08-02 13:48 | disposition home or self-care (01) ==
LOC: HO.ACS 13:30
PROVIDERS: PCP Nurse Practitioner Family; Visit Provider Internal Medicine Medical Oncology
DX: Z79.01 Long term (current) use of anticoagulants (principal)

== ENCOUNTER → 2024-08-02 13:30 | Outpatient (BNVA) | payer MEDICARE, BC, SELFPAY | PROVIDERS: PCP Nurse Practitioner Family; Visit Provider Internal Medicine Medical Oncology | DX: Z86.718 Personal history of other venous thrombosis and embolism (principal); Z51.81 Encounter for therapeutic drug level monitoring; Z79.01 Long term (current) use of anticoagulants | CPT/HCPCS: 85610; 99211 ==

== ENCOUNTER 2024-08-30 13:04 | Outpatient (AMB) | payer MEDICARE, BC, SELFPAY ==
[2024-08-30 13:15] LABS: Prothrombin Time Whole Bld POC 28.4 sec (11.1-13.5); ~PT, ~INR - Anti Coag Clinic 2.4 (0.9-1.1)
--- NOTE | 2024-08-30 13:18 | MHC.OFFVISCO ---
Intake Intake Visit Reasons: Anticoagulation Allergies ranitidine [From Zantac] Allergy (Mild, Verified 08/30/24 13:07) Rash Medication List - Last Reconciled 08/30/24 by Rocio Dubon RN atorvastatin 10 mg PO BEDTIME ezetimibe 10 mg PO DAILY hydrocodone-acetaminophen 5-325 mg 1 tab PO Q4-6H PRN losartan 25 mg PO DAILY psyllium seed (sugar) (Metamucil (sugar) oral powder) 1 tsp PO BID warfarin 5 mg See Protocol PO DAILY Nursing Note INR:2.4 in therapeutic range Medications and supplements reviewed No changes in health, diet, medications, or supplements, Denies any signs and symptoms of bleeding or bruising or clotting. Bleeding, bruising, clotting discussed Nutritional guidance given - Eat a balance Dose: 2.5mg x 2 days/ 5mg x 5 days F/U INR: 1 month Patient verbalizes understanding of instructions given Anti-Coag Initial Assessment Social Hx Patient Tobacco Use Status: Never used Tobacco alcohol intake: current Alcohol intake frequency: holidays/special occasions only Cardiovascular Hx: [place] Endocrine Hx: Thyroid Disease Blood Disorder Hx: Hyperlipidemia GI Hx: Other Hx: Prostate Cancer HX: Yes Psych. 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
== END 2024-08-30 13:26 | disposition home or self-care (01) ==
LOC: HO.ACS 13:04
PROVIDERS: PCP Nurse Practitioner Family; Visit Provider Internal Medicine Medical Oncology
DX: Z79.01 Long term (current) use of anticoagulants (principal)

== ENCOUNTER → 2024-08-30 13:04 | Outpatient (BNVA) | payer MEDICARE, BC, SELFPAY | PROVIDERS: PCP Nurse Practitioner Family; Visit Provider Internal Medicine Medical Oncology | DX: Z86.718 Personal history of other venous thrombosis and embolism (principal); Z79.01 Long term (current) use of anticoagulants; Z51.81 Encounter for therapeutic drug level monitoring | CPT/HCPCS: 85610; 99211 ==

== ENCOUNTER 2024-09-27 13:03 | Outpatient (AMB) | payer MEDICARE, BC, SELFPAY ==
--- NOTE | 2024-09-27 13:21 | MHC.OFFVISCO ---
Intake Intake Visit Reasons: Anticoagulation Allergies ranitidine [From Zantac] Allergy (Mild, Verified 09/27/24 13:05) Rash Medication List - Last Reconciled 09/27/24 by Rocio Dubon RN atorvastatin 10 mg PO BEDTIME ezetimibe 10 mg PO DAILY losartan 25 mg PO DAILY psyllium seed (sugar) (Metamucil (sugar) oral powder) 1 tsp PO BID warfarin 5 mg See Protocol PO DAILY Nursing Note INR: 2.7 in therapeutic range Medications and supplements reviewed *Having hip discomfort and taking generic Tylenol - able to balance diet with it Denies any signs and symptoms of bleeding or bruising or clotting. Nutritional guidance given Dose: 2.5MG X 2 DAYS / 5MG X 5 DAYS F/U INR: 1 MONTH Patient verbalizes understanding of instructions given Anti-Coag Initial Assessment Social Hx Patient Tobacco Use Status: Never used Tobacco alcohol intake: current Alcohol intake frequency: holidays/special occasions only Cardiovascular Hx: [place] Endocrine Hx: Thyroid Disease Blood Disorder Hx: Hyperlipidemia GI Hx: Other Hx: Prostate Cancer HX: Yes Psych. Illness/Depression: No Coding Level of Care Code Est Patient Level 1 Diagnoses Current use of anticoagulant therapy Z79.01 Results AMB INR Fingerstick AMB INR Fingerstick 2.7 Last Edit by Rocio Dubon RN on 09/27/24 13:16 manual entry Assessment & Plan Assessment & Plan (1) Current use of anticoagulant therapy: Comment: (on Warfarin for hx DVTs) Code(s): Z79.01 - retirement (current) use of anticoagulants Category: Medical
--- OUTSIDE RECORDS SUMMARY | 2024-09-27 13:37 | XMS_ITS | Data Portability ---
Author Organization [facility], [address] [place] [address] Neurology ([place]) Address [address] [address] Care Team Providers Care Manager Wastewater Name Role Phone STEFF GARIBAY Primary Care Provider Assessment Encounter Date Assessment Date Assessment LastModified [...] and has no further questions or concerns. [email or web address] Not available 12/22/2023 12:47:59 Plan of Treatment Reminders Order Date Submit Date Provider Last Modified By Organization Details Last Modified Time Details Appointments None recorded. Lab SARS CoV 2 RNA, QL, MADHAVI+probe, nose 2023 Counts include 234 beds at the [facility], [facility] [address], [address], 11:33:08 Referral None recorded. Procedures None recorded. Surgeries None recorded. Imaging None recorded. Medication Orders benzonatate 200 mg capsule 2023 [facility] #[id number], [address] [place], [place], [phone], 11:54:02 doxycycline hyclate 100 mg tablet 2023 024 [id number], [address] [place], [place], [phone], 11:54:04 Patient TargetsNo targets recorded. Patient InstructionsNo instructions recorded. Reason for Referral None Reported. Results Created Date Observation Date Name Description Value Unit Range Abnormal Flag Note LastModifiedBy Organization Detail LastModifiedTime 12/19/19 24 12/19/2023 INR, capil unique blood fingerstick INR Not Available [facility] [address] [place] [address], [address], 12/22/2023 17:11:39 12/19/19 24 12/19/2023 INR, capil unique blood INR 2.3 INR INTER PRETA TION 2.0-3 .0 FOR DEEP VEIN THROM BOSIS PULMO NARY EMBOL ISM ACUTE MYOCA RDIAL INFAR CTION ATRIA L FIBRI LLATI ON 3.0-4 .5 FOR MECHA NICAL HEART VALVE S Not Available [facility] [address] [place] [address], [address], 12/22/2023 17:11:39 12/22/19 24 12/22/2023 SARS CoV [...] the onset of sympt oms. Not Available [facility] [address] [place] [address], [address], 12/22/2023 11:33:08 Result Notes None recorded. Problems Name Problem SNOMED Code Status Onset Date Resolution Date Notes Provider Name and Address Organization Details Recorded Time Cough 23537569 Active 2023 Colleen Mata [facility], [facility] 4 11:07:05 Acute tracheobronchit is 51993429 Active 2023 ELOISE NAIDU MD [address] [place] [address], [phone] [place] [address] 4 11:53:09 Problem Notes Documentation Provider Name and Address Organization Details Recorded Time Urgent Care Note : [facility] ? [address] [place] [address]MXBJGQJ, Charles E (id #[id number], : 1945) [facility] [address] [facility] [address] [place],? ? ?[place]?[address] Phone:? ? ? Fax:? ? ? Encounter [...] received this fax in error, please visit [email or web address]/Not [email or web address] to notify the sender and confirm that the information will be destroyed. If you do not have internet access, please call to notify the sender and confirm that the information will be destroyed. Thank you for your attention and cooperation. [ID:[id number]] Patient Brad Oscar (78yo, M) #[id number] 1945 ? ? ? Patient Demographics: Address [address] [facility] [address] [place] [address] ? Work Phone ? ? ? Encounter [...] has been traveling. Review of SystemsNone recorded Xlkyoi9844-59-60 10:06 BP: 126/72 T: 97.7 F? ? [...] has no further questions or concerns. 1. FzfjmT26.9: Cough, unspecified COVID-19, RAPID ([place] ONLY) 2. Acute slyuxxlsmxkzxquiiF43.9: Acute bronchitis, unspecified benzonatate 200 mg capsule - Take 1 capsule(s) 3 times a day by oral route as needed for 10 days, for cough. ? Qty: (30)?capsule ? Refills: 0 ? Pharmacy: [facility] #[id number] doxycycline hyclate 100 mg tablet - Take 1 tablet(s) twice a day by oral route for 7 days. ? Qty: (14)?tablet ? Refills: 0 ? Pharmacy: [facility] #[id number] Return to Office Patient will return to the office as needed Patient Medical History: Allergies List Reviewed Allergies ZANTAC: Rash - Reaction: Rash; Medications Reviewed Medications NameDate Source atorvastatin 10 mg tabletTAKE 1 TABLET BY MOUTH AT YFLVJCA65/13/24?filled surescripts benzonatate 200 mg capsuleTake 1 capsule(s) [...] SAYS05/30/23?filled surescripts enoxaparin 80 mg/0.8 mL subcutaneous kchwazq48/09/24?filled surescripts ezetimibe 10 mg tabletTAKE 1 TABLET BY MOUTH DAILY09/26/23?filled surescripts Gas Relief Extra Strength 125 mg xdqoysz69/04/24?filled surescripts GaviLyte-G 236 gram-22.74 gram-6.74 gram-5.86 gram oral latmreox49/04/24?filled surescripts HYDROcodone 5 mg-acetaminophen 325 mg tabletTAKE 1 TABLET BY MOUTH EVERY 4 TO 6 HOURS NEEDED FOR PAIN04/28/23?filled surescripts Laxative (bisacodyl) 5 mg tablet,delayed fcidlcw94/04/24?filled surescripts losartan 25 mg tabletTAKE 1 TABLET BY MOUTH DAILY11/02/23?filled surescripts oxyCODONE 5 mg ooevxq10/02/24?filled surescripts senna 8.6 mg tabletTAKE 1 TABLET BY MOUTH AT LZDPYMA63/17/24?filled surescripts simvastatin 40 mg tabletTAKE 1 TABLET BY MOUTH DAILY01/31/23?filled surescripts simvastatin 80 mg tabletTAKE 1 TABLET BY MOUTH DAILY06/14/23?filled surescripts warfarin 5 mg tabletTAKE 1 TABLET BY MOUTH EVERY DAY OR RQSSKPJT73/03/24?filled surescripts Family HistoryNone recorded Past Medical History (none recorded) Vaccine HistoryNone recorded Electronically Signed by: ELOISE NAIDU MD Steff Garibay MD [address] [place], [address], [facility] 12/22/2023 16:05:46 Medical Equipment None Reported. Allergies Allergen ID Allergen Name Allergen Category Reaction Reaction Severity Criticality Documentation Date Start Date Code Code System Note Provider Name and Address Organization Details Recorded Time 619880 Zantac medicatio n rash Not available Not available 06/13/20232006 20605 3 RxNorm React ion: Rash; Not Available [facility] 21:59:11 Medications Name Sig Start Date Stop Date [...] % 126 mm[Hg] 72 mm[Hg] Colleen Mata [facility] 4 11:06:31 Social History None recorded. Functional Status None recorded. Mental Status None recorded. Family History Nothing Reported. Medical History No medical history recorded. Past Encounters Encounter ID Performer Location Encounter Start Date Encounter Closed Date Diagnosis/Indication Diagnosis SNOMED-CT Code Diagnosis ICD10 Code Diagnosis Note [id number] ELOISE NAIDU MD [facility] [place] ([address] [place] [address] 12/22/2023 10:57:47 12/22/2023 12:21:33 Cough 67166470 R05.9 Acute tracheobronchitis 18467602 J20.9 Health Concerns Section Related Observation LastModified by Organization Detai ls LastModified Time None Recorded Concern Status LastModified by Organization Details LastModified Time None Recorded Advance Directives Directive None Recorded Payers Insurance Date Sequence Insurance Name Policy Number Policy Quigley Covered Member ID Quigley Member ID Guarantor Name 12/22/2023 2 [place] Brad Oscar [id number] Ayleen Oscar 07/17/2024 1 [place] Brad Oscar [id number] Ayleen Oscar 07/17/2024 [place] Brad Oscar [id number] Ayleen Oscar 12/23/2023 2 [place] Brad Oscar [id number] Ayleen Oscar 07/17/2024 1 [place] Brad Oscar [id number] Ayleen Oscar Notes Date Note Type Note [...] been traveling. ELOISE NAIDU MD [address] [place] [address], [phone], [facility] 12/22/2023 12:56:39
[2024-09-27 13:39] LABS: Prothrombin Time Whole Bld POC 32.5 sec (11.1-13.5); ~PT, ~INR - Anti Coag Clinic 2.7 (0.9-1.1)
== END 2024-09-27 13:25 | disposition home or self-care (01) ==
LOC: HO.ACS 13:03
PROVIDERS: PCP Nurse Practitioner Family; Visit Provider Internal Medicine Medical Oncology
DX: Z79.01 Long term (current) use of anticoagulants (principal)

== ENCOUNTER → 2024-09-27 13:03 | Outpatient (BNVA) | payer MEDICARE, BC, SELFPAY | PROVIDERS: PCP Nurse Practitioner Family; Visit Provider Internal Medicine Medical Oncology | DX: Z86.718 Personal history of other venous thrombosis and embolism (principal); Z79.01 Long term (current) use of anticoagulants; Z51.81 Encounter for therapeutic drug level monitoring | CPT/HCPCS: 85610; 99211 ==

== ENCOUNTER 2024-10-25 13:02 | Outpatient (AMB) | payer MEDICARE, BC, SELFPAY ==
--- NOTE | 2024-10-25 13:20 | MHC.OFFVISCO ---
Intake Intake Visit Reasons: Anticoagulation Allergies ranitidine [From Zantac] Allergy (Mild, Verified 10/25/24 13:04) Rash Medication List - Last Reconciled 10/25/24 by Rocio Dubon RN atorvastatin 10 mg PO BEDTIME ezetimibe 10 mg PO DAILY losartan 25 mg PO DAILY psyllium seed (sugar) (Metamucil (sugar) oral powder) 1 tsp PO BID warfarin 5 mg See Protocol PO DAILY Nursing Note INR: 2.1 in therapeutic range- missed a dose this week Medications and supplements reviewed No changes in health, diet, or supplements, Denies any signs and symptoms of bleeding or bruising or clotting. Bleeding, bruising, clotting discussed Nutritional guidance given Dose: make up missed dose this week 5mg x 6days this week then 5mg x 5 days/ 2.5mg x 2 days F/U INR: 1 month prior to vacation Patient verbalizes understanding of instructions given Anti-Coag Initial Assessment Social Hx Patient Tobacco Use Status: Never used Tobacco alcohol intake: current Alcohol intake frequency: holidays/special occasions only Cardiovascular Hx: [place] Endocrine Hx: Thyroid Disease Blood Disorder Hx: Hyperlipidemia GI Hx: Other Hx: Prostate Cancer HX: Yes Psych. 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
[2024-10-25 13:21] LABS: Prothrombin Time Whole Bld POC 25.5 sec (11.1-13.5); ~PT, ~INR - Anti Coag Clinic 2.1 (0.9-1.1)
== END 2024-10-25 13:25 | disposition home or self-care (01) ==
LOC: HO.ACS 13:02
PROVIDERS: PCP Nurse Practitioner Family; Visit Provider Internal Medicine Medical Oncology
DX: Z79.01 Long term (current) use of anticoagulants (principal)

== ENCOUNTER → 2024-10-25 13:02 | Outpatient (BNVA) | payer MEDICARE, BC, SELFPAY | PROVIDERS: PCP Nurse Practitioner Family; Visit Provider Internal Medicine Medical Oncology | DX: Z86.718 Personal history of other venous thrombosis and embolism (principal); Z79.01 Long term (current) use of anticoagulants; Z51.81 Encounter for therapeutic drug level monitoring | CPT/HCPCS: 85610; 99211 ==

== ENCOUNTER 2024-11-20 13:05 | Outpatient (AMB) | payer MEDICARE, BC, SELFPAY ==
[2024-11-20 13:10] LABS: Prothrombin Time Whole Bld POC 37.5 sec (11.1-13.5); ~PT, ~INR - Anti Coag Clinic 3.1 (0.9-1.1)
--- NOTE | 2024-11-20 13:19 | MHC.OFFVISCO ---
Intake Intake Visit Reasons: Anticoagulation Allergies ranitidine (From Zantac) Allergy (Mild, Verified 11/20/24 13:05) Rash Medication List - Last Reconciled 11/20/24 by Analilia Keene RN atorvastatin 10 mg PO BEDTIME ezetimibe 10 mg PO DAILY losartan 25 mg PO DAILY psyllium seed (sugar) (Metamucil (sugar) oral powder) 1 tsp PO BID warfarin 5 mg See Protocol PO DAILY Nursing Note INR: 3.1 out of therapeutic range of 2-3 Medications and supplements reviewed No changes in health, diet, medications, or supplements, Denies any signs and symptoms of bleeding or bruising or clotting. Bleeding, bruising, clotting discussed Nutritional guidance given to have a serving of greens today Dose: 5mg X 5 days and 2.5mg X 2 days ( & Tue) F/U INR: 4 weeks Patient verbalizes understanding of instructions given Anti-Coag Initial Assessment Social Hx Patient Tobacco Use Status: Never used Tobacco alcohol intake: current Alcohol intake frequency: holidays/special occasions only Cardiovascular Hx: [place] Endocrine Hx: Thyroid Disease Blood Disorder Hx: Hyperlipidemia GI Hx: Other Hx: Prostate Cancer HX: Yes Psych. 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
== END 2024-11-20 13:23 | disposition home or self-care (01) ==
LOC: HO.ACS 13:05
PROVIDERS: PCP Nurse Practitioner Family; Visit Provider Internal Medicine Medical Oncology
DX: Z79.01 Long term (current) use of anticoagulants (principal)

== ENCOUNTER → 2024-11-20 13:05 | Outpatient (BNVA) | payer MEDICARE, BC, SELFPAY | PROVIDERS: PCP Nurse Practitioner Family; Visit Provider Internal Medicine Medical Oncology | DX: Z86.718 Personal history of other venous thrombosis and embolism (principal); Z79.01 Long term (current) use of anticoagulants; Z51.81 Encounter for therapeutic drug level monitoring | CPT/HCPCS: 85610; 99211 ==

== ENCOUNTER 2024-12-10 13:10 | Outpatient (AMB) | payer MEDICARE, BC, SELFPAY ==
--- OUTSIDE RECORDS SUMMARY | 2004-11-17 08:37 | XMS_ITS | Encounter Summary ---
Author Organization [facility] Address [address] [place] [address] Care Team Providers Care Quarter Backer Name Role Phone Unavailable Primary Care Provider Unavailabl e Encounter Details Date Type Department Care Team (Late st Contact Info) Description 11/17/2004 8:37 EDT Hospital Encounter [address] [address] Samuel Christian MD 108 [facility] [address] [place], [place] [address] Social History Tobacco Use Types Packs/Day Years [...]
[2024-12-10 13:17] LABS: Prothrombin Time Whole Bld POC 30.0 sec (11.1-13.5); ~PT, ~INR - Anti Coag Clinic 2.5 (0.9-1.1)
--- NOTE | 2024-12-10 13:25 | MHC.OFFVISCO ---
Intake Intake Visit Reasons: Anticoagulation Allergies ranitidine (From Zantac) Allergy (Mild, Verified 12/10/24 13:11) Rash Medication List - Last Reconciled 12/10/24 by Rocio Dubon RN atorvastatin 10 mg PO BEDTIME ezetimibe 10 mg PO DAILY losartan 25 mg PO DAILY psyllium seed (sugar) (Metamucil (sugar) oral powder) 1 tsp PO BID warfarin 5 mg See Protocol PO DAILY Nursing Note INR: 2.5 in therapeutic range Medications and supplements reviewed No changes in health, diet, medications, or supplements, Denies any signs and symptoms of bleeding or bruising or clotting. Bleeding, bruising, clotting discussed Nutritional guidance given Dose: 2.5MG X 2 DAYS/ 5 MG X 5 DAYS F/U INR: 1 MONTH Patient verbalizes understanding of instructions given Anti-Coag Initial Assessment Social Hx Patient Tobacco Use Status: Never used Tobacco alcohol intake: current Alcohol intake frequency: holidays/special occasions only Cardiovascular Hx: [place] Endocrine Hx: Thyroid Disease Blood Disorder Hx: Hyperlipidemia GI Hx: Other Hx: Prostate Cancer HX: Yes Psych. Illness/Depression: No Coding Level of Care Code Est Patient Level 1 Diagnoses Current use of anticoagulant therapy Z79.01 Results AMB INR Fingerstick AMB INR Fingerstick 2.5 Last Edit by Rocio Dubon RN on 12/10/24 13:19 MANUAL ENTRY Assessment & Plan Assessment & Plan (1) Current use of anticoagulant therapy: Comment: (on Warfarin for hx DVTs) Code(s): Z79.01 - group home (current) use of anticoagulants Category: Medical
--- OUTSIDE RECORDS SUMMARY | 2024-12-10 13:53 | XMS_ITS | Data Portability ---
Author Organization [facility], [address] [place] [address] Neurology ([place]) Address [address] [place] [address] Care Team Providers Care Linseed Oil Temperer Name Role Phone STEFF GARIBAY Primary Care [...] and has no further questions or concerns. [email or web address] Not available 12/22/2023 12:47:59 Plan of Treatment Reminders Order Date Submit Date Provider Last Modified By Organization Details Last Modified Time Details Appointments None recorded. Lab SARS CoV 2 RNA, QL, MADHAVI+probe, nose 2023 [facility], [address] [place] [address], [address], 11:33:08 Referral None recorded. Procedures None recorded. Surgeries None recorded. Imaging None recorded. Medication Orders benzonatate 200 mg capsule 2023 [facility][id number], [address] [place], [place], [id number], 11:54:02 doxycycline hyclate 100 mg tablet 2023 [id number], [address], [place], [id number], 11:54:04 Patient TargetsNo targets recorded. Patient InstructionsNo instructions recorded. Reason for Referral None Reported. Results Created Date Observation Date Name Description Value Unit Range Abnormal Flag Note LastModifiedBy Organization Detail LastModifiedTime 12/19/1912/19/2023 INR, capil unique blood fingerstick INR Not Available [facility] [address] [place] [address], [address], 12/22/2023 17:11:39 12/19/1912/19/2023 INR, capil nuique blood INR 2.3 INR INTER PRETA TION 2.0-3 .0 FOR DEEP VEIN THROM BOSIS PULMO NARY EMBOL ISM ACUTE MYOCA RDIAL INFAR CTION ATRIA L FIBRI LLATI ON 3.0-4 .5 FOR MECHA NICAL HEART VALVE S Not Available [facility] [address] [place] [address], [address], 12/22/2023 17:11:39 12/22/19 24 12/22/2023 SARS CoV [...] the onset of sympt oms. Not Available [facility] [address] [place] [address], [address], 12/22/2023 11:33:08 Result Notes None recorded. Problems Name Problem SNOMED Code Status Onset Date Resolution Date Notes Provider Name and Address Organization Details Recorded Time Cough 68337013 Active 2023 Colleen Peñalozatit [facility] 4 11:07:05 Acute tracheobronchit is 24404003 Active 2023 ELOISE NAIDU MD [address] [place] [address], [id number] [place] [address] 4 11:53:09 Problem Notes Documentation Provider Name and Address Organization Details Recorded Time Urgent Care Note : [address] [place] [id number], Brad Sams (id #[id number], : 1945) [facility] [address] [place] [address] Encounter Summary - Progress Note Date Printed: 12/22/2023 Documents sent via fax will include the [...] received this fax in error, please visit [email or web address] to notify the sender and confirm that the information will be destroyed. If you do not have internet access, please call to notify the sender and confirm that the information will be destroyed. Thank you for your attention and cooperation. [ID:[id number]] Patient Brad Oscar (78yo, M) #[id number] 1945 Patient Demographics: Address [address] [place] [address] [address] [place] [address] Work Phone Encounter Notes: Encounter Reason/Date just got off a cruise-cough, runny nose 12/22/2023 - 09:52AM - [facility] [place] ([place]) History of Present IllnessThis is a pleasant [...] has been traveling. Review of SystemsNone recorded [id number] 10:06 BP: 126/72 T: 97.7 F (36.5 C) Pulse: 71 bpm RR: 20 [...] has no further questions or concerns. 1. LhhbvN98.9: Cough, unspecified COVID-19, RAPID ([place] ONLY) 2. Acute qaofqqjalymxoqqufK30.9: Acute bronchitis, unspecified benzonatate 200 mg capsule - Take 1 capsule(s) 3 times a day by oral route as needed for 10 days, for cough. Qty: (30) capsule Refills: 0 Pharmacy: [facility] #[id number] doxycycline hyclate 100 mg tablet - Take 1 tablet(s) twice a day by oral route for 7 days. Qty: (14) tablet Refills: 0 Pharmacy: [facility] #[id number] Return to Office Patient will return to the office as needed Patient Medical History: Allergies List Reviewed Allergies ZANTAC: Rash - Reaction: Rash; Medications Reviewed Medications NameDate Source atorvastatin 10 mg tabletTAKE 1 TABLET BY MOUTH AT CUTPLBQ30/13/24 filled surescripts benzonatate 200 mg capsuleTake 1 capsule(s) 3 times a day by oral route as needed for 10 days, for cough.12/22/23 prescribed ELOISE NAIDU MD BinaxNOW COVID-19 Ag Self Test kitTEST DIRECTED TODAY06/17/23 filled surescripts docusate sodium 100 mg capsuleTAKE ONE CAPSULE BY MOUTH EVERY 12 HOURS11/18/23 filled surescripts doxycycline hyclate 100 mg tabletTake 1 tablet(s) twice a day by oral route for 7 days.12/22/23 prescribed ELOISE NAIDU MD enoxaparin 100 mg/mL subcutaneous syringeINJECT 90 MG UNDER THE SKIN EVERY 12 HRS X10 DAYS. DO NOT TAKE NIGHT BEFORE PROCEDURE. MAY RESTART AFTER PROCEDURE. STOP WHEN COUMADIN CLINIC SAYS05/30/23 filled surescripts enoxaparin 80 mg/0.8 mL subcutaneous umkeymx53/09/24 filled surescripts ezetimibe 10 mg tabletTAKE 1 TABLET BY MOUTH DAILY09/26/23 filled surescripts Gas Relief Extra Strength 125 mg okdnuzs31/04/24 filled surescripts GaviLyte-G 236 gram-22.74 gram-6.74 gram-5.86 gram oral ttqnnrsy30/04/24 filled surescripts HYDROcodone 5 mg-acetaminophen 325 mg tabletTAKE 1 TABLET BY MOUTH EVERY 4 TO 6 HOURS NEEDED FOR PAIN04/28/23 filled surescripts Laxative (bisacodyl) 5 mg tablet,delayed yrpenmj04/04/24 filled surescripts losartan 25 mg tabletTAKE 1 TABLET BY MOUTH DAILY11/02/23 filled surescripts oxyCODONE 5 mg kktofw58/02/24 filled surescripts senna 8.6 mg tabletTAKE 1 TABLET BY MOUTH AT FEQFCOT62/17/24 filled surescripts simvastatin 40 mg tabletTAKE 1 TABLET BY MOUTH DAILY01/31/23 filled surescripts simvastatin 80 mg tabletTAKE 1 TABLET BY MOUTH DAILY06/14/23 filled surescripts warfarin 5 mg tabletTAKE 1 TABLET BY MOUTH EVERY DAY OR TOZKKDQB86/03/24 filled surescripts Family HistoryNone recorded Past Medical History (none recorded) Vaccine HistoryNone recorded Electronically Signed by: ELOISE NAIDU MD Steff Garibay MD [facility], [address], [facility] 12/22/2023 16:05:46 Medical Equipment None Reported. Allergies Allergen ID Allergen Name Allergen Category Reaction Reaction Severity Criticality Documentation Date Start Date Code Code System Note Provider Name and Address Organization Details Recorded Time 785928 Zantac medicatio n rash Not available Not available 06/13/20232006 06488 3 RxNorm React ion: Rash; Not Available [facility] 21:59:11 Medications Name Sig Start Date Stop [...] in Arterial blood by Pulse oximetry Systolic And Diastolic Provider Name and Address Organization Details Last Updated DateTime 4 97.7 [degF] 71 /min 20 /min 96 % 96 % 126/72 mm[Hg] Colleen Mata [facility] 4 11:06:31 Social History None recorded. Functional Status None recorded. Mental Status None recorded. Family History Nothing Reported. Medical History No medical history recorded. Past Encounters Encounter ID Performer Location Encounter Start Date Encounter Closed Date Diagnosis/Indication Diagnosis SNOMED-CT Code Diagnosis ICD10 Code Diagnosis Note [id number] ELOISE NAIDU MD [facility] [place] [address] [place] [address] 12/22/2023 10:57:47 12/22/2023 12:21:33 Cough 19175755 R05.9 Acute tracheobronchitis 82728953 J20.9 Health Concerns Section Related Observation LastModified by Organization Detai ls LastModified Time None Recorded Concern Status LastModified by Organization Details LastModified Time None Recorded Advance Directives Directive None Recorded Payers Insurance Date Sequence Insurance Name Policy Number Policy Quigley Covered Member ID Quigley Member ID Guarantor Name 12/22/2023 2 [place] Brad Oscar [id number] Ayleen Oscar 07/17/2024 1 MEDICARE B-[place]: [employer] SERVICES Brad Oscar [id number] Ayleen Oscar 07/17/2024 [place] Brad Oscar [id number] Ayleen Oscar 12/23/2023 2 [place] Brad Oscar [id number] Ayleen Oscar 07/17/2024 1 [place] Brad Oscar [id number] 2 Ayleen Oscar
--- OUTSIDE RECORDS SUMMARY | 2024-12-10 13:53 | XMS_ITS ---
Author Organization [facility] Address [address] [place] [address] Phone Care Team Providers Care Promotions Manager Name Role Phone Pcp, Unknown Primary Care Provider Unavailabl e Active Problems Problem Noted Date Diagnosed Date Malignant neoplasm of prostate 10/14/2022 Rising PSA following treatme nt for malignant neoplasm of prostate 10/14/2022 Seasonal allergies 11/08/2002 Overview (07/05/2017): seasonal;PHS Allergy Remediation Current Treatment and Therapy Plans No current plan information found. Past Treatment and Therapy Plans Oncology Therapy Plan Plan Name Start Date Discontinue Date Treatment Medications Discontinue Reason Plan Provider LEUPROLIDE ACETATE 3 MONTH (LUPRON DEPOT 3 MONTH) 05/03/2023 04/19/2024 leuprolide (LUPRON) a. Therapy Maite Amaya MD, PhD LEUPROLIDE ACETATE 3 MONTH (LUPRON DEPOT 3 MONTH) 11/02/2022 05/03/2023 leuprolide (LUPRON) a. Therapy Maite Amaya MD, PhD
== END 2024-12-10 13:29 | disposition home or self-care (01) ==
LOC: HO.ACS 13:10
PROVIDERS: PCP Nurse Practitioner Family; Visit Provider Internal Medicine Medical Oncology
DX: Z79.01 Long term (current) use of anticoagulants (principal)

== ENCOUNTER → 2024-12-10 13:10 | Outpatient (BNVA) | payer MEDICARE, BC, SELFPAY | PROVIDERS: PCP Nurse Practitioner Family; Visit Provider Internal Medicine Medical Oncology | DX: Z86.718 Personal history of other venous thrombosis and embolism (principal); Z79.01 Long term (current) use of anticoagulants; Z51.81 Encounter for therapeutic drug level monitoring | CPT/HCPCS: 85610; 99211 ==

== ENCOUNTER 2025-01-07 13:03 | Outpatient (AMB) | payer MEDICARE, BC, SELFPAY ==
--- OUTSIDE RECORDS SUMMARY | 2001-10-13 07:37 | XMS_ITS | Encounter Summary ---
Author Organization [facility] Address [address] [place] [address] Care Team Providers Care Disc Jockey Name Role Phone Unavailable Primary Care Provider Unavailabl e Encounter Details Date Type Department Care Team (Late st Contact Info) Description 10/13/2001 7:37 EDT Hospital Encounter [address] [address] Samuel Christian MD 108 [facility] [address] [place], [place] [phone] Social History Tobacco Use Types Packs/Day Years [...] results. [facility] Report Status Final [id number] [facility] 10/13/2001 7:36 EDT 10/13/2001 12:17 EDT Samuel Christian MD HISTORICAL LAB FOR SQ LOAD F inal Result Performing Organization Address [facility] Co de Phone Number [facility] [address] [place] [address] * UA REFLEX (10/13/2001 7:36 EDT) Pathologist [facility] UA Billing Microscopic not indicated. [facility] 10/13/2001 7:36 EDT 10/13/2001 7:38 EDT Samuel Christian MD URINALYSIS ORDERABLES Final Result Performing Organization Address [facility] Co de Phone Number [facility] [address] [place] [address] * (ABNORMAL) URINALYSIS (10/13/2001 7:36 EDT) Color, UA Yellow [facility] Clarity, UA Clear [facility] Glucose, UA Norm NORM [facility] Bilirubin, UA Neg NEG [facility] Ketones, UA Neg NEG [facility] Specific [facility], Urine 1.026 Refractometer specific gravity(H) 1.005 - [...] URINALYSIS ORDERABLES Final Result Performing Organization Address [facility] de Phone Number [facility] [address] [place] [address] * THYROID CASCADE (10/13/2001 7:35 EDT) Pathologist [facility] TSH 2.86 0.35 - 5.50 uIU/ml [facility] Comment: TSH cascade is not recommended for patients in which pituitary or hypothalamic disorders are suspected. 10/13/2001 7:35 EDT 10/13/2001 7:37 EDT Samuel Christian MD CHEMISTRY & BLOOD GAS ORDERA BLES Final Result Performing Organization Address [facility] de Phone Number [facility] [address] [place] [address] * (ABNORMAL) LIPID PROFILE (INCLUDES CHOLESTEROL, TRIGLYCERIDES, HDL, LDL) (10/13/2001 7:35 EDT) Cholesterol 228 mg/dl [facility] Comment: Desirable:<200 Borderline:200-239 High Risk:>oe=081 Fasting Triglycerides 264(H) 35 - 160 mg/dl [facility] Comment:Fasting HDL 32 mg/dl [facility] Comment: Highly Desirable:>60 Desirable:35-60 High Risk:<35 Fasting LDL, Calculated 143 mg/dl [facility] Comment: Desirable:<130 Borderline:130-159 High Risk:>nl=394 Fasting Chol/HDL Ratio 7.1 Fasting [facility] 10/13/2001 7:35 EDT 10/13/2001 7:37 EDT Samuel Christian MD CHEMISTRY & BLOOD GAS ORDERA BLES Final Result Performing Organization Address City/[facility] Co de Phone Number [facility] [address] [place] [address] * HEMAGRAM (10/13/2001 7:35 EDT) WBC 8.17 [...] PF4 ORDERABLES Final Result Performing Organization Address [facility] Co de Phone Number [facility] [address] [place] [address] * COMPREHENSIVE METABOLIC PANEL (10/13/2001 7:35 EDT) [...] BLES Final Result [facility] [address] [place] [address] documented in this encounter Visit Diagnoses Not on filedocumented in this encounter
--- OUTSIDE RECORDS SUMMARY | 2002-08-15 18:33 | XMS_ITS | Encounter Summary ---
Author Organization [facility] Address [address] [place] [address] Care Team Providers Care Policy Analyst Name Role Phone Unavailable Primary Care Provider Unavailabl e Encounter Details Date Type Department Care Team (Late st Contact Info) Description 08/15/2002 17:33 EST Hospital Encounter [facility] - Other [address] [place] [address] Kai Garcia MD [address] [place] [phone] Unknown, Provider, Social History Tobacco Use [...]
--- OUTSIDE RECORDS SUMMARY | 2002-09-12 08:15 | XMS_ITS | Encounter Summary ---
Author Organization [facility] Address [address] [place] [address] Care Team Providers Care Lease Administration Supervisor Name Role Phone Unavailable Primary Care Provider Unavailabl e Encounter Details Date Type Department Care Team (Late st Contact Info) Description 09/12/2002 8:15 EDT Hospital Encounter [facility] - Other [address] [place] [address] Kai Garcia MD [address] [place] [phone] Social History Tobacco Use Types Packs/Day [...]
--- OUTSIDE RECORDS SUMMARY | 2002-09-13 16:29 | XMS_ITS | Encounter Summary ---
Author Organization [facility] Address [address] [place] [address] Care Team Providers Care Small Parts Shaper Operator Name Role Phone Unavailable Primary Care Provider Unavailabl e Encounter Details Date Type Department Care Team (Late st Contact Info) Description 09/13/2002 16:29 EDT Hospital Encounter [facility] - Other [address] [place] [address] Kai Garcia MD [address] [place] [phone] Social History Tobacco Use Types Packs/Day [...]
--- OUTSIDE RECORDS SUMMARY | 2002-09-28 13:26 | XMS_ITS | Encounter Summary ---
Author Organization [facility] Address [address] [place] [address] Care Team Providers Care Multifocal Lens Assembler Name Role Phone Unavailable Primary Care Provider Unavailabl e Encounter Details Date Type Department Care Team (Late st Contact Info) Description 09/28/2002 13:26 EDT Hospital Encounter [facility] [address] [place] [address] Bravo Chicas MD [address] [place], [place] [address] Social History Tobacco Use Types Packs/Day Years [...]
--- OUTSIDE RECORDS SUMMARY | 2002-10-30 08:15 | XMS_ITS | Encounter Summary ---
Author Organization [facility] Address [address] [place] [address] Care Team Providers Care Porcelain Enameler Name Role Phone Unavailable Primary Care Provider Unavailabl e Encounter Details Date Type Department Care Team (Late st Contact Info) Description 10/30/2002 8:15 EDT Hospital Encounter [address] [address] Isac Rodriguez MD [address] [place] [phone] Social History Tobacco Use Types Packs/Day [...] PF4 ORDERABLES Final Result Performing Organization Address [facility] de Phone Number [facility] [address] [place] [address] * PROTIME (10/30/2002 8:13 EDT) Pro Time [...] PF4 ORDERABLES Final Result Performing Organization Address [facility] de Phone Number [facility] [address] [place] [address] * HEMAGRAM (10/30/2002 8:13 EDT) WBC 6.80 [...] ORDERABLES Final Result [facility] [address] [place] [address] documented in this encounter Visit Diagnoses Not on filedocumented in this encounter
--- OUTSIDE RECORDS SUMMARY | 2003-01-17 16:12 | XMS_ITS | Encounter Summary ---
Author Organization [facility] Address [address] [place] [address] Care Team Providers Care Tobacco Grader Name Role Phone Unavailable Primary Care Provider Unavailabl e Encounter Details Date Type Department Care Team (Late st Contact Info) Description 01/17/2003 16:12 EDT Hospital Encounter [address] [address] Italo Cortez MD [address] [place] [phone] Social History Tobacco Use Types Packs/Day [...] or absence of malignant disease. Assayed utilizing [employer] chemiluminescent technology. Values obtained by using different assay methods cannot be used interchangeably. Assay changed to equimolar method 11/14/00. PREVIOUS PSA RESULT ON 08/15/02 WAS 27.8 01/17/2003 16:1 0 EDT 01/17/2003 16:13 EDT us Italo Cortez MD CHEMISTRY & BLOOD GAS ORDERABL ES Final Result [facility] [address] [place] [address] documented in this encounter Visit Diagnoses Not on filedocumented in this encounter
--- OUTSIDE RECORDS SUMMARY | 2003-04-18 09:24 | XMS_ITS | Encounter Summary ---
Author Organization [facility] Address [address] [place] [address] Care Team Providers Care Disability Program Navigator Name Role Phone Unavailable Primary Care Provider Unavailabl e Encounter Details Date Type Department Care Team (Late st Contact Info) Description 04/18/2003 8:24 EST Hospital Encounter [address] [address] Italo Cortez MD [address] [place] [phone] Social History Tobacco Use Types Packs/Day [...] EST) PSA <0.1 0 - 3.5 ng/ml [facility] Comment: Serum PSA concentration should not be interpreted as absolute evidence for the presence or absence of malignant disease. Assayed utilizing [employer] chemiluminescent technology. Values obtained by using different assay methods cannot be used interchangeably. Assay changed to equimolar method 11/14/00. 04/18/2003 8:27 EST 04/18/2003 8:29 EST us Italo Cortez MD CHEMISTRY & BLOOD GAS ORDERABL ES Final Result [facility] [address] [place] [address] documented in this encounter Visit Diagnoses Not on filedocumented in this encounter
--- OUTSIDE RECORDS SUMMARY | 2003-07-13 09:54 | XMS_ITS | Encounter Summary ---
Author Organization [facility] Address [address] [place] [address] Care Team Providers Care Family Literacy Coordinator Name Role Phone Unavailable Primary Care Provider Unavailabl e Encounter Details Date Type Department Care Team (Late st Contact Info) Description 07/13/2003 8:54 EST Hospital Encounter [address] [address] Samuel Christian MD 108 [facility] [address] [place], [place] [address] Social History Tobacco Use Types Packs/Day Years [...]
--- OUTSIDE RECORDS SUMMARY | 2003-07-14 10:14 | XMS_ITS | Encounter Summary ---
Author Organization [facility] Address [address] [place] [address] Care Team Providers Care Watch Inspector Name Role Phone Unavailable Primary Care Provider Unavailabl e Encounter Details Date Type Department Care Team (Late st Contact Info) Description 07/14/2003 9:14 EST Hospital Encounter [address] [address] Samuel Christian MD 108 [facility] [address] [place], [place] [address] Social History Tobacco Use Types Packs/Day Years [...]
--- OUTSIDE RECORDS SUMMARY | 2003-07-17 09:32 | XMS_ITS | Encounter Summary ---
Author Organization [facility] Address [address] [place] [address] Care Team Providers Care Crab Backer Name Role Phone Unavailable Primary Care Provider Unavailabl e Encounter Details Date Type Department Care Team (Late st Contact Info) Description 07/17/2003 8:32 EST Hospital Encounter [address] [address] Samuel Christian MD 108 [facility] [address] [place], [place] [phone] Social History Tobacco Use Types Packs/Day Years [...] PF4 ORDERABLES Final Result Performing Organization Address City/[facility]/ZIP Co de Phone Number [facility] [address] [place] [address] * HEMAGRAM (07/17/2003 8:26 EST) Pathologist [facility] WBC 5.60 4.0 - 10.4 K/cmm HEATH [...] PF4 ORDERABLES Final Result Performing Organization Address City/[facility] Co de Phone Number [facility] [address] [place] [address] documented in this encounter Visit Diagnoses Not on filedocumented in this encounter
--- OUTSIDE RECORDS SUMMARY | 2003-07-22 09:02 | XMS_ITS | Encounter Summary ---
Author Organization [facility] Address [address] [place] [address] Care Team Providers Care Informatics Nurse Name Role Phone Unavailable Primary Care Provider Unavailabl e Encounter Details Date Type Department Care Team (Late st Contact Info) Description 07/22/2003 8:02 EST Hospital Encounter [address] [address] Samuel Christian MD 108 [facility] [address] [place], [place] [address] Social History Tobacco Use Types Packs/Day Years [...]
--- OUTSIDE RECORDS SUMMARY | 2003-07-26 08:23 | XMS_ITS | Encounter Summary ---
Author Organization [facility] Address [address] [place] [address] Care Team Providers Care Map And Chart Mounter Name Role Phone Unavailable Primary Care Provider Unavailabl e Encounter Details Date Type Department Care Team (Late st Contact Info) Description 07/26/2003 7:23 EST Hospital Encounter [address] [address] Samuel Christian MD 108 [facility] [address] [place], [place] [phone] Social History Tobacco Use Types Packs/Day Years [...] ORDERABLES Final Result [facility] [address] [place] [address] documented in this encounter Visit Diagnoses Not on filedocumented in this encounter
--- OUTSIDE RECORDS SUMMARY | 2003-07-30 09:09 | XMS_ITS | Encounter Summary ---
Author Organization [facility] Address [address] [place] [address] Care Team Providers Care Cnc Applications Engineer Name Role Phone Unavailable Primary Care Provider Unavailabl e Encounter Details Date Type Department Care Team (Late st Contact Info) Description 07/30/2003 8:09 EST Hospital Encounter [address] [address] Samuel Christian MD 108 [facility] [address] [place], [place] [phone] Social History Tobacco Use Types Packs/Day Years [...] ORDERABLES Final Result [facility] [address] [place] [address] documented in this encounter Visit Diagnoses Not on filedocumented in this encounter
--- OUTSIDE RECORDS SUMMARY | 2003-08-02 08:28 | XMS_ITS | Encounter Summary ---
Author Organization [facility] Address [address] [place] [address] Care Team Providers Care Intake Nurse Name Role Phone Unavailable Primary Care Provider Unavailabl e Encounter Details Date Type Department Care Team (Late st Contact Info) Description 08/02/2003 7:28 EST Hospital Encounter [address] [address] Samuel Christian MD 108 [facility] [address] [place], [place] [phone] Social History Tobacco Use Types Packs/Day Years [...] ORDERABLES Final Result [facility] [address] [place] [address] documented in this encounter Visit Diagnoses Not on filedocumented in this encounter
--- OUTSIDE RECORDS SUMMARY | 2003-08-07 09:41 | XMS_ITS | Encounter Summary ---
Author Organization [facility] Address [address] [place] [address] Care Team Providers Care Clerk Supervisor Name Role Phone Unavailable Primary Care Provider Unavailabl e Encounter Details Date Type Department Care Team ([facility] st Contact Info) Description 08/07/2003 8:41 EST Hospital Encounter [address] [place] [address] Samuel Christian MD [address] [facility] [address] [place], [place] [address] Italo Cortez MD [address] [place] [phone] Social History Tobacco Use Types Packs/Day [...] or absence of malignant disease. Assayed utilizing [employer] chemiluminescent technology. Values obtained by using different assay methods cannot be used interchangeably. Assay changed to equimolar method 11/14/00. 08/07/2003 8:51 EST 08/07/2003 8:53 EST Pita Parks MD CHEMISTRY & BLOOD GAS ORDERA BLES Final Result Performing Organization Address [facility] de Phone Number [facility] [address] [place] [address] * (ABNORMAL) PROTIME (08/07/2003 8:47 EST) Pro [...] PF4 ORDERABLES Final Result Performing Organization Address [facility] Co de Phone Number [facility] [address] [place] [address] documented in this encounter Visit Diagnoses Not on filedocumented in this encounter
--- OUTSIDE RECORDS SUMMARY | 2003-08-14 08:52 | XMS_ITS | Encounter Summary ---
Author Organization [facility] Address [address] [place] [address] Care Team Providers Care Bone Char Puller Name Role Phone Unavailable Primary Care Provider Unavailabl e Encounter Details Date Type Department Care Team (Late st Contact Info) Description 08/14/2003 7:52 EST Hospital Encounter [address] [address] Samuel Christian MD 108 [facility] [address] [place], [place] [phone] Social History Tobacco Use Types Packs/Day Years [...] ORDERABLES Final Result [facility] [address] [place] [address] documented in this encounter Visit Diagnoses Not on filedocumented in this encounter
--- OUTSIDE RECORDS SUMMARY | 2003-09-19 07:52 | XMS_ITS | Encounter Summary ---
Author Organization [facility] Address [address] [place] [address] Care Team Providers Care Nurse Practitioner Manager Name Role Phone Unavailable Primary Care Provider Unavailabl e Encounter Details Date Type Department Care Team (Late st Contact Info) Description 09/19/2003 7:52 EDT Hospital Encounter [address] [address] Samuel Christian MD 108 [facility] [address] [place], [place] [id number] Social History Tobacco Use Types Packs/Day Years [...] PF4 ORDERABLES Final Result [facility] [address] [place] [address] documented in this encounter Visit Diagnoses Not on filedocumented in this encounter
--- OUTSIDE RECORDS SUMMARY | 2003-10-10 07:12 | XMS_ITS | Encounter Summary ---
Author Organization [facility] Address [address] [place] [address] Care Team Providers Care Warp Knitting Machine Operator Name Role Phone Unavailable Primary Care Provider Unavailabl e Encounter Details Date Type Department Care Team (Late st Contact Info) Description 10/10/2003 7:12 EDT Hospital Encounter [address] [address] Samuel Christian MD 108 [facility] [address] [place], [place] [phone] Social History Tobacco Use Types Packs/Day Years [...] ORDERABLES Final Result [facility] [address] [place] [address] documented in this encounter Visit Diagnoses Not on filedocumented in this encounter
--- OUTSIDE RECORDS SUMMARY | 2003-10-24 07:43 | XMS_ITS | Encounter Summary ---
Author Organization [facility] Address [address] [place] [address] Care Team Providers Care General Hardware Salesperson Name Role Phone Unavailable Primary Care Provider Unavailabl e Encounter Details Date Type Department Care Team (Late st Contact Info) Description 10/24/2003 7:43 EDT Hospital Encounter [address] [address] Samuel Christian MD 108 [facility] [address] [place], [place] [phone] Social History Tobacco Use Types Packs/Day Years [...] PF4 ORDERABLES Final Result [facility] [address] [place] [address] documented in this encounter Visit Diagnoses Not on filedocumented in this encounter
--- OUTSIDE RECORDS SUMMARY | 2003-11-07 07:15 | XMS_ITS | Encounter Summary ---
Author Organization [facility] Address [address] [place] [address] Care Team Providers Care Tunnel Kiln Operator Name Role Phone Unavailable Primary Care Provider Unavailabl e Encounter Details Date Type Department Care Team (Late st Contact Info) Description 11/07/2003 7:15 EDT Hospital Encounter [address] [address] Samuel Christian MD 108 [facility] [address] [place], [place] [phone] Social History Tobacco Use Types Packs/Day Years [...] Time 17.9(H) 10.9 - 13.9 secs [facility] I.N.R. 1.5(H) 0.9 - 1.1 Ratio [facility] Comment: Moderate Intensity Coumadin INR = 2.0-3.0 Adjustments in anticoagulant therapy dose should be based upon the INR and NOT the Pro Time. 11/07/2003 7:12 EDT 11/07/2003 7:15 EDT us Samuel Christian MD HEMATOLOGY & PF4 ORDERABLES Final Result [facility] [address] [place] [address] documented in this encounter Visit Diagnoses Not on filedocumented in this encounter
--- OUTSIDE RECORDS SUMMARY | 2003-11-14 07:12 | XMS_ITS | Encounter Summary ---
Author Organization [facility] Address [address] [place] [address] Care Team Providers Care Mold Repair Technician Name Role Phone Unavailable Primary Care Provider Unavailabl e Encounter Details Date Type Department Care Team (Late st Contact Info) Description 11/14/2003 7:12 EDT Hospital Encounter [address] [address] Samuel Christian MD 108 [facility] [address] [place], [place] [phone] Social History Tobacco Use Types Packs/Day Years [...] PF4 ORDERABLES Final Result [facility] [address] [place] [address] documented in this encounter Visit Diagnoses Not on filedocumented in this encounter
--- OUTSIDE RECORDS SUMMARY | 2003-11-21 07:03 | XMS_ITS | Encounter Summary ---
Author Organization [facility] Address [address] [place] [address] Care Team Providers Care Shrimp Trawler Name Role Phone Unavailable Primary Care Provider Unavailabl e Encounter Details Date Type Department Care Team (Late st Contact Info) Description 11/21/2003 7:03 EDT Hospital Encounter [address] [address] Samuel Christian MD 108 [facility] [address] [place], [place] [phone] Social History Tobacco Use Types Packs/Day Years [...] PF4 ORDERABLES Final Result [facility] [address] [place] [address] documented in this encounter Visit Diagnoses Not on filedocumented in this encounter
--- OUTSIDE RECORDS SUMMARY | 2003-12-05 07:33 | XMS_ITS | Encounter Summary ---
Author Organization [facility] Address [address] [place] [address] Care Team Providers Care Toolmaker Helper Name Role Phone Unavailable Primary Care Provider Unavailabl e Encounter Details Date Type Department Care Team (Late st Contact Info) Description 12/05/2003 7:33 EDT Hospital Encounter [address] [address] Samuel Christian MD 108 [facility] [address] [place], [place] [phone] Social History Tobacco Use Types Packs/Day Years [...] PF4 ORDERABLES Final Result [facility] [address] [place] [address] documented in this encounter Visit Diagnoses Not on filedocumented in this encounter
--- OUTSIDE RECORDS SUMMARY | 2003-12-19 07:37 | XMS_ITS | Encounter Summary ---
Author Organization [facility] Address [address] [place] [address] Care Team Providers Care Boat Hand Name Role Phone Unavailable Primary Care Provider Unavailabl e Encounter Details Date Type Department Care Team (Late st Contact Info) Description 12/19/2003 7:37 EDT Hospital Encounter [address] [address] Samuel Christian MD 108 [facility] [address] [place], [place] [phone] Social History Tobacco Use Types Packs/Day Years [...] PF4 ORDERABLES Final Result [facility] [address] [place] [address] documented in this encounter Visit Diagnoses Not on filedocumented in this encounter
--- OUTSIDE RECORDS SUMMARY | 2004-01-09 07:04 | XMS_ITS | Encounter Summary ---
Author Organization [facility] Address [address] [place] [address] Care Team Providers Care Assayer Helper Name Role Phone Unavailable Primary Care Provider Unavailabl e Encounter Details Date Type Department Care Team (Late st Contact Info) Description 01/09/2004 7:04 EDT Hospital Encounter [address] [address] Samuel Christian MD 108 [facility] [address] [place], [place] [phone] Social History Tobacco Use Types Packs/Day Years [...] Time 22.3(H) 10.9 - 13.9 secs [facility] I.N.R. 2.0(H) 0.9 - 1.1 Ratio [facility] Comment: Moderate Intensity Coumadin INR = 2.0-3.0 Adjustments in anticoagulant therapy dose should be based upon the INR and NOT the Pro Time. 01/09/2004 7:02 EDT 01/09/2004 7:04 EDT us Samuel Christian MD HEMATOLOGY & PF4 ORDERABLES Final Result [facility] [address] [place] [address] documented in this encounter Visit Diagnoses Not on filedocumented in this encounter
--- OUTSIDE RECORDS SUMMARY | 2004-01-23 07:21 | XMS_ITS | Encounter Summary ---
Author Organization [facility] Address [address] [place] [address] Care Team Providers Care Dairy Associate Name Role Phone Unavailable Primary Care Provider Unavailabl e Encounter Details Date Type Department Care Team (Late st Contact Info) Description 01/23/2004 7:21 EDT Hospital Encounter [address] [address] Samuel Christian MD 108 [facility] [address] [place], [place] [phone] Social History Tobacco Use Types Packs/Day Years [...] PF4 ORDERABLES Final Result [facility] [address] [place] [address] documented in this encounter Visit Diagnoses Not on filedocumented in this encounter
--- OUTSIDE RECORDS SUMMARY | 2004-08-13 17:57 | XMS_ITS | Encounter Summary ---
Author Organization [facility] Address [address] [place] [address] Care Team Providers Care Exercise Physiology Professor Name Role Phone Unavailable Primary Care Provider Unavailabl e Encounter Details Date Type Department Care Team (Late st Contact Info) Description 08/13/2004 16:57 EST Hospital Encounter [address] [address] Partha Malone MD [address] [place] [phone] Social History Tobacco Use Types Packs/Day Years [...]
--- OUTSIDE RECORDS SUMMARY | 2004-08-15 09:54 | XMS_ITS | Encounter Summary ---
Author Organization [facility] Address [address] [place] [address] Care Team Providers Care Milk Pasteurizer Name Role Phone Unavailable Primary Care Provider Unavailabl e Encounter Details Date Type Department Care Team (Late st Contact Info) Description 08/15/2004 8:54 EST Hospital Encounter [address] [address] Samuel Christian MD 108 [facility] [address] [place], [place] [phone] Social History Tobacco Use Types Packs/Day Years [...] PF4 ORDERABLES Final Result Performing Organization Address City/[facility] Co de Phone Number [facility] [address] [place] [address] * HEMAGRAM (08/15/2004 9:27 EST) [facility] WBC 5.50 4.0 - 10.4 K/cmm [...] [facility] Comment:Performed at Ema [facility], [place], [place] 08/15/2004 9:27 EST 08/15/2004 9:29 EST Samuel Christian MD HEMATOLOGY & PF4 ORDERABLES Final Result Performing Organization Address City/[facility] Co de Phone Number [facility] [address] [place] [address] documented in this encounter Visit Diagnoses Not on filedocumented in this encounter
--- OUTSIDE RECORDS SUMMARY | 2004-08-18 09:14 | XMS_ITS | Encounter Summary ---
Author Organization [facility] Address [address] [place] [address] Care Team Providers Care Body Technician/Painter Name Role Phone Unavailable Primary Care Provider Unavailabl e Encounter Details Date Type Department Care Team (Late st Contact Info) Description 08/18/2004 9:14 EDT Hospital Encounter [address] [address] Samuel Christian MD 108 [facility] [address] [place], [place] [phone] Social History Tobacco Use Types Packs/Day Years [...] Results * (ABNORMAL) PROTIME (08/18/2004 9:13 EDT) Pro Time 20.5(H) 12.3 - 14.7 secs [facility] I.N.R. 1.7(H) 0.9 - 1.1 Ratio [facility] Comment: Moderate Intensity Coumadin INR = 2.0-3.0 Adjustments in anticoagulant therapy dose should be based upon the INR and NOT the Pro Time. Performed at [facility], [place], [place] 08/18/2004 9:13 EDT 08/18/2004 9:15 EDT us Samuel Christian MD HEMATOLOGY & PF4 ORDERABLES Final Result [facility] [address] [place] [address] * HEMAGRAM (08/18/2004 9:13 EDT) Pathologist [facility] WBC 7.40 4.0 - 10.4 K/cmm [facility] RBC 5.27 4.36 - 5.78 M/cmm [facility] Hemoglobin 16.5 13.8 - 17.3 gm/dl [facility] HCT 47.6 39.5 - 50.2 % [facility] MCV 90 81 - 95 fl [facility] MCH 31.2 27.6 - 33.0 pg [facility] MCHC 34.6 32.8 - 36.4 gm/dl [facility] PLT 314 141 - 320 K/cmm [facility] RDW-CV 12.1 11.8 - 14.1 % [facility] Comment:Performed at Ema Willie cyr [facility], [place], [place] 08/18/2004 9:13 EDT 08/18/2004 9:15 EDT us Samuel Christian MD HEMATOLOGY & PF4 ORDERABLES Final Result Performing Organization Address City/[facility]/ZIP Co de Phone Number [facility] [address] [place] [address] documented in this encounter Visit Diagnoses Not on filedocumented in this encounter
--- OUTSIDE RECORDS SUMMARY | 2004-08-20 07:51 | XMS_ITS | Encounter Summary ---
Author Organization [facility] Address [address] [place] [address] Care Team Providers Care Aws Architect Name Role Phone Unavailable Primary Care Provider Unavailabl e Encounter Details Date Type Department Care Team (Late st Contact Info) Description 08/20/2004 7:51 EDT Hospital Encounter [address] [address] Samuel Christian MD 108 [facility] [address] [place], [place] [phone] Social History Tobacco Use Types Packs/Day Years [...] Performed at [facility], [place], [place] 08/20/2004 7:51 EDT 08/20/2004 7:53 EDT us Samuel Christian MD HEMATOLOGY & PF4 ORDERABLES Final Result [facility] [address] [place] [address] documented in this encounter Visit Diagnoses Not on filedocumented in this encounter
--- OUTSIDE RECORDS SUMMARY | 2004-08-24 08:02 | XMS_ITS | Encounter Summary ---
Author Organization [facility] Address [address] [place] [address] Care Team Providers Care Chemical Recovery Operator Name Role Phone Unavailable Primary Care Provider Unavailabl e Encounter Details Date Type Department Care Team (Late st Contact Info) Description 08/24/2004 8:02 EDT Hospital Encounter [address] [address] Samuel Christian MD [address] [facility] [address] [place], [place] [phone] Social History Tobacco Use Types Packs/Day Years [...] the Pro Time. Performed at [facility], [place], [place] 08/24/2004 8:06 EDT 08/24/2004 8:08 EDT us Samuel Christian MD HEMATOLOGY & PF4 ORDERABLES Final Result [facility] [address] [place] [address] documented in this encounter Visit Diagnoses Not on filedocumented in this encounter
--- OUTSIDE RECORDS SUMMARY | 2004-08-27 07:41 | XMS_ITS | Encounter Summary ---
Author Organization [facility] Address [address] [place] [address] Care Team Providers Care Service Parts Driver Name Role Phone Unavailable Primary Care Provider Unavailabl e Encounter Details Date Type Department Care Team (Late st Contact Info) Description 08/27/2004 7:41 EDT Hospital Encounter [address] [address] Samuel Christian MD 108 [facility] [address] [place], [place] [phone] Social History Tobacco Use Types Packs/Day Years [...] Time 30.8(H) 12.3 - 14.7 secs [facility] I.N.R. 2.9(H) 0.9 - 1.1 Ratio [facility] Comment: Moderate Intensity Coumadin INR = 2.0-3.0 Adjustments in anticoagulant therapy dose should be based upon the INR and NOT the Pro Time. Performed at [facility], [place], [place] 08/27/2004 7:40 EDT 08/27/2004 7:42 EDT us Samuel Christian MD HEMATOLOGY & PF4 ORDERABLES Final Result [facility] [address] [place] [address] documented in this encounter Visit Diagnoses Not on filedocumented in this encounter
--- OUTSIDE RECORDS SUMMARY | 2004-09-14 07:25 | XMS_ITS | Encounter Summary ---
Author Organization [facility] Address [address] [place] [address] Care Team Providers Care Database Administration Associate Name Role Phone Unavailable Primary Care Provider Unavailabl e Encounter Details Date Type Department Care Team (Late st Contact Info) Description 09/14/2004 7:25 EDT Hospital Encounter [address] [address] Samuel Christian MD 108 [facility] [address] [place], [place] [phone] Social History Tobacco Use Types Packs/Day Years [...] the Pro Time. Performed at [facility], [place], [place] 09/14/2004 7:24 EDT 09/14/2004 7:26 EDT us Samuel Christian MD HEMATOLOGY & PF4 ORDERABLES Final Result [facility] [address] [place] [address] documented in this encounter Visit Diagnoses Not on filedocumented in this encounter
--- OUTSIDE RECORDS SUMMARY | 2004-09-21 08:17 | XMS_ITS | Encounter Summary ---
Author Organization [facility] Address [address] [place] [address] Care Team Providers Care Director Of Occupational Health Name Role Phone Unavailable Primary Care Provider Unavailabl e Encounter Details Date Type Department Care Team (Late st Contact Info) Description 09/21/2004 8:17 EDT Hospital Encounter [address] [address] Samuel Christian MD 108 [facility] [address] [place], [place] [phone] Social History Tobacco Use Types Packs/Day Years [...] Time 35.5(H) 12.3 - 14.7 secs [facility] I.N.R. 3.4(H) 0.9 - 1.1 Ratio [facility] Comment: Moderate Intensity Coumadin INR = 2.0-3.0 Adjustments in anticoagulant therapy dose should be based upon the INR and NOT the Pro Time. Performed at [facility], [place], [place] 09/21/2004 8:15 EDT 09/21/2004 8:18 EDT us Samuel Christian MD HEMATOLOGY & PF4 ORDERABLES Final Result [facility] [address] [place] [address] documented in this encounter Visit Diagnoses Not on filedocumented in this encounter
--- OUTSIDE RECORDS SUMMARY | 2004-09-28 07:18 | XMS_ITS | Encounter Summary ---
Author Organization [facility] Address [address] [place] [address] Care Team Providers Care Bullard Operator Name Role Phone Unavailable Primary Care Provider Unavailabl e Encounter Details Date Type Department Care Team (Late st Contact Info) Description 09/28/2004 7:18 EDT Hospital Encounter [address] [address] Samuel Christian MD 108 [facility] [address] [place], [place] [phone] Social History Tobacco Use Types Packs/Day Years [...] the Pro Time. Performed at [facility], [place], [place] 09/28/2004 7:22 EDT 09/28/2004 7:24 EDT us Samuel Christian MD HEMATOLOGY & PF4 ORDERABLES Final Result [facility] [address] [place] [address] documented in this encounter Visit Diagnoses Not on filedocumented in this encounter
--- OUTSIDE RECORDS SUMMARY | 2004-10-12 11:03 | XMS_ITS | Encounter Summary ---
Author Organization [facility] Address [address] [place] [address] Care Team Providers Care Body Specialist Name Role Phone Unavailable Primary Care Provider Unavailabl e Encounter Details Date Type Department Care Team (Late st Contact Info) Description 10/12/2004 11:03 EDT Hospital Encounter [address] [address] Samuel Christian MD 108 [facility] [address] [place], [place] [phone] Social History Tobacco Use Types Packs/Day Years [...] [facility], [place], [place] 10/12/2004 11:0 3 EDT 10/12/2004 11:05 EDT us Samuel Christian MD HEMATOLOGY & PF4 ORDERABLES Final Result [facility] [address] [place] [address] documented in this encounter Visit Diagnoses Not on filedocumented in this encounter
--- OUTSIDE RECORDS SUMMARY | 2004-10-26 07:23 | XMS_ITS | Encounter Summary ---
Author Organization [facility] Address [address] [place] [address] Care Team Providers Care Field Applications Specialist Name Role Phone Unavailable Primary Care Provider Unavailabl e Encounter Details Date Type Department Care Team (Late st Contact Info) Description 10/26/2004 7:23 EDT Hospital Encounter [address] [address] Samuel Christian MD 108 [facility] [address] [place], [place] [address] Social History Tobacco Use Types Packs/Day Years [...]
--- OUTSIDE RECORDS SUMMARY | 2004-11-17 08:37 | XMS_ITS | Encounter Summary ---
Author Organization [facility] Address [address] [place] [address] Care Team Providers Care Advertising Sales Associate Name Role Phone Unavailable Primary Care Provider Unavailabl e Encounter Details Date Type Department Care Team (Late st Contact Info) Description 11/17/2004 8:37 EDT Hospital Encounter [address] [address] Samuel Christian MD 108 [facility] [address] [place], [place] [address] Social History Tobacco Use Types Packs/Day Years [...]
--- OUTSIDE RECORDS SUMMARY | 2004-12-07 16:36 | XMS_ITS | Encounter Summary ---
Author Organization [facility] Address [address] [place] [address] Care Team Providers Care Pneumatic System Conveyor Operator Name Role Phone Unavailable Primary Care Provider Unavailabl e Encounter Details Date Type Department Care Team (Late st Contact Info) Description 12/07/2004 16:36 EDT Hospital Encounter [address] [address] Italo Cortez MD [address] [place] [phone] Social History Tobacco Use Types Packs/Day Years [...]
--- OUTSIDE RECORDS SUMMARY | 2004-12-17 07:34 | XMS_ITS | Encounter Summary ---
Author Organization [facility] Address [address] [place] [address] Care Team Providers Care Violin Restorer Name Role Phone Unavailable Primary Care Provider Unavailabl e Encounter Details Date Type Department Care Team (Late st Contact Info) Description 12/17/2004 7:34 EDT Hospital Encounter [address] [address] Samuel Christian MD 108 [facility] [address] [place], [place] [phone] Social History Tobacco Use Types Packs/Day Years [...] the Pro Time. Performed at [facility], [place], [place] 12/17/2004 7:34 EDT 12/17/2004 7:36 EDT us Samuel Christian MD HEMATOLOGY & PF4 ORDERABLES Final Result [facility] [address] [place] [address] documented in this encounter Visit Diagnoses Not on filedocumented in this encounter
--- OUTSIDE RECORDS SUMMARY | 2005-01-07 13:38 | XMS_ITS | Encounter Summary ---
Author Organization [facility] Address [address] [place] [address] Care Team Providers Care Utility Maintenance Worker Name Role Phone Unavailable Primary Care Provider Unavailabl e Encounter Details Date Type Department Care Team (Late st Contact Info) Description 01/07/2005 13:38 EDT Hospital Encounter [address] [address] Samuel Christian MD 108 [facility] [address] [place], [place] [phone] Social History Tobacco Use Types Packs/Day Years [...] Time 23.7(H) 11.8 - 14.8 secs [facility] I.N.R. 2.1(H) 0.9 - 1.1 Ratio [facility] Comment: Moderate Intensity Coumadin INR = 2.0-3.0 Adjustments in anticoagulant therapy dose should be based upon the INR and NOT the Pro Time. Performed at [facility], [place], [place] 01/07/2005 13:3 5 EDT 01/07/2005 13:38 EDT us Samuel Christian MD HEMATOLOGY & PF4 ORDERABLES Final Result [facility] [address] [place] [address] documented in this encounter Visit Diagnoses Not on filedocumented in this encounter
--- OUTSIDE RECORDS SUMMARY | 2005-01-25 17:22 | XMS_ITS | Encounter Summary ---
Author Organization [facility] Address [address] [place] [address] Care Team Providers Care Medicare Contact Specialist Name Role Phone Unavailable Primary Care Provider Unavailabl e Encounter Details Date Type Department Care Team (Late st Contact Info) Description 01/25/2005 17:22 EDT Hospital Encounter [address] [address] Samuel Christian MD 108 [facility] [address] [place], [place] [phone] Social History Tobacco Use Types Packs/Day Years [...] AT 12:15 TODAY Performed at [facility], [place], [place] 01/25/2005 17:2 2 EDT 01/25/2005 17:24 EDT us Samuel Christian MD HEMATOLOGY & PF4 ORDERABLES Final Result [facility] [address] [place] [address] documented in this encounter Visit Diagnoses Not on filedocumented in this encounter
--- OUTSIDE RECORDS SUMMARY | 2005-02-02 11:36 | XMS_ITS | Encounter Summary ---
Author Organization [facility] Address [address] [place] [address] Care Team Providers Care Correctional Supply Supervisor Name Role Phone Unavailable Primary Care Provider Unavailabl e Encounter Details Date Type Department Care Team (Late st Contact Info) Description 02/02/2005 11:36 EDT Hospital Encounter [address] [address] Samuel Christian MD 108 [facility] [address] [place], [place] [phone] Social History Tobacco Use Types Packs/Day Years [...] at [facility], [place], [place] 02/02/2005 11:3 2 EDT 02/02/2005 11:34 EDT us Samuel Christian MD HEMATOLOGY & PF4 ORDERABLES Final Result [facility] [address] [place] [address] documented in this encounter Visit Diagnoses Not on filedocumented in this encounter
--- OUTSIDE RECORDS SUMMARY | 2005-04-13 09:32 | XMS_ITS | Encounter Summary ---
Author Organization [facility] Address [address] [place] [address] Care Team Providers Care Tool Lapper Hand Name Role Phone Unavailable Primary Care Provider Unavailabl e Encounter Details Date Type Department Care Team (Late st Contact Info) Description 04/13/2005 8:32 EST Hospital Encounter [address] [address] Samuel Christian MD 108 [facility] [address] [place], [place] [address] Social History Tobacco Use Types Packs/Day Years [...]
--- OUTSIDE RECORDS SUMMARY | 2005-05-13 09:01 | XMS_ITS | Encounter Summary ---
Author Organization [facility] Address [address] [place] [address] Care Team Providers Care Ux Interaction Designer Name Role Phone Unavailable Primary Care Provider Unavailabl e Encounter Details Date Type Department Care Team (Late st Contact Info) Description 05/13/2005 8:01 EST Hospital Encounter [address] [address] Samuel Christian MD 108 [facility] [address] [place], [place] [phone] Social History Tobacco Use Types Packs/Day Years [...] the Pro Time. Performed at [facility], [place], [place] 05/13/2005 7:56 EST 05/13/2005 7:58 EST us Samuel Christian MD HEMATOLOGY & PF4 ORDERABLES Final Result [facility] [address] [place] [address] documented in this encounter Visit Diagnoses Not on filedocumented in this encounter
[2025-01-07 13:10] LABS: Prothrombin Time Whole Bld POC 35.9 sec (11.1-13.5); ~PT, ~INR - Anti Coag Clinic 3.0 (0.9-1.1)
--- NOTE | 2025-01-07 13:15 | MHC.OFFVISCO ---
Intake Intake Visit Reasons: Anticoagulation Allergies ranitidine (From Zantac) Allergy (Mild, Verified 01/07/25 13:05) Rash Medication List - Last Reconciled 01/07/25 by Analilia Keene, RN atorvastatin 10 mg PO BEDTIME ezetimibe 10 mg PO DAILY losartan 25 mg PO DAILY psyllium seed (sugar) (Metamucil (sugar) oral powder) 1 tsp PO BID warfarin 5 mg See Protocol PO DAILY Nursing Note INR: 3.0 in therapeutic range of 2-3 Medications and supplements reviewed No changes in health, diet, medications, or supplements, Denies any signs and symptoms of bleeding or bruising or clotting. Bleeding, bruising, clotting discussed Nutritional guidance given to have a serving of greens today Dose: 5mg X 5 days and 2.5mg X 2 days ( & Tue) F/U INR: 1 month Patient verbalizes understanding of instructions given Anti-Coag Initial Assessment Social Hx Patient Tobacco Use Status: Never used Tobacco alcohol intake: current Alcohol intake frequency: holidays/special occasions only Cardiovascular Hx: [place] Endocrine Hx: Thyroid Disease Blood Disorder Hx: Hyperlipidemia GI Hx: Other Hx: Prostate Cancer HX: Yes Psych. Illness/Depression: No Coding Level of Care Code Est Patient Level 1 Diagnoses Current use of anticoagulant therapy Z79.01 Assessment & Plan Assessment & Plan (1) Current use of anticoagulant therapy: Comment: (on Warfarin for hx DVTs) Code(s): Z79.01 - jail (current) use of anticoagulants Category: Medical
--- OUTSIDE RECORDS SUMMARY | 2025-01-07 14:20 | XMS_ITS ---
Author Organization [facility] Address [address] [facility] [address] [place] [address] Phone Care Team Providers Care Power Saw Operator Name Role Phone Pcp, Unknown Primary Care [...]
--- OUTSIDE RECORDS SUMMARY | 2025-01-07 14:20 | XMS_ITS | Clinical Summary ---
Author Organization [facility] Address [address] [place] [address] Care Team Providers Care Crime Lab Analyst Name Role Phone Jeremy Booth MD Primary Care Provider [phone] Medications MULTIVITAMINS (MULTI-VITAMIN ORAL) Take by mouth daily. Active Active Problems Problem Noted Date Diagnosed Date Elevated PSA 09/19/2002 Overview (11/06/2009): PSA was 27.8. Surgical History Surgery Date Site/Laterality Comments COLECTOMY for obstructed bowel Social History Tobacco Use Types Packs/Day Years Used Date Smoking Tobacco: Never Assessed Interpersonal Safety Answer Date Record ed Physically Hurt Never 10/01/2020 Verbally Threaten Not on file 10/01/2020 Sex and Gender Information Value Date Recorded Sex Assigned at Not on file Legal Sex Male 18:02 EST Gender Identity Not on file Sexual Orientation Not on file Obstetrics History Plan of Treatment Health Maintenance Due Date Last Done Comments Fall Risk Screening 2008 RSV Immunization ( o r 60+ Years) (1 - 1-dose 75+ series) 2018 COVID-19 Vaccine ( season) 2024 Insurance MEDICARE [facility] Care Teams Crime Lab Analyst Relationship Specialty Start Date End Date Jeremy Booth MD PCP - General 01/09/15
--- OUTSIDE RECORDS SUMMARY | 2025-01-07 14:21 | XMS_ITS | Clinical Summary ---
Author Organization [facility] Address [address] [facility] [address] [place] [address] Phone Care Team Providers Care Security Systems Administrator Name Role Phone Pcp, Unknown Primary Care Provider Unavailabl e Allergies Active Allergy Reactions Criticality Noted Date Comments Ranitidine Other (See Comments) 12/06/2002 Rash Medications losartan (COZAAR) 25 MG tablet Take 1 tablet by mouth every morning. 08/04/2022 Active simvastatin (ZOCOR) 40 MG tablet Take 1 tablet by mouth every morning. 08/04/2022 Active warfarin (COUMADIN) 5 MG tablet Take 5 mg by mouth daily. 08/20/2022 Active Active Problems Problem Noted Date Diagnosed Date Malignant neoplasm of prostate 10/14/2022 Rising PSA following treatme nt for malignant neoplasm of prostate 10/14/2022 Seasonal allergies 11/08/2002 Overview (07/05/2017): seasonal;PHS Allergy Remediation Social History Tobacco Use Types Packs/Day Years Used Date Smoking Tobacco: Never Smokeless Tobacco: Never Tobacco Cessation:Counseling Given: Not Answered Education Answer Date Recorded Are you interested in more education? Not on delaney e 09/29/2022 Are you concerned about learning? Not on file 09/29/2022 No 09/29/2022 No 09/29/2022 Digital Access Answer Date Recorded No 10/06/2022 No 10/06/2022 Reliable internet access at home? Not on file 10/06/2022 Device with a working camera? Not on file Sex and Gender Information Value Date Recorded Sex Assigned at Not on file Legal Sex Male 7:44 PM EST Gender Identity Not on file Sexual Orientation Not on file Last Filed Vital Signs Vital Sign Reading Time Taken Comments Blood Pressure 110/68 08/02/2023 1:21 PM EDT Pulse 88 08/02/2023 1:21 PM EDT Temperature 36.1 C (96.9 F) 08/02/2023 1:21 PM EDT Respiratory Rate 18 08/02/2023 1:21 PM EDT Oxygen Saturation 96% 08/02/2023 1:21 PM EDT Inhaled Oxygen Concentration - - Weight 88.3 kg (194 lb 9.6 oz) 08/02/2023 1:21 P M EDT Height 181 cm (5' 11.26 ) 11/02/2022 1:08 PM EDT Body Mass Index 26.94 11/02/2022 1:08 PM EDT Plan of Treatment Upcoming Encounters Date Type Department Care Team (Late st Contact Info) Description 01/31/2025 9:15 AM EDT Telemedicine [facility] [place] [facility] [address] [facility] [place] [address] Maite Duke MD, PhD [address] [place] [address] [email or web address] Health Maintenance Due Date Last Done Comments Adult Td,Tdap Booster 1945 CREATININE LEVEL 1945 POTASSIUM LEVEL 1945 DEPRESSION SCREENING 1955 PNEUMOCOCCAL VACCINES (50+ years) (1 of 2 - PCV) 1962 ZOSTER VACCINES (1 of 2) 1962 RSV VACCINE (1 - 1-dose 75+ series) 2018 COVID-19 VACCINE ( - 2023-2 5 season) 2024 INFLUENZA VACCINE (#1) 2024 3, 03/05/2022 HEPATITIS A VACCINES Aged Out No long er eligible based on patient's age to complete this topic HIB VACCINES Aged Out No longer eligi ble based on patient's age to complete this topic MENINGOCOCCAL VACCINES (ACWY) Aged Out No longer eligible based on patient's age to complete this topic MENINGOCOCCAL VACCINES (B) Aged Out N o longer eligible based on patient's age to complete this topic Medical Devices Not on file Insurance MEDICARE PART A & B [facility] INDEMNITY MEDICARE PART A & B [facility] IN[facility]MN[facility] INDEMNITY MEDICARE PART A & B [employer] OUT OF STATE INDEMNITY MEDICARE PART A & B [facility] IN[facility]MNITY MEDICARE PART A & B [id number] [place] [address] [facility]IC[facility] INDEMNITY MEDICARE PART A & B [facility] INDNITY Care Teams Security Systems Administrator Relationship Specialty Start Date End Date Pcp, Unknown PCP - General 09/09/21 Additional Source Comments The information contained in this document represents components of the legal health record. It is not the complete legal health record.[facility]
== END 2025-01-07 13:25 | disposition home or self-care (01) ==
LOC: HO.ACS 13:03
PROVIDERS: PCP Nurse Practitioner Family; Visit Provider Internal Medicine Medical Oncology
DX: Z79.01 Long term (current) use of anticoagulants (principal)

== ENCOUNTER → 2025-01-07 13:03 | Outpatient (BNVA) | payer MEDICARE, BC, SELFPAY | PROVIDERS: PCP Nurse Practitioner Family; Visit Provider Internal Medicine Medical Oncology | DX: Z51.81 Encounter for therapeutic drug level monitoring (principal); Z79.01 Long term (current) use of anticoagulants | CPT/HCPCS: 85610; 99211 ==

== ENCOUNTER 2025-01-09 10:30 | Outpatient (REF) | payer MEDICARE, BC, SELFPAY ==
--- OUTSIDE RECORDS SUMMARY | 2001-10-13 07:37 | XMS_ITS | Encounter Summary ---
Author Organization [facility] Address [address] [place] [address] Care Team Providers Care Dispatch Manager Name Role Phone Unavailable Primary Care Provider Unavailabl e Encounter Details Date Type Department Care Team (Late st Contact Info) Description 10/13/2001 7:37 EDT Hospital Encounter [address] [address] Samuel Christian MD [address] [facility] [address] [place], [place] [phone] Social History Tobacco Use Types Packs/Day Years [...] results. [facility] Report Status Final [id number] [facility] 10/13/2001 7:36 EDT 10/13/2001 12:17 EDT Samuel Christian MD HISTORICAL LAB FOR SQ LOAD F inal Result Performing Organization Address [facility] Co de Phone Number [facility] [address] [place] [address] * UA REFLEX (10/13/2001 7:36 EDT) Pathologist [facility] UA Billing Microscopic not indicated. [facility] 10/13/2001 7:36 EDT 10/13/2001 7:38 EDT Samuel Christian MD URINALYSIS ORDERABLES Final Result Performing Organization Address [facility] Co de Phone Number [facility] [address] [place] [address] * (ABNORMAL) URINALYSIS (10/13/2001 7:36 EDT) Color, UA Yellow [facility] Clarity, UA Clear [facility] Glucose, UA Norm NORM [facility] Bilirubin, UA Neg NEG [facility] Ketones, UA Neg NEG [facility] Specific [place], Urine 1.026 Refractometer specific gravity(H) 1.005 - 1.02 [facility] Blood, UA Neg NEG [facility] pH, UA 5.5 5.0 - 9.0 [facility] Protein, UA Neg NEG [facility] Urobilinogen, UA Norm NORM mg/dL [facility] Nitrite, UA Neg NEG [facility] Leuk Esterase Neg NEG [facility] 10/13/2001 7:36 EDT 10/13/2001 7:38 EDT Samuel Christian MD URINALYSIS ORDERABLES Final Result Performing Organization Address [facility] de Phone Number [facility] [address] [place] [address] * THYROID CASCADE (10/13/2001 7:35 EDT) Pathologist [facility] TSH 2.86 0.35 - 5.50 uIU/ml [facility] Comment: TSH cascade is not recommended for patients in which pituitary or hypothalamic disorders are suspected. 10/13/2001 7:35 EDT 10/13/2001 7:37 EDT Samuel Christian MD CHEMISTRY & BLOOD GAS ORDERA BLES Final Result Performing Organization Address [facility] de Phone Number [facility] [address] [place] [address] * (ABNORMAL) LIPID PROFILE (INCLUDES CHOLESTEROL, TRIGLYCERIDES, HDL, LDL) (10/13/2001 7:35 EDT) Cholesterol 228 mg/dl [facility] Comment: Desirable:<200 Borderline:200-239 High Risk:>fq=451 Fasting Triglycerides 264(H) 35 - 160 mg/dl [facility] Comment:Fasting HDL 32 mg/dl [facility] Comment: Highly Desirable:>60 Desirable:35-60 High Risk:<35 Fasting LDL, Calculated 143 mg/dl [facility] Comment: Desirable:<130 Borderline:130-159 High Risk:>dn=508 Fasting Chol/HDL Ratio 7.1 Fasting [facility] 10/13/2001 7:35 EDT 10/13/2001 7:37 EDT Samuel Christian MD CHEMISTRY & BLOOD GAS ORDERA BLES Final Result Performing Organization Address City/[facility] Co de Phone Number [facility] [address] [place] [address] * HEMAGRAM (10/13/2001 7:35 EDT) WBC 8.17 4.0 - 10.4 K/cmm [facility] RBC 5.30 4.36 - 5.78 [...] PF4 ORDERABLES Final Result Performing Organization Address [facility] Co de Phone Number [facility] [address] [place] [address] * COMPREHENSIVE METABOLIC PANEL (10/13/2001 7:35 EDT) [...] & BLOOD GAS ORDERA BLES Final Result [facility] [address] [place] [address] documented in this encounter Visit Diagnoses Not on filedocumented in this encounter
--- OUTSIDE RECORDS SUMMARY | 2002-08-15 18:33 | XMS_ITS | Encounter Summary ---
Author Organization [facility] Address [address] [place] [address] Care Team Providers Care Launch Engineer Name Role Phone Unavailable Primary Care Provider Unavailabl e Encounter Details Date Type Department Care Team (Late st Contact Info) Description 08/15/2002 17:33 EST Hospital Encounter [facility] - Other [address] [place] [address] Kai Garcia MD [address] [place] [phone] Unknown, Provider, Social History Tobacco Use [...]
--- OUTSIDE RECORDS SUMMARY | 2002-09-12 08:15 | XMS_ITS | Encounter Summary ---
Author Organization [facility] Address [address] [place] [address] Care Team Providers Care Dental Service Technician Name Role Phone Unavailable Primary Care Provider Unavailabl e Encounter Details Date Type Department Care Team (Late st Contact Info) Description 09/12/2002 8:15 EDT Hospital Encounter [facility] - Other [address] [place] [address] Kai Garcia MD [address] [place] [phone] Social History Tobacco Use Types Packs/Day [...]
--- OUTSIDE RECORDS SUMMARY | 2002-09-13 16:29 | XMS_ITS | Encounter Summary ---
Author Organization [facility] Address [address] [place] [address] Care Team Providers Care Family Consumer Science Teacher Name Role Phone Unavailable Primary Care Provider Unavailabl e Encounter Details Date Type Department Care Team (Late st Contact Info) Description 09/13/2002 16:29 EDT Hospital Encounter [facility] - Other [address] [place] [address] Kai Garcia MD [address] [place] [phone] Social History Tobacco Use Types Packs/Day [...]
--- OUTSIDE RECORDS SUMMARY | 2002-09-28 13:26 | XMS_ITS | Encounter Summary ---
Author Organization [facility] Address [address] [place] [address] Care Team Providers Care Lead Generation Marketing Manager Name Role Phone Unavailable Primary Care Provider Unavailabl e Encounter Details Date Type Department Care Team (Late st Contact Info) Description 09/28/2002 13:26 EDT Hospital Encounter [facility] [place] [address] [place] [address] Bravo Chicas MD [address] [place], [place] [address] Social History Tobacco Use Types Packs/Day Years [...]
--- OUTSIDE RECORDS SUMMARY | 2002-10-30 08:15 | XMS_ITS | Encounter Summary ---
Author Organization [facility] Address [address] [place] [address] Care Team Providers Care Angle Shear Operator Name Role Phone Unavailable Primary Care Provider Unavailabl e Encounter Details Date Type Department Care Team (Late st Contact Info) Description 10/30/2002 8:15 EDT Hospital Encounter [address] [address] Isac Rodriguez MD [address] [place] [phone] Social History Tobacco Use Types Packs/Day [...] PF4 ORDERABLES Final Result Performing Organization Address [facility] de Phone Number [facility] [address] [place] [address] * PROTIME (10/30/2002 8:13 EDT) Pro Time [...] PF4 ORDERABLES Final Result Performing Organization Address [facility] de Phone Number [facility] [address] [place] [address] * HEMAGRAM (10/30/2002 8:13 EDT) WBC 6.80 [...] ORDERABLES Final Result [facility] [address] [place] [address] documented in this encounter Visit Diagnoses Not on filedocumented in this encounter
--- OUTSIDE RECORDS SUMMARY | 2003-01-17 16:12 | XMS_ITS | Encounter Summary ---
Author Organization [facility] Address [address] [place] [address] Care Team Providers Care Cnc Machinist Name Role Phone Unavailable Primary Care Provider Unavailabl e Encounter Details Date Type Department Care Team (Late st Contact Info) Description 01/17/2003 16:12 EDT Hospital Encounter [address] [address] Italo Cortez MD [address] [place] [phone] Social History Tobacco Use Types Packs/Day [...] or absence of malignant disease. Assayed utilizing [employer] chemiluminescent technology. Values obtained by using different assay methods cannot be used interchangeably. Assay changed to equimolar method 11/14/00. PREVIOUS PSA RESULT ON 08/15/02 WAS 27.8 01/17/2003 16:1 0 EDT 01/17/2003 16:13 EDT us Italo Cortez MD CHEMISTRY & BLOOD GAS ORDERABL ES Final Result [facility] [address] [place] [address] documented in this encounter Visit Diagnoses Not on filedocumented in this encounter
--- OUTSIDE RECORDS SUMMARY | 2003-04-18 09:24 | XMS_ITS | Encounter Summary ---
Author Organization [facility] Address [address] [place] [address] Care Team Providers Care Cafe Team Member Name Role Phone Unavailable Primary Care Provider Unavailabl e Encounter Details Date Type Department Care Team (Late st Contact Info) Description 04/18/2003 8:24 EST Hospital Encounter [address] [address] Italo Cortez MD [address] [place] [phone] Social History Tobacco Use Types Packs/Day [...] or absence of malignant disease. Assayed utilizing [employer] chemiluminescent technology. Values obtained by using different assay methods cannot be used interchangeably. Assay changed to equimolar method 11/14/00. 04/18/2003 8:27 EST 04/18/2003 8:29 EST us Italo Cortez MD CHEMISTRY & BLOOD GAS ORDERABL ES Final Result [facility] [address] [place] [address] documented in this encounter Visit Diagnoses Not on filedocumented in this encounter
--- OUTSIDE RECORDS SUMMARY | 2003-07-13 09:54 | XMS_ITS | Encounter Summary ---
Author Organization [facility] Address [address] [place] [address] Care Team Providers Care Shipping Track Supervisor Name Role Phone Unavailable Primary Care Provider Unavailabl e Encounter Details Date Type Department Care Team (Late st Contact Info) Description 07/13/2003 8:54 EST Hospital Encounter [address] [address] Samuel Christian MD 108 [facility] [address] [place], [place] [address] Social History Tobacco Use Types Packs/Day Years [...]
--- OUTSIDE RECORDS SUMMARY | 2003-07-14 10:14 | XMS_ITS | Encounter Summary ---
Author Organization [facility] Address [address] [place] [address] Care Team Providers Care Procurement Engineer Name Role Phone Unavailable Primary Care Provider Unavailabl e Encounter Details Date Type Department Care Team (Late st Contact Info) Description 07/14/2003 9:14 EST Hospital Encounter [address] [address] Samuel Christian MD 108 [facility] [address] [place], [place] [address] Social History Tobacco Use Types Packs/Day Years [...]
--- OUTSIDE RECORDS SUMMARY | 2003-07-17 09:32 | XMS_ITS | Encounter Summary ---
Author Organization [facility] Address [address] [place] [address] Care Team Providers Care Riveter Name Role Phone Unavailable Primary Care Provider Unavailabl e Encounter Details Date Type Department Care Team (Late st Contact Info) Description 07/17/2003 8:32 EST Hospital Encounter [address] [address] Samuel Christian MD 108 [facility] [address] [place], [place] [phone] Social History Tobacco Use Types Packs/Day Years [...] PF4 ORDERABLES Final Result Performing Organization Address City/[facility]/ZIP Co de Phone Number [facility] [address] [place] [address] * HEMAGRAM (07/17/2003 8:26 EST) Pathologist [facility] WBC 5.60 4.0 - 10.4 K/cmm HEATH [...] PF4 ORDERABLES Final Result Performing Organization Address City/[facility] Co de Phone Number [facility] [address] [place] [address] documented in this encounter Visit Diagnoses Not on filedocumented in this encounter
--- OUTSIDE RECORDS SUMMARY | 2003-07-22 09:02 | XMS_ITS | Encounter Summary ---
Author Organization [facility] Address [address] [place] [address] Care Team Providers Care Forest Economist Name Role Phone Unavailable Primary Care Provider Unavailabl e Encounter Details Date Type Department Care Team (Late st Contact Info) Description 07/22/2003 8:02 EST Hospital Encounter [address] [address] Samuel Christian MD 108 [facility] [address] [place], [place] [address] Social History Tobacco Use Types Packs/Day Years [...]
--- OUTSIDE RECORDS SUMMARY | 2003-07-26 08:23 | XMS_ITS | Encounter Summary ---
Author Organization [facility] Address [address] [place] [address] Care Team Providers Care Hand Stitcher Name Role Phone Unavailable Primary Care Provider Unavailabl e Encounter Details Date Type Department Care Team (Late st Contact Info) Description 07/26/2003 7:23 EST Hospital Encounter [address] [address] Samuel Christian MD 108 [facility] [address] [place], [place] [phone] Social History Tobacco Use Types Packs/Day Years [...] ORDERABLES Final Result [facility] [address] [place] [address] documented in this encounter Visit Diagnoses Not on filedocumented in this encounter
--- OUTSIDE RECORDS SUMMARY | 2003-07-30 09:09 | XMS_ITS | Encounter Summary ---
Author Organization [facility] Address [address] [place] [address] Care Team Providers Care Loading Dock Hand Name Role Phone Unavailable Primary Care Provider Unavailabl e Encounter Details Date Type Department Care Team (Late st Contact Info) Description 07/30/2003 8:09 EST Hospital Encounter [address] [address] Samuel Christian MD 108 [facility] [address] [place], [place] [phone] Social History Tobacco Use Types Packs/Day Years [...] ORDERABLES Final Result [facility] [address] [place] [address] documented in this encounter Visit Diagnoses Not on filedocumented in this encounter
--- OUTSIDE RECORDS SUMMARY | 2003-08-02 08:28 | XMS_ITS | Encounter Summary ---
Author Organization [facility] Address [address] [place] [address] Care Team Providers Care Geodetic Surveyor Technologist Name Role Phone Unavailable Primary Care Provider Unavailabl e Encounter Details Date Type Department Care Team (Late st Contact Info) Description 08/02/2003 7:28 EST Hospital Encounter [address] [address] Samuel Christian MD 108 [facility] [address] [place], [place] [phone] Social History Tobacco Use Types Packs/Day Years [...] ORDERABLES Final Result [facility] [address] [place] [address] documented in this encounter Visit Diagnoses Not on filedocumented in this encounter
--- OUTSIDE RECORDS SUMMARY | 2003-08-07 09:41 | XMS_ITS | Encounter Summary ---
Author Organization [facility] Address [address] [place] [address] Care Team Providers Care Ux Ui Designer Name Role Phone Unavailable Primary Care Provider Unavailabl e Encounter Details Date Type Department Care Team ([facility] st Contact Info) Description 08/07/2003 8:41 EST Hospital Encounter [address] [place] [address] Samuel Christian MD 108 [facility] [address] [place], [place] [address] Italo Cortez MD [address] [place] [phone] Social History Tobacco Use Types Packs/Day [...] or absence of malignant disease. Assayed utilizing [employer] chemiluminescent technology. Values obtained by using different assay methods cannot be used interchangeably. Assay changed to equimolar method 11/14/00. 08/07/2003 8:51 EST 08/07/2003 8:53 EST Pita Parks MD CHEMISTRY & BLOOD GAS ORDERA BLES Final Result Performing Organization Address [facility] de Phone Number [facility] [address] [place] [address] * (ABNORMAL) PROTIME (08/07/2003 8:47 EST) Pro [...] PF4 ORDERABLES Final Result Performing Organization Address [facility] Co de Phone Number [facility] [address] [place] [address] documented in this encounter Visit Diagnoses Not on filedocumented in this encounter
--- OUTSIDE RECORDS SUMMARY | 2003-08-14 08:52 | XMS_ITS | Encounter Summary ---
Author Organization [facility] Address [address] [place] [address] Care Team Providers Care Buffet Server Name Role Phone Unavailable Primary Care Provider Unavailabl e Encounter Details Date Type Department Care Team (Late st Contact Info) Description 08/14/2003 7:52 EST Hospital Encounter [address] [address] Samuel Christian MD 108 [facility] [address] [place], [place] [phone] Social History Tobacco Use Types Packs/Day Years [...] Pro Time 28.8(H) 10.9 - 13.9 secs [facility] I.N.R. 2.6(H) 0.9 - 1.1 Ratio [facility] Comment: Moderate Intensity Coumadin INR = 2.0-3.0 Adjustments in anticoagulant therapy dose should be based upon the INR and NOT the Pro Time. 08/14/2003 7:47 EST 08/14/2003 7:49 EST us Samuel Christian MD HEMATOLOGY & PF4 ORDERABLES Final Result [facility] [address] [place] [address] documented in this encounter Visit Diagnoses Not on filedocumented in this encounter
--- OUTSIDE RECORDS SUMMARY | 2003-09-19 07:52 | XMS_ITS | Encounter Summary ---
Author Organization [facility] Address [address] [place] [address] Care Team Providers Care Child And Youth Program Assistant Name Role Phone Unavailable Primary Care Provider Unavailabl e Encounter Details Date Type Department Care Team (Late st Contact Info) Description 09/19/2003 7:52 EDT Hospital Encounter [address] [address] Samuel Christian MD 108 [facility] [address] [place], [place] [phone] Social History Tobacco Use Types Packs/Day Years [...] Time 29.0(H) 10.9 - 13.9 secs [facility] I.N.R. 2.7(H) 0.9 - 1.1 Ratio [facility] Comment: Moderate Intensity Coumadin INR = 2.0-3.0 Adjustments in anticoagulant therapy dose should be based upon the INR and NOT the Pro Time. 09/19/2003 8:01 EDT 09/19/2003 8:03 EDT us Samuel Christian MD HEMATOLOGY & PF4 ORDERABLES Final Result [facility] [address] [place] [address] documented in this encounter Visit Diagnoses Not on filedocumented in this encounter
--- OUTSIDE RECORDS SUMMARY | 2003-10-10 07:12 | XMS_ITS | Encounter Summary ---
Author Organization [facility] Address [address] [place] [address] Care Team Providers Care Geek Squad Manager Name Role Phone Unavailable Primary Care Provider Unavailabl e Encounter Details Date Type Department Care Team (Late st Contact Info) Description 10/10/2003 7:12 EDT Hospital Encounter [address] [address] Samuel Christian MD 108 [facility] [address] [place], [place] [phone] Social History Tobacco Use Types Packs/Day Years [...] I.N.R. 3.0(H) 0.9 - 1.1 Ratio [facility] Comment: Moderate Intensity Coumadin INR = 2.0-3.0 Adjustments in anticoagulant therapy dose should be based upon the INR and NOT the Pro Time. Patient on Coumadin 10/10/2003 7:16 EDT 10/10/2003 7:19 EDT us Samuel Christian MD HEMATOLOGY & PF4 ORDERABLES Final Result [facility] [address] [place] [address] documented in this encounter Visit Diagnoses Not on filedocumented in this encounter
--- OUTSIDE RECORDS SUMMARY | 2003-10-24 07:43 | XMS_ITS | Encounter Summary ---
Author Organization [facility] Address [address] [place] [address] Care Team Providers Care Glass Calibrator Name Role Phone Unavailable Primary Care Provider Unavailabl e Encounter Details Date Type Department Care Team (Late st Contact Info) Description 10/24/2003 7:43 EDT Hospital Encounter [address] [address] Samuel Christian MD 108 [facility] [address] [place], [place] [phone] Social History Tobacco Use Types Packs/Day Years [...] Time 27.5(H) 10.9 - 13.9 secs [facility] I.N.R. 2.5(H) 0.9 - 1.1 Ratio [facility] Comment: Moderate Intensity Coumadin INR = 2.0-3.0 Adjustments in anticoagulant therapy dose should be based upon the INR and NOT the Pro Time. 10/24/2003 7:56 EDT 10/24/2003 7:59 EDT us Samuel Christian MD HEMATOLOGY & PF4 ORDERABLES Final Result [facility] [address] [place] [address] documented in this encounter Visit Diagnoses Not on filedocumented in this encounter
--- OUTSIDE RECORDS SUMMARY | 2003-11-07 07:15 | XMS_ITS | Encounter Summary ---
Author Organization [facility] Address [address] [place] [address] Care Team Providers Care Labor/Excavator Name Role Phone Unavailable Primary Care Provider Unavailabl e Encounter Details Date Type Department Care Team (Late st Contact Info) Description 11/07/2003 7:15 EDT Hospital Encounter [address] [address] Samuel Christian MD 108 [facility] [address] [place], [place] [phone] Social History Tobacco Use Types Packs/Day Years [...] PF4 ORDERABLES Final Result [facility] [address] [place] [address] documented in this encounter Visit Diagnoses Not on filedocumented in this encounter
--- OUTSIDE RECORDS SUMMARY | 2003-11-14 07:12 | XMS_ITS | Encounter Summary ---
Author Organization [facility] Address [address] [place] [address] Care Team Providers Care Hatchery Manager Name Role Phone Unavailable Primary Care Provider Unavailabl e Encounter Details Date Type Department Care Team (Late st Contact Info) Description 11/14/2003 7:12 EDT Hospital Encounter [address] [address] Samuel Christian MD 108 [facility] [address] [place], [place] [phone] Social History Tobacco Use Types Packs/Day Years [...] PF4 ORDERABLES Final Result [facility] [address] [place] [address] documented in this encounter Visit Diagnoses Not on filedocumented in this encounter
--- OUTSIDE RECORDS SUMMARY | 2003-11-21 07:03 | XMS_ITS | Encounter Summary ---
Author Organization [facility] Address [address] [place] [address] Care Team Providers Care Cma Or Lpn Name Role Phone Unavailable Primary Care Provider Unavailabl e Encounter Details Date Type Department Care Team (Late st Contact Info) Description 11/21/2003 7:03 EDT Hospital Encounter [address] [address] Samuel Christian MD 108 [facility] [address] [place], [place] [phone] Social History Tobacco Use Types Packs/Day Years [...] Time 24.5(H) 10.9 - 13.9 secs [facility] I.N.R. 2.2(H) 0.9 - 1.1 Ratio [facility] Comment: Moderate Intensity Coumadin INR = 2.0-3.0 Adjustments in anticoagulant therapy dose should be based upon the INR and NOT the Pro Time. 11/21/2003 7:06 EDT 11/21/2003 7:09 EDT us Samuel Christian MD HEMATOLOGY & PF4 ORDERABLES Final Result [facility] [address] [place] [address] documented in this encounter Visit Diagnoses Not on filedocumented in this encounter
--- OUTSIDE RECORDS SUMMARY | 2003-12-05 07:33 | XMS_ITS | Encounter Summary ---
Author Organization [facility] Address [address] [place] [address] Care Team Providers Care Inventory Specialist Name Role Phone Unavailable Primary Care Provider Unavailabl e Encounter Details Date Type Department Care Team (Late st Contact Info) Description 12/05/2003 7:33 EDT Hospital Encounter [address] [address] Samuel Christian MD 108 [facility] [address] [place], [place] [phone] Social History Tobacco Use Types Packs/Day Years [...] PF4 ORDERABLES Final Result [facility] [address] [place] [address] documented in this encounter Visit Diagnoses Not on filedocumented in this encounter
--- OUTSIDE RECORDS SUMMARY | 2003-12-19 07:37 | XMS_ITS | Encounter Summary ---
Author Organization [facility] Address [address] [place] [address] Care Team Providers Care Phytopathology Teacher Name Role Phone Unavailable Primary Care Provider Unavailabl e Encounter Details Date Type Department Care Team (Late st Contact Info) Description 12/19/2003 7:37 EDT Hospital Encounter [address] [address] Samuel Christian MD 108 [facility] [address] [place], [place] [phone] Social History Tobacco Use Types Packs/Day Years [...] PF4 ORDERABLES Final Result [facility] [address] [place] [address] documented in this encounter Visit Diagnoses Not on filedocumented in this encounter
--- OUTSIDE RECORDS SUMMARY | 2004-01-09 07:04 | XMS_ITS | Encounter Summary ---
Author Organization [facility] Address [address] [place] [address] Care Team Providers Care Sagger Maker Name Role Phone Unavailable Primary Care Provider Unavailabl e Encounter Details Date Type Department Care Team (Late st Contact Info) Description 01/09/2004 7:04 EDT Hospital Encounter [address] [address] Samuel Christian MD 108 [facility] [address] [place], [place] [phone] Social History Tobacco Use Types Packs/Day Years [...] PF4 ORDERABLES Final Result [facility] [address] [place] [address] documented in this encounter Visit Diagnoses Not on filedocumented in this encounter
--- OUTSIDE RECORDS SUMMARY | 2004-01-23 07:21 | XMS_ITS | Encounter Summary ---
Author Organization [facility] Address [address] [place] [address] Care Team Providers Care Sales And Business Development Manager Name Role Phone Unavailable Primary Care Provider Unavailabl e Encounter Details Date Type Department Care Team (Late st Contact Info) Description 01/23/2004 7:21 EDT Hospital Encounter [address] [address] Samuel Christian MD 108 [facility] [address] [place], [place] [phone] Social History Tobacco Use Types Packs/Day Years [...] Time 25.6(H) 10.9 - 13.9 secs [facility] I.N.R. 2.3(H) 0.9 - 1.1 Ratio [facility] Comment: Moderate Intensity Coumadin INR = 2.0-3.0 Adjustments in anticoagulant therapy dose should be based upon the INR and NOT the Pro Time. 01/23/2004 7:30 EDT 01/23/2004 7:33 EDT us Samuel Christian MD HEMATOLOGY & PF4 ORDERABLES Final Result [facility] [address] [place] [address] documented in this encounter Visit Diagnoses Not on filedocumented in this encounter
--- OUTSIDE RECORDS SUMMARY | 2004-08-13 17:57 | XMS_ITS | Encounter Summary ---
Author Organization [facility] Address [address] [place] [address] Care Team Providers Care Apartment Community Manager Name Role Phone Unavailable Primary Care Provider Unavailabl e Encounter Details Date Type Department Care Team (Late st Contact Info) Description 08/13/2004 16:57 EST Hospital Encounter [address] [address] Partha Malone MD [address] [place] [phone] Social History Tobacco Use Types Packs/Day Years [...]
--- OUTSIDE RECORDS SUMMARY | 2004-08-15 09:54 | XMS_ITS | Encounter Summary ---
Author Organization [facility] Address [address] [place] [address] Care Team Providers Care Senior Qualitative Researcher Name Role Phone Unavailable Primary Care Provider Unavailabl e Encounter Details Date Type Department Care Team (Late st Contact Info) Description 08/15/2004 8:54 EST Hospital Encounter [address] [address] Samuel Christian MD 108 [facility] [address] [place], [place] [id number] Social History Tobacco Use Types Packs/Day Years [...] 12.3 - 14.7 secs [facility] I.N.R. 1.3(H) 0.9 - 1.1 Ratio [facility] Comment: Moderate Intensity Coumadin INR = 2.0-3.0 Adjustments in anticoagulant therapy dose should be based upon the INR and NOT the Pro Time. 08/15/2004 9:27 EST 08/15/2004 9:29 EST Samuel Christian MD HEMATOLOGY & PF4 ORDERABLES Final Result Performing Organization Address City/[facility] Co de Phone Number [facility] [address] [place] [address] * HEMAGRAM (08/15/2004 9:27 EST) [facility] WBC 5.50 4.0 - 10.4 K/cmm HEATH [...] % [facility] Comment:Performed at [facility], [place], [place] 08/15/2004 9:27 EST 08/15/2004 9:29 EST Samuel Christian MD HEMATOLOGY & PF4 ORDERABLES Final Result Performing Organization Address City/[facility] Co de Phone Number [facility] [address] [place] [address] documented in this encounter Visit Diagnoses Not on filedocumented in this encounter
--- OUTSIDE RECORDS SUMMARY | 2004-08-18 09:14 | XMS_ITS | Encounter Summary ---
Author Organization [facility] Address [address] [place] [address] Care Team Providers Care Lab Pack Chemist Name Role Phone Unavailable Primary Care Provider Unavailabl e Encounter Details Date Type Department Care Team (Late st Contact Info) Description 08/18/2004 9:14 EDT Hospital Encounter [address] [address] Samuel Christian MD 108 [facility] [address] [place], [place] [phone] Social History Tobacco Use Types Packs/Day Years [...] Pro Time 20.5(H) 12.3 - 14.7 secs [facility] I.N.R. 1.7(H) 0.9 - 1.1 Ratio [facility] Comment: Moderate Intensity Coumadin INR = 2.0-3.0 Adjustments in anticoagulant therapy dose should be based upon the INR and NOT the Pro Time. Performed at [facility], [place], [place] 08/18/2004 9:13 EDT 08/18/2004 9:15 EDT us Samuel Christian MD HEMATOLOGY & PF4 ORDERABLES Final Result [facility] [address] [place] [address] * HEMAGRAM (08/18/2004 9:13 EDT) Pathologist [facility] WBC 7.40 4.0 - 10.4 K/cmm [facility] RBC 5.27 4.36 - 5.78 M/cmm [facility] Hemoglobin 16.5 13.8 - 17.3 gm/dl [facility] HCT 47.6 39.5 - 50.2 % [facility] MCV 90 81 - 95 fl [facility] MCH 31.2 27.6 - 33.0 pg [facility] MCHC 34.6 32.8 - 36.4 gm/dl [facility] PLT 314 141 - 320 K/cmm [facility] RDW-CV 12.1 11.8 - 14.1 % [facility] Comment:Performed at [facility] Willie cyr [facility], [place], [place] 08/18/2004 9:13 EDT 08/18/2004 9:15 EDT us Samuel Christian MD HEMATOLOGY & PF4 ORDERABLES Final Result Performing Organization Address City/[facility]/ZIP Co de Phone Number [facility] [address] [place] [address] documented in this encounter Visit Diagnoses Not on filedocumented in this encounter
--- OUTSIDE RECORDS SUMMARY | 2004-08-20 07:51 | XMS_ITS | Encounter Summary ---
Author Organization [facility] Address [address] [place] [address] Care Team Providers Care Hydraulic Barker Operator Name Role Phone Unavailable Primary Care Provider Unavailabl e Encounter Details Date Type Department Care Team (Late st Contact Info) Description 08/20/2004 7:51 EDT Hospital Encounter [address] [address] Samuel Christian MD 108 [facility] [address] [place], [place] [phone] Social History Tobacco Use Types Packs/Day Years [...] Time 23.8(H) 12.3 - 14.7 secs [facility] I.N.R. 2.1(H) 0.9 - 1.1 Ratio [facility] Comment: Moderate Intensity Coumadin INR = 2.0-3.0 Adjustments in anticoagulant therapy dose should be based upon the INR and NOT the Pro Time. Performed at [facility], [place], [place] 08/20/2004 7:51 EDT 08/20/2004 7:53 EDT us Samuel Christian MD HEMATOLOGY & PF4 ORDERABLES Final Result [facility] [address] [place] [address] documented in this encounter Visit Diagnoses Not on filedocumented in this encounter
--- OUTSIDE RECORDS SUMMARY | 2004-08-24 08:02 | XMS_ITS | Encounter Summary ---
Author Organization [facility] Address [address] [place] [address] Care Team Providers Care Line Leader Name Role Phone Unavailable Primary Care Provider Unavailabl e Encounter Details Date Type Department Care Team (Late st Contact Info) Description 08/24/2004 8:02 EDT Hospital Encounter [address] [address] Samuel Christian MD 108 [facility] [address] [place], [place] [phone] Social History Tobacco Use Types Packs/Day Years [...] Time 26.3(H) 12.3 - 14.7 secs [facility] I.N.R. 2.3(H) 0.9 - 1.1 Ratio [facility] Comment: Moderate Intensity Coumadin INR = 2.0-3.0 Adjustments in anticoagulant therapy dose should be based upon the INR and NOT the Pro Time. Performed at [facility], [place], [place] 08/24/2004 8:06 EDT 08/24/2004 8:08 EDT us Samuel Christian MD HEMATOLOGY & PF4 ORDERABLES Final Result [facility] [address] [place] [address] documented in this encounter Visit Diagnoses Not on filedocumented in this encounter
--- OUTSIDE RECORDS SUMMARY | 2004-08-27 07:41 | XMS_ITS | Encounter Summary ---
Author Organization [facility] Address [address] [place] [address] Care Team Providers Care Steel Detailer Name Role Phone Unavailable Primary Care Provider Unavailabl e Encounter Details Date Type Department Care Team (Late st Contact Info) Description 08/27/2004 7:41 EDT Hospital Encounter [address] [address] Samuel Christian MD 108 [facility] [address] [place], [place] [phone] Social History Tobacco Use Types Packs/Day Years [...] the Pro Time. Performed at [facility], [place], [place] 08/27/2004 7:40 EDT 08/27/2004 7:42 EDT us Samuel Christian MD HEMATOLOGY & PF4 ORDERABLES Final Result [facility] [address] [place] [address] documented in this encounter Visit Diagnoses Not on filedocumented in this encounter
--- OUTSIDE RECORDS SUMMARY | 2004-09-14 07:25 | XMS_ITS | Encounter Summary ---
Author Organization [facility] Address [address] [place] [address] Care Team Providers Care Supervisor Phosphoric Acid Name Role Phone Unavailable Primary Care Provider Unavailabl e Encounter Details Date Type Department Care Team (Late st Contact Info) Description 09/14/2004 7:25 EDT Hospital Encounter [address] [address] Samuel Christian MD 108 [facility] [address] [place], [place] [phone] Social History Tobacco Use Types Packs/Day Years [...] Time 31.2(H) 12.3 - 14.7 secs [facility] I.N.R. 2.9(H) 0.9 - 1.1 Ratio [facility] Comment: Moderate Intensity Coumadin INR = 2.0-3.0 Adjustments in anticoagulant therapy dose should be based upon the INR and NOT the Pro Time. Performed at [facility], [place], [place] 09/14/2004 7:24 EDT 09/14/2004 7:26 EDT us Samuel Christian MD HEMATOLOGY & PF4 ORDERABLES Final Result [facility] [address] [place] [address] documented in this encounter Visit Diagnoses Not on filedocumented in this encounter
--- OUTSIDE RECORDS SUMMARY | 2004-09-21 08:17 | XMS_ITS | Encounter Summary ---
Author Organization [facility] Address [address] [place] [address] Care Team Providers Care Hygiene Assistant Name Role Phone Unavailable Primary Care Provider Unavailabl e Encounter Details Date Type Department Care Team (Late st Contact Info) Description 09/21/2004 8:17 EDT Hospital Encounter [address] [address] Samuel Christian MD 108 [facility] [address] [place], [place] [phone] Social History Tobacco Use Types Packs/Day Years [...] the Pro Time. Performed at [facility], [place], [place] 09/21/2004 8:15 EDT 09/21/2004 8:18 EDT us Samuel Christian MD HEMATOLOGY & PF4 ORDERABLES Final Result [facility] [address] [place] [address] documented in this encounter Visit Diagnoses Not on filedocumented in this encounter
--- OUTSIDE RECORDS SUMMARY | 2004-09-28 07:18 | XMS_ITS | Encounter Summary ---
Author Organization [facility] Address [address] [place] [address] Care Team Providers Care Sales Vice President Name Role Phone Unavailable Primary Care Provider Unavailabl e Encounter Details Date Type Department Care Team (Late st Contact Info) Description 09/28/2004 7:18 EDT Hospital Encounter [address] [address] Samuel Christian MD 108 [facility] [address] [place], [place] [phone] Social History Tobacco Use Types Packs/Day Years [...] Time 30.9(H) 12.3 - 14.7 secs [facility] I.N.R. 2.9(H) 0.9 - 1.1 Ratio [facility] Comment: Moderate Intensity Coumadin INR = 2.0-3.0 Adjustments in anticoagulant therapy dose should be based upon the INR and NOT the Pro Time. Performed at [facility], [place], [place] 09/28/2004 7:22 EDT 09/28/2004 7:24 EDT us Samuel Christian MD HEMATOLOGY & PF4 ORDERABLES Final Result [facility] [address] [place] [address] documented in this encounter Visit Diagnoses Not on filedocumented in this encounter
--- OUTSIDE RECORDS SUMMARY | 2004-10-12 11:03 | XMS_ITS | Encounter Summary ---
Author Organization [facility] Address [address] [place] [address] Care Team Providers Care Art Dealer Name Role Phone Unavailable Primary Care Provider Unavailabl e Encounter Details Date Type Department Care Team (Late st Contact Info) Description 10/12/2004 11:03 EDT Hospital Encounter [address] [address] Samuel Christian MD 108 [facility] [address] [place], [place] [phone] Social History Tobacco Use Types Packs/Day Years [...] the Pro Time. Performed at [facility], [place], [place] 10/12/2004 11:0 3 EDT 10/12/2004 11:05 EDT us Samuel Christian MD HEMATOLOGY & PF4 ORDERABLES Final Result [facility] [address] [place] [address] documented in this encounter Visit Diagnoses Not on filedocumented in this encounter
--- OUTSIDE RECORDS SUMMARY | 2004-10-26 07:23 | XMS_ITS | Encounter Summary ---
Author Organization [facility] Address [address] [place] [address] Care Team Providers Care Centrifugal Separator Name Role Phone Unavailable Primary Care Provider Unavailabl e Encounter Details Date Type Department Care Team (Late st Contact Info) Description 10/26/2004 7:23 EDT Hospital Encounter [address] [address] Samuel Christian MD 108 [facility] [address] [place], [place] [address] Social History Tobacco Use Types Packs/Day Years [...]
--- OUTSIDE RECORDS SUMMARY | 2004-11-17 08:37 | XMS_ITS | Encounter Summary ---
Author Organization [facility] Address [address] [place] [address] Care Team Providers Care Operator Electronic Warfare Name Role Phone Unavailable Primary Care Provider Unavailabl e Encounter Details Date Type Department Care Team (Late st Contact Info) Description 11/17/2004 8:37 EDT Hospital Encounter [address] [address] Samuel Christian MD 108 [facility] [address] [place], [place] [address] Social History Tobacco Use Types Packs/Day Years [...]
--- OUTSIDE RECORDS SUMMARY | 2004-12-07 16:36 | XMS_ITS | Encounter Summary ---
Author Organization [facility] Address [address] [place] [address] Care Team Providers Care Radial Drill Operator For Plastic Name Role Phone Unavailable Primary Care Provider Unavailabl e Encounter Details Date Type Department Care Team (Late st Contact Info) Description 12/07/2004 16:36 EDT Hospital Encounter [address] [address] Italo Cortez MD [address] [place] [phone] Social History Tobacco Use Types Packs/Day Years [...]
--- OUTSIDE RECORDS SUMMARY | 2004-12-17 07:34 | XMS_ITS | Encounter Summary ---
Author Organization [facility] Address [address] [place] [address] Care Team Providers Care Distribution Clerk Name Role Phone Unavailable Primary Care Provider Unavailabl e Encounter Details Date Type Department Care Team (Late st Contact Info) Description 12/17/2004 7:34 EDT Hospital Encounter [address] [address] Samuel Christian MD 108 [facility] [address] [place], [place] [phone] Social History Tobacco Use Types Packs/Day Years [...] Time 26.5(H) 12.3 - 14.3 secs [facility] I.N.R. 2.4(H) 0.9 - 1.1 Ratio [facility] Comment: Moderate Intensity Coumadin INR = 2.0-3.0 Adjustments in anticoagulant therapy dose should be based upon the INR and NOT the Pro Time. Performed at [facility], [place], [place] 12/17/2004 7:34 EDT 12/17/2004 7:36 EDT us Samuel Christian MD HEMATOLOGY & PF4 ORDERABLES Final Result [facility] [address] [place] [address] documented in this encounter Visit Diagnoses Not on filedocumented in this encounter
--- OUTSIDE RECORDS SUMMARY | 2005-01-07 13:38 | XMS_ITS | Encounter Summary ---
Author Organization [facility] Address [address] [place] [address] Care Team Providers Care Pay Clerk Name Role Phone Unavailable Primary Care Provider Unavailabl e Encounter Details Date Type Department Care Team (Late st Contact Info) Description 01/07/2005 13:38 EDT Hospital Encounter [address] [address] Samuel Christian MD 108 [facility] [address] [place], [place] [phone] Social History Tobacco Use Types Packs/Day Years [...] the Pro Time. Performed at [facility], [place], [place] 01/07/2005 13:3 5 EDT 01/07/2005 13:38 EDT us Samuel Christian MD HEMATOLOGY & PF4 ORDERABLES Final Result [facility] [address] [place] [address] documented in this encounter Visit Diagnoses Not on filedocumented in this encounter
--- OUTSIDE RECORDS SUMMARY | 2005-01-25 17:22 | XMS_ITS | Encounter Summary ---
Author Organization [facility] Address [address] [place] [address] Care Team Providers Care Hydraulic Spinner Name Role Phone Unavailable Primary Care Provider Unavailabl e Encounter Details Date Type Department Care Team (Late st Contact Info) Description 01/25/2005 17:22 EDT Hospital Encounter [address] [address] Samuel Christian MD 108 [facility] [address] [place], [place] [id number] Social History Tobacco Use Types Packs/Day Years [...] AT 12:15 TODAY Performed at [facility], [place], [place] 01/25/2005 17:2 2 EDT 01/25/2005 17:24 EDT us Samuel Christian MD HEMATOLOGY & PF4 ORDERABLES Final Result [facility] [address] [place] [address] documented in this encounter Visit Diagnoses Not on filedocumented in this encounter
--- OUTSIDE RECORDS SUMMARY | 2005-04-13 09:32 | XMS_ITS | Encounter Summary ---
Author Organization [facility] Address [address] [place] [address] Care Team Providers Care Undergraduate Internship Name Role Phone Unavailable Primary Care Provider Unavailabl e Encounter Details Date Type Department Care Team (Late st Contact Info) Description 04/13/2005 8:32 EST Hospital Encounter [address] [address] Samuel Christian MD 108 [facility] [address] [place], [place] [address] Social History Tobacco Use Types Packs/Day Years [...]
--- OUTSIDE RECORDS SUMMARY | 2005-05-13 09:01 | XMS_ITS | Encounter Summary ---
Author Organization [facility] Address [address] [place] [address] Care Team Providers Care Rn Transport Name Role Phone Unavailable Primary Care Provider Unavailabl e Encounter Details Date Type Department Care Team (Late st Contact Info) Description 05/13/2005 8:01 EST Hospital Encounter [address] [address] Samuel Christian MD 108 [facility] [address] [place], [place] [phone] Social History Tobacco Use Types Packs/Day Years [...] the Pro Time. Performed at [facility], [place], [place] 05/13/2005 7:56 EST 05/13/2005 7:58 EST us Samuel Christian MD HEMATOLOGY & PF4 ORDERABLES Final Result [facility] [address] [place] [address] documented in this encounter Visit Diagnoses Not on filedocumented in this encounter
--- OUTSIDE RECORDS SUMMARY | 2025-01-09 11:22 | XMS_ITS ---
Author Organization [facility] Address [address] [facility] [address] [place] [address] Phone Care Team Providers Care Transportation Manager Name Role Phone Pcp, Unknown Primary [...]
--- OUTSIDE RECORDS SUMMARY | 2025-01-09 11:22 | XMS_ITS | Clinical Summary ---
Author Organization [facility] Address [address] [facility] [address] [place] [address] Phone Care Team Providers Care Wafer Abrading Machine Tender Name Role Phone Pcp, Unknown Primary Care [...] Info) Description 01/31/2025 9:15 AM EDT Telemedicine [facility] [place] [facility] [address] [facility], 7th Floor, [address] [place] [address] Maite Duke MD, PhD [address] [place] [address] [email or web address] Health Maintenance Due Date Last Done Comments [...] file Insurance MEDICARE PART A & B [facility] INDEMNITY MEDICARE PART A & B [facility] OUT OF [facility] INDEMNITY [facility] INDEMNITY MEDICARE PART A & B [employer] OUT OF STATE INDEMNITY MEDICARE PART A & B Member Subscriber Plan / Payer (Ef fective 2008-Present) Name:Brad Oscar Member ID:[id number] Relation to Subscriber:Self Name:Brad Oscar Subscriber ID:[id number] Payer ID:[id number] Group ID:Not on file Type:Medicare Address: [facility] [employer] [facility] [address] [place] [phone] [place] OUT OF [facility] INDEMNITY MEDICARE PART A & B [id number] [place] [address] [facility]ICARE PART [facility] B [facility] INDEMNITY MEDICARE PART A & B [facility] INDNITY Care Teams Wafer Abrading Machine Tender Relationship Specialty Start Date End Date Pcp, Unknown PCP - General 09/09/21 Additional Source Comments The information contained in this document represents components of the legal health record. It is not the complete legal health record.[facility]
--- OUTSIDE RECORDS SUMMARY | 2025-01-09 11:23 | XMS_ITS | Clinical Summary ---
Author Organization [facility] Address [address] [place] [address] Care Team Providers Care Radius Grinder Name Role Phone Jeremy Booth MD Primary Care Provider [phone] Medications MULTIVITAMINS (MULTI-VITAMIN ORAL) Take by mouth [...] COVID-19 Vaccine ( season) 2024 Insurance MEDICARE [facility] Care Teams Radius Grinder Relationship Specialty Start Date End Date Jeremy Booth MD PCP - General 01/09/15
[2025-01-09 13:16] LABS: MANUAL DIFF FLAG NO
[2025-01-09 13:55] LABS: Appearance Urine Clear; Glucose Urine UA Negative (Negative); PH 5.5 (5.0-9.0); Specific Gravity - Urine 1.015 (1.005-1.025)
[2025-01-09 14:01] LABS: Hematocrit 43.9 % (42.0-52.0); Hemoglobin 14.5 g/dl (14.0-18.0); Imm Gran Abs Auto 0.02 X10*3/uL (0.00-0.03); Imm Gran Pct Auto 0.3 % (0.0-0.4); Lymphocytes Absolute Auto 1.5 X10*3/uL (1.2-4.9); Mean Corpuscular HGB Conc 33.0 g/dl (31.0-36.0); Mean Corpuscular Hemoglobin 30.2 pg (27.0-33.0); Mean Corpuscular Volume 91.5 fL (80.0-98.0); NRBC Abs Auto 0.000 X10*3/uL (0.0-0.012); NRBC Pct Auto 0.0 /100WBC (0.0-0.2); Platelet Count 255 X10*3/uL (160-400); Red Blood Count 4.80 X10*6/uL (4.60-5.80); White Blood Count 6.2 X10*3/uL (4.8-10.8)
[2025-01-09 14:23] LABS: Alanine Aminotransferase 25 U/L (0-40); Albumin Level 4.3 g/dL (3.5-5.0); Alkaline Phosphatase 83 U/L (39-117); Anion Gap 12 (12-20); Aspartate Amino Transferase 29 U/L (5-37); Blood Urea Nitrogen 19 mg/dL (9-16); Calcium 9.0 mg/dL (8.4-10.2); Carbon Dioxide 25 mmol/L (22-29); Chloride 107 mmol/L (96-108); Cholesterol 147 mg/dL (<200); Estimated Glomerular Filt Rate > 60; HDL Cholesterol 40 mg/dL (>40); Potassium 4.5 mmol/L (3.3-5.1); Sodium 139 mmol/L (135-145); Total Protein 7.0 g/dL (6.5-8.0); Triglycerides 125 mg/dL (<150)
== END 2025-01-09 10:31 | disposition home or self-care (01) ==
LOC: HO.HMGCLDS 10:30
PROVIDERS: PCP Nurse Practitioner Family; Visit Provider Nurse Practitioner Family
DX: Z00.01 Encounter for general adult medical examination with abnormal findings (principal); Z12.5 Encounter for screening for malignant neoplasm of prostate; Z13.6 Encounter for screening for cardiovascular disorders; E55.9 Vitamin D deficiency, unspecified; R97.20 Elevated prostate specific antigen [PSA]
CPT/HCPCS: 36415; 80053; 80061; 81003; 82306; 84153; 84443; 85025

== ENCOUNTER 2025-01-17 08:46 | Outpatient (REF) | payer MEDICARE, BC, SELFPAY ==
--- OUTSIDE RECORDS SUMMARY | 2001-10-13 07:37 | XMS_ITS | Encounter Summary ---
Author Organization [facility] Address [address] [place] [address] Care Team Providers Care Reverse Unit Operator Fisherman Name Role Phone Unavailable Primary Care Provider Unavailabl e Encounter Details Date Type Department Care Team (Late st Contact Info) Description 10/13/2001 7:37 EDT Hospital Encounter [address] [address] Samuel Christian MD [address] [facility] [address] [place], [place] [phone] Social History Tobacco Use Types Packs/Day Years [...] results. [facility] Report Status Final [id number] [facility] 10/13/2001 7:36 EDT 10/13/2001 12:17 EDT Samuel Christian MD HISTORICAL LAB FOR SQ LOAD F inal Result Performing Organization Address [facility] Co de Phone Number [facility] [address] [place] [address] * UA REFLEX (10/13/2001 7:36 EDT) Pathologist [facility] UA Billing Microscopic not indicated. [facility] 10/13/2001 7:36 EDT 10/13/2001 7:38 EDT Samuel Christian MD URINALYSIS ORDERABLES Final Result Performing Organization Address [facility] Co de Phone Number [facility] [address] [place] [address] * (ABNORMAL) URINALYSIS (10/13/2001 7:36 EDT) Color, UA Yellow [facility] Clarity, UA Clear [facility] Glucose, UA Norm NORM [facility] Bilirubin, UA Neg NEG [facility] Ketones, UA Neg NEG [facility] Specific [place], Urine 1.026 Refractometer specific gravity(H) 1.005 - [...] URINALYSIS ORDERABLES Final Result Performing Organization Address [facility] de Phone Number [facility] [address] [place] [address] * THYROID CASCADE (10/13/2001 7:35 EDT) Pathologist [facility] TSH 2.86 0.35 - 5.50 uIU/ml [facility] Comment: TSH cascade is not recommended for patients in which pituitary or hypothalamic disorders are suspected. 10/13/2001 7:35 EDT 10/13/2001 7:37 EDT Samuel Christian MD CHEMISTRY & BLOOD GAS ORDERA BLES Final Result Performing Organization Address [facility] de Phone Number [facility] [address] [place] [address] * (ABNORMAL) LIPID PROFILE (INCLUDES CHOLESTEROL, TRIGLYCERIDES, HDL, LDL) (10/13/2001 7:35 EDT) Cholesterol 228 mg/dl [facility] Comment: Desirable:<200 Borderline:200-239 High Risk:>kf=629 Fasting Triglycerides 264(H) 35 - 160 mg/dl [facility] Comment:Fasting HDL 32 mg/dl [facility] Comment: Highly Desirable:>60 Desirable:35-60 High Risk:<35 Fasting LDL, Calculated 143 mg/dl [facility] Comment: Desirable:<130 Borderline:130-159 High Risk:>hc=960 Fasting Chol/HDL Ratio 7.1 Fasting [facility] 10/13/2001 7:35 EDT 10/13/2001 7:37 EDT Samuel Christian MD CHEMISTRY & BLOOD GAS ORDERA BLES Final Result Performing Organization Address City/[facility] Co de Phone Number [facility] [address] [place] [address] * HEMAGRAM (10/13/2001 7:35 EDT) WBC 8.17 [...] PF4 ORDERABLES Final Result Performing Organization Address [facility] Co de Phone Number [facility] [address] [place] [address] * COMPREHENSIVE METABOLIC PANEL (10/13/2001 7:35 EDT) [...] BLES Final Result [facility] [address] [place] [address] documented in this encounter Visit Diagnoses Not on filedocumented in this encounter
--- OUTSIDE RECORDS SUMMARY | 2002-08-15 18:33 | XMS_ITS | Encounter Summary ---
Author Organization [facility] Address [address] [place] [address] Care Team Providers Care Pigment And Lacquer Mixer Name Role Phone Unavailable Primary Care Provider Unavailabl e Encounter Details Date Type Department Care Team (Late st Contact Info) Description 08/15/2002 17:33 EST Hospital Encounter [facility] - Other [address] [place] [address] Kai Garcia MD [address] [place] [phone] Unknown, Provider, Social History Tobacco Use [...]
--- OUTSIDE RECORDS SUMMARY | 2002-09-12 08:15 | XMS_ITS | Encounter Summary ---
Author Organization [facility] Address [address] [place] [address] Care Team Providers Care Superintendent Landfill Operations Name Role Phone Unavailable Primary Care Provider Unavailabl e Encounter Details Date Type Department Care Team (Late st Contact Info) Description 09/12/2002 8:15 EDT Hospital Encounter [facility] - Other [address] [place] [address] Kai Garcia MD [address] [place] [phone] Social History Tobacco Use Types Packs/Day [...]
--- OUTSIDE RECORDS SUMMARY | 2002-09-13 16:29 | XMS_ITS | Encounter Summary ---
Author Organization [facility] Address [address] [place] [address] Care Team Providers Care System Software Programmer Name Role Phone Unavailable Primary Care Provider Unavailabl e Encounter Details Date Type Department Care Team (Late st Contact Info) Description 09/13/2002 16:29 EDT Hospital Encounter [facility] - Other [address] [place] [address] Kai Garcia MD [address] [place] [phone] Social History Tobacco Use Types Packs/Day [...]
--- OUTSIDE RECORDS SUMMARY | 2002-09-28 13:26 | XMS_ITS | Encounter Summary ---
Author Organization [facility] Address [address] [place] [address] Care Team Providers Care Mechanical Operator Name Role Phone Unavailable Primary Care Provider Unavailabl e Encounter Details Date Type Department Care Team (Late st Contact Info) Description 09/28/2002 13:26 EDT Hospital Encounter [facility] [address] [place] [address] Bravo Chicas MD [address] [place], [place] [address] Social History Tobacco Use Types Packs/Day Years [...]
--- OUTSIDE RECORDS SUMMARY | 2002-10-30 08:15 | XMS_ITS | Encounter Summary ---
Author Organization [facility] Address [address] [place] [address] Care Team Providers Care Golf Sales Associate Name Role Phone Unavailable Primary Care Provider Unavailabl e Encounter Details Date Type Department Care Team (Late st Contact Info) Description 10/30/2002 8:15 EDT Hospital Encounter [address] [address] Isac Rodriguez MD [address] [place] [phone] Social History Tobacco Use Types Packs/Day [...] PF4 ORDERABLES Final Result Performing Organization Address [facility] de Phone Number [facility] [address] [place] [address] * PROTIME (10/30/2002 8:13 EDT) Pro Time [...] PF4 ORDERABLES Final Result Performing Organization Address [facility] de Phone Number [facility] [address] [place] [address] * HEMAGRAM (10/30/2002 8:13 EDT) WBC 6.80 [...] ORDERABLES Final Result [facility] [address] [place] [address] documented in this encounter Visit Diagnoses Not on filedocumented in this encounter
--- OUTSIDE RECORDS SUMMARY | 2003-01-17 16:12 | XMS_ITS | Encounter Summary ---
Author Organization [facility] Address [address] [place] [address] Care Team Providers Care Electrical Designer Name Role Phone Unavailable Primary Care Provider Unavailabl e Encounter Details Date Type Department Care Team (Late st Contact Info) Description 01/17/2003 16:12 EDT Hospital Encounter [address] [address] Italo Cortez MD [address] [place] [phone] Social History Tobacco Use Types Packs/Day [...] or absence of malignant disease. Assayed utilizing [email or web address] chemiluminescent technology. Values obtained by using different assay methods cannot be used interchangeably. Assay changed to equimolar method 11/14/00. PREVIOUS PSA RESULT ON 08/15/02 WAS 27.8 01/17/2003 16:1 0 EDT 01/17/2003 16:13 EDT us Italo Cortez MD CHEMISTRY & BLOOD GAS ORDERABL ES Final Result [facility] [address] [place] [address] documented in this encounter Visit Diagnoses Not on filedocumented in this encounter
--- OUTSIDE RECORDS SUMMARY | 2003-04-18 09:24 | XMS_ITS | Encounter Summary ---
Author Organization [facility] Address [address] [place] [address] Care Team Providers Care Director Graphics Name Role Phone Unavailable Primary Care Provider Unavailabl e Encounter Details Date Type Department Care Team (Late st Contact Info) Description 04/18/2003 8:24 EST Hospital Encounter [address] [address] Italo Cortez MD [address] [place] [phone] Social History Tobacco Use Types Packs/Day [...] or absence of malignant disease. Assayed utilizing [employer] chemiluminescent technology. Values obtained by using different assay methods cannot be used interchangeably. Assay changed to equimolar method 11/14/00. 04/18/2003 8:27 EST 04/18/2003 8:29 EST us Italo Cortez MD CHEMISTRY & BLOOD GAS ORDERABL ES Final Result [facility] [address] [place] [address] documented in this encounter Visit Diagnoses Not on filedocumented in this encounter
--- OUTSIDE RECORDS SUMMARY | 2003-07-13 09:54 | XMS_ITS | Encounter Summary ---
Author Organization [facility] Address [address] [place] [address] Care Team Providers Care Director Building Name Role Phone Unavailable Primary Care Provider Unavailabl e Encounter Details Date Type Department Care Team (Late st Contact Info) Description 07/13/2003 8:54 EST Hospital Encounter [address] [address] Samuel Christian MD 108 [facility] [address] [place], [place] [address] Social History Tobacco Use Types Packs/Day Years [...]
--- OUTSIDE RECORDS SUMMARY | 2003-07-14 10:14 | XMS_ITS | Encounter Summary ---
Author Organization [facility] Address [address] [place] [address] Care Team Providers Care Spread Cutter Name Role Phone Unavailable Primary Care Provider Unavailabl e Encounter Details Date Type Department Care Team (Late st Contact Info) Description 07/14/2003 9:14 EST Hospital Encounter [address] [address] Samuel Christian MD 108 [facility] [address] [place], [place] [address] Social History Tobacco Use Types Packs/Day Years [...]
--- OUTSIDE RECORDS SUMMARY | 2003-07-17 09:32 | XMS_ITS | Encounter Summary ---
Author Organization [facility] Address [address] [place] [address] Care Team Providers Care Parcel Contractor Name Role Phone Unavailable Primary Care Provider Unavailabl e Encounter Details Date Type Department Care Team (Late st Contact Info) Description 07/17/2003 8:32 EST Hospital Encounter [address] [address] Samuel Christian MD [address] [facility] [address] [place], [place] [id number] Social History Tobacco Use Types Packs/Day Years [...] Results * (ABNORMAL) PROTIME (07/17/2003 8:26 EST) Pro Time 19.3(H) 10.9 - 13.9 secs [facility] I.N.R. 1.7(H) 0.9 - 1.1 Ratio [facility] Comment: Moderate Intensity Coumadin INR = 2.0-3.0 Adjustments in anticoagulant therapy dose should be based upon the INR and NOT the Pro Time. 07/17/2003 8:26 EST 07/17/2003 8:28 EST us Samuel Christian MD HEMATOLOGY & PF4 ORDERABLES Final Result Performing Organization Address City/[facility]/ZIP Co de Phone Number [facility] [address] [place] [address] * HEMAGRAM (07/17/2003 8:26 EST) Pathologist [facility] WBC 5.60 4.0 - 10.4 K/cmm [facility] [...] LAB RDW-CV 12.4 11.8 - 14.1 % [facility] 07/17/2003 8:26 EST 07/17/2003 8:28 EST us Samuel Christian MD HEMATOLOGY & PF4 ORDERABLES Final Result Performing Organization Address City/[facility] Co de Phone Number [facility] [address] [place] [address] documented in this encounter Visit Diagnoses Not on filedocumented in this encounter
--- OUTSIDE RECORDS SUMMARY | 2003-07-22 09:02 | XMS_ITS | Encounter Summary ---
Author Organization [facility] Address [address] [place] [address] Care Team Providers Care Packing And Wrapping Supervisor Name Role Phone Unavailable Primary Care Provider Unavailabl e Encounter Details Date Type Department Care Team (Late st Contact Info) Description 07/22/2003 8:02 EST Hospital Encounter [address] [address] Samuel Christian MD 108 [facility] [address] [place], [place] [address] Social History Tobacco Use Types Packs/Day Years [...]
--- OUTSIDE RECORDS SUMMARY | 2003-07-26 08:23 | XMS_ITS | Encounter Summary ---
Author Organization [facility] Address [address] [place] [address] Care Team Providers Care Street Sprinkler Name Role Phone Unavailable Primary Care Provider Unavailabl e Encounter Details Date Type Department Care Team (Late st Contact Info) Description 07/26/2003 7:23 EST Hospital Encounter [address] [address] Samuel Christian MD 108 [facility] [address] [place], [place] [address] Social History Tobacco Use Types Packs/Day Years [...] ORDERABLES Final Result [facility] [address] [place] [address] documented in this encounter Visit Diagnoses Not on filedocumented in this encounter
--- OUTSIDE RECORDS SUMMARY | 2003-07-30 09:09 | XMS_ITS | Encounter Summary ---
Author Organization [facility] Address [address] [place] [address] Care Team Providers Care Operations Representative Name Role Phone Unavailable Primary Care Provider Unavailabl e Encounter Details Date Type Department Care Team (Late st Contact Info) Description 07/30/2003 8:09 EST Hospital Encounter [address] [address] Samuel Christian MD 108 [facility] [address] [place], [place] [phone] Social History Tobacco Use Types Packs/Day Years [...] ORDERABLES Final Result [facility] [address] [place] [address] documented in this encounter Visit Diagnoses Not on filedocumented in this encounter
--- OUTSIDE RECORDS SUMMARY | 2003-08-02 08:28 | XMS_ITS | Encounter Summary ---
Author Organization [facility] Address [address] [place] [address] Care Team Providers Care Java Integration Developer Name Role Phone Unavailable Primary Care Provider Unavailabl e Encounter Details Date Type Department Care Team (Late st Contact Info) Description 08/02/2003 7:28 EST Hospital Encounter [address] [address] Samuel Christian MD 108 [facility] [address] [place], [place] [phone] Social History Tobacco Use Types Packs/Day Years [...] ORDERABLES Final Result [facility] [address] [place] [address] documented in this encounter Visit Diagnoses Not on filedocumented in this encounter
--- OUTSIDE RECORDS SUMMARY | 2003-08-07 09:41 | XMS_ITS | Encounter Summary ---
Author Organization [facility] Address [address] [place] [address] Care Team Providers Care Licensed Dispensing Optician Name Role Phone Unavailable Primary Care Provider Unavailabl e Encounter Details Date Type Department Care Team ([facility] st Contact Info) Description 08/07/2003 8:41 EST Hospital Encounter [address] [place] [address] Samuel Christian MD 108 [facility] [address] [place], [place] [address] Italo Cortez MD [address] [place] [phone] Social History Tobacco Use Types Packs/Day [...] or absence of malignant disease. Assayed utilizing [employer] chemiluminescent technology. Values obtained by using different assay methods cannot be used interchangeably. Assay changed to equimolar method 11/14/00. 08/07/2003 8:51 EST 08/07/2003 8:53 EST Pita Parks MD CHEMISTRY & BLOOD GAS ORDERA BLES Final Result Performing Organization Address [facility] de Phone Number [facility] [address] [place] [address] * (ABNORMAL) PROTIME (08/07/2003 8:47 EST) Pro [...] PF4 ORDERABLES Final Result Performing Organization Address [facility] Co de Phone Number [facility] [address] [place] [address] documented in this encounter Visit Diagnoses Not on filedocumented in this encounter
--- OUTSIDE RECORDS SUMMARY | 2003-08-14 08:52 | XMS_ITS | Encounter Summary ---
Author Organization [facility] Address [address] [place] [address] Care Team Providers Care Machine Feller Name Role Phone Unavailable Primary Care Provider Unavailabl e Encounter Details Date Type Department Care Team (Late st Contact Info) Description 08/14/2003 7:52 EST Hospital Encounter [address] [address] Samuel Christian MD 108 [facility] [address] [place], [place] [phone] Social History Tobacco Use Types Packs/Day Years [...] ORDERABLES Final Result [facility] [address] [place] [address] documented in this encounter Visit Diagnoses Not on filedocumented in this encounter
--- OUTSIDE RECORDS SUMMARY | 2003-09-19 07:52 | XMS_ITS | Encounter Summary ---
Author Organization [facility] Address [address] [place] [address] Care Team Providers Care Accountant Bookkeeper Name Role Phone Unavailable Primary Care Provider Unavailabl e Encounter Details Date Type Department Care Team (Late st Contact Info) Description 09/19/2003 7:52 EDT Hospital Encounter [address] [address] Samuel Christian MD 108 [facility] [address] [place], [place] [phone] Social History Tobacco Use Types Packs/Day Years [...] PF4 ORDERABLES Final Result [facility] [address] [place] [address] documented in this encounter Visit Diagnoses Not on filedocumented in this encounter
--- OUTSIDE RECORDS SUMMARY | 2003-10-10 07:12 | XMS_ITS | Encounter Summary ---
Author Organization [facility] Address [address] [place] [address] Care Team Providers Care Supervisor Sample Preparation Name Role Phone Unavailable Primary Care Provider Unavailabl e Encounter Details Date Type Department Care Team (Late st Contact Info) Description 10/10/2003 7:12 EDT Hospital Encounter [address] [address] Samuel Christian MD 108 [facility] [address] [place], [place] [phone] Social History Tobacco Use Types Packs/Day Years [...] ORDERABLES Final Result [facility] [address] [place] [address] documented in this encounter Visit Diagnoses Not on filedocumented in this encounter
--- OUTSIDE RECORDS SUMMARY | 2003-10-24 07:43 | XMS_ITS | Encounter Summary ---
Author Organization [facility] Address [address] [place] [address] Care Team Providers Care Head Charger Name Role Phone Unavailable Primary Care Provider Unavailabl e Encounter Details Date Type Department Care Team (Late st Contact Info) Description 10/24/2003 7:43 EDT Hospital Encounter [address] [address] Samuel Christian MD 108 [facility] [address] [place], [place] [phone] Social History Tobacco Use Types Packs/Day Years [...] PF4 ORDERABLES Final Result [facility] [address] [place] [address] documented in this encounter Visit Diagnoses Not on filedocumented in this encounter
--- OUTSIDE RECORDS SUMMARY | 2003-11-07 07:15 | XMS_ITS | Encounter Summary ---
Author Organization [facility] Address [address] [place] [address] Care Team Providers Care Collections Agent Name Role Phone Unavailable Primary Care Provider Unavailabl e Encounter Details Date Type Department Care Team (Late st Contact Info) Description 11/07/2003 7:15 EDT Hospital Encounter [address] [address] Samuel Christian MD 108 [facility] [address] [place], [place] [phone] Social History Tobacco Use Types Packs/Day Years [...] PF4 ORDERABLES Final Result [facility] [address] [place] [address] documented in this encounter Visit Diagnoses Not on filedocumented in this encounter
--- OUTSIDE RECORDS SUMMARY | 2003-11-14 07:12 | XMS_ITS | Encounter Summary ---
Author Organization [facility] Address [address] [place] [address] Care Team Providers Care Swimming Pool Plasterer Helper Name Role Phone Unavailable Primary Care Provider Unavailabl e Encounter Details Date Type Department Care Team (Late st Contact Info) Description 11/14/2003 7:12 EDT Hospital Encounter [address] [address] Samuel Christian MD 108 [facility] [address] [place], [place] [phone] Social History Tobacco Use Types Packs/Day Years [...] Time 20.8(H) 10.9 - 13.9 secs [facility] I.N.R. 1.8(H) 0.9 - 1.1 Ratio [facility] Comment: Moderate Intensity Coumadin INR = 2.0-3.0 Adjustments in anticoagulant therapy dose should be based upon the INR and NOT the Pro Time. 11/14/2003 7:22 EDT 11/14/2003 7:25 EDT us Samuel Christian MD HEMATOLOGY & PF4 ORDERABLES Final Result [facility] [address] [place] [address] documented in this encounter Visit Diagnoses Not on filedocumented in this encounter
--- OUTSIDE RECORDS SUMMARY | 2003-11-21 07:03 | XMS_ITS | Encounter Summary ---
Author Organization [facility] Address [address] [place] [address] Care Team Providers Care Enamel Dipper Name Role Phone Unavailable Primary Care Provider Unavailabl e Encounter Details Date Type Department Care Team (Late st Contact Info) Description 11/21/2003 7:03 EDT Hospital Encounter [address] [address] Samuel Christian MD 108 [facility] [address] [place], [place] [phone] Social History Tobacco Use Types Packs/Day Years [...] PF4 ORDERABLES Final Result [facility] [address] [place] [address] documented in this encounter Visit Diagnoses Not on filedocumented in this encounter
--- OUTSIDE RECORDS SUMMARY | 2003-12-05 07:33 | XMS_ITS | Encounter Summary ---
Author Organization [facility] Address [address] [place] [address] Care Team Providers Care Landscape Horticulture Instructor Name Role Phone Unavailable Primary Care Provider Unavailabl e Encounter Details Date Type Department Care Team (Late st Contact Info) Description 12/05/2003 7:33 EDT Hospital Encounter [address] [address] Samuel Christian MD 108 [facility] [address] [place], [place] [phone] Social History Tobacco Use Types Packs/Day Years [...] Time 28.6(H) 10.9 - 13.9 secs [facility] I.N.R. 2.6(H) 0.9 - 1.1 Ratio [facility] Comment: Moderate Intensity Coumadin INR = 2.0-3.0 Adjustments in anticoagulant therapy dose should be based upon the INR and NOT the Pro Time. 12/05/2003 7:39 EDT 12/05/2003 7:41 EDT us Samuel Christian MD HEMATOLOGY & PF4 ORDERABLES Final Result [facility] [address] [place] [address] documented in this encounter Visit Diagnoses Not on filedocumented in this encounter
--- OUTSIDE RECORDS SUMMARY | 2003-12-19 07:37 | XMS_ITS | Encounter Summary ---
Author Organization [facility] Address [address] [place] [address] Care Team Providers Care Health Safety Coordinator Name Role Phone Unavailable Primary Care Provider Unavailabl e Encounter Details Date Type Department Care Team (Late st Contact Info) Description 12/19/2003 7:37 EDT Hospital Encounter [address] [address] Samuel Christian MD 108 [facility] [address] [place], [place] [phone] Social History Tobacco Use Types Packs/Day Years [...] Time 29.6(H) 10.9 - 13.9 secs [facility] I.N.R. 2.7(H) 0.9 - 1.1 Ratio [facility] Comment: Moderate Intensity Coumadin INR = 2.0-3.0 Adjustments in anticoagulant therapy dose should be based upon the INR and NOT the Pro Time. 12/19/2003 7:44 EDT 12/19/2003 7:47 EDT us Samuel Christian MD HEMATOLOGY & PF4 ORDERABLES Final Result [facility] [address] [place] [address] documented in this encounter Visit Diagnoses Not on filedocumented in this encounter
--- OUTSIDE RECORDS SUMMARY | 2004-01-09 07:04 | XMS_ITS | Encounter Summary ---
Author Organization [facility] Address [address] [place] [address] Care Team Providers Care Host Coordinator Name Role Phone Unavailable Primary Care Provider Unavailabl e Encounter Details Date Type Department Care Team (Late st Contact Info) Description 01/09/2004 7:04 EDT Hospital Encounter [address] [address] Samuel Christian MD 108 [facility] [address] [place], [place] [phone] Social History Tobacco Use Types Packs/Day Years [...] PF4 ORDERABLES Final Result [facility] [address] [place] [address] documented in this encounter Visit Diagnoses Not on filedocumented in this encounter
--- OUTSIDE RECORDS SUMMARY | 2004-01-23 07:21 | XMS_ITS | Encounter Summary ---
Author Organization [facility] Address [address] [place] [address] Care Team Providers Care Technology Integration Specialist Name Role Phone Unavailable Primary Care Provider Unavailabl e Encounter Details Date Type Department Care Team (Late st Contact Info) Description 01/23/2004 7:21 EDT Hospital Encounter [address] [address] Samuel Christian MD 108 [facility] [address] [place], [place] [phone] Social History Tobacco Use Types Packs/Day Years [...] PF4 ORDERABLES Final Result [facility] [address] [place] [address] documented in this encounter Visit Diagnoses Not on filedocumented in this encounter
--- OUTSIDE RECORDS SUMMARY | 2004-08-13 17:57 | XMS_ITS | Encounter Summary ---
Author Organization [facility] Address [address] [place] [address] Care Team Providers Care Tunnel Miner Name Role Phone Unavailable Primary Care Provider Unavailabl e Encounter Details Date Type Department Care Team (Late st Contact Info) Description 08/13/2004 16:57 EST Hospital Encounter [address] [address] Partha Malone MD [address] [place] [phone] Social History Tobacco Use Types Packs/Day Years [...]
--- OUTSIDE RECORDS SUMMARY | 2004-08-15 09:54 | XMS_ITS | Encounter Summary ---
Author Organization [facility] Address [address] [place] [address] Care Team Providers Care Brass And Wind Instrument Repairer Name Role Phone Unavailable Primary Care Provider Unavailabl e Encounter Details Date Type Department Care Team (Late st Contact Info) Description 08/15/2004 8:54 EST Hospital Encounter [address] [address] Samuel Christian MD 108 [facility] [address] [place], [place] [id number] Social History Tobacco Use Types Packs/Day Years [...] PF4 ORDERABLES Final Result Performing Organization Address City/[facility] Co de Phone Number [facility] [address] [place] [address] * HEMAGRAM (08/15/2004 9:27 EST) [facility] WBC 5.50 4.0 - 10.4 K/cmm HEATH [...] [facility] Comment:Performed at [facility] [place] [facility], [place], [place] 08/15/2004 9:27 EST 08/15/2004 9:29 EST Samuel Christian MD HEMATOLOGY & PF4 ORDERABLES Final Result Performing Organization Address City/[facility] Co de Phone Number [facility] [address] [place] [address] documented in this encounter Visit Diagnoses Not on filedocumented in this encounter
--- OUTSIDE RECORDS SUMMARY | 2004-08-18 09:14 | XMS_ITS | Encounter Summary ---
Author Organization [facility] Address [address] [place] [address] Care Team Providers Care Assistant Pastry Chef Name Role Phone Unavailable Primary Care Provider Unavailabl e Encounter Details Date Type Department Care Team (Late st Contact Info) Description 08/18/2004 9:14 EDT Hospital Encounter [address] [address] Samuel Christian MD 108 [facility] [address] [place], [place] [phone] Social History Tobacco Use Types Packs/Day Years [...] Pro Time 20.5(H) 12.3 - 14.7 secs [facility] I.N.R. 1.7(H) 0.9 - 1.1 Ratio [facility] Comment: Moderate Intensity Coumadin INR = 2.0-3.0 Adjustments in anticoagulant therapy dose should be based upon the INR and NOT the Pro Time. Performed at [facility], [place], [place] 08/18/2004 9:13 EDT 08/18/2004 9:15 EDT us Samuel Christian MD HEMATOLOGY & PF4 ORDERABLES Final Result [facility] [address] [place] [address] * HEMAGRAM (08/18/2004 9:13 EDT) Pathologist [facility] WBC 7.40 4.0 - 10.4 K/cmm [facility] RBC 5.27 4.36 - 5.78 M/cmm [facility] Hemoglobin 16.5 13.8 - 17.3 gm/dl [facility] HCT 47.6 39.5 - 50.2 % [place] [place] MCV 90 81 - 95 fl [facility] MCH 31.2 27.6 - 33.0 pg [place] [place] [facility] MCHC 34.6 32.8 - 36.4 gm/dl [facility] PLT 314 141 - 320 K/cmm [facility] RDW-CV 12.1 11.8 - 14.1 % [facility] Comment:Performed at [facility] Willie cyr [facility], [place], [place] 08/18/2004 9:13 EDT 08/18/2004 9:15 EDT us Samuel Christian MD HEMATOLOGY & PF4 ORDERABLES Final Result Performing Organization Address City/[facility]/ZIP Co de Phone Number [facility] [address] [place] [address] documented in this encounter Visit Diagnoses Not on filedocumented in this encounter
--- OUTSIDE RECORDS SUMMARY | 2004-08-20 07:51 | XMS_ITS | Encounter Summary ---
Author Organization [facility] Address [address] [place] [address] Care Team Providers Care Personal Financial Advisor Name Role Phone Unavailable Primary Care Provider Unavailabl e Encounter Details Date Type Department Care Team (Late st Contact Info) Description 08/20/2004 7:51 EDT Hospital Encounter [address] [address] Samuel Christian MD 108 [facility] [address] [place], [place] [phone] Social History Tobacco Use Types Packs/Day Years [...] Pro Time 23.8(H) 12.3 - 14.7 secs [facility] I.N.R. 2.1(H) 0.9 - 1.1 Ratio [facility] Comment: Moderate Intensity Coumadin INR = 2.0-3.0 Adjustments in anticoagulant therapy dose should be based upon the INR and NOT the Pro Time. Performed at [facility], [place], [place] 08/20/2004 7:51 EDT 08/20/2004 7:53 EDT us Samuel Christian MD HEMATOLOGY & PF4 ORDERABLES Final Result [facility] [address] [place] [address] documented in this encounter Visit Diagnoses Not on filedocumented in this encounter
--- OUTSIDE RECORDS SUMMARY | 2004-08-24 08:02 | XMS_ITS | Encounter Summary ---
Author Organization [facility] Address [address] [place] [address] Care Team Providers Care Regulatory Lead Name Role Phone Unavailable Primary Care Provider Unavailabl e Encounter Details Date Type Department Care Team (Late st Contact Info) Description 08/24/2004 8:02 EDT Hospital Encounter [address] [address] Samuel Christian MD 108 [facility] [address] [place], [place] [phone] Social History Tobacco Use Types Packs/Day Years [...] the Pro Time. Performed at [facility], [place], [place] 08/24/2004 8:06 EDT 08/24/2004 8:08 EDT us Samuel Christian MD HEMATOLOGY & PF4 ORDERABLES Final Result [facility] [address] [place] [address] documented in this encounter Visit Diagnoses Not on filedocumented in this encounter
--- OUTSIDE RECORDS SUMMARY | 2004-08-27 07:41 | XMS_ITS | Encounter Summary ---
Author Organization [facility] Address [address] [place] [address] Care Team Providers Care Tire Retreader Name Role Phone Unavailable Primary Care Provider Unavailabl e Encounter Details Date Type Department Care Team (Late st Contact Info) Description 08/27/2004 7:41 EDT Hospital Encounter [address] [address] Samuel Christian MD 108 [facility] [address] [place], [place] [phone] Social History Tobacco Use Types Packs/Day Years [...] the Pro Time. Performed at [facility], [place], [place] 08/27/2004 7:40 EDT 08/27/2004 7:42 EDT us Samuel Christian MD HEMATOLOGY & PF4 ORDERABLES Final Result [facility] [address] [place] [address] documented in this encounter Visit Diagnoses Not on filedocumented in this encounter
--- OUTSIDE RECORDS SUMMARY | 2004-09-14 07:25 | XMS_ITS | Encounter Summary ---
Author Organization [facility] Address [address] [place] [address] Care Team Providers Care Fishing Vessel Mate Name Role Phone Unavailable Primary Care Provider Unavailabl e Encounter Details Date Type Department Care Team (Late st Contact Info) Description 09/14/2004 7:25 EDT Hospital Encounter [address] [address] Samuel Christian MD 108 [facility] [address] [place], [place] [phone] Social History Tobacco Use Types Packs/Day Years [...] the Pro Time. Performed at [facility], [place], [place] 09/14/2004 7:24 EDT 09/14/2004 7:26 EDT us Samuel hCristian MD HEMATOLOGY & PF4 ORDERABLES Final Result [facility] [address] [place] [address] documented in this encounter Visit Diagnoses Not on filedocumented in this encounter
--- OUTSIDE RECORDS SUMMARY | 2004-09-21 08:17 | XMS_ITS | Encounter Summary ---
Author Organization [facility] Address [address] [place] [address] Care Team Providers Care Cold Working Supervisor Name Role Phone Unavailable Primary Care Provider Unavailabl e Encounter Details Date Type Department Care Team (Late st Contact Info) Description 09/21/2004 8:17 EDT Hospital Encounter [address] [address] Samuel Christian MD 108 [facility] [address] [place], [place] [phone] Social History Tobacco Use Types Packs/Day Years [...] the Pro Time. Performed at [facility], [place], [place] 09/21/2004 8:15 EDT 09/21/2004 8:18 EDT us Samuel Christian MD HEMATOLOGY & PF4 ORDERABLES Final Result [facility] [address] [place] [address] documented in this encounter Visit Diagnoses Not on filedocumented in this encounter
--- OUTSIDE RECORDS SUMMARY | 2004-09-28 07:18 | XMS_ITS | Encounter Summary ---
Author Organization [facility] Address [address] [place] [address] Care Team Providers Care Network Strategist Name Role Phone Unavailable Primary Care Provider Unavailabl e Encounter Details Date Type Department Care Team (Late st Contact Info) Description 09/28/2004 7:18 EDT Hospital Encounter [address] [address] Samuel Christian MD 108 [facility] [address] [place], [place] [phone] Social History Tobacco Use Types Packs/Day Years [...] the Pro Time. Performed at [facility], [place], [place] 09/28/2004 7:22 EDT 09/28/2004 7:24 EDT us Samuel Christian MD HEMATOLOGY & PF4 ORDERABLES Final Result [facility] [address] [place] [address] documented in this encounter Visit Diagnoses Not on filedocumented in this encounter
--- OUTSIDE RECORDS SUMMARY | 2004-10-12 11:03 | XMS_ITS | Encounter Summary ---
Author Organization [facility] Address [address] [place] [address] Care Team Providers Care Telepathist Name Role Phone Unavailable Primary Care Provider Unavailabl e Encounter Details Date Type Department Care Team (Late st Contact Info) Description 10/12/2004 11:03 EDT Hospital Encounter [address] [address] Samuel Christian MD 108 [facility] [address] [place], [place] [phone] Social History Tobacco Use Types Packs/Day Years [...] the Pro Time. Performed at [facility], [place], [place] 10/12/2004 11:0 3 EDT 10/12/2004 11:05 EDT us Samuel Christian MD HEMATOLOGY & PF4 ORDERABLES Final Result [facility] [address] [place] [address] documented in this encounter Visit Diagnoses Not on filedocumented in this encounter
--- OUTSIDE RECORDS SUMMARY | 2004-10-26 07:23 | XMS_ITS | Encounter Summary ---
Author Organization [facility] Address [address] [place] [address] Care Team Providers Care Vp Talent Management Name Role Phone Unavailable Primary Care Provider Unavailabl e Encounter Details Date Type Department Care Team (Late st Contact Info) Description 10/26/2004 7:23 EDT Hospital Encounter [address] [address] Samuel Christian MD 108 [facility] [address] [place], [place] [address] Social History Tobacco Use Types Packs/Day Years [...]
--- OUTSIDE RECORDS SUMMARY | 2004-11-17 08:37 | XMS_ITS | Encounter Summary ---
Author Organization [facility] Address [address] [place] [address] Care Team Providers Care Injection Moulding Machine Operator Name Role Phone Unavailable Primary Care Provider Unavailabl e Encounter Details Date Type Department Care Team (Late st Contact Info) Description 11/17/2004 8:37 EDT Hospital Encounter [address] [address] Samuel Christian MD 108 [facility] [address] [place], [place] [address] Social History Tobacco Use Types Packs/Day Years [...]
--- OUTSIDE RECORDS SUMMARY | 2004-12-07 16:36 | XMS_ITS | Encounter Summary ---
Author Organization [facility] Address [address] [place] [address] Care Team Providers Care Driller Multiple Spindle Name Role Phone Unavailable Primary Care Provider Unavailabl e Encounter Details Date Type Department Care Team (Late st Contact Info) Description 12/07/2004 16:36 EDT Hospital Encounter [address] [address] Italo Cortez MD [address] [place] [phone] Social History Tobacco Use Types Packs/Day Years [...]
--- OUTSIDE RECORDS SUMMARY | 2004-12-17 07:34 | XMS_ITS | Encounter Summary ---
Author Organization [facility] Address [address] [place] [address] Care Team Providers Care In Home Baby Sitter Name Role Phone Unavailable Primary Care Provider Unavailabl e Encounter Details Date Type Department Care Team (Late st Contact Info) Description 12/17/2004 7:34 EDT Hospital Encounter [address] [address] Samuel Christian MD 108 [facility] [address] [place], [place] [phone] Social History Tobacco Use Types Packs/Day Years [...] Performed at [facility], [place], [place] 12/17/2004 7:34 EDT 12/17/2004 7:36 EDT us Samuel Christian MD HEMATOLOGY & PF4 ORDERABLES Final Result [facility] [address] [place] [address] documented in this encounter Visit Diagnoses Not on filedocumented in this encounter
--- OUTSIDE RECORDS SUMMARY | 2005-01-07 13:38 | XMS_ITS | Encounter Summary ---
Author Organization [facility] Address [address] [place] [address] Care Team Providers Care Unbundler Name Role Phone Unavailable Primary Care Provider Unavailabl e Encounter Details Date Type Department Care Team (Late st Contact Info) Description 01/07/2005 13:38 EDT Hospital Encounter [address] [address] Samuel Christian MD 108 [facility] [address] [place], [place] [phone] Social History Tobacco Use Types Packs/Day Years [...] Pro Time. Performed at [facility], [place], [place] 01/07/2005 13:3 5 EDT 01/07/2005 13:38 EDT us Samuel Christian MD HEMATOLOGY & PF4 ORDERABLES Final Result [facility] [address] [place] [address] documented in this encounter Visit Diagnoses Not on filedocumented in this encounter
--- OUTSIDE RECORDS SUMMARY | 2005-01-25 17:22 | XMS_ITS | Encounter Summary ---
Author Organization [facility] Address [address] [place] [address] Care Team Providers Care Gas Collection System Operator Name Role Phone Unavailable Primary Care Provider Unavailabl e Encounter Details Date Type Department Care Team (Late st Contact Info) Description 01/25/2005 17:22 EDT Hospital Encounter [address] [address] Samuel Christian MD 108 [facility] [address] [place], [place] [phone] Social History Tobacco Use Types Packs/Day Years [...] AT 12:15 TODAY Performed at [facility], [place], [place] 01/25/2005 17:2 2 EDT 01/25/2005 17:24 EDT us Samuel Christian MD HEMATOLOGY & PF4 ORDERABLES Final Result [facility] [address] [place] [address] documented in this encounter Visit Diagnoses Not on filedocumented in this encounter
--- OUTSIDE RECORDS SUMMARY | 2005-02-02 11:36 | XMS_ITS | Encounter Summary ---
Author Organization [facility] Address [address] [place] [address] Care Team Providers Care Planting Machine Operator Name Role Phone Unavailable Primary Care Provider Unavailabl e Encounter Details Date Type Department Care Team (Late st Contact Info) Description 02/02/2005 11:36 EDT Hospital Encounter [address] [address] Samuel Christian MD [address] [facility] [address] [place], [place] [phone] Social History Tobacco Use Types Packs/Day Years [...] Time 25.3(H) 11.8 - 14.8 secs [facility] I.N.R. 2.3(H) 0.9 - 1.1 Ratio [facility] Comment: Moderate Intensity Coumadin INR = 2.0-3.0 Adjustments in anticoagulant therapy dose should be based upon the INR and NOT the Pro Time. Performed at [facility], [place], [place] 02/02/2005 11:3 2 EDT 02/02/2005 11:34 EDT us Samuel Christian MD HEMATOLOGY & PF4 ORDERABLES Final Result [facility] [address] [place] [address] documented in this encounter Visit Diagnoses Not on filedocumented in this encounter
--- OUTSIDE RECORDS SUMMARY | 2005-04-13 09:32 | XMS_ITS | Encounter Summary ---
Author Organization [facility] Address [address] [place] [address] Care Team Providers Care Manager Strategy Name Role Phone Unavailable Primary Care Provider Unavailabl e Encounter Details Date Type Department Care Team (Late st Contact Info) Description 04/13/2005 8:32 EST Hospital Encounter [address] [address] Samuel Christian MD 108 [facility] [address] [place], [place] [address] Social History Tobacco Use Types Packs/Day Years [...]
--- OUTSIDE RECORDS SUMMARY | 2005-05-13 09:01 | XMS_ITS | Encounter Summary ---
Author Organization [facility] Address [address] [place] [address] Care Team Providers Care Automotive Service Consultant Name Role Phone Unavailable Primary Care Provider Unavailabl e Encounter Details Date Type Department Care Team (Late st Contact Info) Description 05/13/2005 8:01 EST Hospital Encounter [address] [address] Samuel Christian MD 108 [facility] [address] [place], [place] [phone] Social History Tobacco Use Types Packs/Day Years [...] the Pro Time. Performed at [facility], [place], [place] 05/13/2005 7:56 EST 05/13/2005 7:58 EST us Samuel Christian MD HEMATOLOGY & PF4 ORDERABLES Final Result [facility] [address] [place] [address] documented in this encounter Visit Diagnoses Not on filedocumented in this encounter
--- OUTSIDE RECORDS SUMMARY | 2025-01-17 09:19 | XMS_ITS | Clinical Summary ---
Author Organization [facility] Address [address] [place] [address] Care Team Providers Care Senior Communications Specialist Name Role Phone Jeremy Booth MD Primary Care Provider [phone] Medications MULTIVITAMINS (MULTI-VITAMIN ORAL) Take by mouth [...] COVID-19 Vaccine ( season) 2024 Insurance MEDICARE [facility] Care Teams Senior Communications Specialist Relationship Specialty Start Date End Date Jeremy Booth MD PCP - General 01/09/15
[2025-01-17 11:19] LABS: Prostate Specific Antigen < 0.10 ng/mL (<0.05-4.0)
== END 2025-01-17 08:47 | disposition home or self-care (01) ==
LOC: HO.HMGCLDS 08:46
PROVIDERS: PCP Nurse Practitioner Family; Visit Provider Internal Medicine
DX: Z00.01 Encounter for general adult medical examination with abnormal findings (principal); Z12.5 Encounter for screening for malignant neoplasm of prostate; C61 Malignant neoplasm of prostate; J98.6 Disorders of diaphragm; I82.509 Chronic embolism and thrombosis of unspecified deep veins of unspecified lower extremity; B35.9 Dermatophytosis, unspecified; Z79.01 Long term (current) use of anticoagulants; Z79.899 Other long term (current) drug therapy
CPT/HCPCS: 36415; 84153; 84403; 96127; 99212; 99397

== ENCOUNTER 2025-01-17 12:55 | Outpatient (AMB) | payer MEDICARE, BC, SELFPAY ==
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
[2025-01-17 13:08] VITALS: BP 120/64; PULSE 64; RESP 16; TEMP 36.8; BMI 27.3
--- OUTSIDE RECORDS SUMMARY | 2025-01-17 14:14 | XMS_ITS ---
Author Organization [facility] Address [address] [place] [address] Phone Care Team Providers Care Tax Adjuster Name Role Phone Pcp, Unknown Primary Care [...]
--- OUTSIDE RECORDS SUMMARY | 2025-01-17 14:14 | XMS_ITS | Encounter Summary ---
Author Organization [facility] Address [address] [place] [address] Phone Care Team Providers Care Band Saw Filer Name Role Phone Pcp, Unknown Primary Care Provider Unavailabl e Encounter Details Date Type Department Care Team (Late st Contact Info) Description 01/15/[address] [facility] [address], [address], [address] [place] [address] Nanci Bojorquez, RN [address] [place] [address] [email or web address] Malignant neoplasm of prostate (Primary Dx) Social History Tobacco Use Types Packs/Day Years Used Date Smoking Tobacco: Never Smokeless Tobacco: Never Education Answer Date Recorded Are you interested [...] on file Sexual Orientation Not on file documented as of this encounter Plan of Treatment Upcoming Encounters Date Type Department Care Team (Late st Contact Info) Description 01/31/2025 9:15 AM EDT Telemedicine [facility] [address], [address], [address] [place] [address] Maite Duke MD, PhD [address] [facility] [place] [address] [email or web address] Scheduled Orders Name Type Priority Associated Diagnoses Orde r Schedule PSA diagnostic (monitoring) Lab Routine Malignant neoplasm of prostate Expected: 01/15/2025, Expires: 01/15/2026 Testosterone, total Lab Routine Malignant neoplasm of prostate Expected: 01/15/2025, Expires: 01/15/2026 documented as of this encounter Visit Diagnoses Diagnosis Malignant neoplasm of prostate- Primary documented in this encounter Care Teams Band Saw Filer Relationship Specialty Start Date End Date Pcp, Unknown PCP - General 09/09/21 documented as of this encounter Additional Source Comments The information contained in this document represents components of the legal health record. It is not the complete legal health record.[facility]
--- OUTSIDE RECORDS SUMMARY | 2025-01-17 14:14 | XMS_ITS | Clinical Summary ---
Author Organization [facility] Address [address] [place] [address] Phone Care Team Providers Care Plasma Center Technician Name Role Phone Pcp, Unknown Primary Care [...] allergies 11/08/2002 Overview (07/05/2017): seasonal;PHS Allergy Remediation Encounters Date Type Department Care Team Description 01/15/2025 Orders Only [facility] [address], [address], [address] [place], [place] [phone] Nanci Bojorquez RN Malignant neoplasm of prostate (Primary Dx) from Last 3 Months Social History Tobacco Use Types Packs/Day Years [...] Info) Description 01/31/2025 9:15 AM EDT Telemedicine [facility] [address], [address], [address] [place] [address] Maite Duke MD, PhD [address] [phone] [email or web address] Health Maintenance Due Date Last Done Comments Adult Td,Tdap Booster 1945 CREATININE LEVEL 1945 POTASSIUM LEVEL 1943 DEPRESSION SCREENING 1955 PNEUMOCOCCAL VACCINES (50+ years) (1 of 2 - PCV) 1962 ZOSTER VACCINES (1 of 2) 1962 RSV VACCINE (1 - 1-dose 75+ series) 2018 INFLUENZA VACCINE (#1) 2024 3, 03/05/2022 COVID-19 VACCINE (2023-2 5 season) 2025 HEPATITIS A VACCINES Aged Out No long [...] file Insurance MEDICARE PART A & B [facility] INDEMNITY MEDICARE PART A & B [facility] INDEMN[facility] MEDICARE PART A & B [facility] OUT [facility] INDEMNITY MEDICARE PART A & B MEDICARE [facility] A & B [facility] INDEMNITY MEDICARE PART A & B [facility] INDEMNITY MEDICARE PART A & B [facility] INDEMNITY MEDICARE PART A & B [facility] OUT [facility] INDEMNITY MEDICARE PART A & B [facility] INDEMNITY Care Teams Plasma Center Technician Relationship Specialty Start Date End Date Pcp, Unknown PCP - General 09/09/21 Additional Source Comments The information contained in this document represents components of the legal health record. It is not the complete legal health record.[facility]
== END 2025-01-17 14:26 | disposition home or self-care (01) ==
LOC: HO.HMCC 12:55
PROVIDERS: PCP Nurse Practitioner Family; Visit Provider Nurse Practitioner Family
DX: Z00.01 Encounter for general adult medical examination with abnormal findings (principal); C61 Malignant neoplasm of prostate; I82.509 Chronic embolism and thrombosis of unspecified deep veins of unspecified lower extremity; J98.6 Disorders of diaphragm; B35.9 Dermatophytosis, unspecified

== ENCOUNTER 2025-02-04 13:01 | Outpatient (AMB) | payer MEDICARE, BC, SELFPAY ==
--- OUTSIDE RECORDS SUMMARY | 2003-07-26 08:23 | XMS_ITS | Encounter Summary ---
Demographics Address [address] [place] [address] Home Phone Preferred Language EN Marital Status Adventist Affiliation Unknown
--- OUTSIDE RECORDS SUMMARY | 2004-08-20 07:51 | XMS_ITS | Encounter Summary ---
Author Organization [facility] Address [address] [place] [address] Support Name Relationship Address Phone Guille Oscar Spouse Unknown [phone] Jeremy Oscar Son Unknown [phone]
--- OUTSIDE RECORDS SUMMARY | 2004-09-28 07:18 | XMS_ITS | Encounter Summary ---
Demographics Address [address] [place] [address] Home Phone Preferred Language EN
[2025-02-04 13:13] LABS: Prothrombin Time Whole Bld POC 27.5 sec (11.1-13.5); ~PT, ~INR - Anti Coag Clinic 2.3 (0.9-1.1)
--- NOTE | 2025-02-04 13:31 | MHC.OFFVISCO ---
Intake Intake Visit Reasons: Anticoagulation Allergies ranitidine (From Zantac) Allergy (Mild, Verified 02/04/25 13:06) Rash Medication List - Last Reconciled 02/04/25 by Rocio Dubon RN atorvastatin 10 mg PO BEDTIME ezetimibe 10 mg PO DAILY ketoconazole 2% 1 appl topical DAILY losartan 25 mg PO DAILY psyllium seed (sugar) (Metamucil (sugar) oral powder) 1 tsp PO BID warfarin 5 mg See Protocol PO DAILY Nursing Note INR: 2.3 in therapeutic range Medications and supplements reviewed *had genetic clotting testing done- siblings and mother hx of clotting Denies any signs and symptoms of bleeding or bruising or clotting. Bleeding, bruising, clotting discussed Nutritional guidance given Dose: 2.5MG X 2 DAYS/ 5MG X 5 DAYS F/U INR: 1 MONTH Patient verbalizes understanding of instructions given and will call with any new health changes or med changes Anti-Coag Initial Assessment Social Hx Patient Tobacco Use Status: Never used Tobacco alcohol intake: current Alcohol intake frequency: holidays/special occasions only Cardiovascular Hx: [place] Endocrine Hx: Thyroid Disease Blood Disorder Hx: Hyperlipidemia GI Hx: Other Hx: Prostate Cancer HX: Yes Psych. Illness/Depression: No Coding Level of Care Code Est Patient Level 1 Diagnoses Current use of anticoagulant therapy Z79.01 Assessment & Plan Assessment & Plan (1) Current use of anticoagulant therapy: Comment: (on Warfarin for hx DVTs) Code(s): Z79.01 - lead designer (current) use of anticoagulants Category: Medical
== END 2025-02-04 13:36 | disposition home or self-care (01) ==
LOC: HO.ACS 13:01
PROVIDERS: PCP Nurse Practitioner Family; Visit Provider Internal Medicine Medical Oncology
DX: Z79.01 Long term (current) use of anticoagulants (principal)

== ENCOUNTER → 2025-02-04 13:01 | Outpatient (BNVA) | payer MEDICARE, BC, SELFPAY | PROVIDERS: PCP Nurse Practitioner Family; Visit Provider Internal Medicine Medical Oncology | DX: Z51.81 Encounter for therapeutic drug level monitoring (principal); Z79.01 Long term (current) use of anticoagulants | CPT/HCPCS: 85610; 99211 ==

== ENCOUNTER 2025-03-04 13:04 | Outpatient (AMB) | payer MEDICARE, BC, SELFPAY ==
[2025-03-04 13:09] LABS: Prothrombin Time Whole Bld POC 43.5 sec (11.1-13.5); ~PT, ~INR - Anti Coag Clinic 3.6 (0.9-1.1)
--- NOTE | 2025-03-04 13:33 | MHC.OFFVISCO ---
Intake Intake Visit Reasons: Anticoagulation Allergies ranitidine (From Zantac) Allergy (Mild, Verified 03/04/25 13:04) Rash Medication List - Last Reconciled 03/04/25 by Analilia Keene, LIV atorvastatin 10 mg PO BEDTIME ezetimibe 10 mg PO DAILY ketoconazole 2% 1 appl topical DAILY losartan 25 mg PO DAILY psyllium seed (sugar) (Metamucil (sugar) oral powder) 1 tsp PO BID warfarin 5 mg See Protocol PO DAILY Nursing Note INR: 3.6 out of therapeutic range of 2-3 Pt is traveling to [place] tomorrow by plane. Medications and supplements reviewed No changes in health, diet, medications, or supplements, Denies any signs and symptoms of bleeding or bruising or clotting. Bleeding, bruising, clotting discussed Nutritional guidance given to have a serving of greens today Dose: decrease today's dose to 2.5mg (5mg) then 5mg X 5 days and 2.5mg X 2 days. F/U INR: 4 weeks Patient verbalizes understanding of instructions given Anti-Coag Initial Assessment Social Hx Patient Tobacco Use Status: Never used Tobacco alcohol intake: current Alcohol intake frequency: holidays/special occasions only Cardiovascular Hx: VT Endocrine Hx: Thyroid Disease Blood Disorder Hx: Hyperlipidemia GI Hx: Other Hx: Prostate Cancer HX: Yes Psych. Illness/Depression: No Coding Level of Care Code Est Patient Level 1 Diagnoses Current use of anticoagulant therapy Z79.01 Assessment & Plan Assessment & Plan (1) Current use of anticoagulant therapy: Comment: (on Warfarin for hx DVTs) Code(s): Z79.01 - half-way (current) use of anticoagulants Category: Medical
== END 2025-03-04 13:36 | disposition home or self-care (01) ==
LOC: HO.ACS 13:04
PROVIDERS: PCP Nurse Practitioner Family; Visit Provider Internal Medicine Medical Oncology
DX: Z79.01 Long term (current) use of anticoagulants (principal)

== ENCOUNTER → 2025-03-04 13:04 | Outpatient (BNVA) | payer MEDICARE, BC, SELFPAY | PROVIDERS: PCP Nurse Practitioner Family; Visit Provider Internal Medicine Medical Oncology | DX: Z86.718 Personal history of other venous thrombosis and embolism (principal); Z51.81 Encounter for therapeutic drug level monitoring; Z79.01 Long term (current) use of anticoagulants | CPT/HCPCS: 85610; 99211 ==

== ENCOUNTER 2025-04-01 13:07 | Outpatient (AMB) | payer MEDICARE, BC, SELFPAY ==
[2025-04-01 13:16] LABS: Prothrombin Time Whole Bld POC 35.4 sec (11.1-13.5); ~PT, ~INR - Anti Coag Clinic 3.0 (0.9-1.1)
--- NOTE | 2025-04-01 13:31 | MHC.OFFVISCO ---
Intake Intake Visit Reasons: Anticoagulation Allergies ranitidine (From Zantac) Allergy (Mild, Verified 04/01/25 13:07) Rash Medication List - Last Reconciled 04/01/25 by Rocio Dubon RN atorvastatin 10 mg PO BEDTIME ezetimibe 10 mg PO DAILY ketoconazole 2% 1 appl topical DAILY losartan 25 mg PO DAILY psyllium seed (sugar) (Metamucil (sugar) oral powder) 1 tsp PO BID warfarin 5 mg See Protocol PO DAILY Nursing Note INR: 3.0 in therapeutic range Medications and supplements reviewed No changes in health, diet, medications, or supplements, Denies any signs and symptoms of bleeding or bruising or clotting. Bleeding, bruising, clotting discussed Nutritional guidance given Dose: KEEP SAME DOSE 2.5MG X 2 DAYS/ 5MG X 5 DAYS F/U INR: 04/29/2025 Patient verbalizes understanding of instructions given Anti-Coag Initial Assessment Social Hx Patient Tobacco Use Status: Never used Tobacco alcohol intake: current Alcohol intake frequency: holidays/special occasions only Cardiovascular Hx: IN Endocrine Hx: Thyroid Disease Blood Disorder Hx: Hyperlipidemia GI Hx: Other Hx: Prostate Cancer HX: Yes Psych. 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
== END 2025-04-01 13:36 | disposition home or self-care (01) ==
LOC: HO.ACS 13:07
PROVIDERS: PCP Nurse Practitioner Family; Visit Provider Internal Medicine Medical Oncology
DX: Z79.01 Long term (current) use of anticoagulants (principal)

== ENCOUNTER → 2025-04-01 13:07 | Outpatient (BNVA) | payer MEDICARE, BC, SELFPAY | PROVIDERS: PCP Nurse Practitioner Family; Visit Provider Internal Medicine Medical Oncology | DX: Z86.718 Personal history of other venous thrombosis and embolism (principal); Z51.81 Encounter for therapeutic drug level monitoring; Z79.01 Long term (current) use of anticoagulants | CPT/HCPCS: 85610; 99211 ==

== ENCOUNTER 2025-04-29 14:53 | Outpatient (AMB) | payer MEDICARE, BC, SELFPAY ==
--- OUTSIDE RECORDS SUMMARY | 2001-10-13 06:37 | XMS_ITS | Encounter Summary ---
Author Organization Health system Address [address] [place] [address] Care Team Providers Care Lean Coach Name Role Phone Unavailable Primary Care Provider Unavailabl e Encounter Details Date Type Department Care Team (Late st Contact Info) Description 10/13/2001 7:37 EDT Hospital Encounter [address] [address] Samule Christian MD 108 [facility] [address] [place], [place] [id number] Social History Tobacco Use Types Packs/Day Years [...] results. [facility] Report Status Final [id number] [facility] 10/13/2001 7:36 EDT 10/13/2001 12:17 EDT Samuel Christian MD HISTORICAL LAB FOR SQ LOAD F inal Result Performing Organization Address [facility] Co de Phone Number [facility] [address] [place] [address] * UA REFLEX (10/13/2001 7:36 EDT) Pathologist [facility] UA Billing Microscopic not indicated. [facility] 10/13/2001 7:36 EDT 10/13/2001 7:38 EDT Samuel Christian MD URINALYSIS ORDERABLES Final Result Performing Organization Address [facility] Co de Phone Number [facility] [address] [place] [address] * (ABNORMAL) URINALYSIS (10/13/2001 7:36 EDT) Color, UA Yellow [facility] Clarity, UA Clear [facility] Glucose, UA Norm NORM [facility] Bilirubin, UA Neg NEG [facility] Ketones, UA Neg NEG [facility] Specific [place], Urine 1.026 Refractometer specific gravity(H) 1.005 - [...] URINALYSIS ORDERABLES Final Result Performing Organization Address [facility] de Phone Number [facility] [address] [place] [address] * THYROID CASCADE (10/13/2001 7:35 EDT) TSH 2.86 0.35 - 5.50 uIU/ml [facility] Comment: TSH cascade is not recommended for patients in which pituitary or hypothalamic disorders are suspected. 10/13/2001 7:35 EDT 10/13/2001 7:37 EDT Samuel Christian MD CHEMISTRY & BLOOD GAS ORDERA BLES Final Result Performing Organization Address [facility] de Phone Number [facility] [address] [place] [address] * (ABNORMAL) LIPID PROFILE (INCLUDES CHOLESTEROL, TRIGLYCERIDES, HDL, LDL) (10/13/2001 7:35 EDT) Cholesterol 228 mg/dl [facility] Comment: Desirable:<200 Borderline:200-239 High Risk:>fa=908 Fasting Triglycerides 264(H) 35 - 160 mg/dl [facility] Comment:Fasting HDL 32 mg/dl [facility] Comment: Highly Desirable:>60 Desirable:35-60 High Risk:<35 Fasting LDL, Calculated 143 mg/dl [facility] Comment: Desirable:<130 Borderline:130-159 High Risk:>th=082 Fasting Chol/HDL Ratio 7.1 Fasting [facility] 10/13/2001 7:35 EDT 10/13/2001 7:37 EDT Samuel Christian MD CHEMISTRY & BLOOD GAS ORDERA BLES Final Result Performing Organization Address City/[facility] Co de Phone Number [facility] [address] [place] [address] * HEMAGRAM (10/13/2001 7:35 EDT) WBC 8.17 [...] PF4 ORDERABLES Final Result Performing Organization Address [facility] Co de Phone Number [facility] [address] [place] [address] * COMPREHENSIVE METABOLIC PANEL (10/13/2001 7:35 EDT) [...] ORDERA BLES Final Result Performing Organization Address City/State/[facility] Co de Phone Number [facility] [address] [place] [address] documented in this encounter Visit Diagnoses Not on filedocumented in this encounter
--- OUTSIDE RECORDS SUMMARY | 2002-08-15 17:33 | XMS_ITS | Encounter Summary ---
Author Organization [facility] Address [address] [place] [address] Care Team Providers Care Outside Medical Sales Representative Name Role Phone Unavailable Primary Care Provider Unavailabl e Encounter Details Date Type Department Care Team (Late st Contact Info) Description 08/15/2002 17:33 EST Hospital Encounter [facility] - Other [address] [place] [address] Kai Garcia MD [address] [place] [phone] Unknown, Provider, Social History Tobacco Use Types Packs/Day Years [...] on file documented as of this encounter Visit Diagnoses Not on filedocumented in this encounter
--- OUTSIDE RECORDS SUMMARY | 2002-09-12 07:15 | XMS_ITS | Encounter Summary ---
Author Organization [facility] Address [address] [place] [address] Care Team Providers Care Salesforce Trainer Name Role Phone Unavailable Primary Care Provider Unavailabl e Encounter Details Date Type Department Care Team (Late st Contact Info) Description 09/12/2002 8:15 EDT Hospital Encounter [facility] - Other [address] [place] [address] Kai Garcia MD [address] [place] [phone] Social History Tobacco Use Types Packs/Day Years [...]
--- OUTSIDE RECORDS SUMMARY | 2002-09-13 15:29 | XMS_ITS | Encounter Summary ---
Author Organization [facility] Address [address] [place] [address] Care Team Providers Care Credit Product Analyst Name Role Phone Unavailable Primary Care Provider Unavailabl e Encounter Details Date Type Department Care Team (Late st Contact Info) Description 09/13/2002 16:29 EDT Hospital Encounter [facility] - Other [address] [place] [address] Kai Garcia MD [address] [place] [phone] Social History Tobacco Use Types Packs/Day [...]
--- OUTSIDE RECORDS SUMMARY | 2002-09-28 12:26 | XMS_ITS | Encounter Summary ---
Author Organization [facility] Address [address] [place] [address] Care Team Providers Care Lymphedema Therapist Name Role Phone Unavailable Primary Care Provider Unavailabl e Encounter Details Date Type Department Care Team (Late st Contact Info) Description 09/28/2002 13:26 EDT Hospital Encounter [facility] [address] [place] [address] Bravo Chicas MD [address] [place], [place] [id number] Social History Tobacco Use Types Packs/Day Years [...]
--- OUTSIDE RECORDS SUMMARY | 2002-10-30 07:15 | XMS_ITS | Encounter Summary ---
Author Organization [facility] Address [address] [place] [address] Care Team Providers Care Jukebox Routeman Name Role Phone Unavailable Primary Care Provider Unavailabl e Encounter Details Date Type Department Care Team (Late st Contact Info) Description 10/30/2002 8:15 EDT Hospital Encounter [address] [address] Isac Rodriguez MD [address] [place] [phone] Social History Tobacco Use Types Packs/Day [...] PF4 ORDERABLES Final Result Performing Organization Address [facility] de Phone Number [facility] [address] [place] [address] * PROTIME (10/30/2002 8:13 EDT) Pro Time [...] PF4 ORDERABLES Final Result Performing Organization Address [facility] de Phone Number [facility] [address] [place] [address] * HEMAGRAM (10/30/2002 8:13 EDT) WBC 6.80 [...] ORDERABLES Final Result [facility] [address] [place] [address] documented in this encounter Visit Diagnoses Not on filedocumented in this encounter
--- OUTSIDE RECORDS SUMMARY | 2003-01-17 15:12 | XMS_ITS | Encounter Summary ---
Author Organization [facility] Address [address] [place] [address] Care Team Providers Care Reservations Sales Agent Name Role Phone Unavailable Primary Care Provider Unavailabl e Encounter Details Date Type Department Care Team (Late st Contact Info) Description 01/17/2003 16:12 EDT Hospital Encounter [address] [address] Italo Cortez MD [address] [place] [phone] Social History Tobacco Use Types Packs/Day [...] Procedure Name Priority Date/Time Associated Diagnosis Comments PSA TOTAL, DIAGNOSTIC Routine 01/17/2003 16:10 EDT documented in this encounter Results * PSA (01/17/2003 16:10 EDT) PSA <0.1 0 - 3.5 ng/ml [facility] Comment: Serum PSA concentration should not be interpreted as absolute evidence for the presence or absence of malignant disease. Assayed utilizing [employer] chemiluminescent technology. Values obtained by using different assay methods cannot be used interchangeably. Assay changed to equimolar method 11/14/00. PREVIOUS PSA RESULT ON 08/15/02 WAS 27.8 01/17/2003 16:1 0 EDT 01/17/2003 16:13 EDT us Italo Cortez MD CHEMISTRY & BLOOD GAS ORDERABL ES Final Result [facility] [address] [place] [address] documented in this encounter Visit Diagnoses Not on filedocumented in this encounter
--- OUTSIDE RECORDS SUMMARY | 2003-04-18 08:24 | XMS_ITS | Encounter Summary ---
Author Organization [facility] Address [address] [place] [address] Care Team Providers Care Appliquer Name Role Phone Unavailable Primary Care Provider Unavailabl e Encounter Details Date Type Department Care Team (Late st Contact Info) Description 04/18/2003 8:24 EST Hospital Encounter [address] [address] Italo Cortez MD [address] [place] [phone] Social History Tobacco Use Types Packs/Day [...] or absence of malignant disease. Assayed utilizing [employer] chemiluminescent technology. Values obtained by using different assay methods cannot be used interchangeably. Assay changed to equimolar method 11/14/00. 04/18/2003 8:27 EST 04/18/2003 8:29 EST us Italo Cortez MD CHEMISTRY & BLOOD GAS ORDERABL ES Final Result [facility] [address] [place] [address] documented in this encounter Visit Diagnoses Not on filedocumented in this encounter
--- OUTSIDE RECORDS SUMMARY | 2003-07-13 08:54 | XMS_ITS | Encounter Summary ---
Author Organization [facility] Address [address] [place] [address] Care Team Providers Care Custom Shop Worker Name Role Phone Unavailable Primary Care Provider Unavailabl e Encounter Details Date Type Department Care Team (Late st Contact Info) Description 07/13/2003 8:54 EST Hospital Encounter [address] [address] Samuel Christian MD 108 [facility] [address] [place], [place] [address] Social History Tobacco Use Types Packs/Day Years [...]
--- OUTSIDE RECORDS SUMMARY | 2003-07-14 09:14 | XMS_ITS | Encounter Summary ---
Author Organization [facility] Address [address] [place] [address] Care Team Providers Care Car Wash Manager Name Role Phone Unavailable Primary Care Provider Unavailabl e Encounter Details Date Type Department Care Team (Late st Contact Info) Description 07/14/2003 9:14 EST Hospital Encounter [address] [address] Samuel Christian MD 108 [facility] [address] [place], [place] [address] Social History Tobacco Use Types Packs/Day Years [...]
--- OUTSIDE RECORDS SUMMARY | 2003-07-17 08:32 | XMS_ITS | Encounter Summary ---
Author Organization [facility] Address [address] [place] [address] Care Team Providers Care On Air Talent Name Role Phone Unavailable Primary Care Provider Unavailabl e Encounter Details Date Type Department Care Team (Late st Contact Info) Description 07/17/2003 8:32 EST Hospital Encounter [address] [address] Samuel Christian MD 108 [facility] [address] [place], [place] [id number] Social History Tobacco Use Types Packs/Day Years [...] (ABNORMAL) PROTIME (07/17/2003 8:26 EST) Pathologist [facility] Pro Time 19.3(H) 10.9 - 13.9 secs [facility] I.N.R. 1.7(H) 0.9 - 1.1 Ratio [facility] Comment: Moderate Intensity Coumadin INR = 2.0-3.0 Adjustments in anticoagulant therapy dose should be based upon the INR and NOT the Pro Time. 07/17/2003 8:26 EST 07/17/2003 8:28 EST us Samuel Christian MD HEMATOLOGY & PF4 ORDERABLES Final Result Performing Organization Address City/[facility] Co de Phone Number [facility] [address] [place] [address] * HEMAGRAM (07/17/2003 8:26 EST) WBC 5.60 [...] PF4 ORDERABLES Final Result Performing Organization Address City/[facility] Co de Phone Number [facility] [address] [place] [address] documented in this encounter Visit Diagnoses Not on filedocumented in this encounter
--- OUTSIDE RECORDS SUMMARY | 2003-07-22 08:02 | XMS_ITS | Encounter Summary ---
Author Organization [facility] Address [address] [place] [address] Care Team Providers Care Clerk To Justice Name Role Phone Unavailable Primary Care Provider Unavailabl e Encounter Details Date Type Department Care Team (Late st Contact Info) Description 07/22/2003 8:02 EST Hospital Encounter [address] [address] Samuel Christian MD 108 [facility] [address] [place], [place] [address] Social History Tobacco Use Types Packs/Day Years [...]
--- OUTSIDE RECORDS SUMMARY | 2003-07-26 07:23 | XMS_ITS | Encounter Summary ---
Author Organization [facility] Address [address] [place] [address] Care Team Providers Care Consultative Sales Associate Name Role Phone Unavailable Primary Care Provider Unavailabl e Encounter Details Date Type Department Care Team (Late st Contact Info) Description 07/26/2003 7:23 EST Hospital Encounter [address] [address] Samuel Christian MD 108 [facility] [address] [place], [place] [phone] Social History Tobacco Use Types Packs/Day Years [...] Priority Date/Time Associated Diagnosis Comments PROTIME Routine 07/26/2003 7:20 EST documented in this encounter Results * (ABNORMAL) PROTIME (07/26/2003 7:20 EST) Pro Time 36.7(H) 10.9 - 13.9 secs [facility] I.N.R. 3.5(H) 0.9 - 1.1 Ratio [facility] Comment: Moderate Intensity Coumadin INR = 2.0-3.0 Adjustments in anticoagulant therapy dose should be based upon the INR and NOT the Pro Time. 07/26/2003 7:20 EST 07/26/2003 7:22 EST us Samuel Christian MD HEMATOLOGY & PF4 ORDERABLES Final Result [facility] [address] [place] [address] documented in this encounter Visit Diagnoses Not on filedocumented in this encounter
--- OUTSIDE RECORDS SUMMARY | 2003-07-30 08:09 | XMS_ITS | Encounter Summary ---
Author Organization [facility] Address [address] [place] [address] Care Team Providers Care Beater Out Name Role Phone Unavailable Primary Care Provider Unavailabl e Encounter Details Date Type Department Care Team (Late st Contact Info) Description 07/30/2003 8:09 EST Hospital Encounter [address] [address] Samuel Christian MD 108 [facility] [address] [place], [place] [phone] Social History Tobacco Use Types Packs/Day Years [...] Priority Date/Time Associated Diagnosis Comments PROTIME Routine 07/30/2003 8:09 EST documented in this encounter Results * (ABNORMAL) PROTIME (07/30/2003 8:09 EST) Pro Time 28.3(H) 10.9 - 13.9 secs [facility] I.N.R. 2.6(H) 0.9 - 1.1 Ratio [facility] Comment: Moderate Intensity Coumadin INR = 2.0-3.0 Adjustments in anticoagulant therapy dose should be based upon the INR and NOT the Pro Time. 07/30/2003 8:09 EST 07/30/2003 8:11 EST us Samuel Christian MD HEMATOLOGY & PF4 ORDERABLES Final Result [facility] [address] [place] [address] documented in this encounter Visit Diagnoses Not on filedocumented in this encounter
--- OUTSIDE RECORDS SUMMARY | 2003-08-02 07:28 | XMS_ITS | Encounter Summary ---
Author Organization [facility] Address [address] [place] [address] Care Team Providers Care Director Of Strategic Sales Name Role Phone Unavailable Primary Care Provider Unavailabl e Encounter Details Date Type Department Care Team (Late st Contact Info) Description 08/02/2003 7:28 EST Hospital Encounter [address] [address] Samuel Christian MD 108 [facility] [address] [place], [place] [phone] Social History Tobacco Use Types Packs/Day Years [...] ORDERABLES Final Result [facility] [address] [place] [address] documented in this encounter Visit Diagnoses Not on filedocumented in this encounter
--- OUTSIDE RECORDS SUMMARY | 2003-08-07 08:41 | XMS_ITS | Encounter Summary ---
Author Organization [facility] Address [address] [place] [address] Care Team Providers Care Fairground Operator Name Role Phone Unavailable Primary Care Provider Unavailabl e Encounter Details Date Type Department Care Team (Late st Contact Info) Description 08/07/2003 8:41 EST Hospital Encounter [address] [place] [address] Samuel Christian MD 108 [facility] [address] [place], [place] [address] Italo Cortez MD [address] [place] [phone] Social History Tobacco Use Types Packs/Day [...] or absence of malignant disease. Assayed utilizing [employer] chemiluminescent technology. Values obtained by using different assay methods cannot be used interchangeably. Assay changed to equimolar method 11/14/00. 08/07/2003 8:51 EST 08/07/2003 8:53 EST Pita Parks MD CHEMISTRY & BLOOD GAS ORDERA BLES Final Result Performing Organization Address [facility] de Phone Number [facility] [address] [place] [address] * (ABNORMAL) PROTIME (08/07/2003 8:47 EST) Pro Time 30.9(H) 10.9 - 13.9 secs [facility] I.N.R. 2.9(H) 0.9 - 1.1 Ratio [facility] Comment: Moderate Intensity Coumadin INR = 2.0-3.0 Adjustments in anticoagulant therapy dose should be based upon the INR and NOT the Pro Time. 08/07/2003 8:47 EST 08/07/2003 8:49 EST aSmuel Christian MD HEMATOLOGY & PF4 ORDERABLES Final Result Performing Organization Address [facility] [[email or web address]] Co de Phone Number [facility] [address] [place] [address] documented in this encounter Visit Diagnoses Not on filedocumented in this encounter
--- OUTSIDE RECORDS SUMMARY | 2003-08-14 07:52 | XMS_ITS | Encounter Summary ---
Author Organization [facility] Address [address] [place] [address] Care Team Providers Care Automation Mechanic Name Role Phone Unavailable Primary Care Provider Unavailabl e Encounter Details Date Type Department Care Team (Late st Contact Info) Description 08/14/2003 7:52 EST Hospital Encounter [address] [address] Samuel Christian MD 108 [facility] [address] [place], [place] [phone] Social History Tobacco Use Types Packs/Day Years [...] Priority Date/Time Associated Diagnosis Comments PROTIME Routine 08/14/2003 7:47 EST documented in this encounter Results * (ABNORMAL) PROTIME (08/14/2003 7:47 EST) Pro Time 28.8(H) 10.9 - 13.9 secs [facility] I.N.R. 2.6(H) 0.9 - 1.1 Ratio [facility] Comment: Moderate Intensity Coumadin INR = 2.0-3.0 Adjustments in anticoagulant therapy dose should be based upon the INR and NOT the Pro Time. 08/14/2003 7:47 EST 08/14/2003 7:49 EST us Samuel Christian MD HEMATOLOGY & PF4 ORDERABLES Final Result [facility] [address] [place] [address] documented in this encounter Visit Diagnoses Not on filedocumented in this encounter
--- OUTSIDE RECORDS SUMMARY | 2003-09-19 06:52 | XMS_ITS | Encounter Summary ---
Author Organization [facility] Address [address] [place] [address] Care Team Providers Care Stake Setter Name Role Phone Unavailable Primary Care Provider Unavailabl e Encounter Details Date Type Department Care Team (Late st Contact Info) Description 09/19/2003 7:52 EDT Hospital Encounter [address] [address] Samuel Christian MD 108 [facility] [address] [place], [place] [phone] Social History Tobacco Use Types Packs/Day Years [...] PF4 ORDERABLES Final Result [facility] [address] [place] [address] documented in this encounter Visit Diagnoses Not on filedocumented in this encounter
--- OUTSIDE RECORDS SUMMARY | 2003-10-10 06:12 | XMS_ITS | Encounter Summary ---
Author Organization [facility] Address [address] [place] [address] Care Team Providers Care Annealing Torch Operator Name Role Phone Unavailable Primary Care Provider Unavailabl e Encounter Details Date Type Department Care Team (Late st Contact Info) Description 10/10/2003 7:12 EDT Hospital Encounter [address] [address] Samuel Christian MD 108 [facility] [address] [place], [place] [phone] Social History Tobacco Use Types Packs/Day Years [...] Priority Date/Time Associated Diagnosis Comments PROTIME Routine 10/10/2003 7:16 EDT documented in this encounter Results * (ABNORMAL) PROTIME (10/10/2003 7:16 EDT) Pro Time 32.4(H) 10.9 - 13.9 secs [facility] Comment:Patient on Coumadin I.N.R. 3.0(H) 0.9 - 1.1 Ratio [facility] Comment: Moderate Intensity Coumadin INR = 2.0-3.0 Adjustments in anticoagulant therapy dose should be based upon the INR and NOT the Pro Time. Patient on Coumadin 10/10/2003 7:16 EDT 10/10/2003 7:19 EDT us Samuel Christain MD HEMATOLOGY & PF4 ORDERABLES Final Result [facility] [address] [place] [address] documented in this encounter Visit Diagnoses Not on filedocumented in this encounter
--- OUTSIDE RECORDS SUMMARY | 2003-10-24 06:43 | XMS_ITS | Encounter Summary ---
Author Organization [facility] Address [address] [place] [address] Care Team Providers Care Secondary Education Professor Name Role Phone Unavailable Primary Care Provider Unavailabl e Encounter Details Date Type Department Care Team (Late st Contact Info) Description 10/24/2003 7:43 EDT Hospital Encounter [address] [address] Samuel Christian MD 108 [facility] [address] [place], [place] [phone] Social History Tobacco Use Types Packs/Day Years [...] PF4 ORDERABLES Final Result [facility] [address] [place] [address] documented in this encounter Visit Diagnoses Not on filedocumented in this encounter
--- OUTSIDE RECORDS SUMMARY | 2003-11-07 06:15 | XMS_ITS | Encounter Summary ---
Author Organization [facility] Address [address] [place] [address] Care Team Providers Care Airborne Electronics Analyst Name Role Phone Unavailable Primary Care Provider Unavailabl e Encounter Details Date Type Department Care Team (Late st Contact Info) Description 11/07/2003 7:15 EDT Hospital Encounter [address] [address] Samuel Christian MD 108 [facility] [address] [place], [place] [phone] Social History Tobacco Use Types Packs/Day Years [...] Priority Date/Time Associated Diagnosis Comments PROTIME Routine 11/07/2003 7:12 EDT documented in this encounter Results * (ABNORMAL) PROTIME (11/07/2003 7:12 EDT) Pro Time 17.9(H) 10.9 - 13.9 secs [facility] I.N.R. 1.5(H) 0.9 - 1.1 Ratio [facility] Comment: Moderate Intensity Coumadin INR = 2.0-3.0 Adjustments in anticoagulant therapy dose should be based upon the INR and NOT the Pro Time. 11/07/2003 7:12 EDT 11/07/2003 7:15 EDT us Samuel Christian MD HEMATOLOGY & PF4 ORDERABLES Final Result [facility] [address] [place] [address] documented in this encounter Visit Diagnoses Not on filedocumented in this encounter
--- OUTSIDE RECORDS SUMMARY | 2003-11-14 06:12 | XMS_ITS | Encounter Summary ---
Author Organization [facility] Address [address] [place] [address] Care Team Providers Care Health Care Facility Administrator Name Role Phone Unavailable Primary Care Provider Unavailabl e Encounter Details Date Type Department Care Team (Late st Contact Info) Description 11/14/2003 7:12 EDT Hospital Encounter [address] [address] Samuel Christian MD 108 [facility] [address] [place], [place] [phone] Social History Tobacco Use Types Packs/Day Years [...] PF4 ORDERABLES Final Result [facility] [address] [place] [address] documented in this encounter Visit Diagnoses Not on filedocumented in this encounter
--- OUTSIDE RECORDS SUMMARY | 2003-11-21 06:03 | XMS_ITS | Encounter Summary ---
Author Organization [facility] Address [address] [place] [address] Care Team Providers Care Community Support Professional Name Role Phone Unavailable Primary Care Provider Unavailabl e Encounter Details Date Type Department Care Team (Late st Contact Info) Description 11/21/2003 7:03 EDT Hospital Encounter [address] [address] Samuel Christian MD 108 [facility] [address] [place], [place] [phone] Social History Tobacco Use Types Packs/Day Years [...] Priority Date/Time Associated Diagnosis Comments PROTIME Routine 11/21/2003 7:06 EDT documented in this encounter Results * (ABNORMAL) PROTIME (11/21/2003 7:06 EDT) Pro Time 24.5(H) 10.9 - 13.9 secs [facility] I.N.R. 2.2(H) 0.9 - 1.1 Ratio [facility] Comment: Moderate Intensity Coumadin INR = 2.0-3.0 Adjustments in anticoagulant therapy dose should be based upon the INR and NOT the Pro Time. 11/21/2003 7:06 EDT 11/21/2003 7:09 EDT us Samuel Christian MD HEMATOLOGY & PF4 ORDERABLES Final Result [facility] [address] [place] [address] documented in this encounter Visit Diagnoses Not on filedocumented in this encounter
--- OUTSIDE RECORDS SUMMARY | 2003-12-05 06:33 | XMS_ITS | Encounter Summary ---
Author Organization [facility] Address [address] [place] [address] Care Team Providers Care Director Enterprise Sales Name Role Phone Unavailable Primary Care Provider Unavailabl e Encounter Details Date Type Department Care Team (Late st Contact Info) Description 12/05/2003 7:33 EDT Hospital Encounter [address] [address] Samuel Christian MD 108 [facility] [address] [place], [place] [phone] Social History Tobacco Use Types Packs/Day Years [...] 12/05/2003 7:39 EDT 12/05/2003 7:41 EDT us Samuel Christian MD HEMATOLOGY & PF4 ORDERABLES Final Result [facility] [address] [place] [address] documented in this encounter Visit Diagnoses Not on filedocumented in this encounter
--- OUTSIDE RECORDS SUMMARY | 2003-12-19 06:37 | XMS_ITS | Encounter Summary ---
Author Organization [facility] Address [address] [place] [address] Care Team Providers Care Snow Technician Name Role Phone Unavailable Primary Care Provider Unavailabl e Encounter Details Date Type Department Care Team (Late st Contact Info) Description 12/19/2003 7:37 EDT Hospital Encounter [address] [address] Samuel Christian MD 108 [facility] [address] [place], [place] [phone] Social History Tobacco Use Types Packs/Day Years [...] Priority Date/Time Associated Diagnosis Comments PROTIME Routine 12/19/2003 7:44 EDT documented in this encounter Results * (ABNORMAL) PROTIME (12/19/2003 7:44 EDT) Pro Time 29.6(H) 10.9 - 13.9 secs [facility] I.N.R. 2.7(H) 0.9 - 1.1 Ratio [facility] Comment: Moderate Intensity Coumadin INR = 2.0-3.0 Adjustments in anticoagulant therapy dose should be based upon the INR and NOT the Pro Time. 12/19/2003 7:44 EDT 12/19/2003 7:47 EDT us Samuel Christian MD HEMATOLOGY & PF4 ORDERABLES Final Result [facility] [address] [place] [address] documented in this encounter Visit Diagnoses Not on filedocumented in this encounter
--- OUTSIDE RECORDS SUMMARY | 2004-01-09 06:04 | XMS_ITS | Encounter Summary ---
Author Organization [facility] Address [address] [place] [address] Care Team Providers Care Counter Tacker Name Role Phone Unavailable Primary Care Provider Unavailabl e Encounter Details Date Type Department Care Team (Late st Contact Info) Description 01/09/2004 7:04 EDT Hospital Encounter [address] [address] Samuel Christian MD 108 [facility] [address] [place], [place] [phone] Social History Tobacco Use Types Packs/Day Years [...] Priority Date/Time Associated Diagnosis Comments PROTIME Routine 01/09/2004 7:02 EDT documented in this encounter Results * (ABNORMAL) PROTIME (01/09/2004 7:02 EDT) Pro Time 22.3(H) 10.9 - 13.9 secs [facility] I.N.R. 2.0(H) 0.9 - 1.1 Ratio [facility] Comment: Moderate Intensity Coumadin INR = 2.0-3.0 Adjustments in anticoagulant therapy dose should be based upon the INR and NOT the Pro Time. 01/09/2004 7:02 EDT 01/09/2004 7:04 EDT us Samuel Christian MD HEMATOLOGY & PF4 ORDERABLES Final Result [facility] [address] [place] [address] documented in this encounter Visit Diagnoses Not on filedocumented in this encounter
--- OUTSIDE RECORDS SUMMARY | 2004-01-23 06:21 | XMS_ITS | Encounter Summary ---
Author Organization [facility] Address [address] [place] [address] Care Team Providers Care Bilingual Customer Service Name Role Phone Unavailable Primary Care Provider Unavailabl e Encounter Details Date Type Department Care Team (Late st Contact Info) Description 01/23/2004 7:21 EDT Hospital Encounter [address] [address] Samuel Christian MD 108 [facility] [address] [place], [place] [phone] Social History Tobacco Use Types Packs/Day Years [...] Priority Date/Time Associated Diagnosis Comments PROTIME Routine 01/23/2004 7:30 EDT documented in this encounter Results * (ABNORMAL) PROTIME (01/23/2004 7:30 EDT) Pro Time 25.6(H) 10.9 - 13.9 secs [facility] I.N.R. 2.3(H) 0.9 - 1.1 Ratio [facility] Comment: Moderate Intensity Coumadin INR = 2.0-3.0 Adjustments in anticoagulant therapy dose should be based upon the INR and NOT the Pro Time. 01/23/2004 7:30 EDT 01/23/2004 7:33 EDT us Samuel Christian MD HEMATOLOGY & PF4 ORDERABLES Final Result [facility] [address] [place] [address] documented in this encounter Visit Diagnoses Not on filedocumented in this encounter
--- OUTSIDE RECORDS SUMMARY | 2004-08-13 16:57 | XMS_ITS | Encounter Summary ---
Author Organization [facility] Address [address] [place] [address] Care Team Providers Care Interior Design Instructor Name Role Phone Unavailable Primary Care Provider Unavailabl e Encounter Details Date Type Department Care Team (Late st Contact Info) Description 08/13/2004 16:57 EST Hospital Encounter [address] [address] Partha Malone MD [address] [place] [phone] Social History Tobacco Use Types Packs/Day Years [...]
--- OUTSIDE RECORDS SUMMARY | 2004-08-15 08:54 | XMS_ITS | Encounter Summary ---
Author Organization [facility] Address [address] [place] [address] Care Team Providers Care Tire Stripper Name Role Phone Unavailable Primary Care Provider Unavailabl e Encounter Details Date Type Department Care Team (Late st Contact Info) Description 08/15/2004 8:54 EST Hospital Encounter [address] [address] Samuel Christian MD 108 [facility] [address] [place], [place] [phone] Social History Tobacco Use Types Packs/Day Years [...] Priority Date/Time Associated Diagnosis Comments PROTIME Routine 08/15/2004 9:27 EST COMPLETE BLOOD COUNT Routine 08/15/2004 9:27 EST documented in this encounter Results * (ABNORMAL) PROTIME (08/15/2004 9:27 EST) Pro Time 16.6(H) 12.3 - 14.7 secs [facility] INR 1.3(H) 0.9 - 1.1 Ratio [facility] Comment: Moderate Intensity Coumadin INR = 2.0-3.0 Adjustments in anticoagulant therapy dose should be based upon the INR and NOT the Pro Time. 08/15/2004 9:27 EST 08/15/2004 9:29 EST Samuel Christian MD HEMATOLOGY & PF4 ORDERABLES Final Result Performing Organization Address City/[facility] Co de Phone Number [facility] [address] [place] [address] * HEMAGRAM (08/15/2004 9:27 EST) WBC 5.50 4.0 - 10.4 K/cmm [facility] RBC 5.16 4.36 - 5.78 M/cmm [facility] Hemoglobin 15.5 13.8 - 17.3 gm/dl [facility] HCT 46.9 39.5 - 50.2 % [facility] MCV 91 81 - 95 fl [facility] MCH 30.1 27.6 - 33.0 pg [facility] MCHC 33.1 32.8 - 36.4 gm/dl [facility] PLT 266 141 - 320 K/cmm [facility] RDW-CV 12.0 11.8 - 14.1 % [facility] Comment[facility] [place], [place] 08/15/2004 9:27 EST 08/15/2004 9:29 EST Samuel Christian MD HEMATOLOGY & PF4 ORDERABLES Final Result Performing Organization Address [facility] Co de Phone Number [facility] [address] [place] [address] documented in this encounter Visit Diagnoses Not on filedocumented in this encounter
--- OUTSIDE RECORDS SUMMARY | 2004-08-18 08:14 | XMS_ITS | Encounter Summary ---
Author Organization [facility] Address [address] [place] [address] Care Team Providers Care Legal Transcriptionist Name Role Phone Unavailable Primary Care Provider Unavailabl e Encounter Details Date Type Department Care Team (Late st Contact Info) Description 08/18/2004 9:14 EDT Hospital Encounter [address] [address] Samuel Christian MD 108 [facility] [address] [place], [place] [phone] Social History Tobacco Use Types Packs/Day Years [...] Priority Date/Time Associated Diagnosis Comments PROTIME Routine 08/18/2004 9:13 EDT COMPLETE BLOOD COUNT Routine 08/18/2004 9:13 EDT documented in this encounter Results * (ABNORMAL) PROTIME (08/18/2004 9:13 EDT) Pathologist [facility] Pro Time 20.5(H) 12.3 - 14.7 secs [facility] I.N.R. 1.7(H) 0.9 - 1.1 Ratio [facility] Comment: Moderate Intensity Coumadin INR = 2.0-3.0 Adjustments in anticoagulant therapy dose should be based upon the INR and NOT the Pro Time. Performed at [facility], [place], [place] 08/18/2004 9:13 EDT 08/18/2004 9:15 EDT us Samuel Christian MD HEMATOLOGY & PF4 ORDERABLES Final Result Performing Organization Address City/[facility]/ZIP Co de Phone Number [facility] [address] [place] [address] * HEMAGRAM (08/18/2004 9:13 EDT) Pathologist [facility] WBC 7.40 4.0 - 10.4 K/cmm [facility] RBC 5.27 4.36 - 5.78 M/cmm [facility] Hemoglobin 16.5 13.8 - 17.3 gm/dl [facility] HCT 47.6 39.5 - 50.2 % [facility] MCV 90 81 - 95 fl [facility] MCH 31.2 27.6 - 33.0 pg [facility] MCHC 34.6 32.8 - 36.4 gm/dl [facility] PLT 314 141 - 320 K/cmm [facility] RDW-CV 12.1 11.8 - 14.1 % [facility] Comment:Performed at [facility]ma Willie [facility]r [facility], [place], [place] 08/18/2004 9:13 EDT 08/18/2004 9:15 EDT us Samuel Christian MD HEMATOLOGY & PF4 ORDERABLES Final Result Performing Organization Address City/[facility]/ZIP Co de Phone Number [facility] [address] [place] [address] documented in this encounter Visit Diagnoses Not on filedocumented in this encounter
--- OUTSIDE RECORDS SUMMARY | 2004-08-20 06:51 | XMS_ITS | Encounter Summary ---
Author Organization [facility] Address [address] [place] [address] Care Team Providers Care Cook Pressure Name Role Phone Unavailable Primary Care Provider Unavailabl e Encounter Details Date Type Department Care Team (Late st Contact Info) Description 08/20/2004 7:51 EDT Hospital Encounter [address] [address] Samuel Christian MD 108 [facility] [address] [place], [place] [phone] Social History Tobacco Use Types Packs/Day Years [...] the Pro Time. Performed at [facility], [place], [place] 08/20/2004 7:51 EDT 08/20/2004 7:53 EDT us Samuel Christian MD HEMATOLOGY & PF4 ORDERABLES Final Result [facility] [address] [place] [address] documented in this encounter Visit Diagnoses Not on filedocumented in this encounter
--- OUTSIDE RECORDS SUMMARY | 2004-08-24 07:02 | XMS_ITS | Encounter Summary ---
Author Organization [facility] Address [address] [place] [address] Care Team Providers Care Silverware Washer Name Role Phone Unavailable Primary Care Provider Unavailabl e Encounter Details Date Type Department Care Team (Late st Contact Info) Description 08/24/2004 8:02 EDT Hospital Encounter [address] [address] Samuel Christian MD 108 [facility] [address] [place], [place] [phone] Social History Tobacco Use Types Packs/Day Years [...] Priority Date/Time Associated Diagnosis Comments PROTIME Routine 08/24/2004 8:06 EDT documented in this encounter Results * (ABNORMAL) PROTIME (08/24/2004 8:06 EDT) Pro Time 26.3(H) 12.3 - 14.7 secs [facility] I.N.R. 2.3(H) 0.9 - 1.1 Ratio [facility] Comment: Moderate Intensity Coumadin INR = 2.0-3.0 Adjustments in anticoagulant therapy dose should be based upon the INR and NOT the Pro Time. Performed at [facility], [place], [place] 08/24/2004 8:06 EDT 08/24/2004 8:08 EDT us Samuel Christian MD HEMATOLOGY & PF4 ORDERABLES Final Result [facility] [address] [place] [address] documented in this encounter Visit Diagnoses Not on filedocumented in this encounter
--- OUTSIDE RECORDS SUMMARY | 2004-08-27 06:41 | XMS_ITS | Encounter Summary ---
Author Organization [facility] Address [address] [place] [address] Care Team Providers Care Consumer Advocate Name Role Phone Unavailable Primary Care Provider Unavailabl e Encounter Details Date Type Department Care Team (Late st Contact Info) Description 08/27/2004 7:41 EDT Hospital Encounter [address] [address] Samuel Christian MD 108 [facility] [address] [place], [place] [phone] Social History Tobacco Use Types Packs/Day Years [...] Priority Date/Time Associated Diagnosis Comments PROTIME Routine 08/27/2004 7:40 EDT documented in this encounter Results * (ABNORMAL) PROTIME (08/27/2004 7:40 EDT) Pro Time 30.8(H) 12.3 - 14.7 secs [facility] I.N.R. 2.9(H) 0.9 - 1.1 Ratio [facility] Comment: Moderate Intensity Coumadin INR = 2.0-3.0 Adjustments in anticoagulant therapy dose should be based upon the INR and NOT the Pro Time. Performed at [facility], [place], [place] 08/27/2004 7:40 EDT 08/27/2004 7:42 EDT us Samuel Christian MD HEMATOLOGY & PF4 ORDERABLES Final Result [facility] [address] [place] [address] documented in this encounter Visit Diagnoses Not on filedocumented in this encounter
--- OUTSIDE RECORDS SUMMARY | 2004-09-14 06:25 | XMS_ITS | Encounter Summary ---
Author Organization [facility] Address [address] [place] [address] Care Team Providers Care Title Insurance Sales Representative Name Role Phone Unavailable Primary Care Provider Unavailabl e Encounter Details Date Type Department Care Team (Late st Contact Info) Description 09/14/2004 7:25 EDT Hospital Encounter [address] [address] Samuel Christian MD 108 [facility] [address] [place], [place] [phone] Social History Tobacco Use Types Packs/Day Years [...] Priority Date/Time Associated Diagnosis Comments PROTIME Routine 09/14/2004 7:24 EDT documented in this encounter Results * (ABNORMAL) PROTIME (09/14/2004 7:24 EDT) Pro Time 31.2(H) 12.3 - 14.7 secs [facility] I.N.R. 2.9(H) 0.9 - 1.1 Ratio [facility] Comment: Moderate Intensity Coumadin INR = 2.0-3.0 Adjustments in anticoagulant therapy dose should be based upon the INR and NOT the Pro Time. Performed at [facility], [place], [place] 09/14/2004 7:24 EDT 09/14/2004 7:26 EDT us Samuel Christian MD HEMATOLOGY & PF4 ORDERABLES Final Result [facility] [address] [place] [address] documented in this encounter Visit Diagnoses Not on filedocumented in this encounter
--- OUTSIDE RECORDS SUMMARY | 2004-09-21 07:17 | XMS_ITS | Encounter Summary ---
Author Organization [facility] Address [address] [place] [address] Care Team Providers Care Steam Table Associate Name Role Phone Unavailable Primary Care Provider Unavailabl e Encounter Details Date Type Department Care Team (Late st Contact Info) Description 09/21/2004 8:17 EDT Hospital Encounter [address] [address] Samuel Christian MD 108 [facility] [address] [place], [place] [phone] Social History Tobacco Use Types Packs/Day Years [...] the Pro Time. Performed at [facility], [place], [place] 09/21/2004 8:15 EDT 09/21/2004 8:18 EDT us Samuel Chrisitan MD HEMATOLOGY & PF4 ORDERABLES Final Result [facility] [address] [place] [address] documented in this encounter Visit Diagnoses Not on filedocumented in this encounter
--- OUTSIDE RECORDS SUMMARY | 2004-09-28 06:18 | XMS_ITS | Encounter Summary ---
Author Organization [facility] Address [address] [place] [address] Care Team Providers Care Outside Parts Sales Name Role Phone Unavailable Primary Care Provider Unavailabl e Encounter Details Date Type Department Care Team (Late st Contact Info) Description 09/28/2004 7:18 EDT Hospital Encounter [address] [address] Samuel Christian MD 108 [facility] [address] [place], [place] [phone] Social History Tobacco Use Types Packs/Day Years [...] Priority Date/Time Associated Diagnosis Comments PROTIME Routine 09/28/2004 7:22 EDT documented in this encounter Results * (ABNORMAL) PROTIME (09/28/2004 7:22 EDT) Pro Time 30.9(H) 12.3 - 14.7 secs [facility] I.N.R. 2.9(H) 0.9 - 1.1 Ratio [facility] Comment: Moderate Intensity Coumadin INR = 2.0-3.0 Adjustments in anticoagulant therapy dose should be based upon the INR and NOT the Pro Time. Performed at [facility], [place], [place] 09/28/2004 7:22 EDT 09/28/2004 7:24 EDT us Samuel Christian MD HEMATOLOGY & PF4 ORDERABLES Final Result [facility] [address] [place] [address] documented in this encounter Visit Diagnoses Not on filedocumented in this encounter
--- OUTSIDE RECORDS SUMMARY | 2004-10-12 10:03 | XMS_ITS | Encounter Summary ---
Author Organization [facility] Address [address] [place] [address] Care Team Providers Care Floor Layer Helper Name Role Phone Unavailable Primary Care Provider Unavailabl e Encounter Details Date Type Department Care Team (Late st Contact Info) Description 10/12/2004 11:03 EDT Hospital Encounter [address] [address] Samuel Christian MD 108 [facility] [address] [place], [place] [phone] Social History Tobacco Use Types Packs/Day Years [...] Priority Date/Time Associated Diagnosis Comments PROTIME Routine 10/12/2004 11:03 EDT documented in this encounter Results * (ABNORMAL) PROTIME (10/12/2004 11:03 EDT) Pro Time 30.6(H) 12.3 - 14.3 secs [facility] Comment:Note new reference r jarod. I.N.R. 2.9(H) 0.9 - 1.1 Ratio [facility] Comment: Moderate Intensity Coumadin INR = 2.0-3.0 Adjustments in anticoagulant therapy dose should be based upon the INR and NOT the Pro Time. Performed at [facility], [place], [place] 10/12/2004 11:0 3 EDT 10/12/2004 11:05 EDT us Samuel Christian MD HEMATOLOGY & PF4 ORDERABLES Final Result [facility] [address] [place] [address] documented in this encounter Visit Diagnoses Not on filedocumented in this encounter
--- OUTSIDE RECORDS SUMMARY | 2004-10-26 06:23 | XMS_ITS | Encounter Summary ---
Author Organization [facility] Address [address] [place] [address] Care Team Providers Care Compression Molding Machine Tender Name Role Phone Unavailable Primary Care Provider Unavailabl e Encounter Details Date Type Department Care Team (Late st Contact Info) Description 10/26/2004 7:23 EDT Hospital Encounter [address] [address] Samuel Christian MD 108 [facility] [address] [place], [place] [address] Social History Tobacco Use Types Packs/Day Years [...]
--- OUTSIDE RECORDS SUMMARY | 2004-11-17 07:37 | XMS_ITS | Encounter Summary ---
Author Organization [facility] Address [address] [place] [address] Care Team Providers Care Structured Cabling Technician Name Role Phone Unavailable Primary Care Provider Unavailabl e Encounter Details Date Type Department Care Team (Late st Contact Info) Description 11/17/2004 8:37 EDT Hospital Encounter [address] [address] Samuel Christian MD 108 [facility] [address] [place], [place] [address] Social History Tobacco Use Types Packs/Day Years [...]
--- OUTSIDE RECORDS SUMMARY | 2004-12-07 15:36 | XMS_ITS | Encounter Summary ---
Author Organization [facility] Address [address] [place] [address] Care Team Providers Care Framing Mill Operator Helper Name Role Phone Unavailable Primary Care Provider Unavailabl e Encounter Details Date Type Department Care Team (Late st Contact Info) Description 12/07/2004 16:36 EDT Hospital Encounter [address] [address] Italo Cortez MD [address] [place] [phone] Social History Tobacco Use Types Packs/Day Years [...]
--- OUTSIDE RECORDS SUMMARY | 2004-12-17 06:34 | XMS_ITS | Encounter Summary ---
Author Organization [facility] Address [address] [place] [address] Care Team Providers Care Laborer Powerhouse Name Role Phone Unavailable Primary Care Provider Unavailabl e Encounter Details Date Type Department Care Team (Late st Contact Info) Description 12/17/2004 7:34 EDT Hospital Encounter [address] [address] Samuel Christian MD 108 [facility] [address] [place], [place] [phone] Social History Tobacco Use Types Packs/Day Years [...] Time. Performed at [facility], [place], [place] 12/17/2004 7:34 EDT 12/17/2004 7:36 EDT us Samuel Christian MD HEMATOLOGY & PF4 ORDERABLES Final Result [facility] [address] [place] [address] documented in this encounter Visit Diagnoses Not on filedocumented in this encounter
--- OUTSIDE RECORDS SUMMARY | 2005-01-07 12:38 | XMS_ITS | Encounter Summary ---
Author Organization [facility] Address [address] [place] [address] Care Team Providers Care Medical Records Tech Name Role Phone Unavailable Primary Care Provider Unavailabl e Encounter Details Date Type Department Care Team (Late st Contact Info) Description 01/07/2005 13:38 EDT Hospital Encounter [address] [address] Samuel Christian MD 108 [facility] [address] [place], [place] [phone] Social History Tobacco Use Types Packs/Day Years [...] the Pro Time. Performed at [facility], [place], [place] 01/07/2005 13:3 5 EDT 01/07/2005 13:38 EDT us Samuel Christian MD HEMATOLOGY & PF4 ORDERABLES Final Result [facility] [address] [place] [address] documented in this encounter Visit Diagnoses Not on filedocumented in this encounter
--- OUTSIDE RECORDS SUMMARY | 2005-01-25 16:22 | XMS_ITS | Encounter Summary ---
Author Organization [facility] Address [address] [place] [address] Care Team Providers Care Coffee Roaster Helper Name Role Phone Unavailable Primary Care Provider Unavailabl e Encounter Details Date Type Department Care Team (Late st Contact Info) Description 01/25/2005 17:22 EDT Hospital Encounter [address] [address] Samuel Christian MD 108 [facility] [address] [place], [place] [id number] Social History Tobacco Use Types Packs/Day Years [...] AT 12:15 TODAY Performed at [facility], [place], [place] 01/25/2005 17:2 2 EDT 01/25/2005 17:24 EDT us Samuel Christian MD HEMATOLOGY & PF4 ORDERABLES Final Result [facility] [address] [place] [address] documented in this encounter Visit Diagnoses Not on filedocumented in this encounter
--- OUTSIDE RECORDS SUMMARY | 2005-02-02 10:36 | XMS_ITS | Encounter Summary ---
Author Organization [facility] Address [address] [place] [address] Care Team Providers Care Termination Clerk Name Role Phone Unavailable Primary Care Provider Unavailabl e Encounter Details Date Type Department Care Team (Late st Contact Info) Description 02/02/2005 11:36 EDT Hospital Encounter [address] [address] Samuel Christian MD 108 [facility] [address] [place], [place] [phone] Social History Tobacco Use Types Packs/Day Years [...] Priority Date/Time Associated Diagnosis Comments PROTIME Routine 02/02/2005 11:32 EDT documented in this encounter Results * (ABNORMAL) PROTIME (02/02/2005 11:32 EDT) Pro Time 25.3(H) 11.8 - 14.8 secs [facility] I.N.R. 2.3(H) 0.9 - 1.1 Ratio [facility] Comment: Moderate Intensity Coumadin INR = 2.0-3.0 Adjustments in anticoagulant therapy dose should be based upon the INR and NOT the Pro Time. Performed at [facility], [place], [place] 02/02/2005 11:3 2 EDT 02/02/2005 11:34 EDT us Samuel Christian MD HEMATOLOGY & PF4 ORDERABLES Final Result [facility] [address] [place] [address] documented in this encounter Visit Diagnoses Not on filedocumented in this encounter
--- OUTSIDE RECORDS SUMMARY | 2005-04-13 08:32 | XMS_ITS | Encounter Summary ---
Author Organization [facility] Address [address] [place] [address] Care Team Providers Care Expanded Function Dental Assistant Name Role Phone Unavailable Primary Care Provider Unavailabl e Encounter Details Date Type Department Care Team (Late st Contact Info) Description 04/13/2005 8:32 EST Hospital Encounter [address] [address] Samuel Christian MD 108 [facility] [address] [place], [place] [address] Social History Tobacco Use Types Packs/Day Years [...]
--- OUTSIDE RECORDS SUMMARY | 2005-05-13 08:01 | XMS_ITS | Encounter Summary ---
Author Organization [facility] Address [address] [place] [address] Care Team Providers Care Steam Shovel Operating Engineer Name Role Phone Unavailable Primary Care Provider Unavailabl e Encounter Details Date Type Department Care Team (Late st Contact Info) Description 05/13/2005 8:01 EST Hospital Encounter [address] [address] Samuel Christian MD [address] [place] [address] [address] [place], [place] [phone] Social History Tobacco Use Types Packs/Day Years [...] the Pro Time. Performed at [facility], [place], [place] 05/13/2005 7:56 EST 05/13/2005 7:58 EST us Samuel Christian MD HEMATOLOGY & PF4 ORDERABLES Final Result [facility] [address] [place] [address] documented in this encounter Visit Diagnoses Not on filedocumented in this encounter
[2025-04-29 15:02] LABS: Prothrombin Time Whole Bld POC 41.4 sec (11.1-13.5); ~PT, ~INR - Anti Coag Clinic 3.5 (0.9-1.1)
--- NOTE | 2025-04-29 15:15 | MHC.OFFVISCO ---
Intake Intake Visit Reasons: Anticoagulation Allergies ranitidine (From Zantac) Allergy (Mild, Verified 04/29/25 14:56) Rash Medication List - Last Reconciled 04/29/25 by Rocio Dubon RN atorvastatin 10 mg PO BEDTIME ezetimibe 10 mg PO DAILY ketoconazole 2% 1 appl topical DAILY losartan 25 mg PO DAILY psyllium seed (sugar) (Metamucil (sugar) oral powder) 1 tsp PO BID warfarin 5 mg PO DAILY Nursing Note INR: 3.5 out of therapeutic range Medications and supplements reviewed * Pt has been in the midst of moving - has not eaten very many greens - they head out 05/11/25 for [place] Denies any signs and symptoms of bleeding or bruising or clotting. Bleeding, bruising, clotting discussed Nutritional guidance given Dose: 2.5mg today then then resume 2.5mg Tue and Thur / 5mg x 5 days F/U INR: 05/07/25 if he can make it Patient verbalizes understanding of instructions given Anti-Coag Initial Assessment Social Hx Patient Tobacco Use Status: Never used Tobacco alcohol intake: current Alcohol intake frequency: holidays/special occasions only Cardiovascular Hx: [place] Endocrine Hx: Thyroid Disease Blood Disorder Hx: Hyperlipidemia GI Hx: Other Hx: Prostate Cancer HX: Yes Psych. Illness/Depression: No Questionnaires HAS-BLED Does the patient had uncontrolled Hypertension?: No Does the patient have renal disease?: No Does the patient have liver disease?: No Does the patient have a history of stroke?: No Has the patient had major bleeding or predisposition to bleeding?: Yes Does the patient have labile INRs?: Yes Is the patient over 65 years of age?: Yes Is the patient on medications that gives them a predisposition to bleeding?: Yes Does the patient use alcohol?: No HAS-BLED Score: 4 CHADSVASC Age: 75 or over Gender: Male Does the patient have a history of CHF?: No Does the patient have a history of Hypertension?: No Does the patient have a history of Stroke/TIA/Thromboembolism?: Yes (dvt x 2 ) Does the patient have a history of Vascular Disease (prior NC, PAD or aortic plaque)?: Yes (CAD) Does the patient have a history of Diabetes?: No CHADS VACS Score: 5 Daniel Prediction Score Rsk VTE Active Cancer: No Previous VTE, excluding superficial vein thrombosis: Yes Reduced mobility: No Already known Thrombophilic Condition: No With-in last month Trauma and/or Surgery: No Elderly 70 year or older: Yes Heart and/or Respiratory Failure: No Acute Myocardial infarction and/or Ischemic Stroke: No Acute Infection and/or Rheumatologic Disorder: No Obesity (BMI 30 or greater): No Ongoing Hormonal Treatment: No Score: 4 Daniel Score less than 4; Low Risk of VTE Daniel Score 4 or greater; High Risk of VTE Coding Level of Care Code Est Patient Level 1 Diagnoses Current use of anticoagulant therapy Z79.01 Results AMB INR Fingerstick AMB INR Fingerstick 3.5 Last Edit by Rocio Dubon RN on 04/29/25 15:02 manual entry Assessment & Plan Assessment & Plan (1) Current use of anticoagulant therapy: Comment: (on Warfarin for hx DVTs) Code(s): Z79.01 - [facility] (current) use of anticoagulants Category: Medical Orders: Orders Prothrombin Time INR 05/23/25 Z79.01 - [facility] (current) use of anticoagulants
--- OUTSIDE RECORDS SUMMARY | 2025-04-29 21:26 | XMS_ITS ---
Author Organization [facility] Address [address] [place] [id number] Phone Care Team Providers Care Senior Java Ui Developer Name Role Phone Pcp, Unknown Primary Care [...]
--- OUTSIDE RECORDS SUMMARY | 2025-04-29 21:26 | XMS_ITS | Clinical Summary ---
Author Organization [facility] Address [address] [place] [address] Phone Care Team Providers Care Building Materials Sales Attendant Name Role Phone Pcp, Unknown Primary Care [...] Encounters Date Type Department Care Team Description 01/31/2025 9:15 AM EDT Telemedicine [facility] [address], [address] [place], [place] [id number] Maite Duke MD, PhD Malignant neoplasm of prostate (Primary Dx) from [...] 11/02/2022 1:08 PM EDT Plan of Treatment Health Maintenance Due Date Last Done Comments Adult Td,Tdap Booster 1945 CREATININE LEVEL 1945 POTASSIUM LEVEL 1943 DEPRESSION SCREENING 1955 PNEUMOCOCCAL VACCINES (50+ years) (1 of 2 - PCV) 1962 ZOSTER VACCINES (1 of 2) 1962 RSV VACCINE (1 - 1-dose 75+ series) 2018 INFLUENZA VACCINE (#1) 2024 3, 03/05/2022 COVID-19 VACCINE ( - 2024-2 6 season) 2025 HEPATITIS A VACCINES Aged Out [...] file Insurance MEDICARE PART A & [place] [address] [address] [place] [address] MEDICARE PART A & B [facility] MEDICARE PART A & B [facility] MEDICARE PART A & B [facility] INDEMNITY MEDICARE PART A & B [facility] INDEMNITY MEDICARE PART A & B [facility] MEDICARE PART A & B [facility] INDEMNITY MEDICARE PART A & B INDEMNITY MEDICARE PART A & B [facility] INDEMNITY Member Subscriber Plan / Payer (Ef fective 2021-Present) Name:Brad Oscar Relation to Subscriber:Self Name:Brad Oscar Payer ID:[id number] (NAIC) Type:Indemnity Address: [facility] [id number] [place] [id number] Care Teams Building Materials Sales Attendant Relationship Specialty Start Date End Date Pcp, Unknown PCP - General 09/09/21 Additional Source Comments The information contained in this document represents components of the legal health record. It is not the complete legal health record.[facility]
--- OUTSIDE RECORDS SUMMARY | 2025-04-29 21:27 | XMS_ITS | Clinical Summary ---
Author Organization [facility] [address] [facility] [address] Address [address] [place] [address] Phone Care Team Providers Care Electrical Project Engineer Name Role Phone Brad Hooks NP Primary Care Provider Encounters Date Type Department Care Team Description 02/18/2025 Telephone Gastroenterology - [address] [phone] Maykel Jang MD from Last 3 Months Surgical History Surgery Date Site/Laterality Comments COLONOSCOPY PROCEDURE: HISTORICAL COLONOSCOPY OTHER SURGICAL HISTORY PROCEDURE: HISTORY OTHER; COMMENT: history of partial colectomy OTHER SURGICAL HISTORY 2002 PROCEDURE: [place] PROSTATECTOMY PERINEAL RADICAL W/LYMPH NODE BX; COMMENT: treated with radiation after resection, again in 2011, chemo for recurrance in 2023 Medical History Medical History Date Comments Neoplasm of uncertain behavi or of prostate DX:Neoplasm of uncertain beh avior of prostate Rising PSA following treatme nt for malignant neoplasm of prostate 2012 DX:Rising PSA following treatment for malignant neoplasm of prostate Chronic ischemic heart disease D X:Chronic ischemic heart disease Old anterior myocardial infarction DX:Old anterior myocardial infarction History of deep vein thrombosis DX:History of deep vein thrombosis Current use of anticoagulant therapy DX:Current use of anticoagulant therapy Dyslipidemia DX:Dyslipidemia Diaphragmatic disorder DX:Diaphr agmatic disorder History of prostate cancer DX:Hi story of prostate cancer Family History Medical History Relation Name Comments Colon cancer Father Diabetes Sister Breast cancer Uncle Relation Name Status Comments Father Sister Uncle Social History Tobacco Use Types Packs/Day Years Used Date Smoking Tobacco: Never Smokeless Tobacco: Never Alcohol Use Standard Drinks/Week Comments Not Currently 0 (1 standard drink = 0.6 oz pur e alcohol) Sex and Gender Information Value Date Recorded Sex Assigned at Not on file Legal Sex Male 8:09 PM EST Gender Identity Not on file Sexual Orientation Not on file Last Filed Vital Signs Vital Sign Reading Time Taken Comments Blood Pressure 122/69 10/26/2023 9:09 AM EDT Sit ting L Arm Pulse 82 10/26/2023 9:09 AM EDT Temperature - - Respiratory Rate - - Oxygen Saturation - - Inhaled Oxygen Concentration - - Weight 84.4 kg (186 lb) 10/26/2023 9:09 AM EDT Height 182.9 cm (6') 10/26/2023 9:09 AM EDT Body Mass Index 25.23 10/26/2023 9:09 AM EDT Plan of Treatment Upcoming Encounters Date Type Department Care Team (Late st Contact Info) Description 09/20/2025 2:00 PM EDT Consult Gastroenterology - 299 [address] [facility] [address] [place] [phone] Renetta Oliveira NP [address] [facility] [address] [place] [address] Health Maintenance Due Date Last Done Comments DTaP,Tdap,and Td Vaccines (1 - Tdap) 1962 Pneumococcal Vaccine: 50+ Ye ars (1 of 1 - PCV) 1993 Zoster Vaccines (1 of 2) 1993 RSV Immunization Adult Patie nts (1 - 1-dose 75+ series) 2018 Cholesterol Screening (Lipid Panel) 06/09/2023 Falls Risk Assessment 06/09/2023 Medicare Annual Wellness Visit 06/09/2023 Social Influencers of Health Screening 06/09/2023 Depression Screening 05/16/2024 COVID-19 Vaccine ( - 2024-2 6 season) 2025 Influenza Vaccine (#1) 2025 HIB Vaccines Aged Out No longer eligi ble based on patient's age to complete this topic HPV Vaccines Aged Out No longer eligi ble based on patient's age to complete this topic Hepatitis A Vaccines Aged Out No long er eligible based on patient's age to complete this topic Hepatitis B Vaccines Aged Out No long er eligible based on patient's age to complete this topic IPV Vaccines Aged Out No longer eligi ble based on patient's age to complete this topic MMR Vaccines Aged Out No longer eligi ble based on patient's age to complete this topic Meningococcal ACWY Vaccine Aged Out N o longer eligible based on patient's age to complete this topic Meningococcal B Vaccine Aged Out No l onger eligible based on patient's age to complete this topic RSV Immunization Patients Un silvano 20 months Aged Out No longer eligible b ased on patient's age to complete this topic Varicella Vaccines Aged Out No longer eligible based on patient's age to complete this topic Insurance MEDICARE [facility] Advance Directives Documents on File Type Date Recorded Patient Insulator Apprentice Expl anation Health Care Decision (hx) 10/15/2023 AD SAMANIEGO DIRECTIVE Health Care Decision (hx) 10/15/2023 AD SAMANIEGO DIRECTIVE Care Teams Electrical Project Engineer Relationship Specialty Start Date End Date Brad Hooks NP [address] [facility] [place] PCP - General 02/14/23
--- OUTSIDE RECORDS SUMMARY | 2025-04-29 21:27 | XMS_ITS | Clinical Summary ---
Author Organization [facility] Address [address] [place] [address] Care Team Providers Care School Adjustment Counselor Name Role Phone Jeremy Booth MD Primary Care Provider [phone] Medications MULTIVITAMINS (MULTI-VITAMIN ORAL) Take by mouth [...] on file Sexual Orientation Not on file Plan of Treatment Health Maintenance Due Date Last Done Comments Fall Risk Screening 2008 RSV Immunization ( o r 60+ Years) (1 - 1-dose 75+ series) 2018 COVID-19 Vaccine ( season) 2025 Insurance MEDICARE [facility] Address: [address] [address] Care Teams School Adjustment Counselor Relationship Specialty Start Date End Date Jeremy Booth MD PCP - General 01/09/15
== END 2025-04-29 15:21 | disposition home or self-care (01) ==
LOC: HO.ACS 14:53
PROVIDERS: PCP Nurse Practitioner Family; Visit Provider Internal Medicine Medical Oncology
DX: Z79.01 Long term (current) use of anticoagulants (principal)

== ENCOUNTER → 2025-04-29 14:53 | Outpatient (BNVA) | payer MEDICARE, BC, SELFPAY | PROVIDERS: PCP Nurse Practitioner Family; Visit Provider Internal Medicine Medical Oncology | DX: Z86.718 Personal history of other venous thrombosis and embolism (principal); Z51.81 Encounter for therapeutic drug level monitoring; Z79.01 Long term (current) use of anticoagulants | CPT/HCPCS: 85610; 99211 ==

== ENCOUNTER 2025-05-14 13:22 | Outpatient (AMB) | payer MEDICARE, BC, SELFPAY ==
--- OUTSIDE RECORDS SUMMARY | 2001-10-13 06:37 | XMS_ITS | Encounter Summary ---
Author Organization [facility] Address [address] [place] [address] Care Team Providers Care Ski Edge Painter Name Role Phone Unavailable Primary Care Provider Unavailabl e Encounter Details Date Type Department Care Team (Late st Contact Info) Description 10/13/2001 7:37 EDT Hospital Encounter [address] [address] Samuel Christian MD [address] [facility] [address] [place], [place] [id number] Social History Tobacco Use Types Packs/Day Years Used Date Smoking Tobacco: Never Assessed Interpersonal Safety Answer Date Record ed Physically Hurt Never 10/01/2020 Verbally Threaten Not on file 10/01/2020 Sex and Gender Information Value Date Recorded Sex Assigned at Not on file Legal Sex Male 18:02 EST Gender Identity Not on file Sexual Orientation Not on file COVID-19 Exposure Response Date Recorded In the last month, have you been in contact with someone who was confirmed or suspected to have Coronavirus / COVID-19? No / Unsure 10/01/2020 8:30 EDT documented as of this encounter Plan of Treatment Not on file documented as of this encounter Procedures Procedure Name Priority Date/Time Associated Diagnosis Comments BACTERIAL CULTURE, URINE Routine 10/13/2001 7:36 EDT URINALYSIS WITH MICROSCOPIC IF POSITIVE Routine 10/13/2001 7:36 EDT UA REFLEX Routine 10/13/2001 7:36 EDT THYROID CASCADE Routine 10/13/2001 7:35 EDT COMPLETE BLOOD COUNT Routine 10/13/2001 7:35 EDT LIPID PROFILE (INCLUDES CHOLESTEROL, TRIGLYCERIDES, HDL, LDL) Routine 10/13/2001 7:35 EDT COMPREHENSIVE METABOLIC PANEL (CMP) Routine 10/13/2001 7:35 EDT documented in this encounter Results * BACTERIAL CULTURE, URINE (10/13/2001 7:36 EDT) Specimen Description Urine [facility] Result Culture not indicated by urinalysis results. [facility] Report Status Final [id number] [facility] 10/13/2001 7:36 EDT 10/13/2001 12:17 EDT Samuel Christian MD HISTORICAL LAB FOR SQ LOAD F inal Result Performing Organization Address [facility] Co de Phone Number [facility] [address] [place] [address] * UA REFLEX (10/13/2001 7:36 EDT) Pathologist [facility] UA Billing Microscopic not indicated. [facility] 10/13/2001 7:36 EDT 10/13/2001 7:38 EDT Samuel Christian MD URINALYSIS ORDERABLES Final Result Performing Organization Address [facility] Co de Phone Number [facility] [address] [place] [address] * (ABNORMAL) URINALYSIS (10/13/2001 7:36 EDT) Color, UA Yellow [facility] Clarity, UA Clear [facility] Glucose, UA Norm NORM [facility] Bilirubin, UA Neg NEG [facility] Ketones, UA Neg NEG [facility] Specific [place], Urine 1.026 Refractometer specific gravity(H) 1.005 - 1.02 [facility] Blood, UA Neg NEG [facility] pH, UA 5.5 5.0 - 9.0 [facility] Protein, UA Neg NEG [facility] Urobilinogen, UA Norm NORM mg/dL [facility] Nitrite, UA Neg NEG [facility] Leuk Esterase Neg NEG [facility] 10/13/2001 7:36 EDT 10/13/2001 7:38 EDT Samuel Christian MD URINALYSIS ORDERABLES Final Result Performing Organization Address [facility] de Phone Number [facility] [address] [place] [address] * THYROID CASCADE (10/13/2001 7:35 EDT) TSH 2.86 0.35 - 5.50 uIU/ml [facility] Comment: TSH cascade is not recommended for patients in which pituitary or hypothalamic disorders are suspected. 10/13/2001 7:35 EDT 10/13/2001 7:37 EDT Samuel Christian MD CHEMISTRY & BLOOD GAS ORDERA BLES Final Result Performing Organization Address [facility] de Phone Number [facility] [address] [place] [address] * (ABNORMAL) LIPID PROFILE (INCLUDES CHOLESTEROL, TRIGLYCERIDES, HDL, LDL) (10/13/2001 7:35 EDT) Cholesterol 228 mg/dl [facility] Comment: Desirable:<200 Borderline:200-239 High Risk:>gp=258 Fasting Triglycerides 264(H) 35 - 160 mg/dl [facility] Comment:Fasting HDL 32 mg/dl [facility] Comment: Highly Desirable:>60 Desirable:35-60 High Risk:<35 Fasting LDL, Calculated 143 mg/dl [facility] Comment: Desirable:<130 Borderline:130-159 High Risk:>sv=278 Fasting Chol/HDL Ratio 7.1 Fasting [facility] 10/13/2001 7:35 EDT 10/13/2001 7:37 EDT Samuel Christian MD CHEMISTRY & BLOOD GAS ORDERA BLES Final Result Performing Organization Address City/[facility] Co de Phone Number [facility] [address] [place] [address] * HEMAGRAM (10/13/2001 7:35 EDT) WBC 8.17 4.0 - 10.4 K/cmm [facility] RBC 5.30 4.36 - 5.78 M/cmm [facility] Hemoglobin 16.2 13.8 - 17.3 gm/dl [facility] HCT 47.1 39.5 - 50.2 % [facility] MCV 89 81 - 95 fl [facility] MCH 30.6 27.6 - 33.0 pg [facility] MCHC 34.4 32.8 - 36.4 gm/dl [facility] PLT 285 141 - 320 K/cmm [facility] 10/13/2001 7:35 EDT 10/13/2001 7:37 EDT Samuel Christian MD HEMATOLOGY & PF4 ORDERABLES Final Result Performing Organization Address [facility] Co de Phone Number [facility] [address] [place] [address] * COMPREHENSIVE METABOLIC PANEL (10/13/2001 7:35 EDT) Potassium 4.3 3.5 - 5.0 mEq/L [facility] Comment:Fasting Sodium 140 136 - 145 mEq/L [facility] Comment:Fasting Chloride 106 96 - 110 mEq/L [facility] Comment:Fasting CO2 24 24 - 30 mEq/L [facility] Comment:Fasting Total Alkaline Phosphatase 71 38 - 126 U/L [facility] Comment:Fasting Bilirubin, Total 0.9 0.2 - 1.3 mg/dl [facility] Comment:Fasting AST 25 8 - 50 U/L [facility] Comment:Fasting ALT 32 15 - 75 U/L [facility] Comment:Fasting Albumin 4.1 3.0 - 5.5 g/dl [facility] Comment:Fasting Total Protein 7.5 6.0 - 8.5 g/dl [facility] Comment:Fasting Creatinine 1.1 0.7 - 1.5 mg/dl [facility] Comment:Fasting BUN 20 10 - 26 mg/dl [facility] Comment:Fasting Calcium 8.7 8.5 - 10.5 mg/dl [facility] Comment:Fasting Calculated Calcium 9.0 8.5 - 10.5 mg/dl [facility] Comment:Fasting Glucose, Serum 95 70 - 110 mg/dl [facility] Comment:Fasting Albumin/Globulin Ratio 1.2 Fasting [facility] 10/13/2001 7:35 EDT 10/13/2001 7:37 EDT us Samuel Christian MD CHEMISTRY & BLOOD GAS ORDERA BLES Final Result Performing Organization Address City/State/[facility] Co de Phone Number [facility] [address] [place] [address] documented in this encounter Visit Diagnoses Not on filedocumented in this encounter
--- OUTSIDE RECORDS SUMMARY | 2002-08-15 17:33 | XMS_ITS | Encounter Summary ---
Author Organization [facility] Address [address] [place] [address] Care Team Providers Care Packaging Line Attendant Name Role Phone Unavailable Primary Care Provider Unavailcaleb e Encounter Details Date Type Department Care Team (Late st Contact Info) Description 08/15/2002 17:33 EST Hospital Encounter [facility] - Other [address] [place] [address] Kai Garcia MD [address] [place] [phone] Unknown, Provider, Social History Tobacco Use [...]
--- OUTSIDE RECORDS SUMMARY | 2002-09-12 07:15 | XMS_ITS | Encounter Summary ---
Author Organization [facility] Address [address] [place] [address] Care Team Providers Care Director Of Strategic Programs Name Role Phone Unavailable Primary Care Provider Unavailabl e Encounter Details Date Type Department Care Team (Late st Contact Info) Description 09/12/2002 8:15 EDT Hospital Encounter [facility] - Other [address] [place] [address] Kai Garcia MD [address] [place] [phone] Social History Tobacco Use Types Packs/Day [...]
--- OUTSIDE RECORDS SUMMARY | 2002-09-13 15:29 | XMS_ITS | Encounter Summary ---
Author Organization [facility] Address [address] [place] [address] Care Team Providers Care Ground Crew Linesman Name Role Phone Unavailable Primary Care Provider Unavailabl e Encounter Details Date Type Department Care Team (Late st Contact Info) Description 09/13/2002 16:29 EDT Hospital Encounter [facility] - Other [address] [place] [address] Kai Garcia MD [address] [place] [phone] Social History Tobacco Use Types Packs/Day [...]
--- OUTSIDE RECORDS SUMMARY | 2002-09-28 12:26 | XMS_ITS | Encounter Summary ---
Author Organization [facility] Address [address] [place] [address] Care Team Providers Care Environmental Science Professor Name Role Phone Unavailable Primary Care Provider Unavailabl e Encounter Details Date Type Department Care Team (Late st Contact Info) Description 09/28/2002 13:26 EDT Hospital Encounter [facility] [address] [place] [address] Bravo Chicas MD [address] [place], [place] [address] Social History Tobacco Use Types Packs/Day Years [...]
--- OUTSIDE RECORDS SUMMARY | 2002-10-30 07:15 | XMS_ITS | Encounter Summary ---
Author Organization [facility] Address [address] [place] [address] Care Team Providers Care Director Diabetes Name Role Phone Unavailable Primary Care Provider Unavailabl e Encounter Details Date Type Department Care Team (Late st Contact Info) Description 10/30/2002 8:15 EDT Hospital Encounter [address] [address] Isac Rodriguez MD [address] [place] [phone] Social History Tobacco Use Types Packs/Day Years [...] Procedure Name Priority Date/Time Associated Diagnosis Comments PTT Routine 10/30/2002 8:13 EDT PROTIME Routine 10/30/2002 8:13 EDT COMPLETE BLOOD COUNT Routine 10/30/2002 8:13 EDT documented in this encounter Results * PTT (10/30/2002 8:13 EDT) PTT 23 23 - 33 secs [facility] Comment:Therapeutic Heparin range: 58-100 seconds 10/30/2002 8:13 EDT 10/30/2002 8:15 EDT Isac Rodriguez MD HEMATOLOGY & PF4 ORDERABLES Final Result Performing Organization Address [facility] de Phone Number [facility] [address] [place] [address] * PROTIME (10/30/2002 8:13 EDT) Pro Time 13.7 10.9 - 13.9 secs [facility] I.N.R. 1.1 0.9 - 1.1 Ratio [facility] Comment: Moderate Intensity Coumadin INR = 2.0-3.0 Adjustments in anticoagulant therapy dose should be based upon the INR and NOT the Pro Time. 10/30/2002 8:13 EDT 10/30/2002 8:15 EDT Isac Rodriguez MD HEMATOLOGY & PF4 ORDERABLES Final Result Performing Organization Address [facility] de Phone Number [facility] [address] [place] [address] * HEMAGRAM (10/30/2002 8:13 EDT) WBC 6.80 4.0 - 10.4 K/cmm [facility] RBC 5.19 4.36 - 5.78 M/cmm [facility] Hemoglobin 16.3 13.8 - 17.3 gm/dl [facility] HCT 45.9 39.5 - 50.2 % [facility] MCV 88 81 - 95 fl [facility] MCH 31.5 27.6 - 33.0 pg [facility] MCHC 35.6 32.8 - 36.4 gm/dl [facility] PLT 282 141 - 320 K/cmm [facility] RDW-CV 13.0 11.8 - 14.1 % [facility] 10/30/2002 8:13 EDT 10/30/2002 8:15 EDT us Isac Rodriguez MD HEMATOLOGY & PF4 ORDERABLES Final Result [facility] [address] [place] [address] documented in this encounter Visit Diagnoses Not on filedocumented in this encounter
--- OUTSIDE RECORDS SUMMARY | 2003-01-17 15:12 | XMS_ITS | Encounter Summary ---
Author Organization [facility] Address [address] [place] [address] Care Team Providers Care Ice Cream Vendor Name Role Phone Unavailable Primary Care Provider Unavailabl e Encounter Details Date Type Department Care Team (Late st Contact Info) Description 01/17/2003 16:12 EDT Hospital Encounter [address] [address] Italo Cortez MD [address] [place] [phone] Social History Tobacco Use Types Packs/Day [...] or absence of malignant disease. Assayed utilizing [employer] chemiluminescent technology. Values obtained by using different assay methods cannot be used interchangeably. Assay changed to equimolar method 11/14/00. PREVIOUS PSA RESULT ON 08/15/02 WAS 27.8 01/17/2003 16:1 0 EDT 01/17/2003 16:13 EDT us Italo Cortez MD CHEMISTRY & BLOOD GAS ORDERABL ES Final Result [facility] [address] [place] [address] documented in this encounter Visit Diagnoses Not on filedocumented in this encounter
--- OUTSIDE RECORDS SUMMARY | 2003-04-18 08:24 | XMS_ITS | Encounter Summary ---
Author Organization [facility] Address [address] [place] [address] Care Team Providers Care Substation Operator Automatic Name Role Phone Unavailable Primary Care Provider Unavailabl e Encounter Details Date Type Department Care Team (Late st Contact Info) Description 04/18/2003 8:24 EST Hospital Encounter [address] [address] Italo Cortez MD [address] [place] [phone] Social History Tobacco Use Types Packs/Day [...] Associated Diagnosis Comments PSA TOTAL, DIAGNOSTIC Routine 04/18/2003 8:27 EST documented in this encounter Results * PSA (04/18/2003 8:27 EST) PSA <0.1 0 - 3.5 ng/ml [facility] Comment: Serum PSA concentration should not be interpreted as absolute evidence for the presence or absence of malignant disease. Assayed utilizing [employer] chemiluminescent technology. Values obtained by using different assay methods cannot be used interchangeably. Assay changed to equimolar method 11/14/00. 04/18/2003 8:27 EST 04/18/2003 8:29 EST us Italo Cortez MD CHEMISTRY & BLOOD GAS ORDERABL ES Final Result [facility] [address] [place] [address] documented in this encounter Visit Diagnoses Not on filedocumented in this encounter
--- OUTSIDE RECORDS SUMMARY | 2003-07-13 08:54 | XMS_ITS | Encounter Summary ---
Author Organization [facility] Address [address] [place] [address] Care Team Providers Care Limnology Teacher Name Role Phone Unavailable Primary Care Provider Unavailabl e Encounter Details Date Type Department Care Team (Late st Contact Info) Description 07/13/2003 8:54 EST Hospital Encounter [address] [address] Samuel Christian MD 108 [facility] [address] [place], [place] [address] Social History Tobacco Use Types Packs/Day Years [...]
--- OUTSIDE RECORDS SUMMARY | 2003-07-14 09:14 | XMS_ITS | Encounter Summary ---
Author Organization [facility] Address [address] [place] [address] Care Team Providers Care Personal Driver Name Role Phone Unavailable Primary Care Provider Unavailabl e Encounter Details Date Type Department Care Team (Late st Contact Info) Description 07/14/2003 9:14 EST Hospital Encounter [address] [address] Samuel Christian MD [address] [facility] [address] [place], [place] [address] Social History Tobacco Use Types Packs/Day Years [...]
--- OUTSIDE RECORDS SUMMARY | 2003-07-17 08:32 | XMS_ITS | Encounter Summary ---
Author Organization [facility] Address [address] [place] [address] Care Team Providers Care Director Sales Name Role Phone Unavailable Primary Care Provider Unavailabl e Encounter Details Date Type Department Care Team (Late st Contact Info) Description 07/17/2003 8:32 EST Hospital Encounter [address] [address] Samuel Christian MD 108 [facility] [address] [place], [place] [id number] Social History Tobacco Use Types Packs/Day Years [...] Procedure Name Priority Date/Time Associated Diagnosis Comments PROTIME Routine 07/17/2003 8:26 EST COMPLETE BLOOD COUNT Routine 07/17/2003 8:26 EST documented in this encounter Results * (ABNORMAL) PROTIME (07/17/2003 8:26 EST) Pathologist [facility] Pro Time 19.3(H) 10.9 - 13.9 secs [facility] I.N.R. 1.7(H) 0.9 - 1.1 Ratio [facility] Comment: Moderate Intensity Coumadin INR = 2.0-3.0 Adjustments in anticoagulant therapy dose should be based upon the INR and NOT the Pro Time. 07/17/2003 8:26 EST 07/17/2003 8:28 EST us Samuel Christian MD HEMATOLOGY & PF4 ORDERABLES Final Result Performing Organization Address City/[facility] Co de Phone Number [facility] [address] [place] [address] * HEMAGRAM (07/17/2003 8:26 EST) WBC 5.60 4.0 - 10.4 K/cmm [facility] RBC 5.19 4.36 - 5.78 M/cmm [facility] Hemoglobin 15.5 13.8 - 17.3 gm/dl [facility] HCT 46.5 39.5 - 50.2 % [facility] MCV 90 81 - 95 fl [facility] MCH 29.9 27.6 - 33.0 pg [facility] MCHC 33.4 32.8 - 36.4 gm/dl [facility] PLT 301 141 - 320 K/cmm [facility] RDW-CV 12.4 11.8 - 14.1 % [facility] 07/17/2003 8:26 EST 07/17/2003 8:28 EST us Samuel Christian MD HEMATOLOGY & PF4 ORDERABLES Final Result Performing Organization Address City/[facility] Co de Phone Number [facility] [address] [place] [address] documented in this encounter Visit Diagnoses Not on filedocumented in this encounter
--- OUTSIDE RECORDS SUMMARY | 2003-07-22 08:02 | XMS_ITS | Encounter Summary ---
Author Organization [facility] Address [address] [place] [address] Care Team Providers Care Managed Care Specialist Name Role Phone Unavailable Primary Care Provider Unavailabl e Encounter Details Date Type Department Care Team (Late st Contact Info) Description 07/22/2003 8:02 EST Hospital Encounter [address] [address] Samuel Christian MD 108 [facility] [address] [place], [place] [address] Social History Tobacco Use Types Packs/Day Years [...]
--- OUTSIDE RECORDS SUMMARY | 2003-07-26 07:23 | XMS_ITS | Encounter Summary ---
Author Organization [facility] Address [address] [place] [address] Care Team Providers Care Economic Consultant Name Role Phone Unavailable Primary Care Provider Unavailabl e Encounter Details Date Type Department Care Team (Late st Contact Info) Description 07/26/2003 7:23 EST Hospital Encounter [address] [address] Samuel Christian MD 108 [facility] [address] [place], [place] [phone] Social History Tobacco Use Types Packs/Day Years [...] ORDERABLES Final Result [facility] [address] [place] [address] documented in this encounter Visit Diagnoses Not on filedocumented in this encounter
--- OUTSIDE RECORDS SUMMARY | 2003-07-30 08:09 | XMS_ITS | Encounter Summary ---
Author Organization [facility] Address [address] [place] [address] Care Team Providers Care Lab Manager Name Role Phone Unavailable Primary Care Provider Unavailabl e Encounter Details Date Type Department Care Team (Late st Contact Info) Description 07/30/2003 8:09 EST Hospital Encounter [address] [address] Samuel Christian MD 108 [facility] [address] [place], [place] [phone] Social History Tobacco Use Types Packs/Day Years [...] ORDERABLES Final Result [facility] [address] [place] [address] documented in this encounter Visit Diagnoses Not on filedocumented in this encounter
--- OUTSIDE RECORDS SUMMARY | 2003-08-02 07:28 | XMS_ITS | Encounter Summary ---
Author Organization [facility] Address [address] [place] [address] Care Team Providers Care Senior Tax Specialist Name Role Phone Unavailable Primary Care Provider Unavailabl e Encounter Details Date Type Department Care Team (Late st Contact Info) Description 08/02/2003 7:28 EST Hospital Encounter [address] [address] Samuel Christian MD 108 [facility] [address] [place], [place] [phone] Social History Tobacco Use Types Packs/Day Years [...] Priority Date/Time Associated Diagnosis Comments PROTIME Routine 08/02/2003 7:21 EST documented in this encounter Results * (ABNORMAL) PROTIME (08/02/2003 7:21 EST) Pro Time 37.4(H) 10.9 - 13.9 secs [facility] I.N.R. 3.6(H) 0.9 - 1.1 Ratio [facility] Comment: Moderate Intensity Coumadin INR = 2.0-3.0 Adjustments in anticoagulant therapy dose should be based upon the INR and NOT the Pro Time. 08/02/2003 7:21 EST 08/02/2003 7:23 EST us Samuel Christian MD HEMATOLOGY & PF4 ORDERABLES Final Result [facility] [address] [place] [address] documented in this encounter Visit Diagnoses Not on filedocumented in this encounter
--- OUTSIDE RECORDS SUMMARY | 2003-08-07 08:41 | XMS_ITS | Encounter Summary ---
Author Organization [facility] Address [address] [place] [address] Care Team Providers Care Door Cutter Name Role Phone Unavailable Primary Care Provider Unavailabl e Encounter Details Date Type Department Care Team (Late st Contact Info) Description 08/07/2003 8:41 EST Hospital Encounter [address] [place] [address] Samuel Christian MD 108 [facility] [address] [place], [place] [address] Italo Cortez MD [address] [place] [phone] Social History Tobacco Use Types Packs/Day [...] Associated Diagnosis Comments PSA TOTAL, DIAGNOSTIC Routine 08/07/2003 8:51 EST PROTIME Routine 08/07/2003 8:47 EST documented in this encounter Results * PSA (08/07/2003 8:51 EST) PSA <0.1 0 - 4.5 ng/ml [facility] Comment: Serum PSA concentration should not be interpreted as absolute evidence for the presence or absence of malignant disease. Assayed utilizing [employer] chemiluminescent technology. Values obtained by using different assay methods cannot be used interchangeably. Assay changed to equimolar method 11/14/00. 08/07/2003 8:51 EST 08/07/2003 8:53 EST Pita Parks MD CHEMISTRY & BLOOD GAS ORDERA BLES Final Result Performing Organization Address [facility] de Phone Number [facility] [address] [place] [address] * (ABNORMAL) PROTIME (08/07/2003 8:47 EST) Pro Time 30.9(H) 10.9 - 13.9 secs [facility] I.N.R. 2.9(H) 0.9 - 1.1 Ratio [facility] Comment: Moderate Intensity Coumadin INR = 2.0-3.0 Adjustments in anticoagulant therapy dose should be based upon the INR and NOT the Pro Time. 08/07/2003 8:47 EST 08/07/2003 8:49 EST Samuel Christian MD HEMATOLOGY & PF4 ORDERABLES Final Result Performing Organization Address [facility] Co de Phone Number [facility] [address] [place] [address] documented in this encounter Visit Diagnoses Not on filedocumented in this encounter
--- OUTSIDE RECORDS SUMMARY | 2003-08-14 07:52 | XMS_ITS | Encounter Summary ---
Author Organization [facility] Address [address] [place] [address] Care Team Providers Care Power Plant Operations Manager Name Role Phone Unavailable Primary Care Provider Unavailabl e Encounter Details Date Type Department Care Team (Late st Contact Info) Description 08/14/2003 7:52 EST Hospital Encounter [address] [address] Samuel Christian MD 108 [facility] [address] [place], [place] [phone] Social History Tobacco Use Types Packs/Day Years [...] ORDERABLES Final Result [facility] [address] [place] [address] documented in this encounter Visit Diagnoses Not on filedocumented in this encounter
--- OUTSIDE RECORDS SUMMARY | 2003-09-19 06:52 | XMS_ITS | Encounter Summary ---
Author Organization [facility] Address [address] [place] [address] Care Team Providers Care Senior Editor Name Role Phone Unavailable Primary Care Provider Unavailabl e Encounter Details Date Type Department Care Team (Late st Contact Info) Description 09/19/2003 7:52 EDT Hospital Encounter [address] [address] Samuel Christian MD [address] [facility] [address] [place], [place] [phone] Social History Tobacco Use Types Packs/Day Years [...] Priority Date/Time Associated Diagnosis Comments PROTIME Routine 09/19/2003 8:01 EDT documented in this encounter Results * (ABNORMAL) PROTIME (09/19/2003 8:01 EDT) Pro Time 29.0(H) 10.9 - 13.9 secs [facility] I.N.R. 2.7(H) 0.9 - 1.1 Ratio [facility] Comment: Moderate Intensity Coumadin INR = 2.0-3.0 Adjustments in anticoagulant therapy dose should be based upon the INR and NOT the Pro Time. 09/19/2003 8:01 EDT 09/19/2003 8:03 EDT us Samuel Christian MD HEMATOLOGY & PF4 ORDERABLES Final Result [facility] [address] [place] [address] documented in this encounter Visit Diagnoses Not on filedocumented in this encounter
--- OUTSIDE RECORDS SUMMARY | 2003-10-10 06:12 | XMS_ITS | Encounter Summary ---
Author Organization [facility] Address [address] [place] [address] Care Team Providers Care Ui Developer Designer Name Role Phone Unavailable Primary Care Provider Unavailabl e Encounter Details Date Type Department Care Team (Late st Contact Info) Description 10/10/2003 7:12 EDT Hospital Encounter [address] [address] Samuel Christian MD 108 [facility] [address] [place], [place] [phone] Social History Tobacco Use Types Packs/Day Years [...] 7:16 EDT 10/10/2003 7:19 EDT us Samuel Christian MD HEMATOLOGY & PF4 ORDERABLES Final Result [facility] [address] [place] [address] documented in this encounter Visit Diagnoses Not on filedocumented in this encounter
--- OUTSIDE RECORDS SUMMARY | 2003-10-24 06:43 | XMS_ITS | Encounter Summary ---
Author Organization [facility] Address [address] [place] [address] Care Team Providers Care Felling Machine Operator Name Role Phone Unavailable Primary Care Provider Unavailabl e Encounter Details Date Type Department Care Team (Late st Contact Info) Description 10/24/2003 7:43 EDT Hospital Encounter [address] [address] Samuel Christian MD 108 [facility] [address] [place], [place] [phone] Social History Tobacco Use Types Packs/Day Years [...] Priority Date/Time Associated Diagnosis Comments PROTIME Routine 10/24/2003 7:56 EDT documented in this encounter Results * (ABNORMAL) PROTIME (10/24/2003 7:56 EDT) Pro Time 27.5(H) 10.9 - 13.9 secs [facility] I.N.R. 2.5(H) 0.9 - 1.1 Ratio [facility] Comment: Moderate Intensity Coumadin INR = 2.0-3.0 Adjustments in anticoagulant therapy dose should be based upon the INR and NOT the Pro Time. 10/24/2003 7:56 EDT 10/24/2003 7:59 EDT us Samuel Christian MD HEMATOLOGY & PF4 ORDERABLES Final Result [facility] [address] [place] [address] documented in this encounter Visit Diagnoses Not on filedocumented in this encounter
--- OUTSIDE RECORDS SUMMARY | 2003-11-07 06:15 | XMS_ITS | Encounter Summary ---
Author Organization [facility] Address [address] [place] [address] Care Team Providers Care River Driver Name Role Phone Unavailable Primary Care Provider Unavailabl e Encounter Details Date Type Department Care Team (Late st Contact Info) Description 11/07/2003 7:15 EDT Hospital Encounter [address] [address] Samuel Christian MD 108 [facility] [address] [place], [place] [phone] Social History Tobacco Use Types Packs/Day Years [...] PF4 ORDERABLES Final Result [facility] [address] [place] [address] documented in this encounter Visit Diagnoses Not on filedocumented in this encounter
--- OUTSIDE RECORDS SUMMARY | 2003-11-14 06:12 | XMS_ITS | Encounter Summary ---
Author Organization [facility] Address [address] [place] [address] Care Team Providers Care Technician Automatic Name Role Phone Unavailable Primary Care Provider Unavailabl e Encounter Details Date Type Department Care Team (Late st Contact Info) Description 11/14/2003 7:12 EDT Hospital Encounter [address] [address] Samuel Christian MD 108 [facility] [address] [place], [place] [phone] Social History Tobacco Use Types Packs/Day Years [...] Priority Date/Time Associated Diagnosis Comments PROTIME Routine 11/14/2003 7:22 EDT documented in this encounter Results * (ABNORMAL) PROTIME (11/14/2003 7:22 EDT) Pro Time 20.8(H) 10.9 - 13.9 secs [facility] I.N.R. 1.8(H) 0.9 - 1.1 Ratio [facility] Comment: Moderate Intensity Coumadin INR = 2.0-3.0 Adjustments in anticoagulant therapy dose should be based upon the INR and NOT the Pro Time. 11/14/2003 7:22 EDT 11/14/2003 7:25 EDT us Samuel Christian MD HEMATOLOGY & PF4 ORDERABLES Final Result [facility] [address] [place] [address] documented in this encounter Visit Diagnoses Not on filedocumented in this encounter
--- OUTSIDE RECORDS SUMMARY | 2003-11-21 06:03 | XMS_ITS | Encounter Summary ---
Author Organization [facility] Address [address] [place] [address] Care Team Providers Care Facilities Maintenance Supervisor Name Role Phone Unavailable Primary Care Provider Unavailabl e Encounter Details Date Type Department Care Team (Late st Contact Info) Description 11/21/2003 7:03 EDT Hospital Encounter [address] [address] Samuel Christian MD 108 [facility] [address] [place], [place] [phone] Social History Tobacco Use Types Packs/Day Years [...] PF4 ORDERABLES Final Result [facility] [address] [place] [address] documented in this encounter Visit Diagnoses Not on filedocumented in this encounter
--- OUTSIDE RECORDS SUMMARY | 2003-12-05 06:33 | XMS_ITS | Encounter Summary ---
Author Organization [facility] Address [address] [place] [address] Care Team Providers Care Psychological Operations Name Role Phone Unavailable Primary Care Provider Unavailabl e Encounter Details Date Type Department Care Team (Late st Contact Info) Description 12/05/2003 7:33 EDT Hospital Encounter [address] [address] Samuel Christian MD 108 [facility] [address] [place], [place] [phone] Social History Tobacco Use Types Packs/Day Years [...] Priority Date/Time Associated Diagnosis Comments PROTIME Routine 12/05/2003 7:39 EDT documented in this encounter Results * (ABNORMAL) PROTIME (12/05/2003 7:39 EDT) Pro Time 28.6(H) 10.9 - 13.9 secs [facility] I.N.R. 2.6(H) 0.9 - 1.1 Ratio [facility] Comment: Moderate Intensity Coumadin INR = 2.0-3.0 Adjustments in anticoagulant therapy dose should be based upon the INR and NOT the Pro Time. 12/05/2003 7:39 EDT 12/05/2003 7:41 EDT us Saumel Christian MD HEMATOLOGY & PF4 ORDERABLES Final Result [facility] [address] [place] [address] documented in this encounter Visit Diagnoses Not on filedocumented in this encounter
--- OUTSIDE RECORDS SUMMARY | 2003-12-19 06:37 | XMS_ITS | Encounter Summary ---
Author Organization [facility] Address [address] [place] [address] Care Team Providers Care Building Consultant Name Role Phone Unavailable Primary Care Provider Unavailabl e Encounter Details Date Type Department Care Team (Late st Contact Info) Description 12/19/2003 7:37 EDT Hospital Encounter [address] [address] Samuel Christian MD 108 [facility] [address] [place], [place] [phone] Social History Tobacco Use Types Packs/Day Years [...] PF4 ORDERABLES Final Result [facility] [address] [place] [address] documented in this encounter Visit Diagnoses Not on filedocumented in this encounter
--- OUTSIDE RECORDS SUMMARY | 2004-01-09 06:04 | XMS_ITS | Encounter Summary ---
Author Organization [facility] Address [address] [place] [address] Care Team Providers Care Balloon Seller Name Role Phone Unavailable Primary Care Provider Unavailabl e Encounter Details Date Type Department Care Team (Late st Contact Info) Description 01/09/2004 7:04 EDT Hospital Encounter [address] [address] Samuel Christian MD 108 [facility] [address] [place], [place] [phone] Social History Tobacco Use Types Packs/Day Years [...] PF4 ORDERABLES Final Result [facility] [address] [place] [address] documented in this encounter Visit Diagnoses Not on filedocumented in this encounter
--- OUTSIDE RECORDS SUMMARY | 2004-01-23 06:21 | XMS_ITS | Encounter Summary ---
Author Organization [facility] Address [address] [place] [address] Care Team Providers Care Straightedge Machine Operator Helper Name Role Phone Unavailable Primary Care Provider Unavailabl e Encounter Details Date Type Department Care Team (Late st Contact Info) Description 01/23/2004 7:21 EDT Hospital Encounter [address] [address] Samuel Christian MD 108 [facility] [address] [place], [place] [phone] Social History Tobacco Use Types Packs/Day Years [...] PF4 ORDERABLES Final Result [facility] [address] [place] [address] documented in this encounter Visit Diagnoses Not on filedocumented in this encounter
--- OUTSIDE RECORDS SUMMARY | 2004-08-13 16:57 | XMS_ITS | Encounter Summary ---
Author Organization [facility] Address [address] [place] [address] Care Team Providers Care Supervisor Waterworks Name Role Phone Unavailable Primary Care Provider Unavailabl e Encounter Details Date Type Department Care Team (Late st Contact Info) Description 08/13/2004 16:57 EST Hospital Encounter [address] [address] Partha Malone MD [address] [place] [phone] Social History Tobacco Use Types Packs/Day Years [...]
--- OUTSIDE RECORDS SUMMARY | 2004-08-15 08:54 | XMS_ITS | Encounter Summary ---
Author Organization [facility] Address [address] [place] [address] Care Team Providers Care Financial Project Manager Name Role Phone Unavailable Primary Care Provider Unavailabl e Encounter Details Date Type Department Care Team (Late st Contact Info) Description 08/15/2004 8:54 EST Hospital Encounter [address] [address] Samuel Christian MD 108 [facility] [address] [place], [place] [phone] Social History Tobacco Use Types Packs/Day Years [...] PF4 ORDERABLES Final Result Performing Organization Address [facility] Co de Phone Number [facility] [address] [place] [address] * HEMAGRAM (08/15/2004 9:27 EST) WBC 5.50 [...] % [facility] Comment:[facility] [place], [place] 08/15/2004 9:27 EST 08/15/2004 9:29 EST Samuel Christian MD HEMATOLOGY & PF4 ORDERABLES Final Result Performing Organization Address [facility] Co de Phone Number [facility] [address] [place] [address] documented in this encounter Visit Diagnoses Not on filedocumented in this encounter
--- OUTSIDE RECORDS SUMMARY | 2004-08-18 08:14 | XMS_ITS | Encounter Summary ---
Author Organization [facility] Address [address] [place] [address] Care Team Providers Care Chief Technology Officer Name Role Phone Unavailable Primary Care Provider Unavailabl e Encounter Details Date Type Department Care Team (Late st Contact Info) Description 08/18/2004 9:14 EDT Hospital Encounter [address] [address] Samuel Christian MD 108 [facility] [address] [place], [place] [phone] Social History Tobacco Use Types Packs/Day Years [...] * (ABNORMAL) PROTIME (08/18/2004 9:13 EDT) Pathologist [facility] Pro Time 20.5(H) 12.3 - 14.7 secs [facility] I.N.R. 1.7(H) 0.9 - 1.1 Ratio [facility] Comment: Moderate Intensity Coumadin INR = 2.0-3.0 Adjustments in anticoagulant therapy dose should be based upon the INR and NOT the Pro Time. Performed at [facility], [place], [place] 08/18/2004 9:13 EDT 08/18/2004 9:15 EDT us Samuel Christian MD HEMATOLOGY & PF4 ORDERABLES Final Result Performing Organization Address City/[facility]/ZIP Co de Phone Number [facility] [address] [place] [address] * HEMAGRAM (08/18/2004 9:13 EDT) Pathologist [facility] WBC 7.40 4.0 - 10.4 K/cmm [facility] RBC 5.27 4.36 - 5.78 M/cmm [facility] Hemoglobin 16.5 13.8 - 17.3 gm/dl [facility] HCT 47.6 39.5 - 50.2 % [facility] MCV 90 81 - 95 fl [facility] [facility] MCH 31.2 27.6 - 33.0 pg [facility] [facility] MCHC 34.6 32.8 - 36.4 gm/dl [facility] [facility] PLT 314 141 - 320 K/cmm [facility] RDW-CV 12.1 11.8 - 14.1 % [facility] Comment:Performed at [facility] Willie cyr [facility], [place], [place] 08/18/2004 9:13 EDT 08/18/2004 9:15 EDT us Samuel Christian MD HEMATOLOGY & PF4 ORDERABLES Final Result Performing Organization Address City/[facility]/ZIP Co de Phone Number [facility] [address] [place] [address] documented in this encounter Visit Diagnoses Not on filedocumented in this encounter
--- OUTSIDE RECORDS SUMMARY | 2004-08-20 06:51 | XMS_ITS | Encounter Summary ---
Author Organization [facility] Address [address] [place] [address] Care Team Providers Care Epic Ambulatory Analysts Name Role Phone Unavailable Primary Care Provider Unavailabl e Encounter Details Date Type Department Care Team (Late st Contact Info) Description 08/20/2004 7:51 EDT Hospital Encounter [address] [address] Samuel Christian MD 108 [facility] [address] [place], [place] [phone] Social History Tobacco Use Types Packs/Day Years [...] Priority Date/Time Associated Diagnosis Comments PROTIME Routine 08/20/2004 7:51 EDT documented in this encounter Results * (ABNORMAL) PROTIME (08/20/2004 7:51 EDT) Pro Time 23.8(H) 12.3 - 14.7 secs [facility] I.N.R. 2.1(H) 0.9 - 1.1 Ratio [facility] Comment: Moderate Intensity Coumadin INR = 2.0-3.0 Adjustments in anticoagulant therapy dose should be based upon the INR and NOT the Pro Time. Performed at [facility], [place], [place] 08/20/2004 7:51 EDT 08/20/2004 7:53 EDT us Samuel Christian MD HEMATOLOGY & PF4 ORDERABLES Final Result [facility] [address] [place] [address] documented in this encounter Visit Diagnoses Not on filedocumented in this encounter
--- OUTSIDE RECORDS SUMMARY | 2004-08-24 07:02 | XMS_ITS | Encounter Summary ---
Author Organization [facility] Address [address] [place] [address] Care Team Providers Care Sleep Lab Technologist Name Role Phone Unavailable Primary Care Provider Unavailabl e Encounter Details Date Type Department Care Team (Late st Contact Info) Description 08/24/2004 8:02 EDT Hospital Encounter [address] [address] Samuel Christian MD 108 [facility] [address] [place], [place] [phone] Social History Tobacco Use Types Packs/Day Years [...] the Pro Time. Performed at E[facility], [place], [place] 08/24/2004 8:06 EDT 08/24/2004 8:08 EDT us Samuel Christian MD HEMATOLOGY & PF4 ORDERABLES Final Result [facility] [address] [place] [address] documented in this encounter Visit Diagnoses Not on filedocumented in this encounter
--- OUTSIDE RECORDS SUMMARY | 2004-08-27 06:41 | XMS_ITS | Encounter Summary ---
Author Organization [facility] Address [address] [place] [address] Care Team Providers Care Artificial Flowers Dyer Name Role Phone Unavailable Primary Care Provider Unavailabl e Encounter Details Date Type Department Care Team (Late st Contact Info) Description 08/27/2004 7:41 EDT Hospital Encounter [address] [address] Samuel Christian MD 108 [facility] [address] [place], [place] [phone] Social History Tobacco Use Types Packs/Day Years [...] the Pro Time. Performed at [facility], [place], [place] 08/27/2004 7:40 EDT 08/27/2004 7:42 EDT us Samuel Christian MD HEMATOLOGY & PF4 ORDERABLES Final Result [facility] [address] [place] [address] documented in this encounter Visit Diagnoses Not on filedocumented in this encounter
--- OUTSIDE RECORDS SUMMARY | 2004-09-14 06:25 | XMS_ITS | Encounter Summary ---
Author Organization [facility] Address [address] [place] [address] Care Team Providers Care Warehouse Shipping Associate Name Role Phone Unavailable Primary Care Provider Unavailabl e Encounter Details Date Type Department Care Team (Late st Contact Info) Description 09/14/2004 7:25 EDT Hospital Encounter [address] [address] Samuel Christian MD 108 [facility] [address] [place], [place] [phone] Social History Tobacco Use Types Packs/Day Years [...] the Pro Time. Performed at [facility], [place], [place] 09/14/2004 7:24 EDT 09/14/2004 7:26 EDT us Samuel Christian MD HEMATOLOGY & PF4 ORDERABLES Final Result [facility] [address] [place] [address] documented in this encounter Visit Diagnoses Not on filedocumented in this encounter
--- OUTSIDE RECORDS SUMMARY | 2004-09-21 07:17 | XMS_ITS | Encounter Summary ---
Author Organization [facility] Address [address] [place] [address] Care Team Providers Care Machine Applicator Cementer Name Role Phone Unavailable Primary Care Provider Unavailabl e Encounter Details Date Type Department Care Team (Late st Contact Info) Description 09/21/2004 8:17 EDT Hospital Encounter [address] [address] Samuel Christian MD 108 [facility] [address] [place], [place] [phone] Social History Tobacco Use Types Packs/Day Years [...] Priority Date/Time Associated Diagnosis Comments PROTIME Routine 09/21/2004 8:15 EDT documented in this encounter Results * (ABNORMAL) PROTIME (09/21/2004 8:15 EDT) Pro Time 35.5(H) 12.3 - 14.7 secs [facility] I.N.R. 3.4(H) 0.9 - 1.1 Ratio [facility] Comment: Moderate Intensity Coumadin INR = 2.0-3.0 Adjustments in anticoagulant therapy dose should be based upon the INR and NOT the Pro Time. Performed at [facility], [place], [place] 09/21/2004 8:15 EDT 09/21/2004 8:18 EDT us Samuel Christian MD HEMATOLOGY & PF4 ORDERABLES Final Result [facility] [address] [place] [address] documented in this encounter Visit Diagnoses Not on filedocumented in this encounter
--- OUTSIDE RECORDS SUMMARY | 2004-09-28 06:18 | XMS_ITS | Encounter Summary ---
Author Organization [facility] Address [address] [place] [address] Care Team Providers Care Pipe Processor Name Role Phone Unavailable Primary Care Provider Unavailabl e Encounter Details Date Type Department Care Team (Late st Contact Info) Description 09/28/2004 7:18 EDT Hospital Encounter [address] [address] Samuel Christian MD 108 [facility] [address] [place], [place] [phone] Social History Tobacco Use Types Packs/Day Years [...] the Pro Time. Performed at [facility], [place], [place] 09/28/2004 7:22 EDT 09/28/2004 7:24 EDT us Samuel Christian MD HEMATOLOGY & PF4 ORDERABLES Final Result [facility] [address] [place] [address] documented in this encounter Visit Diagnoses Not on filedocumented in this encounter
--- OUTSIDE RECORDS SUMMARY | 2004-10-12 10:03 | XMS_ITS | Encounter Summary ---
Author Organization [facility] Address [address] [place] [address] Care Team Providers Care Computer Systems Analyst Name Role Phone Unavailable Primary Care Provider Unavailabl e Encounter Details Date Type Department Care Team (Late st Contact Info) Description 10/12/2004 11:03 EDT Hospital Encounter [address] [address] Samuel Christian MD 108 [facility] [address] [place], [place] [phone] Social History Tobacco Use Types Packs/Day Years [...] the Pro Time. Performed at [facility], [place], [place] 10/12/2004 11:0 3 EDT 10/12/2004 11:05 EDT us Samuel Christian MD HEMATOLOGY & PF4 ORDERABLES Final Result [facility] [address] [place] [address] documented in this encounter Visit Diagnoses Not on filedocumented in this encounter
--- OUTSIDE RECORDS SUMMARY | 2004-10-26 06:23 | XMS_ITS | Encounter Summary ---
Author Organization [facility] Address [address] [place] [address] Care Team Providers Care Assembler Camper Name Role Phone Unavailable Primary Care Provider Unavailabl e Encounter Details Date Type Department Care Team (Late st Contact Info) Description 10/26/2004 7:23 EDT Hospital Encounter [address] [address] Samuel Christian MD 108 [facility] [address] [place], [place] [address] Social History Tobacco Use Types Packs/Day Years [...]
--- OUTSIDE RECORDS SUMMARY | 2004-11-17 07:37 | XMS_ITS | Encounter Summary ---
Author Organization [facility] Address [address] [place] [address] Care Team Providers Care Data Coordinator Name Role Phone Unavailable Primary Care Provider Unavailabl e Encounter Details Date Type Department Care Team (Late st Contact Info) Description 11/17/2004 8:37 EDT Hospital Encounter [address] [address] Samuel Christian MD 108 [facility] [address] [place], [place] [address] Social History Tobacco Use Types Packs/Day Years [...]
--- OUTSIDE RECORDS SUMMARY | 2004-12-07 15:36 | XMS_ITS | Encounter Summary ---
Author Organization [facility] Address [address] [place] [address] Care Team Providers Care Tangled Yarn Worker Name Role Phone Unavailable Primary Care Provider Unavailabl e Encounter Details Date Type Department Care Team (Late st Contact Info) Description 12/07/2004 16:36 EDT Hospital Encounter [address] [address] Italo Cortez MD [address] [place] [phone] Social History Tobacco Use Types Packs/Day Years [...]
--- OUTSIDE RECORDS SUMMARY | 2004-12-17 06:34 | XMS_ITS | Encounter Summary ---
Author Organization [facility] Address [address] [place] [address] Care Team Providers Care J2Ee Consultant Name Role Phone Unavailable Primary Care Provider Unavailabl e Encounter Details Date Type Department Care Team (Late st Contact Info) Description 12/17/2004 7:34 EDT Hospital Encounter [address] [address] Samuel Christian MD 108 [facility] [address] [place], [place] [phone] Social History Tobacco Use Types Packs/Day Years [...] Priority Date/Time Associated Diagnosis Comments PROTIME Routine 12/17/2004 7:34 EDT documented in this encounter Results * (ABNORMAL) PROTIME (12/17/2004 7:34 EDT) Pro Time 26.5(H) 12.3 - 14.3 secs [facility] I.N.R. 2.4(H) 0.9 - 1.1 Ratio [facility] Comment: Moderate Intensity Coumadin INR = 2.0-3.0 Adjustments in anticoagulant therapy dose should be based upon the INR and NOT the Pro Time. Performed at [facility], [place], [place] 12/17/2004 7:34 EDT 12/17/2004 7:36 EDT us Samuel Christian MD HEMATOLOGY & PF4 ORDERABLES Final Result [facility] [address] [place] [address] documented in this encounter Visit Diagnoses Not on filedocumented in this encounter
--- OUTSIDE RECORDS SUMMARY | 2005-01-07 12:38 | XMS_ITS | Encounter Summary ---
Author Organization [facility] Address [address] [place] [address] Care Team Providers Care Director Of Cardiology Service Line Name Role Phone Unavailable Primary Care Provider Unavailabl e Encounter Details Date Type Department Care Team (Late st Contact Info) Description 01/07/2005 13:38 EDT Hospital Encounter [address] [address] Samuel Christian MD 108 [facility] [address] [place], [place] [phone] Social History Tobacco Use Types Packs/Day Years [...] Priority Date/Time Associated Diagnosis Comments PROTIME Routine 01/07/2005 13:35 EDT documented in this encounter Results * (ABNORMAL) PROTIME (01/07/2005 13:35 EDT) Pro Time 23.7(H) 11.8 - 14.8 secs [facility] I.N.R. 2.1(H) 0.9 - 1.1 Ratio [facility] Comment: Moderate Intensity Coumadin INR = 2.0-3.0 Adjustments in anticoagulant therapy dose should be based upon the INR and NOT the Pro Time. Performed at [facility], [place], [place] 01/07/2005 13:3 5 EDT 01/07/2005 13:38 EDT us Samuel Christian MD HEMATOLOGY & PF4 ORDERABLES Final Result [facility] [address] [place] [address] documented in this encounter Visit Diagnoses Not on filedocumented in this encounter
--- OUTSIDE RECORDS SUMMARY | 2005-01-25 16:22 | XMS_ITS | Encounter Summary ---
Author Organization [facility] Address [address] [place] [address] Care Team Providers Care Route Delivery Service Driver Name Role Phone Unavailable Primary Care Provider Unavailabl e Encounter Details Date Type Department Care Team (Late st Contact Info) Description 01/25/2005 17:22 EDT Hospital Encounter [address] [address] Samuel Christian MD 108 [facility] [address] [place], [place] [phone] Social History Tobacco Use Types Packs/Day Years [...] Priority Date/Time Associated Diagnosis Comments PROTIME Routine 01/25/2005 17:22 EDT documented in this encounter Results * (ABNORMAL) PROTIME (01/25/2005 17:22 EDT) Pro Time 34.4(H) 11.8 - 14.8 secs [facility] Comment:PATIENT TOOK 500MG T YLENOL TABLET AT 12:15 TODAY I.N.R. 3.3(H) 0.9 - 1.1 Ratio [facility] Comment: Moderate Intensity Coumadin INR = 2.0-3.0Adjustments in anticoagulant therapy dose shouldbe based upon the INR and NOT the Pro Time. PATIENT TOOK 500MG TYLENOL TABLET AT 12:15 TODAY Performed at [facility], [place], [place] 01/25/2005 17:2 2 EDT 01/25/2005 17:24 EDT us Samuel Christian MD HEMATOLOGY & PF4 ORDERABLES Final Result [facility] [address] [place] [address] documented in this encounter Visit Diagnoses Not on filedocumented in this encounter
--- OUTSIDE RECORDS SUMMARY | 2005-02-02 10:36 | XMS_ITS | Encounter Summary ---
Author Organization [facility] Address [address] [place] [address] Care Team Providers Care Balancing Machine Operator Name Role Phone Unavailable Primary Care Provider Unavailabl e Encounter Details Date Type Department Care Team (Late st Contact Info) Description 02/02/2005 11:36 EDT Hospital Encounter [address] [address] Samuel Christian MD 108 [facility] [address] [place], [place] [phone] Social History Tobacco Use Types Packs/Day Years [...] the Pro Time. Performed at [facility], [place], [place] 02/02/2005 11:3 2 EDT 02/02/2005 11:34 EDT us Samuel Christian MD HEMATOLOGY & PF4 ORDERABLES Final Result [facility] [address] [place] [address] documented in this encounter Visit Diagnoses Not on filedocumented in this encounter
--- OUTSIDE RECORDS SUMMARY | 2005-04-13 08:32 | XMS_ITS | Encounter Summary ---
Author Organization [facility] Address [address] [place] [address] Care Team Providers Care Stripper Preliminary Name Role Phone Unavailable Primary Care Provider Unavailabl e Encounter Details Date Type Department Care Team (Late st Contact Info) Description 04/13/2005 8:32 EST Hospital Encounter [address] [address] Samuel Christian MD 108 [facility] [address] [place], [place] [address] Social History Tobacco Use Types Packs/Day Years [...]
--- OUTSIDE RECORDS SUMMARY | 2005-05-13 08:01 | XMS_ITS | Encounter Summary ---
Author Organization [facility] Address [address] [place] [address] Care Team Providers Care Coin Machine Servicer Repairer Name Role Phone Unavailable Primary Care Provider Unavailabl e Encounter Details Date Type Department Care Team (Late st Contact Info) Description 05/13/2005 8:01 EST Hospital Encounter [address] [address] Samuel Christian MD [address] [place] [address] [address] [place], [place] [phone] Social History Tobacco Use Types Packs/Day Years [...] Priority Date/Time Associated Diagnosis Comments PROTIME Routine 05/13/2005 7:56 EST documented in this encounter Results * (ABNORMAL) PROTIME (05/13/2005 7:56 EST) Pro Time 21.1(H) 12.0 - 15.0 secs [facility] I.N.R. 1.8(H) 0.9 - 1.1 Ratio [facility] Comment: Moderate Intensity Coumadin INR = 2.0-3.0 Adjustments in anticoagulant therapy dose should be based upon the INR and NOT the Pro Time. Performed at [facility], [place], [place] 05/13/2005 7:56 EST 05/13/2005 7:58 EST us Samuel Christian MD HEMATOLOGY & PF4 ORDERABLES Final Result [facility] [address] [place] [address] documented in this encounter Visit Diagnoses Not on filedocumented in this encounter
[2025-05-14 13:34] LABS: Prothrombin Time Whole Bld POC 28.1 sec (11.1-13.5); ~PT, ~INR - Anti Coag Clinic 2.3 (0.9-1.1)
--- NOTE | 2025-05-14 13:43 | MHC.OFFVISCO ---
Intake Intake Visit Reasons: Anticoagulation Allergies ranitidine (From Zantac) Allergy (Mild, Verified 05/14/25 13:30) Rash Nursing Note INR: 2.3 in therapeutic range of 2-3 Medications and supplements reviewed No changes in health, diet, medications, or supplements, Denies any signs and symptoms of bleeding or bruising or clotting. Bleeding, bruising, clotting discussed Nutritional guidance given Dose: 5mg X 5 days and 2.5mg X 2 days (Tues & Fri) F/U INR: 4 weeks Patient verbalizes understanding of instructions given Pt planning on moving to [place] with the tentative date of 10 days but if that doesn't work as planned, he will keep the next appointment with [facility]. Anti-Coag Initial Assessment Social Hx Patient Tobacco Use Status: Never used Tobacco alcohol intake: current Alcohol intake frequency: holidays/special occasions only Cardiovascular Hx: [place] Endocrine Hx: Thyroid Disease Blood Disorder Hx: Hyperlipidemia GI Hx: Other Hx: Prostate Cancer HX: Yes Psych. Illness/Depression: No Coding Level of Care Code Est Patient Level 1 Diagnoses Current use of anticoagulant therapy Z79.01 Results AMB INR Fingerstick AMB INR Fingerstick 2.3 Last Edit by Analilia Keene RN on 05/14/25 13:38 interface delay Assessment & Plan Assessment & Plan (1) Current use of anticoagulant therapy: Comment: (on Warfarin for hx DVTs) Code(s): Z79.01 - group home (current) use of anticoagulants Category: Medical
--- OUTSIDE RECORDS SUMMARY | 2025-05-14 17:16 | XMS_ITS | Clinical Summary ---
Author Organization [facility] [address] [facility] [address] Address [address] [place] [address] Phone Care Team Providers Care Locomotive Pipe Fitter Name Role Phone Brad Hooks NP Primary Care Provider Encounters Date Type Department Care Team Description 02/18/2025 Telephone Gastroenterology - [address] [phone] Maykel Jang MD from Last 3 Months Surgical History Surgery Date Site/Laterality Comments COLONOSCOPY PROCEDURE: HISTORICAL COLONOSCOPY OTHER SURGICAL HISTORY PROCEDURE: HISTORY OTHER; COMMENT: history of partial colectomy OTHER SURGICAL HISTORY 2002 PROCEDURE: CT PROSTATECTOMY PERINEAL RADICAL W/LYMPH NODE BX; COMMENT: [...] EDT Consult Gastroenterology - 299 [address] [facility] [address] [place] [phone] Renetta Oliveira NP [address] [facility] [address] [place] [address] Health Maintenance Due Date Last Done Comments [...] age to complete this topic Insurance MEDICARE [facility] Advance Directives Documents on File Type Date Recorded Patient Salesperson Handbags Expl anation Health Care Decision (hx) 10/15/2023 AD SAMANIEGO DIRECTIVE Health Care Decision (hx) 10/15/2023 AD SAMANIEGO DIRECTIVE Care Teams Locomotive Pipe Fitter Relationship Specialty Start Date End Date Brad Hooks NP [address] [facility] [place] Marinelli PCP - General 02/14/23
--- OUTSIDE RECORDS SUMMARY | 2025-05-14 17:16 | XMS_ITS | Clinical Summary ---
Author Organization [facility] Address [address] [place] [address] Care Team Providers Care Cardiology Consultants Name Role Phone Jeremy Booth MD Primary Care Provider [phone] Medications MULTIVITAMINS (MULTI-VITAMIN ORAL) Take by mouth [...] COVID-19 Vaccine ( season) 2025 Insurance MEDICARE [facility] Care Teams Cardiology Consultants Relationship Specialty Start Date End Date Jeremy Booth MD PCP - General 01/09/15
== END 2025-05-14 13:46 | disposition home or self-care (01) ==
LOC: HO.ACS 13:22
PROVIDERS: PCP Nurse Practitioner Family; Visit Provider Internal Medicine Medical Oncology
DX: Z79.01 Long term (current) use of anticoagulants (principal)

== ENCOUNTER → 2025-05-14 13:22 | Outpatient (BNVA) | payer MEDICARE, BC, SELFPAY | PROVIDERS: PCP Nurse Practitioner Family; Visit Provider Internal Medicine Medical Oncology | DX: Z86.718 Personal history of other venous thrombosis and embolism (principal); Z51.81 Encounter for therapeutic drug level monitoring; Z79.01 Long term (current) use of anticoagulants | CPT/HCPCS: 85610; 99211 ==